=== PATIENT | female | born 1945 | race Caucasian/White ===

== ENCOUNTER → 2024-01-14 | Outpatient (CLI) | payer OTHER, MEDICAID, SELFPAY ==
[2024-01-14 11:19] LABS: Basophils % (Auto) 1 % (0-2.5); Eosinophils # (Auto) 0.1 Thou/mm3 (0.0-0.5); Eosinophils % (Auto) 2 % (0-10); Hemoglobin 13.4 g/dL (12.0-16.0); Immature Granulocytes % (Auto) 0 % (0-0); Immature Granulocytes Auto 0.03 Thou/mm3 (0.00-0.00); Lymphocytes # (Auto) 2.6 Thou/mm3 (1.0-4.8); Lymphocytes % (Auto) 33 % (10-50); Mean Corpuscular HGB Conc 33.5 g/dl (31.0-37.0); Mean Corpuscular Hemoglobin 27.8 pg (25.0-35.0); Mean Corpuscular Volume 83 fL (80-100); Monocytes # (Auto) 0.7 Thou/mm3 (0.0-0.8); Monocytes % (Auto) 9 % (0-12); Neutrophils # (Auto) 4.3 Thou/mm3 (1.8-7.7); Neutrophils % (Auto) 55 % (37-80); Nucleated Red Blood Cell % 0 /100 WBC (0); Platelet Count 368 Thou/mm3 (140-440); RDW Standard Deviation 41.5 fL (36.4-46.3); Red Blood Count 4.82 Miln/mm3 (4.00-5.20); White Blood Count 7.9 Thou/mm3 (3.6-11.0)
[2024-01-14 11:38] LABS: Alanine Aminotransferase 33 U/L (10-49); Albumin, Serum 4.5 gm/dL (3.4-4.8); Albumin/Globulin Ratio 1.9 (1.2-2.2); Alkaline Phosphatase 151 U/L (46-116); Anion Gap 7 (7-16); Aspartate Amino Transferase 23 U/L (0-34); BUN/Creatinine Ratio 21 Ratio (12-20); Bilirubin,Total 0.6 mg/dL (0.3-1.2); Blood Urea Nitrogen 17 mg/dL (9-23); Calcium 10.1 mg/dL (8.3-10.6); Calcium (Corrected) 10.1 mg/dL (8.5-10.1); Carbon Dioxide 24.9 mMol/L (20.0-31.0); Cardiac Risk Estimate 3.4 RATIO (3.7-5.6); Chloride 103 mMol/L (98-107); Cholesterol 247 mg/dL (132-200); Creatinine (Component) 0.8 mg/dL (0.6-1.3); Globulin 2.4 gm/dL (2.3-3.5); Glucose 98 mg/dL (74-106); HDL Cholesterol 73 mg/dL (40-60); LDL Cholesterol,Calculated 144 mg/dL (0-130); Osmolality,Calculated 271 (275-295); Potassium 4.8 mMol/L (3.4-5.1); Sodium 135 mMol/L (136-145); Thyroid Stimulating Hormone 2.51 uIU/mL (0.55-4.78); Total Protein 6.9 gm/dL (5.7-8.2); Triglycerides 152 mg/dL (30-150); eGFR > 60 See Note
[2024-01-14 11:46] LABS: Glucose Estimated Average 117 mg/dL (80-131); Hemoglobin A1C 5.7 % Hgb (4.8-6.0)
[2024-01-14 12:56] LABS: Collection Type, Urine Clean Catch
[2024-01-14 13:21] LABS: Bacteria,Urine Rare; Bilirubin,Urine Negative (Negative); Blood,Urine Negative (Negative); Clarity,Urine Clear (Clear/Hazy); Color,Urine Colorless (Lt Yel-Yel); Glucose, Urine Negative (Negative); Ketones,Urine Negative (Negative); Leukocyte Esterase,Urine Negative (Negative); Nitrite,Urine Negative (Negative); PH,Urine 6.5 (5.0-7.0); Protein,Urine Negative (Neg - Trace); RBC,Urine 1 /hpf (0-3); Specific Gravity,Urine 1.011 (1.001-1.035); Squamous Epithelial Cell,Urine < 1 /hpf (0-5); Urobilinogen,Urine Negative mg/dL (0.0-1.0); WBC,Urine 5 /hpf (0-5)
[2024-01-14 16:47] LABS: RA Screen Negative (Negative)
== END | disposition home or self-care (01) ==
PROVIDERS: PCP Family Medicine; Referring Provider Family Medicine; Visit Provider Family Medicine
DX: Z00.00 Encounter for general adult medical examination without abnormal findings (principal); M25.50 Pain in unspecified joint
CPT/HCPCS: 36415; 80053; 80061; 81001; 83036; 84443; 85025; 86430

== ENCOUNTER → 2024-01-24 | Outpatient (CLI) | payer OTHER, MEDICAID, SELFPAY ==
--- NOTE | 2024-01-24 09:44 | XR_ITS ---
Examination: Shoulder,right, 3 views Technique: Shoulder AP internal rotation, AP external rotation, Y view shoulder, 3 views Exam date and time :January 24, 2024 1020 hours INDICATIONS: Right shoulder pain beginning 3 months ago FINDINGS: Moderate osteopenia Moderate narrowing glenohumeral joint No fracture or shoulder dislocation IMPRESSION: Moderate narrowing glenohumeral joint
== END | disposition home or self-care (01) ==
PROVIDERS: PCP Family Medicine; Referring Provider Family Medicine; Visit Provider Family Medicine
DX: M25.811 Other specified joint disorders, right shoulder (principal)
CPT/HCPCS: 73030

== ENCOUNTER 2024-09-04 05:54 | Inpatient (IN) | payer MEDICARE, MEDICAID, SELFPAY ==
[2024-09-04] VITALS (26 sets, daily range): BP systolic 134–211; BP diastolic 64–99; PULSE 70–82; RESP 15–20; TEMP 36.2–36.8; O2SAT 88–99; BMI 29.6; BMI 34.0
--- NOTE | 2024-09-04 | XR_ITS ---
Examination: MRI thoracic spine, without intravenous contrast. MRI thoracic spine , with intravenous contrast. Exam date and time: September 04, 2024 1255 hours INDICATIONS: Back pain one month, today Technique: Multiple axial, sagittal and coronal images of the thoracic spine have been obtained with the Siemens high-resolution 1.5 Latoya MRI scanner. Images obtained included T2 weighted fat suppressed sagittal sections, TR 3500, TE 46, T2 weighted coronal fat suppressed images, TR 3050, TE 84, T2-weighted transverse fat suppressed images, TR 30-60, TE 63, proton density transverse images, TR 4720, TE 46, and T1 weighted coronal images, TR 560, TE 13. Axial, sagittal and coronal images are obtained post intravenous injection 14 cc gadolinium. Findings: Severe osteopenia Chronic osteoporotic compressions multiple mid to lower dorsal vertebral bodies Diffuse thoracic disc desiccation Mild diffuse thoracic disc narrowing Diffuse abnormal enhancement involving all thoracic vertebral bodies No enhancing epidural tumor impinging upon the thoracic cord No enhancement of the thoracic cord No focal thoracic disc protrusions IMPRESSION: Severe osteopenia Dual mild chronic osteoporotic compressions mid and lower dorsal vertebral bodies Diffuse abnormal enhancement involving all thoracic vertebral body suspicious for osseous metastatic disease Considerable body bone scan and plain film metastatic bone survey follow-up
--- NOTE | 2024-09-04 | XR_ITS ---
Examination: MRI lumbar spine, without intravenous contrast. MRI lumbar spine , with intravenous contrast. Exam date and time: September 04, 2024 12:55 PM INDICATIONS: Lower back pain one month worse today Technique: Multiple axial, sagittal and coronal images of the lumbar spine have been obtained with the Siemens high-resolution 1.5 Latoya MRI scanner. Images obtained included T2 weighted fat suppressed sagittal sections, TR 3500, TE 46, T2 weighted coronal fat suppressed images, TR 3050, TE 84, T2-weighted transverse fat suppressed images, TR 30-60, TE 63, proton density transverse images, TR 4720, TE 46, and T1 weighted coronal images, TR 560, TE 13. Axial, sagittal and coronal images are obtained post intravenous injection 14 cc gadolinium. Findings: Severe osteopenia No lumbar fracture Adequate alignment lumbar vertebral bodies Diffuse lumbar disc desiccation Multiple osteolytic lesions on the precontrast images Postcontrast images demonstrate diffuse abnormal enhancement involving all lumbar vertebral bodies sacral segments and visualized bones of the pelvis No enhancing epidural tumor impinging upon the cauda equina IMPRESSION: Findings most consistent with widespread osseous metastatic disease Considerable body bone scan, metastatic plain film bone survey follow-up
--- NOTE | 2024-09-04 06:22 | XR_ITS ---
Examination: CT abdomen and pelvis without contrast. Coronal 3-D reconstructions. Sagittal 2-D reconstructions. Date and time of exam:September 04, 2024 0710 hours INDICATIONS: Bilateral abdominal pain beginning 2 days ago CTDI: vol (mGy): 9.44 DLP: (mGycm): 554. Technique: Axial images of the abdomen have been obtained, 3 mm slice thickness Intravenous contrast material has not been administered. Low dose protocols were performed. One or more of the following dose reduction techniques were used; automated exposure control, adjustment of the mA and/or KV according to patient size, use of iterative reconstruction technique. Findings: Suspicious for septal edema at the lung bases Retrocardiac gastric hernia. Liver is mildly irregular in contour and enlarged, 18 cm Cholelithiasis, gallbladder wall appears mildly thickened Spleen is not enlarged No pancreatic or adrenal mass No renal or ureteral calculi Significant abdominal lymphadenopathy, periaortic lymph nodes measuring up to 20 mm Heavy calcification abdominal aorta No pericecal inflammatory change Absent uterus No pelvic mass No bladder mass or bladder calculi Prominent osteopenia Moderate to advanced narrowing hip joints IMPRESSION: Suspicious for pulmonary edema at the lung bases, consider follow-up PA chest Moderate hepatomegaly, primary hepatocellular disease Cholelithiasis, recommend hepatobiliary sonography to exclude cholecystitis Significant abdominal lymphadenopathy, differential would include metastatic lymphadenopathy, Hodgkin's disease, non-Hodgkin's lymphoma, consider PET CT scan follow-up No CT findings of appendicitis or bowel obstruction
--- NOTE | 2024-09-04 06:25 | PD.EDRME ---
Rapid Medical Screening Exam RME Arrival date/time: 09/04/24 05:54 79-year-old female presents to the emergency department with complaint of lower back and right flank pain worse with movement Chief Complaint: Back Pain/Injury Vital signs: Vital Signs Temperature 97.7 F 09/04/24 05:58 Pulse Rate 82 09/04/24 05:58 Respiratory Rate 18 09/04/24 05:58 Blood Pressure 171/79 H 09/04/24 05:58 Pulse Oximetry (%) 96 09/04/24 05:58 Oxygen Delivery Method Room Air 09/04/24 05:58
[2024-09-04] MEDS: KETOROLAC INJ 30 MG/ML VIAL IM (06:34)
[2024-09-04 06:54] LABS: Basophils # (Auto) 0.0 Thou/mm3 (0.0-0.2); Basophils % (Auto) 0 % (0-2.5); Eosinophils # (Auto) 0.1 Thou/mm3 (0.0-0.5); Eosinophils % (Auto) 1 % (0-10); Hematocrit 38.9 % (36.0-46.0); Hemoglobin 13.1 g/dL (12.0-16.0); Immature Granulocytes Auto 0.12 Thou/mm3 (0.00-0.00); Lymphocytes # (Auto) 1.6 Thou/mm3 (1.0-4.8); Lymphocytes % (Auto) 15 % (10-50); Mean Corpuscular HGB Conc 33.7 g/dl (31.0-37.0); Mean Corpuscular Hemoglobin 27.9 pg (25.0-35.0); Mean Corpuscular Volume 83 fL (80-100); Monocytes # (Auto) 0.9 Thou/mm3 (0.0-0.8); Monocytes % (Auto) 8 % (0-12); Neutrophils # (Auto) 7.6 Thou/mm3 (1.8-7.7); Neutrophils % (Auto) 74 % (37-80); Nucleated Red Blood Cell # 0.00 Thou/mm3 (0.00-0.00); Nucleated Red Blood Cell % 0 /100 WBC (0); Platelet Count 276 Thou/mm3 (140-440); RDW Standard Deviation 44.0 fL (36.4-46.3); Red Blood Count 4.70 Miln/mm3 (4.00-5.20); White Blood Count 10.2 Thou/mm3 (3.6-11.0)
[2024-09-04 07:09] LABS: Alanine Aminotransferase 21 U/L (10-49); Albumin, Serum 4.3 gm/dL (3.4-4.8); Albumin/Globulin Ratio 1.6 (1.2-2.2); Alkaline Phosphatase 199 U/L (46-116); Anion Gap 11 (7-16); Aspartate Amino Transferase 23 U/L (0-34); BUN/Creatinine Ratio 21 Ratio (12-20); Bilirubin,Total 0.7 mg/dL (0.3-1.2); Blood Urea Nitrogen 17 mg/dL (9-23); Calcium 9.6 mg/dL (8.3-10.6); Calcium (Corrected) 9.6 mg/dL (8.5-10.1); Carbon Dioxide 20.7 mMol/L (20.0-31.0); Chloride 107 mMol/L (98-107); Creatinine (Component) 0.8 mg/dL (0.6-1.3); Estimated Creatinine Clearance 55.3 mL/min (>60); Globulin 2.7 gm/dL (2.3-3.5); Glucose 118 mg/dL (74-106); Lipase 24 U/L (12-53); Osmolality,Calculated 280 (275-295); Potassium 4.3 mMol/L (3.4-5.1); Sodium 139 mMol/L (136-145); Total Protein 7.0 gm/dL (5.7-8.2); eGFR > 60 See Note
[2024-09-04 08:14] LABS: Collection Type, Urine Clean Catch
--- NOTE | 2024-09-04 08:22 | EDNOTE_ITS ---
ED General RME/HPI General Chief complaint: Back Pain/Injury Stated complaint: BILATERAL BACK PAIN Time Seen by Provider: 09/04/24 08:22 Arrival date/time: 09/04/24 05:54 RME / HPI RME / HPI narrative: 09/04/24 05:54 79-year-old female presents to the emergency department with complaint of lower back and right flank pain worse with movement Related Data Allergies Allergy/AdvReac Type Severity Reaction Status Date / Time codeine Allergy Verified 09/04/24 05:56 Review of Systems Review of Systems Systems Reviewed: All systems reviewed, normal except as documented ED Exam Narrative Physical exam: Physical Exam GENERAL: NAD, AAOx3 HEENT: Moist mucosa. Eyes open, symmetrical, & clear CARDIO: Heart RRR, no obvious murmurs PULM: No noted coughing/dyspnea CTA B/L, no R/W/R GI: Abdomen soft, nondistended, no pain on palpation. BSx4 SKIN/MSK/EXT: No wounds/rashes/edema/amputations, no pain on palpation. Pedal pulses present B/L NEURO: AAOx3, no focal neuro deficits, able to move all 4 extremities Course Course Course Narrative: See MDM Quality Measures none Orders Category Date Time Status MRI Screening NOW Care 09/04/24 11:20 Active Consult to Oncology Stat Cons 09/04/24 14:[address] abdomen pelvis wo con Stat Exams 09/04/24 06:22 Completed CXRP [XR chest 1V portable] Stat Exams 09/04/24 08:40 Completed MR lumbar spine wo/w con Stat Exams 09/04/24 Completed MR thoracic spine wo/w con Stat Exams 09/04/24 Completed US gall bladder Stat Exams 09/04/24 08:36 Completed CBC Stat Lab 09/04/24 06:32 Completed Comprehensive Metabolic Panel Stat Lab 09/04/24 06:32 Completed Lipase Stat Lab 09/04/24 06:32 Completed UA, C/S IF [Urinalysis, C/S if Indicated] Stat Lab 09/04/24 08:06 Completed CYCLObenzaPRINE [Flexeril] Med 09/04/24 06:22 Discontinued 10 mg PO X1 ONE Gabapentin [Neurontin] Med 09/04/24 10:55 Discontinued 600 mg PO X1 ONE Ketorolac Inj [Toradol Inj] Med 09/04/24 06:22 Discontinued 30 mg IM X1 ONE LORazepam [Ativan] Med 09/04/24 12:36 Discontinued 1 mg PO X1 ONE Morphine Inj Med 09/04/24 08:27 Discontinued 2 mg IVP X1 ONE Vital Signs Vital signs: Vital Signs Temperature 97.7 F 09/04/24 05:58 Pulse Rate 82 09/04/24 05:58 Respiratory Rate 18 09/04/24 05:58 Blood Pressure 171/79 H 09/04/24 05:58 Pulse Oximetry (%) 96 09/04/24 05:58 Oxygen Delivery Method Room Air 09/04/24 05:58 Discharge Plan Prescriptions/Referrals Referrals: Penelope Francisco MD [Primary Care Provider] - In 1 week Problem List Clinical Impression: Strain of lumbar region Patient/Caregiver Discharge Instructions Additional Instructions: Follow-up with primary care physician within 1 week of discharge. Ask for refe rral to an oncologist with regards to your abdominal CT scan findings of significant abdominal lymphadenopathy that are radiologist said was concerning. Continue your antibiotics for UTI that you are already taking at home Should any symptoms recur or worsen patient is instructed to return to the ER. Print Language: Romanian MDM Narrative MDM hospital course: 79-year-old female with past medical history of arthritis who presented to the ED due to back pain. Patient states that she suddenly woke up around 11:00 at night with sharp shooting back pain rated 10 out of 10. She endorses that last week she had a bladder infection and was taking antibiotics. She also endorses that her belly has been getting distended, she does endorse having regular bowel movements and take stool softeners. Currently no urinary complaints, denies fever, chills, shortness of breath, palpitations, chest pain, recent travel, sick contacts. 0829: CBC unremarkable, CMP unremarkable. CT abdomen pelvis shows Suspicious for pulmonary edema at the lung bases, consider follow-up PA chest, Moderate hepatomegaly, primary hepatocellular disease, Cholelithiasis, recommend hepatobiliary sonography to exclude cholecystitis, Significant abdominal lymphadenopathy, differential would include metastatic lymphadenopathy, Hodgkin's disease, non-Hodgkin's lymphoma, consider PET CT scan follow-up 0837: Gallbladder US ordered, morphine 2mg IVx1 ordered 1042: Gallbladder ultrasound shows cholelithiasis negative for acute cholecystitis, Patient states pain is better when she does not move. If she tries to sit or stand pain gets worse, gabapentin 600mg PO x1 given 1130: MRI thoracic and lumbar spine without contrast ordered, Ativan was given prior to MRI for claustrophobia 1436: Thoracic/lumbar spine MRI shows widespread osseous metastatic disease. Spoke to Dr. Torres radiation oncologist in regards to the patient's intractable pain and recommended admission to establish care. 1438: Spoke to IM team and will come admit the patient. Clinical Information Provided by patient Medical Records Reviewed [facility] Labs/Rad/Tests considered, not Ordered Describe details: Cervical MRI not ordered as pain and symptoms are in the lower regions of the spine Chronic Illness/Social Conditions which may negatively complicate care or outcome(s)-explain: None or not applicable Lab Interpretation Labs: interpreted by ar Lab(s) interpretation(s): UA negative, CMP negative, CBC unremarkable Imaging Radiology reports / interpretation(s): See radiologist report Medication Administration(s) Medication Administration History Discontinued Medications Cyclobenzaprine HCl (Cyclobenzaprine 5 Mg Tablet) 10 mg PO X1 ONE Stop: 09/04/24 06:23 Last Admin: 09/04/24 06:32 Dose: 10 mg Documented By: CVL Gabapentin (Gabapentin 300 Mg Capsule) 600 mg PO X1 ONE Stop: 09/04/24 10:56 Last Admin: 09/04/24 11:50 Dose: 600 mg Documented By: CG Ketorolac Tromethamine (Ketorolac Inj 30 Mg/Ml Vial) 30 mg IM X1 ONE Stop: 09/04/24 06:23 Last Admin: 09/04/24 06:34 Dose: 30 mg Documented By: CVL Lorazepam (Lorazepam 0.5 Mg Tablet) 1 mg PO X1 ONE Stop: 09/04/24 12:37 Last Admin: 09/04/24 12:40 Dose: 1 mg Documented By: CG Morphine Sulfate (Morphine Sulf Inj 10 Mg/Ml Vial) 2 mg IVP X1 ONE Stop: 09/04/24 08:28 Last Admin: 09/04/24 08:55 Dose: 2 mg Documented By: CG See above Diagnosis Differential diagnosis: Lumbar spinal stenosis, radiculopathy, arthritis, psoriatic arthritis
[2024-09-04 08:25] LABS: Bilirubin,Urine Negative (Negative); Blood,Urine Negative (Negative); Clarity,Urine Clear (Clear/Hazy); Color,Urine Yellow (Lt Yel-Yel); Culture Indicated,Urine Not Indicated; Glucose, Urine Negative (Negative); Ketones,Urine Negative (Negative); Leukocyte Esterase,Urine Positive (Negative); Nitrite,Urine Negative (Negative); PH,Urine 6.0 (5.0-7.0); Protein,Urine Trace (Neg - Trace); RBC,Urine 3 /hpf (0-3); Specific Gravity,Urine 1.029 (1.001-1.035); Squamous Epithelial Cell,Urine 1 /hpf (0-5); Urobilinogen,Urine Negative mg/dL (0.0-1.0); WBC,Urine 5 /hpf (0-5)
--- NOTE | 2024-09-04 08:36 | XR_ITS ---
Examination: Abdomen sonogram, Limited Date and time of exam: September 04, 2024 0903 hours INDICATIONS: Onset right upper abdominal pain beginning this morning Technique: Real-time hernandez scale transabdominal sonographic images of the upper abdomen obtained. Findings: 15 mm gallstone. Normal gallbladder wall. Common bile duct 0.6 cm no stones. Pancreatic head 1.9 cm Liver 16.5 cm fatty infiltration Normal hepatopedal portal venous flow Patent IVC IMPRESSION: Cholelithiasis, negative for cholecystitis
--- NOTE | 2024-09-04 08:40 | XR_ITS ---
Examination: AP chest single view Technique one AP portable semiupright chest single view Date and time: September 04, 2024 0844 hours Comparison February 02, 2020 INDICATIONS: Shortness of breath chest pain today. FINDINGS: No significant cardiac enlargement. No lobar pneumonia or pulmonary edema. Mild accentuation bronchovascular markings IMPRESSION: Bronchitis pattern
[2024-09-04] MEDS: MORPHINE SULF INJ 10 MG/ML VIAL 2 MG IVP ×2 (08:55→16:39)
[2024-09-04] MEDS: GABAPENTIN 300 MG CAPSULE 600 MG PO (11:50)
--- NOTE | 2024-09-04 12:36 | PC.NURSE ---
Per Kesha [employer] PROFESSOR order 1mg Ativan po for MRI exam, primary nurse Herrera Burch RN made aware.
--- NOTE | 2024-09-04 15:09 | ESHP_ITS ---
<Statement entered by Denisse Crawley MD - 09/05/24 08:42> Marisol Calvillo is a 79-year-old female with a history of generalized osteoarthritis who presented to the ED on September 04, 2024, with complaints of worsening lower back and bilateral flank pain over the past four months, significantly intensified in recent days. She reports constipation with infrequent bowel movements, difficulty urinating, abdominal distension, small dark stools, and recent episodes of nausea and dry heaving. She was previously seen by her PCP and prescribed nitrofurantoin for a suspected UTI, though she denied dysuria and was unable to tolerate the medication. She also received milk of magnesia, which provided some relief. She has a remote history of hemorrhoids and believes they may be contributing to her current bowel symptoms. She denies fever, chills, chest pain, or respiratory symptoms. Imaging revealed multiple enhancing osteolytic lesions throughout the thoracic and lumbar spine, sacrum, and pelvis, concerning for metastatic disease. Additional findings include significant abdominal lymphadenopathy, mild hepatomegaly with fatty infiltration, retrocardiac gastric hernia, and prominent osteopenia. Given the concern for malignancy, a GI consult was obtained and colonoscopy is pending, with possible GI origin suspected due to family history of colon cancer. She was admitted for further workup and pain management. Her current regimen includes acetaminophen, [place], and IV morphine as needed. She remains NPO in preparation for colonoscopy and is receiving DVT and GI prophylaxis. Her code status is routine. Case was discussed with attending physician. Denisse Crawley DO PGY II This document was transcribed using voice recognition technology. Minor inaccuracies may be present. Documentation for date of: 09/04/24 HPI History of Present Illness History of present illness: 79-year-old female with PMHx of generalized osteoarthritispresented to the ED on 09/04/2024 with complaint of lower back and b/l flank pain worse with movement. Cathi is right above her bottoms on both sides. The pain has been going on for 4mo and has been worsening especially during the past few days. Patient has been constipated with infrequent BM and experiencing difficulty urinating. PCP visit 1 week ago and patient was given nitrofurantoin for UTI, though she has not had dysuria. Patient states that the choice ABx doesnt sit on her and she throws it up. Pt was also given milk of magnesia which has helped her constipation. She also endorses that her belly has been getting distended, over the course of the past week. States that her stools are small and darkly colored. Admits to nausea and vomited before coming to ED (although dry heaves). Pt states that she has had hemorrhoids, which bled in the distant past. Patient suggests that engorged hemorrhoids are blocking the passage of stool. Currently no urinary complaints, denies fever, chills, shortness of breath, palpitations, chest pain, recent travel, sick contacts. Allergies: codeine -makes her vomit PMHx: osteoarthritis of hands, knees, and hips. PSHx: hysterectomy, femoral bone removed in remote past. FHx: grandmother had colon cancer SHx: denies smoking cigarettes, marijuana, or other drug use. Denies drinking alcohol. Reason for Admission: Imaging was remarkable for widespread enhancing lesions of multiple vertebrae. Pt was admitted for work up of possible metastaic disease and pain managment. Exam Vital Signs Temp Pulse Resp BP Pulse Ox O2 Del Method 97.1 F 79 15 185/75 H 98 Room Air 09/04/24 14:52 09/04/24 14:52 09/04/24 14:52 09/04/24 14:52 09/04/24 14:52 09/04/24 14:52 Narrative Exam GENERAL: NAD, AAOx3 HEENT: Moist mucosa. Eyes open, symmetrical, & clear CARDIO: Heart RRR, no obvious murmurs PULM: No noted coughing/dyspnea CTA B/L, no R/W/R GI: Abdomen soft, distended, tender to deep palpation RUQ. BSx4 diminished. Percussion dull throughout. SKIN/MSK/EXT: No wounds/rashes/edema/amputations, no pain on palpation. Pedal pulses present B/L NEURO: AAOx3, no focal neuro deficits, able to move all 4 extremities Results: Labs 09/05/24 04:58 09/05/24 04:58 Labs: Short CBC 09/04/24 Range/Units 06:32 WBC 10.2 (3.6-11.0) Thou/mm3 Hgb 13.1 (12.0-16.0) g/dL Hct 38.9 (36.0-46.0) % Plt Count 276 (140-440) Thou/mm3 BMP 09/04/24 06:32 Sodium 139 Potassium 4.3 Chloride 107 Carbon Dioxide 20.7 BUN 17 Creatinine 0.8 Glucose 118 H Calcium 9.6 Liver Function 09/04/24 Range/Units 06:32 Total Bilirubin 0.7 (0.3-1.2) mg/dL AST 23 (0-34) U/L ALT 21 (10-49) U/L Alkaline Phosphatase 199 H (46-116) U/L Albumin 4.3 (3.4-4.8) gm/dL Urine 09/04/24 Range/Units 08:06 Urine Color Yellow (Lt Yel-Yel) Urine Clarity Clear (Clear/Hazy) Urine pH 6.0 (5.0-7.0) Ur Specific [place] 1.029 (1.001-1.035) Urine Protein Trace (Neg - Trace) Urine Glucose (UA) Negative (Negative) Quality Measures Quality Measures none Advance care planning discussed with:: patient Medications Home Medications and Allergies Home Medications ?Medication ?Instructions ?Recorded ?Confirmed ?Type nitrofurantoin macrocrystal 100 mg 100 mg PO BID 09/0409/04/24 History capsule Allergies Allergy/AdvReac Type Severity Reaction Status Date / Time codeine Allergy Verified 09/04/24 05:56 Visit Medications Discontinued Medications Cyclobenzaprine HCl (Cyclobenzaprine 5 Mg Tablet) 10 mg PO X1 ONE Stop: 09/04/24 06:23 Last Admin: 09/04/24 06:32 Dose: 10 mg Gabapentin (Gabapentin 300 Mg Capsule) 600 mg PO X1 ONE Stop: 09/04/24 10:56 Last Admin: 09/04/24 11:50 Dose: 600 mg Ketorolac Tromethamine (Ketorolac Inj 30 Mg/Ml Vial) 30 mg IM X1 ONE Stop: 09/04/24 06:23 Last Admin: 09/04/24 06:34 Dose: 30 mg Labetalol HCl (Labetalol Inj 5 Mg/Ml Vial 20 Ml) 10 mg IVP X1 ONE Stop: 09/04/24 15:08 Lorazepam (Lorazepam 0.5 Mg Tablet) 1 mg PO X1 ONE Stop: 09/04/24 12:37 Last Admin: 09/04/24 12:40 Dose: 1 mg Morphine Sulfate (Morphine Sulf Inj 10 Mg/Ml Vial) 2 mg IVP X1 ONE Stop: 09/04/24 08:28 Last Admin: 09/04/24 08:55 Dose: 2 mg Assessment & Plan Plan 79-year-old female with PMHx of arthritis presented to the ED on 09/04/2024 with complaint of lower back and right flank pain worse with movement. Imaging was remarkable for widespread enhancing lesions of multiple vertebrae. Pt was admitted for work up of possible metastaic disease and pain managment. 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 No lumbar fracture. Multiple osteolytic lesions on the precontrast images. Postcontrast images demonstrate diffuse abnormal enhancement involving all lumbar vertebral bodies, sacral segments, and visualized bones of the pelvis. Lumbar spine MRI: Diffuse abnormal enhancement involving all thoracic vertebral bodies. CTAP: Retrocardiac gastric hernia. Liver is mildly irregular in contour and enlarged, 18 cm. No renal or ureteral calculi. Significant abdominal lymphadenopathy, periaortic lymph nodes measuring up to 20mm. Heavy calcification abdominal aorta. Absent uterus. Prominent osteopenia. US of gallbladder: 15 mm gallstone. Normal gallbladder wall. Common bile duct 0.6 cm no stones. Pancreatic head 1.9 cm. Liver 16.5 cm fatty infiltration. Normal hepatopedal portal venous flow. Patent IVC Plan: Likely primary source GI; pending colonoscopy. Rad-Onc consulted. Acetaminophen 325mg Q6h PRN for mild pain [place] 5/325 for moderate pain Morphine IV 2mg Q4h PRN for severe pain #Constipation #hemorrhoids Ddx: consider partial SBO PE findings of marked abdominal distension, dull percussion and diminished bowel sounds throughout. Patient states that she has been having small BM which are darkly colored. GI consulted. Plan: patient drinks GoLytely in preparation for colonscopy tonight. #Arthritis #hx of UTI Patient completed course of ABx for previous infection. Urine negative for bacteria, WBC, ketones, or nitrites. Health Maintenance: Disposition: Med Surg Diet: NPO PPx DVT: heparin 5000u bid PPx GI: Protonix 40mg bid Code status: Routine This case was discussed with my attending physician, Dr. Rodriguez, and senior resident Dr Crawley. Chayo Sibley, DO PGY I Attending Provider Attestation/Addendum Patient was seen in the ER bed #1. She was accompanied by her friend who is very concerned about her. Patient is very active she used to be playing with her dogs with her friend. The patient normally is not complaining of anything. She complained of abdominal pain. She has back pain. Patient was diagnosed with spinal osseous metastatic disease. Her friend also noted that her abdomen is very distended which is not normal for her. She has history of UTI, arthritis, hemorrhoids and constipation. Patient will be referred for oncology evaluation. Discussed with housestaff
[2024-09-04] MEDS: LABETALOL INJ 5 MG/ML VIAL 20 ML 10 MG IVP (16:36)
[2024-09-04] MEDS: NA SU/NAHCO3/KC/PEG (Golytely) 4,000 ML BTL 4000 ML PO (16:56)
--- NOTE | 2024-09-04 18:29 | ESCONSULT_ITS ---
HPI Data of Consult Consult date: 09/04/24 Requesting Physician: Jj Rodriguez MD Primary Care Provider: Penelope Francisco MD Consult Narrative Reason for consult: Suspected widespread malignancy History of present illness: 79-year-old lady with symptoms of back pain increasing in severity for the past few days, associate with increasing constipation and difficulty urinating. Patient may be passing blood tinged stools but does have hemorrhoids. Had TL MRI along with abdominal CT today at the ER. This revealed diffuse abnormal enhancement of all the thoracic lumbar vertebral body consistent with mets disease. Abdominal pelvic scan suspicious for pulmonary edema at lung bases moderate hepatomegaly primary hepatocellular disease cholelithiasis, and significant abdominal lymphadenopathy up to 20 mm para-aortic lymph node area. Labs reveals unremarkable CBC with 10.2 WBC hemoglobin 13.1 platelets 2 76,000. CMP reveals moderately elevated alk phos of 199. Patient now referred for oncological consultation. 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 Meds Home Medications and Allergies Allergies Allergy/AdvReac Type Severity Reaction Status Date / Time codeine Allergy Verified 09/04/24 05:56 Exam Vital Signs Temp Pulse Resp BP Pulse Ox O2 Del Method 97.3 F 81 16 154/83 H 97 Room Air 09/04/24 16:08 09/04/24 16:36 09/04/24 16:08 09/04/24 17:30 09/04/24 17:30 09/04/24 16:08 Narrative Exam Appears tired in no acute distress answering questions well Results Labs 09/04/24 06:32 09/04/24 06:32 Labs: Short CBC 09/04/24 Range/Units 06:32 WBC 10.2 (3.6-11.0) Thou/mm3 Hgb 13.1 (12.0-16.0) g/dL Hct 38.9 (36.0-46.0) % Plt Count 276 (140-440) Thou/mm3 BMP 09/04/24 06:32 Sodium 139 Potassium 4.3 Chloride 107 Carbon Dioxide 20.7 BUN 17 Creatinine 0.8 Glucose 118 H Calcium 9.6 Liver Function 09/04/24 Range/Units 06:32 Total Bilirubin 0.7 (0.3-1.2) mg/dL AST 23 (0-34) U/L ALT 21 (10-49) U/L Alkaline Phosphatase 199 H (46-116) U/L Albumin 4.3 (3.4-4.8) gm/dL Urine 09/04/24 Range/Units 08:06 Urine Color Yellow (Lt Yel-Yel) Urine Clarity Clear (Clear/Hazy) Urine pH 6.0 (5.0-7.0) Ur Specific [place] 1.029 (1.001-1.035) Urine Protein Trace (Neg - Trace) Urine Glucose (UA) Negative (Negative) Assessment and Plan Additional Assessment & Plan Additional Plan: 1. Widespread bony mets noted in TL spine, with significant abdominal lymphadenopathy, up to 20 mm in para-aortic area. 2. Dr. Mclean GI specialist scheduled to see patient, likely perform endoscopy procedures, with patient having GI symptoms. 3. Would consider CT-guided biopsy of the large periaortic node if no other biopsiable suspicious area noted during hospital stay. 4. Would get bone scan, tumor markers CEA CA125 CA 19?9 during hospital stay. 5. Will follow. Thank you for allowing me to evaluate this patient
--- NOTE | 2024-09-04 19:46 | PD.IMCONS ---
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 and said she needs to go to the emergency room because she has abdominal pain and discomfort and has not been feeling well according to the friends for the last 4 months but she ignored her symptoms Today the pain was much worse she came into the emergency room where CT scan of the abdomen pelvis showed hepatomegaly and cholelithiasis significant abdominal lymphadenopathy and pelvic lymphadenopathy And imaging studies of the MRI of the back thoracic and lumbar spines also also metastatic disease to the bone Gallbladder ultrasound shows cholelithiasis single 15 mm stone I have been consulted cc:: cc: Jj Rodriguez MD Review of Systems Review of Systems Systems Reviewed: All systems reviewed, normal except as documented Past Medical History Surgical History OTHER SURGICAL HX: Recent UTI taking nitrofurantoin Meds Home Medications and Allergies Home Medications ?Medication ?Instructions ?Recorded ?Confirmed ?Type nitrofurantoin macrocrystal 100 mg 100 mg PO BID 09/04/24 09/04/24 History capsule Allergies Allergy/AdvReac Type Severity Reaction Status Date / Time codeine Allergy Verified 09/04/24 05:56 Exam Vital Signs Temp Pulse Resp BP Pulse Ox O2 Del Method 98.3 F 70 18 142/69 H 98 Room Air 09/04/24 18:32 09/04/24 18:32 09/04/24 18:32 09/04/24 18:32 09/04/24 18:32 09/04/24 18:32 Constitutional Comments: Alert oriented Routine Respiratory Exam Comments: Normal to auscultation Routine Abdominal Exam Comments: Soft nontender Results Labs 09/04/24 06:32 09/04/24 06:32 Labs: Short CBC 09/04/24 Range/Units 06:32 WBC 10.2 (3.6-11.0) Thou/mm3 Hgb 13.1 (12.0-16.0) g/dL Hct 38.9 (36.0-46.0) % Plt Count 276 (140-440) Thou/mm3 BMP 09/04/24 06:32 Sodium 139 Potassium 4.3 Chloride 107 Carbon Dioxide 20.7 BUN 17 Creatinine 0.8 Glucose 118 H Calcium 9.6 Liver Function 09/04/24 Range/Units 06:32 Total Bilirubin 0.7 (0.3-1.2) mg/dL AST 23 (0-34) U/L ALT 21 (10-49) U/L Alkaline Phosphatase 199 H (46-116) U/L Albumin 4.3 (3.4-4.8) gm/dL Urine 09/04/24 Range/Units 08:06 Urine Color Yellow (Lt Yel-Yel) Urine Clarity Clear (Clear/Hazy) Urine pH 6.0 (5.0-7.0) Ur Specific [place] 1.029 (1.001-1.035) Urine Protein Trace (Neg - Trace) Urine Glucose (UA) Negative (Negative) Assessment and Plan Additional Assessment & Plan Additional Plan: 79 years of female with abnormal CTAP showing abdominal pelvic lymphadenopathy and metastatic disease to the bones Certainly primary of an unknown origin Suggestions Tumor markers CEA level AFP CA 19?9 level CA 15-3 CA 125 Consent obtained for fiberoptic esophagogastroduodenoscopy and fiberoptic colonoscopy with possible biopsy possible therapeutic intervention under intravenous moderate sedation after GoLytely prep Met with the friends who would like her children I and spoke with them honestly about patient's condition with patient's permission And her daughter is on her way from home I will speak to her tomorrow I will follow the patient with you GoLytely prep to continue Clear liquid diet Thank you very much for the opportunity to participate in care of this If the colonoscopy and upper endoscopy is clean recommend CT-guided biopsy of one of the lymph nodes or a bone marrow biopsy and aspirate
--- NOTE | 2024-09-04 19:50 | PC.NURSE ---
Dr. Mclean arrived on unit to see patient. Consent was obtained from both Dr. Mclean and patient for Patient's scheduled colonoscopy tomorrow. Educated both patient and the supervisor specialty plant at bedside about golytle and the reason for giving it to the patient. Patient and caregiver verbalized understanding.
--- NOTE | 2024-09-04 19:56 | PD.ADDCONS ---
Addendum Consultation Addendum Date of report being addended: 09/04/24 Narrative: I have also ordered prothrombin time INR and PTT for his CT-guided biopsy of one of the lymph nodes in the region of the abdominal pelvis which ever is more accessible by IR
[2024-09-04] MEDS: HEPARIN SOD INJ 5000 UNIT/ML VIAL SC (20:41)
[2024-09-04] MEDS: HYDROcodone/APAP 5/325 TABLET 1 TAB PO (20:41)
[2024-09-04 21:37] LABS: INR 1.1 (0.9-1.3); Partial Thromboplastin Time 32.1 Seconds (22.0-36.0); Prothrombin Time 11.8 Seconds (9.0-12.2)
[2024-09-04] MEDS: LIDOCAINE 5% 1 PATCH TOP (21:55)
[2024-09-04] MEDS: MG HYD/AL HYD/SIME (Maalox Reg) SUSP 30 ML UDC PO (21:55)
[2024-09-04] MEDS: MORPHINE SULF INJ 10 MG/ML VIAL IVP (21:55)
[2024-09-04 22:50] LABS: Hematocrit 36.9 % (36.0-46.0); Hemoglobin 12.9 g/dL (12.0-16.0)
[2024-09-04 23:44] LABS: AFP Non-Pregnant 3.30 ng/mL (<8.10); CA 125 8.0 U/mL (<30.2); CA 15-3 27.4 U/mL (<32.4); Carcinoembryonic Antigen 95.7 ng/mL (0.0-5.0)
[2024-09-05] VITALS: BP 150/87; PULSE 76; RESP 18; TEMP 36.3; O2SAT 96
[2024-09-05] MEDS: MORPHINE SULF INJ 10 MG/ML VIAL IVP ×3 (02:51→17:21)
--- NOTE | 2024-09-05 03:14 | XR_ITS ---
Examination: Abdomen AP single view Technique: AP portable supine abdomen, single view Exam date and time: September 05, 2024 0331 hours INDICATIONS: Abdominal distention today FINDINGS: Moderate stool throughout the colon There are air distended small bowel loops in the left abdomen No free air Severe osteopenia Moderate to advanced bilateral hip osteoarthritis IMPRESSION: Small bowel ileus
[2024-09-05 04:00] VITALS: BP 163/89; PULSE 79; RESP 19; TEMP 36.2; O2SAT 96
[2024-09-05] MEDS: ONDANSETRON INJ 2 MG/ML INJ 2 ML 4 MG IVP ×2 (04:27→13:09)
[2024-09-05] MEDS: HYDROcodone/APAP 5/325 TABLET 1 TAB PO ×3 (04:28→13:07)
[2024-09-05 06:25] LABS: Basophils # (Auto) 0.0 Thou/mm3 (0.0-0.2); Basophils % (Auto) 0 % (0-2.5); Eosinophils # (Auto) 0.0 Thou/mm3 (0.0-0.5); Eosinophils % (Auto) 0 % (0-10); Hematocrit 37.4 % (36.0-46.0); Hemoglobin 12.8 g/dL (12.0-16.0); Immature Granulocytes Auto 0.07 Thou/mm3 (0.00-0.00); Lymphocytes # (Auto) 1.6 Thou/mm3 (1.0-4.8); Lymphocytes % (Auto) 14 % (10-50); Mean Corpuscular HGB Conc 34.2 g/dl (31.0-37.0); Mean Corpuscular Hemoglobin 27.6 pg (25.0-35.0); Mean Corpuscular Volume 81 fL (80-100); Monocytes # (Auto) 1.3 Thou/mm3 (0.0-0.8); Monocytes % (Auto) 11 % (0-12); Neutrophils # (Auto) 8.5 Thou/mm3 (1.8-7.7); Neutrophils % (Auto) 74 % (37-80); Nucleated Red Blood Cell # 0.00 Thou/mm3 (0.00-0.00); Nucleated Red Blood Cell % 0 /100 WBC (0); Platelet Count 241 Thou/mm3 (140-440); RDW Standard Deviation 43.0 fL (36.4-46.3); Red Blood Count 4.64 Miln/mm3 (4.00-5.20); White Blood Count 11.5 Thou/mm3 (3.6-11.0)
[2024-09-05 06:49] LABS: Alanine Aminotransferase 18 U/L (10-49); Albumin, Serum 4.1 gm/dL (3.4-4.8); Albumin/Globulin Ratio 1.6 (1.2-2.2); Alkaline Phosphatase 198 U/L (46-116); Anion Gap 11 (7-16); Aspartate Amino Transferase 21 U/L (0-34); BUN/Creatinine Ratio 17 Ratio (12-20); Bilirubin,Total 1.0 mg/dL (0.3-1.2); Blood Urea Nitrogen 10 mg/dL (9-23); Calcium 9.5 mg/dL (8.3-10.6); Calcium (Corrected) 9.5 mg/dL (8.5-10.1); Carbon Dioxide 27.5 mMol/L (20.0-31.0); Chloride 100 mMol/L (98-107); Creatinine (Component) 0.6 mg/dL (0.6-1.3); Estimated Creatinine Clearance 79.0 mL/min (>60); Globulin 2.6 gm/dL (2.3-3.5); Glucose 117 mg/dL (74-106); Magnesium 2.0 mg/dL (1.6-2.6); Osmolality,Calculated 275 (275-295); Phosphorous 3.2 mg/dL (2.4-5.1); Potassium 3.9 mMol/L (3.4-5.1); Sodium 138 mMol/L (136-145); Total Protein 6.7 gm/dL (5.7-8.2); eGFR > 60 See Note
[2024-09-05 07:55] LABS: INR 1.1 (0.9-1.3); Prothrombin Time 11.5 Seconds (9.0-12.2)
[2024-09-05 08:00] VITALS: BP 137/86; PULSE 79; RESP 18; TEMP 36.3; O2SAT 97
--- NOTE | 2024-09-05 08:50 | PD.RESEVENT ---
Documentation for date of: 09/05/24 Event Note Event Note: The patient expressed a desire to change her code status to FULL CODE. After a detailed discussion regarding her current medical condition, prognosis, and the implications of resuscitative efforts, she affirmed her wish to pursue all life-sustaining measures, including CPR and intubation if necessary. Her code status has been updated accordingly in the medical record. Case was discussed with attending physician. Denisse Crawley, PGY II This document was transcribed using voice recognition technology. Minor inaccuracies may be present.
[2024-09-05] MEDS: HEPARIN SOD INJ 5000 UNIT/ML VIAL SC (08:56)
[2024-09-05 09:45] LABS: Free T4 (Free Thyroxine) 1.36 ng/dL (0.89-1.76); Thyroid Stimulating Hormone 3.20 uIU/mL (0.55-4.78)
[2024-09-05 09:58] LABS: CA 125 8.0 U/mL (<30.2); CA 15-3 27.7 U/mL (<32.4); Carcinoembryonic Antigen 145.0 ng/mL (0.0-5.0)
--- NOTE | 2024-09-05 11:49 | XR_ITS ---
Examination: Metastatic bone series 17 views TECHNIQUE: AP chest, AP pelvis, right and left femur, right and left tibia-fibula, Andrew skull, right and left humerus, right and left forearm, right and left humerus, lateral skull, lateral cervical, lateral thoracic, lateral lumbar spine 17 views Date and time: September 05, 2024 1214 hours INDICATIONS: Back pain one month, diffuse abnormal enhancement involving all thoracic vertebral bodies on MR thoracic spine September 04, 2024 FINDINGS: Normal heart size Minor atelectasis left base Advanced right hip osteoarthritis No visualized osteolytic lesions in bones of the extremities Atrophic left fibula Cranial vault intact No vertebral body compression fractures IMPRESSION: No findings diagnostic for osseous metastatic disease Recommend whole body bone scan follow-up
[2024-09-05 12:00] VITALS: BP 142/71; PULSE 84; RESP 18; TEMP 36.1; O2SAT 94
--- NOTE | 2024-09-05 13:56 | XR_ITS ---
Examination: Abdomen AP single view Technique: AP portable supine abdomen, single view Exam date and time: September 05, 2024 1400 hours INDICATIONS: Abdominal distention today. FINDINGS: Mild to moderate colonic ileus No obstruction No free air IMPRESSION: Mild to moderate colonic ileus
--- NOTE | 2024-09-05 15:10 | PC.NURSE ---
Report given to Endo nurse Emi.
--- NOTE | 2024-09-05 15:30 | PC.NURSE ---
Called Dr. Mclean and left message regarding order for CT guided biopsy abd/pelvis, spoke with Shaka in [place] and stated order was input incorrectly.
[2024-09-05 16:00] VITALS: BP 147/64; PULSE 84; RESP 18; TEMP 36.2; O2SAT 94
--- NOTE | 2024-09-05 18:49 | PD.RESPRO ---
Documentation for date of: 09/05/24 Subjective Subjective Interval history: Patient was seen and examined at bedside. No acute events took place overnight. Patient had been drinking GoLytely in preparation for colonsocopy later; however, patient has not had a bowel movement yet. States that last BM was more than 5 days ago. Admits to urinating and passing gas. Abdominal distension is worse. Pain is controlled with Dilaudid and [place] PRN. Fleet enema did not help with relieving the impaction. Pt on NG tube decompression and awaiting flexible sigmoidoscopy by GI Dr Mclean later in the day. Exam Vital Signs Temp Pulse Resp BP Pulse Ox O2 Del Method O2 Flow Rate 97.1 F 84 18 147/64 H 94 L Nasal Cannula 3 09/05/24 16:00 09/05/24 16:00 09/05/24 16:00 09/05/24 16:00 09/05/24 16:00 09/05/24 16:00 09/05/24 16:00 Narrative Exam GENERAL: NAD, A&Ox3 HEENT: Moist mucosa. Eyes open, symmetrical, & clear CARDIO: Heart RRR, no obvious murmurs PULM: No noted coughing/dyspnea CTA B/L, no R/W/R GI: Abdomen soft, greatly distended, tender to deep palpation RUQ. BSx4 diminished. Percussion dull throughout. SKIN/MSK/EXT: No wounds/rashes/edema/amputations, no pain on palpation. Pedal pulses present B/L NEURO: AAOx3, no focal neuro deficits, able to move all 4 extremities Objective Labs 09/06/24 05:05 09/06/24 05:05 Labs: Laboratory Results - last 24 hr 09/04/24 09/04/24 09/05/24 20:43 22:34 04:58 WBC 11.5 H RBC 4.64 Hgb 12.9 12.8 Hct 36.9 37.4 MCV 81 MCH 27.6 MCHC 34.2 RDW Std Deviation 43.0 Plt Count 241 D Neut % (Auto) 74 Lymph % (Auto) 14 [place] % (Auto) 11 Eos % (Auto) 0 Baso % (Auto) 0 Neut # (Auto) 8.5 H Lymph # (Auto) 1.6 [place] # (Auto) 1.3 H Eos # (Auto) 0.0 Baso # (Auto) 0.0 Immature Gran # (Auto) 0.07 H Absolute Nucleated RBC 0.00 Immature Gran % 1 H Nucleated RBC % 0 PT 11.8 11.5 INR 1.1 1.1 APTT 32.1 Sodium 138 Potassium 3.9 Chloride 100 Carbon Dioxide 27.5 Anion Gap 11 BUN 10 Creatinine 0.6 Estim Creat Clear Calc 79.0 eGFR > 60 BUN/Creatinine Ratio 17 Glucose 117 H Calculated Osmolality 275 Calcium 9.5 Corrected Calcium 9.5 Phosphorus 3.2 Magnesium 2.0 Total Bilirubin 1.0 AST 21 ALT 18 Alkaline Phosphatase 198 H Total Protein 6.7 Albumin 4.1 Globulin 2.6 Albumin/Globulin Ratio 1.6 Tumor Marker AFP 3.30 Carcinoembryonic Ag 95.7 H 145.0 H CA 15-3 Antigen 27.4 27.7 CA 125 Antigen 8.0 8.0 TSH 3.20 Free T4 09/05/24 09/05/24 04:58 04:58 WBC RBC Hgb Hct MCV MCH MCHC RDW Std Deviation Plt Count Neut % (Auto) Lymph % (Auto) [place] % (Auto) Eos % (Auto) Baso % (Auto) Neut # (Auto) Lymph # (Auto) [place] # (Auto) Eos # (Auto) Baso # (Auto) Immature Gran # (Auto) Absolute Nucleated RBC Immature Gran % Nucleated RBC % PT INR APTT Sodium Potassium Chloride Carbon Dioxide Anion Gap BUN Creatinine Estim Creat Clear Calc eGFR BUN/Creatinine Ratio Glucose Calculated Osmolality Calcium Corrected Calcium Phosphorus Magnesium Total Bilirubin AST ALT Alkaline Phosphatase Total Protein Albumin Globulin Albumin/Globulin Ratio Tumor Marker AFP Carcinoembryonic Ag CA 15-3 Antigen CA 125 Antigen TSH Cancelled Free T4 1.36 Cancelled Quality Measures Quality Measures none Advance care planning discussed with:: patient Assessment & Plan Assessment Current Active Medications: Generic Name Dose Route Start Last Admin Trade Name Freq PRN Reason Stop Dose Admin Acetaminophen 650 mg 09/04/24 15:50 Acetaminophen 325 Mg Tablet PO 10/04/24 15:49 Q6H PRN PAIN SCALE 1-3 (mild Hydrocodone Bitart/Acetaminophen 1 tab 09/04/24 16:51 09/05/24 13:07 Hydrocodone/Apap 5/325 Tablet PO 09/09/24 16:50 1 tab Q4H PRN Administration PAIN SCALE 4-6 (Moderate Heparin Sodium (Porcine) 5,000 unit 09/04/24 21:00 09/05/24 08:56 Heparin Sod Inj 5000 Unit/Ml Vial SC 09/18/24 20:59 5,000 unit BID CLAUDE Administration Morphine Sulfate 1 mg 09/04/24 21:43 09/05/24 17:21 Morphine Sulf Inj 10 Mg/Ml Vial IVP 09/09/24 21:42 1 mg Q4HR PRN Administration Pain 7-10 Ondansetron HCl 4 mg 09/05/24 04:14 09/05/24 13:09 Ondansetron Inj 2 Mg/Ml Inj 2 Ml IVP 10/05/24 04:13 4 mg Q6HR PRN Administration NAUSEA OR VOMITING Protocol Plan 79-year-old female with PMHx of arthritis presented to the ED on 09/04/2024 with complaint of lower back and right flank pain worse with movement. Imaging was remarkable for widespread enhancing lesions of multiple vertebrae. Pt was admitted for work up of possible metastaic disease and pain managment. 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 No lumbar fracture. Multiple osteolytic lesions on the precontrast images. Postcontrast images demonstrate diffuse abnormal enhancement involving all lumbar vertebral bodies, sacral segments, and visualized bones of the pelvis. Lumbar spine MRI: Diffuse abnormal enhancement involving all thoracic vertebral bodies. CTAP: Retrocardiac gastric hernia. Liver is mildly irregular in contour and enlarged, 18 cm. No renal or ureteral calculi. Significant abdominal lymphadenopathy, periaortic lymph nodes measuring up to 20mm. Heavy calcification abdominal aorta. Absent uterus. Prominent osteopenia. US of gallbladder: 15 mm gallstone. Normal gallbladder wall. Common bile duct 0.6 cm no stones. Pancreatic head 1.9 cm. Liver 16.5 cm fatty infiltration. Normal hepatopedal portal venous flow. Patent IVC GI Dr Mclean did TOSHA in the face of non-improving impaction and unproductive fleet enema. He suspects large obstructive mass in sari-anal area. Pending flexible sigmoidoscopy as advised by GI. Plan: Likely primary source GI; pending EGD and colonoscopy. Rad-Onc consulted. pending CT-guided biopsy of the large periaortic node ordered bone scan, tumor markers CEA, CA-125, CA 19-9 Acetaminophen 325mg Q6h PRN for mild pain [place] 5/325 for moderate pain Morphine IV 2mg Q4h PRN for severe pain #Constipation #hemorrhoids Ddx: ileus vs partial SBO PE findings of marked abdominal distension, dull percussion and diminished bowel sounds throughout. Patient states that she has been having small BM which are darkly colored. GI consulted. Patient took in GoLytely for bowel prep, but was unable to stimulate a BM. Abdomen is distended with excessive stool burden. X-ray of abdomen: small bowel and colon ileus with moderate stool throughout the colon. No obstruction. GI Dr Mclean did TOSHA in the face of non-improving impaction and unproductive fleet enema. He suspects large obstructive mass in sari-anal area; will proceed with sigmoidoscopy. Surgery on board: If endoscopy confirms presence of an obstructive tumor, patient will likely require exploratory laparotomy with a diverting colostomy. She will then require chemo and radiation after which she will be reevaluated for possible definitive resection if the tumor is resectable. Plan: Pending flexible sigmoidoscopy as advised by GI. pending colonoscopy, #Arthritis #hx of UTI Patient completed course of ABx for previous infection. Urine negative for bacteria, WBC, ketones, or nitrites. Health Maintenance: Disposition: Med Surg Diet: NPO PPx DVT: heparin 5000u bid PPx GI: Protonix 40mg bid Code status: Routine This case was discussed with my attending physician, Dr. Rodriguez, and senior resident Dr Crawley. Chayo Sibley, DO PGY I Attending Provider Attestation/Addendum I attest that I was physically present for the evaluation, physical examination, lab and imaging review of the patient with the residents. I discussed the case with the residents and agree with the findings and plans of care as documented above. At bedside today, patient appears in mild distress from back pain and abdominal discomfort. Patient was started on GoLytely preparation for colonoscopy, but patient was not able to have a bowel movement, and stated she started having abdominal distention and worsening pain. Patient also received an enema, still did not have bowel movement. With worsening discomfort, NG tube was placed for decompression. We will await further recommendation from GI. Continues to be on analgesics regimen. Patient is also planned for CT-guided biopsy of periaortic node with radiology we will also obtain bone scan as recommended by oncology.. Francine Anderson MD
[2024-09-05 20:00] VITALS: BP 169/79; PULSE 102; RESP 20; TEMP 36.6; O2SAT 99
--- NOTE | 2024-09-05 20:08 | PD.IMPROG ---
Documentation for date of: 09/05/24 Subjective Subjective Interval history: Patient did not tolerate the GoLytely very well abdominal distention Did have small bowel movements Fleet enema did not work very well either Plan is to hold off GoLytely later some bowel movements Then at some point restart the GoLytely so we can do the upper endoscopy and colonoscopy Exam Vital Signs Temp Pulse Resp BP Pulse Ox O2 Del Method O2 Flow Rate 97.1 F 84 18 147/64 H 94 L Nasal Cannula 3 09/05/24 16:00 09/05/24 16:00 09/05/24 16:00 09/05/24 16:00 09/05/24 16:00 09/05/24 16:00 09/05/24 16:00 Objective Labs 09/05/24 04:58 09/05/24 04:58 Labs: Laboratory Results - last 24 hr 09/04/24 09/04/24 09/05/24 20:43 22:34 04:58 WBC 11.5 H RBC 4.64 Hgb 12.9 12.8 Hct 36.9 37.4 MCV 81 MCH 27.6 MCHC 34.2 RDW Std Deviation 43.0 Plt Count 241 D Neut % (Auto) 74 Lymph % (Auto) 14 [place] % (Auto) 11 Eos % (Auto) 0 Baso % (Auto) 0 Neut # (Auto) 8.5 H Lymph # (Auto) 1.6 [place] # (Auto) 1.3 H Eos # (Auto) 0.0 Baso # (Auto) 0.0 Immature Gran # (Auto) 0.07 H Absolute Nucleated RBC 0.00 Immature Gran % 1 H Nucleated RBC % 0 PT 11.8 11.5 INR 1.1 1.1 APTT 32.1 Sodium 138 Potassium 3.9 Chloride 100 Carbon Dioxide 27.5 Anion Gap 11 BUN 10 Creatinine 0.6 Estim Creat Clear Calc 79.0 eGFR > 60 BUN/Creatinine Ratio 17 Glucose 117 H Calculated Osmolality 275 Calcium 9.5 Corrected Calcium 9.5 Phosphorus 3.2 Magnesium 2.0 Total Bilirubin 1.0 AST 21 ALT 18 Alkaline Phosphatase 198 H Total Protein 6.7 Albumin 4.1 Globulin 2.6 Albumin/Globulin Ratio 1.6 Tumor Marker AFP 3.30 Carcinoembryonic Ag 95.7 H 145.0 H CA 15-3 Antigen 27.4 27.7 CA 125 Antigen 8.0 8.0 TSH 3.20 Free T4 09/05/24 09/05/24 04:58 04:58 WBC RBC Hgb Hct MCV MCH MCHC RDW Std Deviation Plt Count Neut % (Auto) Lymph % (Auto) [place] % (Auto) Eos % (Auto) Baso % (Auto) Neut # (Auto) Lymph # (Auto) [place] # (Auto) Eos # (Auto) Baso # (Auto) Immature Gran # (Auto) Absolute Nucleated RBC Immature Gran % Nucleated RBC % PT INR APTT Sodium Potassium Chloride Carbon Dioxide Anion Gap BUN Creatinine Estim Creat Clear Calc eGFR BUN/Creatinine Ratio Glucose Calculated Osmolality Calcium Corrected Calcium Phosphorus Magnesium Total Bilirubin AST ALT Alkaline Phosphatase Total Protein Albumin Globulin Albumin/Globulin Ratio Tumor Marker AFP Carcinoembryonic Ag CA 15-3 Antigen CA 125 Antigen TSH Cancelled Free T4 1.36 Cancelled Impressions Impression: Pain abdomen abnormal CT scan of the abdomen pelvis Hold of GoLytely at the moment We will follow the patient Since patient is not having any nausea vomiting no NGT yet Assessment & Plan A&P Narrative 79 years of female with abnormal CTAP showing abdominal pelvic lymphadenopathy and metastatic disease to the bones Certainly primary of an unknown origin Suggestions Tumor markers CEA level AFP CA 19?9 level CA 15-3 CA 125 Consent obtained for fiberoptic esophagogastroduodenoscopy and fiberoptic colonoscopy with possible biopsy possible therapeutic intervention under intravenous moderate sedation after GoLytely prep Met with the friends who would like her children I and spoke with them honestly about patient's condition with patient's permission And her daughter is on her way from home I will speak to her tomorrow I will follow the patient with you Bretly prep to continue Clear liquid diet Thank you very much for the opportunity to participate in care of this If the colonoscopy and upper endoscopy is clean recommend CT-guided biopsy of one of the lymph nodes or a bone marrow biopsy and aspirate Time Spent With Patient Time: Total time spent is greater than 50% in coordination of care (as documented) at patient's floor/unit and/or counseling patient:
--- NOTE | 2024-09-05 21:20 | PC.NURSE ---
Dr Mclean at bedside, rectal exam done. Explained to patient and primary health care nurse plan for surgical referral and patient status.
--- NOTE | 2024-09-05 21:46 | EVENTNT_ITS ---
Documentation for date of: 09/05/24 Event Note Event Note: Patient evaluated at the bedside because of abdominal distention Rectal examination done to disimpact the stool actually has a big mass in the rectum with a lesion of the finger Plan is to get a flexible sigmoidoscopy tomorrow for placement of a decompression tube if that can be accomplished we can give the GoLytely to do a clearance and then do definitive surgery or patient may need diverting colostomy to relieve the distention because of the colonic obstruction I have spoken with Dr Beaver he will see the patient in the morning and I will give him a call after my procedure with the findings then diverticulosis me vers us no colostomy can be planned
[2024-09-05] MEDS: HYDROmorphone INJ 2 MG/ML VIAL 1 MG IVP (22:09)
[2024-09-06] VITALS (15 sets, daily range): BP systolic 109–183; BP diastolic 55–101; PULSE 77–99; RESP 12–20; TEMP 36.1–36.6; O2SAT 93–100
--- NOTE | 2024-09-06 00:48 | XR_ITS ---
Examination: AP chest single view TECHNIQUE: AP portable upright chest single view Date and time: September 06, 2024, 0058 hours. INDICATIONS: Post orogastric tube placement FINDINGS: Orogastric tube at the GE junction Mild prominence left ventricle Lungs are clear. IMPRESSION: Advance orogastric tube 7 cm
[2024-09-06] MEDS: HYDROcodone/APAP 5/325 TABLET 1 TAB PO ×4 (01:08→15:11)
[2024-09-06] MEDS: SODIUM CHLORIDE 0.9% 1000 ML 1,000 ML 80 ML IV (04:10)
[2024-09-06 05:54] LABS: Basophils # (Auto) 0.0 Thou/mm3 (0.0-0.2); Basophils % (Auto) 0 % (0-2.5); Eosinophils # (Auto) 0.0 Thou/mm3 (0.0-0.5); Eosinophils % (Auto) 0 % (0-10); Hematocrit 41.7 % (36.0-46.0); Hemoglobin 13.5 g/dL (12.0-16.0); Immature Granulocytes Auto 0.13 Thou/mm3 (0.00-0.00); Lymphocytes # (Auto) 1.5 Thou/mm3 (1.0-4.8); Lymphocytes % (Auto) 10 % (10-50); Mean Corpuscular HGB Conc 32.4 g/dl (31.0-37.0); Mean Corpuscular Hemoglobin 27.7 pg (25.0-35.0); Mean Corpuscular Volume 86 fL (80-100); Monocytes # (Auto) 1.7 Thou/mm3 (0.0-0.8); Monocytes % (Auto) 11 % (0-12); Neutrophils # (Auto) 12.2 Thou/mm3 (1.8-7.7); Neutrophils % (Auto) 78 % (37-80); Nucleated Red Blood Cell # 0.00 Thou/mm3 (0.00-0.00); Nucleated Red Blood Cell % 0 /100 WBC (0); Platelet Count 238 Thou/mm3 (140-440); RDW Standard Deviation 45.6 fL (36.4-46.3); Red Blood Count 4.88 Miln/mm3 (4.00-5.20); White Blood Count 15.6 Thou/mm3 (3.6-11.0)
[2024-09-06 06:39] LABS: Alanine Aminotransferase 18 U/L (10-49); Albumin, Serum 4.2 gm/dL (3.4-4.8); Albumin/Globulin Ratio 1.5 (1.2-2.2); Alkaline Phosphatase 202 U/L (46-116); Anion Gap 14 (7-16); Aspartate Amino Transferase 24 U/L (0-34); BUN/Creatinine Ratio 10 Ratio (12-20); Bilirubin,Total 1.0 mg/dL (0.3-1.2); Blood Urea Nitrogen 7 mg/dL (9-23); Calcium 9.6 mg/dL (8.3-10.6); Calcium (Corrected) 9.6 mg/dL (8.5-10.1); Carbon Dioxide 25.3 mMol/L (20.0-31.0); Chloride 98 mMol/L (98-107); Creatinine (Component) 0.7 mg/dL (0.6-1.3); Estimated Creatinine Clearance 67.7 mL/min (>60); Globulin 2.8 gm/dL (2.3-3.5); Glucose 117 mg/dL (74-106); Magnesium 1.8 mg/dL (1.6-2.6); Osmolality,Calculated 272 (275-295); Phosphorous 2.8 mg/dL (2.4-5.1); Potassium 4.3 mMol/L (3.4-5.1); Sodium 137 mMol/L (136-145); Total Protein 7.0 gm/dL (5.7-8.2); eGFR > 60 See Note
[2024-09-06] MEDS: HYDROmorphone INJ 2 MG/ML VIAL 1 MG IVP ×3 (09:07→20:32)
[2024-09-06] MEDS: HEPARIN SOD INJ 5000 UNIT/ML VIAL SC ×2 (10:21→20:33)
[2024-09-06] MEDS: KETOROLAC INJ 30 MG/ML VIAL 15 MG IVP (10:21)
[2024-09-06] MEDS: GABAPENTIN 300 MG CAPSULE PO (10:23)
[2024-09-06] MEDS: GABAPENTIN 100 MG CAPSULE 200 MG PO ×2 (13:30→21:00)
[2024-09-06] MEDS: LIDOCAINE 5% 1 PATCH TOP (13:31)
--- NOTE | 2024-09-06 13:36 | PD.SURCONS ---
HPI Consult details Consult date: 09/06/24 Reason for consultation narrative: Rectal tumor, significant abdominal lymphadenopathy History of present illness: 79-year-old female with history of osteoarthritis was admitted with worsening and severe lower back and hip pains. Patient has not had colonoscopy in the past. She has noted changes in bowel habits over the past few months with history of rectal bleeding. She is also had difficulty urinating over the past few weeks. CT scan of abdomen and pelvis upon admission revealed significant abdominal lymphadenopathy. Patient was evaluated by Dr. Mclean for possible colonoscopy with noted rectal mass upon digital rectal examination. Review of Systems Constitutional Constitutional: Denies chills and Denies fever(s) Cardiovascular Cardiovascular: Denies chest pain Respiratory Respiratory: Denies cough Gastrointestinal Gastrointestinal: Denies abdominal pain, Reports hematochezia, Reports melena, Denies nausea and Denies vomiting Genitourinary Genitourinary: Reports difficulty voiding Musculoskeletal Musculoskeletal: Reports back pain Hematologic/Lymphatic Hematologic/Lymphatic: Denies easy bleeding and Reports easy bruising Past Medical History Surgical History OTHER SURGICAL HX: Hysterectomy, partial removal of left fibula Social History SMOKING STATUS: Never smoker SUBSTANCE USE: does not use ALCOHOL: Never Meds Home Medications and Allergies Home Medications ?Medication ?Instructions ?Recorded ?Confirmed ?Type nitrofurantoin macrocrystal 100 mg 100 mg PO BID 09/04/24 09/04/24 History capsule Allergies Allergy/AdvReac Type Severity Reaction Status Date / Time codeine Allergy Verified 09/04/24 05:56 Exam Vital Signs Temp Pulse Resp BP Pulse Ox O2 Del Method O2 Flow Rate 97 F 91 17 161/87 H 99 Nasal Cannula 4 09/06/24 11:52 09/06/24 11:52 09/06/24 11:52 09/06/24 11:52 09/06/24 11:52 09/06/24 11:52 09/06/24 11:52 Constitutional Constitutional: no acute distress Routine Abdominal Exam Abdominal: Present soft and normoactive bowel sounds; Absent tenderness or distended Routine Rectal Exam Digital: Present mass (A large fixed mass palpated at the tip of the finger in very close proximity to the anal sphincter) Results Results: Laboratory Laboratory results: results reviewed Results: Imaging CT scan - abdomen: report reviewed and image reviewed CT scan - pelvis: report reviewed and image reviewed Assessment & Plan Additional Assessment Additional comments: Significant abdominal lymphadenopathy with a rectal tumor Plan Awaiting endoscopy by Dr. Mclean. Findings highly suspicious for distal rectal tumor involving the sphincter muscle. If the findings are confirmed with the endoscopy patient will likely require exploratory laparotomy with a diverting colostomy. She will then require chemo and radiation after which she will be reevaluated for possible definitive resection if the tumor is resectable. I wish to extend my most sincere thanks to Dr. Mclean for consulting me and allowing me to evaluate and participate in care of this patient.
--- NOTE | 2024-09-06 15:10 | PC.NURSE ---
Report given to Endo nurse Emi.
--- NOTE | 2024-09-06 16:37 | PD.RESPRO ---
Documentation for date of: 09/06/24 Subjective Subjective Interval history: Patient was seen and examined at bedside. No acute events took place overnight. Patient had been drinking GoLytely in preparation for colonsocopy later; however, patient has not had a bowel movement yet. States that last BM was more than 5 days ago. Admits to urinating and passing gas. Abdominal distension is worse. Pain is controlled with Dilaudid and Schneider PRN. Fleet enema did not help with relieving the impaction. Pt on NG tube decompression and awaiting flexible sigmoidoscopy by GI Dr Mclean later in the day. Exam Vital Signs Temp Pulse Resp BP Pulse Ox O2 Del Method O2 Flow Rate 97 F 91 17 161/87 H 99 Nasal Cannula 4 09/06/24 11:52 09/06/24 11:52 09/06/24 11:52 09/06/24 11:52 09/06/24 11:52 09/06/24 11:52 09/06/24 11:52 Narrative Exam GENERAL: NAD, A&Ox3 HEENT: Moist mucosa. Eyes open, symmetrical, & clear CARDIO: Heart RRR, no obvious murmurs PULM: No noted coughing/dyspnea CTA B/L, no R/W/R GI: Abdomen soft, greatly distended, tender to deep palpation RUQ. BSx4 diminished. Percussion dull throughout. SKIN/MSK/EXT: No wounds/rashes/edema/amputations, no pain on palpation. Pedal pulses present B/L NEURO: AAOx3, no focal neuro deficits, able to move all 4 extremities Objective Labs 09/07/24 04:06 09/07/24 04:06 Labs: Laboratory Results - last 24 hr 09/06/24 05:05 WBC 15.6 H RBC 4.88 Hgb 13.5 Hct 41.7 MCV 86 MCH 27.7 MCHC 32.4 RDW Std Deviation 45.6 Plt Count 238 Neut % (Auto) 78 Lymph % (Auto) 10 [place] % (Auto) 11 Eos % (Auto) 0 Baso % (Auto) 0 Neut # (Auto) 12.2 H Lymph # (Auto) 1.5 [place] # (Auto) 1.7 H Eos # (Auto) 0.0 Baso # (Auto) 0.0 Immature Gran # (Auto) 0.13 H Absolute Nucleated RBC 0.00 Immature Gran % 1 H Nucleated RBC % 0 Sodium 137 Potassium 4.3 Chloride 98 Carbon Dioxide 25.3 Anion Gap 14 BUN 7 L Creatinine 0.7 Estim Creat Clear Calc 67.7 eGFR > 60 BUN/Creatinine Ratio 10 L Glucose 117 H Calculated Osmolality 272 L Calcium 9.6 Corrected Calcium 9.6 Phosphorus 2.8 Magnesium 1.8 Total Bilirubin 1.0 AST 24 ALT 18 Alkaline Phosphatase 202 H Total Protein 7.0 Albumin 4.2 Globulin 2.8 Albumin/Globulin Ratio 1.5 Quality Measures Quality Measures none Advance care planning discussed with:: patient Assessment & Plan Assessment Current Active Medications: Generic Name Dose Route Start Last Admin Trade Name Freq PRN Reason Stop Dose Admin Acetaminophen 650 mg 09/04/24 15:50 Acetaminophen 325 Mg Tablet PO 10/04/24 15:49 Q6H PRN PAIN SCALE 1-3 (mild Hydrocodone Bitart/Acetaminophen 1 tab 09/04/24 16:51 09/06/24 15:11 Hydrocodone/Apap 5/325 Tablet PO 09/09/24 16:50 1 tab Q4H PRN Administration PAIN SCALE 4-6 (Moderate Gabapentin 200 mg 09/06/24 14:00 09/06/24 13:30 Gabapentin 100 Mg Capsule PO 10/06/24 13:59 200 mg TID CLAUDE Administration Heparin Sodium (Porcine) 5,000 unit 09/04/24 21:00 09/06/24 10:21 Heparin Sod Inj 5000 Unit/Ml Vial SC 09/18/24 20:59 5,000 unit BID CLAUDE Administration Hydromorphone HCl 1 mg 09/06/24 12:49 09/06/24 13:31 Hydromorphone Inj 2 Mg/Ml Vial IVP 09/10/24 21:38 1 mg Q3HR PRN Administration pain 7-10 or breakthrough pain Lidocaine 1 patch 09/07/24 12:48 Lidocaine 5% 1 Patch TOP 10/07/24 12:47 UD PRN PAIN Ondansetron HCl 4 mg 09/05/24 04:14 09/05/24 13:09 Ondansetron Inj 2 Mg/Ml Inj 2 Ml IVP 10/05/24 04:13 4 mg Q6HR PRN Administration NAUSEA OR VOMITING Protocol Plan 79-year-old female with PMHx of arthritis presented to the ED on 09/04/2024 with complaint of lower back and right flank pain worse with movement. Imaging was remarkable for widespread enhancing lesions of multiple vertebrae. Pt was admitted for work up of possible metastaic disease and pain managment. 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 Thoracic spine MRI: Severe osteopenia. No lumbar fracture. Multiple osteolytic lesions on the precontrast images. Postcontrast images demonstrate diffuse abnormal enhancement involving all lumbar vertebral bodies, sacral segments, and visualized bones of the pelvis. Lumbar spine MRI: Diffuse abnormal enhancement involving all thoracic vertebral bodies. CTAP: Retrocardiac gastric hernia. Liver is mildly irregular in contour and enlarged, 18 cm. No renal or ureteral calculi. Significant abdominal lymphadenopathy, periaortic lymph nodes measuring up to 20mm. Heavy calcification abdominal aorta. Absent uterus. Prominent osteopenia. US of gallbladder: 15 mm gallstone. Normal gallbladder wall. Common bile duct 0.6 cm no stones. Pancreatic head 1.9 cm. Liver 16.5 cm fatty infiltration. Normal hepatopedal portal venous flow. Patent IVC GI Dr Mclean did TOSHA in the face of non-improving impaction and unproductive fleet enema. He suspects large obstructive mass in sari-anal area. Pending flexible sigmoidoscopy as advised by GI. Labs for tumor markers was positive for greatly elevated CEA 145. Other markers measured AFP 3.30, CA 15-3 27.7. amd CA 125 8 were unremarkable. Plan: Likely primary source GI; pending EGD and colonoscopy. Rad-Onc consulted. pending CT-guided biopsy of the large periaortic node ordered bone scan Acetaminophen 325mg Q6h PRN for mild pain Schneider 5/325 for moderate pain Morphine IV 2mg Q4h PRN for severe pain #Constipation #hemorrhoids Ddx: ileus vs partial SBO PE findings of marked abdominal distension, dull percussion and diminished bowel sounds throughout. Patient states that she has been having small BM which are darkly colored. GI consulted. Patient took in GoLytely for bowel prep, but was unable to stimulate a BM. Abdomen is distended with excessive stool burden. X-ray of abdomen: small bowel and colon ileus with moderate stool throughout the colon. No obstruction. GI Dr Mclean did TOSHA in the face of non-improving impaction and unproductive fleet enema. He suspects large obstructive mass in sari-anal area; will proceed with sigmoidoscopy. Surgery on board: If endoscopy confirms presence of an obstructive tumor, patient will likely require exploratory laparotomy with a diverting colostomy. She will then require chemo and radiation after which she will be reevaluated for possible definitive resection if the tumor is resectable. Plan: Pending flexible sigmoidoscopy as advised by GI. pending colonoscopy, #Arthritis #hx of UTI Patient completed course of ABx for previous infection. Urine negative for bacteria, WBC, ketones, or nitrites. Health Maintenance: Disposition: Med Surg Diet: NPO PPx DVT: heparin 5000u bid PPx GI: Protonix 40mg bid Code status: Routine This case was discussed with my attending physician, Dr. Anderson. Chayo Sibley, PGY I Attending Provider Attestation/Addendum I attest that I was physically present for the evaluation, physical examination, lab and imaging review of the patient with the residents. I discussed the case with the residents and agree with the findings and plans of care as documented above. At bedside today, patient continues to complain of back pain, controlled with IV analgesics. Has been having GoLytely preparation for flexible sigmoidoscopy with GI. CEA level noted to be 145. WBC count stays high at 15.6. We will add lidocaine patch and gabapentin for pain. Patient underwent rectal examination yesterday with GI for disimpaction of the stool but there was concern for mass in the rectum for which she is going for flexible sigmoidoscopy. Depending on the results, patient may need diverting colostomy with general surgery. Patient and family at bedside explained extensively about findings and imaging, GI and oncology recommendations and further management plans. They verbalized understanding and agree with the plan. Francine Anderson MD
--- NOTE | 2024-09-06 18:03 | XR_ITS ---
Examination: Small bowel series AP supine abdomen 4 views Date and time: September 06, 2024 10:11 PM INDICATIONS: Abdominal pain and nausea today,. TECHNIQUE AND FINDINGS: Patient received 120 cc Gastrografin through the orogastric tube Immediate 30 minute 1 hour to our films obtained Contrast in small bowel loops however contrast is in the right colon on the 2 hour film IMPRESSION: Negative for small bowel obstruction No further films are needed
--- NOTE | 2024-09-06 19:00 | PC.NURSE ---
Patient back from endo recovery via [facility] in stable condition. Family at bedside.
--- NOTE | 2024-09-06 20:34 | PC.NURSE ---
Pt asked for pain medicine, per pt she's having burning leg pain which is chronic and lower back pain, IV dilaudid administered as MD ordered. Pt said she needs to void, she's sitting on the chair at the moment. Bedside commode placed next to the chair and helped her to transfer to the bedside commode and suddenly her legs give up on her. Daughter at bedside at that moment and helped me to sit her back up to the commode. Asked other staff to bring her back to the bed for safety. Pts and daughter was educated not to get up for safety and offered bedpan and purewick but pt still insisted to go the the commode. Pts states that she cant go without getting up.
[2024-09-07] VITALS: BP 142/85; PULSE 102; RESP 16; TEMP 36.3; O2SAT 98
--- NOTE | 2024-09-07 00:13 | PC.NURSE ---
MD Daly made aware that pt is done with the bowel gastrograffin and shows negative for bowel obstruction, pt had a BM also right now, per MD still to connect pt to the low intermittent suction.
[2024-09-07] MEDS: HYDROmorphone INJ 2 MG/ML VIAL 1 MG IVP ×3 (02:16→12:40)
[2024-09-07] MEDS: HYDROcodone/APAP 5/325 TABLET 1 TAB PO ×3 (03:54→17:25)
[2024-09-07 04:00] VITALS: BP 123/75; PULSE 95; RESP 16; TEMP 36.4; O2SAT 95
[2024-09-07] MEDS: GABAPENTIN 100 MG CAPSULE 200 MG PO ×3 (05:07→21:06)
[2024-09-07 05:19] LABS: Basophils # (Auto) 0.1 Thou/mm3 (0.0-0.2); Basophils % (Auto) 0 % (0-2.5); Eosinophils # (Auto) 0.0 Thou/mm3 (0.0-0.5); Eosinophils % (Auto) 0 % (0-10); Hematocrit 40.3 % (36.0-46.0); Hemoglobin 12.9 g/dL (12.0-16.0); Immature Granulocytes Auto 0.09 Thou/mm3 (0.00-0.00); Lymphocytes # (Auto) 1.4 Thou/mm3 (1.0-4.8); Lymphocytes % (Auto) 9 % (10-50); Mean Corpuscular HGB Conc 32.0 g/dl (31.0-37.0); Mean Corpuscular Hemoglobin 27.7 pg (25.0-35.0); Mean Corpuscular Volume 87 fL (80-100); Monocytes # (Auto) 1.7 Thou/mm3 (0.0-0.8); Monocytes % (Auto) 11 % (0-12); Neutrophils # (Auto) 11.8 Thou/mm3 (1.8-7.7); Neutrophils % (Auto) 78 % (37-80); Nucleated Red Blood Cell # 0.00 Thou/mm3 (0.00-0.00); Nucleated Red Blood Cell % 0 /100 WBC (0); Platelet Count 250 Thou/mm3 (140-440); RDW Standard Deviation 46.9 fL (36.4-46.3); Red Blood Count 4.65 Miln/mm3 (4.00-5.20); White Blood Count 15.1 Thou/mm3 (3.6-11.0)
[2024-09-07 05:57] LABS: Alanine Aminotransferase 18 U/L (10-49); Albumin, Serum 4.1 gm/dL (3.4-4.8); Albumin/Globulin Ratio 1.5 (1.2-2.2); Alkaline Phosphatase 194 U/L (46-116); Anion Gap 12 (7-16); Aspartate Amino Transferase 21 U/L (0-34); BUN/Creatinine Ratio 20 Ratio (12-20); Bilirubin,Total 1.1 mg/dL (0.3-1.2); Blood Urea Nitrogen 16 mg/dL (9-23); Calcium 9.7 mg/dL (8.3-10.6); Calcium (Corrected) 9.7 mg/dL (8.5-10.1); Carbon Dioxide 27.7 mMol/L (20.0-31.0); Chloride 100 mMol/L (98-107); Creatinine (Component) 0.8 mg/dL (0.6-1.3); Estimated Creatinine Clearance 59.3 mL/min (>60); Globulin 2.7 gm/dL (2.3-3.5); Glucose 101 mg/dL (74-106); Magnesium 1.9 mg/dL (1.6-2.6); Osmolality,Calculated 280 (275-295); Phosphorous 3.0 mg/dL (2.4-5.1); Potassium 3.7 mMol/L (3.4-5.1); Sodium 140 mMol/L (136-145); Total Protein 6.8 gm/dL (5.7-8.2); eGFR > 60 See Note
[2024-09-07 08:00] VITALS: BP 136/84; PULSE 105; RESP 17; TEMP 36.1; O2SAT 95
[2024-09-07] MEDS: HEPARIN SOD INJ 5000 UNIT/ML VIAL SC ×2 (08:04→21:06)
[2024-09-07] MEDS: DULoxetine HCL 30 MG CAPSULE PO (10:40)
[2024-09-07 12:00] VITALS: BP 109/47; PULSE 89; RESP 17; TEMP 36.2; O2SAT 95
[2024-09-07] MEDS: LIDOCAINE 5% 1 PATCH TOP (12:48)
--- NOTE | 2024-09-07 14:22 | ESPR_ITS ---
Documentation for date of: 09/07/24 Subjective Subjective Narrative: Patient is seen and examined. He is sitting up in a chair complaining of lower back pain radiating to her legs and knees. She denies abdominal pain nausea or vomiting Exam Vital Signs Temp Pulse Resp BP Pulse Ox O2 Del Method O2 Flow Rate 97.2 F 89 17 109/47 L 95 Nasal Cannula 1 09/07/24 12:00 09/07/24 12:00 09/07/24 12:00 09/07/24 12:00 09/07/24 12:00 09/07/24 12:00 09/07/24 12:00 Constitutional Constitutional: no acute distress Routine Abdominal Exam Abdominal: Present soft and normoactive bowel sounds; Absent tenderness or distended Assessment & Plan Assessment Additional comments: Partially obstructing rectal/anal tumor suspicious for squamous cell cancer acco rding to Dr. Mclean Plan If biopsy results are squamous cell cancer, patient will require chemoradiation without surgical intervention. If biopsies are consistent with adenocarcinoma she will still require neoadjuvant chemoradiation, then she will be reevaluated for surgery in the future. There are no indications for surgical intervention at this time. May start diet per Dr. Mclean's recommendations.
[2024-09-07 16:00] VITALS: BP 104/59; PULSE 81; RESP 18; TEMP 36.1; O2SAT 99
--- NOTE | 2024-09-07 17:04 | ESPR_ITS ---
<Statement entered by Denisse Crawley MD - 09/08/24 17:17> In summary: 79-year-old female PMHx of arthritis presented with low back pain and right flank pain, with radiographic finding of multiple osteolytic lesions and lymphadenopathy. Admitted for neoplasm workup partial SBO. Colonoscopy showed small ? medium ulcerated mass in the proximal anus resembling squamous cell carcinoma which was biopsied. Now, she is pending CT-guided biopsy of periaortic lymph node which was scheduled today however was delayed due to availability. Continued on pain control. Case was discussed with attending physician. Denisse Crawley DO PGY II This document was transcribed using voice recognition technology. Minor inaccuracies may be present. Documentation for date of: 09/07/24 Subjective Subjective Interval history: Patient was seen and examined at bedside. No acute events took place overnight. Patient states that following her consumption of gastrograffin, she had a voluminous BM, and later two of lesser sizes. The last episode was very dilute. Patient feels great relief from her stool burden. While abdominal pain and distension are improved, pt still experiences excruciating b/l flank pain which shoots down her legs to her knees. [place] as severe burning pain. Pain has been managed with dilaudid Q3h. Exam Vital Signs Temp Pulse Resp BP Pulse Ox O2 Del Method O2 Flow Rate 97 F 81 18 104/59 L 99 Nasal Cannula 1 09/07/24 16:00 09/07/24 16:00 09/07/24 16:00 09/07/24 16:00 09/07/24 16:00 09/07/24 16:00 09/07/24 16:00 Narrative Exam GENERAL: NAD, A&Ox3 HEENT: Moist mucosa. Eyes open, symmetrical, & clear CARDIO: Heart RRR, Grade iii/iv systolic murmur at RUSB PULM: No noted coughing/dyspnea CTA B/L, no R/W/R GI: Abdomen soft, distended, tender to deep palpation RUQ. BSx4 diminished. Percussion dull throughout. SKIN/MSK/EXT: No wounds/rashes/edema/amputations, no pain on palpation. Pedal pulses present B/L NEURO: AAOx3, no focal neuro deficits, able to move all 4 extremities Objective Labs 09/08/24 04:38 09/08/24 04:38 Labs: Laboratory Results - last 24 hr 09/07/24 04:06 WBC 15.1 H RBC 4.65 Hgb 12.9 Hct 40.3 MCV 87 MCH 27.7 MCHC 32.0 RDW Std Deviation 46.9 H Plt Count 250 Neut % (Auto) 78 Lymph % (Auto) 9 L [place] % (Auto) 11 Eos % (Auto) 0 Baso % (Auto) 0 Neut # (Auto) 11.8 H Lymph # (Auto) 1.4 [place] # (Auto) 1.7 H Eos # (Auto) 0.0 Baso # (Auto) 0.1 Immature Gran # (Auto) 0.09 H Absolute Nucleated RBC 0.00 Immature Gran % 1 H Nucleated RBC % 0 Sodium 140 Potassium 3.7 D Chloride 100 Carbon Dioxide 27.7 Anion Gap 12 BUN 16 Creatinine 0.8 Estim Creat Clear Calc 59.3 L eGFR > 60 BUN/Creatinine Ratio 20 Glucose 101 Calculated Osmolality 280 Calcium 9.7 Corrected Calcium 9.7 Phosphorus 3.0 Magnesium 1.9 Total Bilirubin 1.1 AST 21 ALT 18 Alkaline Phosphatase 194 H Total Protein 6.8 Albumin 4.1 Globulin 2.7 Albumin/Globulin Ratio 1.5 Quality Measures Quality Measures none Advance care planning discussed with:: patient Assessment & Plan Assessment Current Active Medications: Generic Name Dose Route Start Last Admin Trade Name Freq PRN Reason Stop Dose Admin Acetaminophen 650 mg 09/04/24 15:50 Acetaminophen 325 Mg Tablet PO 10/04/24 15:49 Q6H PRN PAIN SCALE 1-3 (mild Hydrocodone Bitart/Acetaminophen 1 tab 09/04/24 16:51 09/07/24 10:54 Hydrocodone/Apap 5/325 Tablet PO 09/09/24 16:50 1 tab Q4H PRN Administration PAIN SCALE 4-6 (Moderate Alprazolam 0.25 mg 09/06/24 18:44 09/06/24 22:46 Alprazolam 0.25 Mg Tablet PO 09/11/24 18:43 0.25 mg HS PRN Administration ANXIETY Duloxetine HCl 30 mg 09/07/24 10:15 09/07/24 10:40 Duloxetine Hcl 30 Mg Capsule PO 10/07/24 10:14 30 mg QDAY CLAUDE Administration Gabapentin 200 mg 09/06/24 14:00 09/07/24 14:07 Gabapentin 100 Mg Capsule PO 10/06/24 13:59 200 mg TID CLAUDE Administration Heparin Sodium (Porcine) 5,000 unit 09/04/24 21:00 09/07/24 08:04 Heparin Sod Inj 5000 Unit/Ml Vial SC 09/18/24 20:59 5,000 unit BID CLAUDE Administration Hydromorphone HCl 1 mg 09/06/24 12:49 09/07/24 12:40 Hydromorphone Inj 2 Mg/Ml Vial IVP 09/10/24 21:38 1 mg Q3HR PRN Administration pain 7-10 or breakthrough pain Lidocaine 1 patch 09/07/24 12:48 09/07/24 12:48 Lidocaine 5% 1 Patch TOP 10/07/24 12:47 1 patch UD PRN Administration PAIN Ondansetron HCl 4 mg 09/05/24 04:14 09/05/24 13:09 Ondansetron Inj 2 Mg/Ml Inj 2 Ml IVP 10/05/24 04:13 4 mg Q6HR PRN Administration NAUSEA OR VOMITING Protocol Plan 79-year-old female with PMHx of arthritis presented to the ED on 09/04/2024 with complaint of lower back and right flank pain worse with movement. Imaging was remarkable for widespread enhancing lesions of multiple vertebrae. Pt was admitted for work up of possible metastaic disease and pain managment. #Colorectal Cancer with metastasis to bone The diagnosis is supported by presence of large rectal mass, abdominal lymphadenopathy, osseous lesions throughout thoracic and lumbar vertebrae on imaging consistent with cancer, as well as elevation in tumor marker CEA. Thoracic spine MRI: Severe osteopenia. No lumbar fracture. Multiple osteolytic lesions on the precontrast images. Postcontrast images demonstrate diffuse abnormal enhancement involving all lumbar vertebral bodies, sacral segments, and visualized bones of the pelvis. Lumbar spine MRI: Diffuse abnormal enhancement involving all thoracic vertebral bodies. CTAP: Retrocardiac gastric hernia. Liver is mildly irregular in contour and enlarged, 18 cm. No renal or ureteral calculi. Significant abdominal lymphadenopathy, periaortic lymph nodes measuring up to 20mm. Heavy calcification abdominal aorta. Absent uterus. Prominent osteopenia. US of gallbladder: 15 mm gallstone. Normal gallbladder wall. Common bile duct 0.6 cm no stones. Pancreatic head 1.9 cm. Liver 16.5 cm fatty infiltration. Normal hepatopedal portal venous flow. Patent IVC GI Dr Mclean did TOSHA in the face of non-improving impaction and unproductive fleet enema. He suspects large obstructive mass in sari-anal area. Pending flexible sigmoidoscopy as advised by GI. Labs for tumor markers was positive for greatly elevated CEA 145. Other markers measured AFP 3.30, CA 15-3 27.7. amd CA 125 8 were unremarkable. 09/06: Sigmoidoscopy revealed an ulcerated, medium-size mass 1cm proximal to the anus with oozing. Most likely squamous cell carcinoma. Biopsied. Surgery consulted, If biopsy results are squamous cell cancer, patient will require chemoradiation without surgical intervention. If biopsies are consistent with adenocarcinoma she will still require neoadjuvant chemoradiation, then she will be reevaluated for surgery in the future. There are no indications for surgical intervention at this time. Plan: Likely primary source GI; pending pathology report of biopsied rectal mass Rad-Onc consulted. pending CT-guided biopsy of the large periaortic node ordered bone scan Acetaminophen 325mg Q6h PRN for mild pain [place] 5/325 for moderate pain Hydromorphone IV 1mg Q3h PRN for severe pain Hydromorphone PO 4mg Q4h PRN for severe pain #Partial SBO #hx of constipation #hemorrhoids Ddx: ileus PE findings of marked abdominal distension, dull percussion and diminished bowel sounds throughout. Patient states that she has been having small BM which are darkly colored. GI consulted. Patient took in GoLytely for bowel prep, but was unable to stimulate a BM. Abdomen is distended with excessive stool burden. X-ray of abdomen: small bowel and colon ileus with moderate stool throughout the colon. No obstruction. GI Dr Mclean did TOSHA in the face of non-improving impaction and unproductive fleet enema. F/U sigmoidoscopy revealed a non-obstructing, medium-sized mass involving 1/3 of the luminal circumference at 1cm proximity of the anus. Gastrograffin bowel series showed contrast in the Rt colon on the 2h film. SBO ruled out. Plan: Advanced diet to clear liquid d/c NGT decompression Miralax #Intractable Lower Back Pain with radiation down the legs to the knees #OsteoArthritis ordered Cymbalta 30mg Qday for chronic MSK pain, including lower back and osteoarthritic pain. ordered Gabapentin PO 200mg PRN for neuropathic pain. ordered lidocaine topical patch for lower back pain. #Heart Murmur Grade iii/iv systolic murmur RUSB with radiation to carotids on PE. ordered echocardiogram #hx of UTI Patient completed course of ABx for previous infection. Urine negative for bacteria, WBC, ketones, or nitrites. Health Maintenance: Disposition: Med Surg Diet: clear liquids PPx DVT: heparin 5000u bid PPx GI: Protonix 40mg bid Code status: Routine This case was discussed with my attending physician, Dr. Anderson. Chayo Sibley, PGY I Attending Provider Attestation/Addendum I attest that I was physically present for the evaluation, physical examination, lab and imaging review of the patient with the residents. I discussed the case with the residents and agree with the findings and plans of care as documented above. At bedside today, patient continues to complain of lower back pain.? We will adjust her analgesic regimen.? Updated patient about her current condition and further management plan, agrees with the plan.? Awaiting echocardiography results. Patient was planned for CT-guided biopsy today but unable to get the procedure done due to scheduling. Will plan the procedure for tomorrow. Francine Anderson MD
--- NOTE | 2024-09-07 18:23 | PD.IMPROG ---
Documentation for date of: 09/07/24 Subjective Subjective Interval history: Tumor markers are pending Colonoscopy shows anal verge mass may be a squamous cell carcinoma biopsy taken which is on a stat basis hopefully I will get the results by Sunday Discussed the case with internal medicine team I would still like to go ahead and have a CT-guided biopsy of one of the lymph nodes Patient having bowel movements NGT is out Exam Vital Signs Temp Pulse Resp BP Pulse Ox O2 Del Method O2 Flow Rate 97 F 81 18 104/59 L 99 Nasal Cannula 1 09/07/24 16:00 09/07/24 16:00 09/07/24 16:00 09/07/24 16:00 09/07/24 16:00 09/07/24 16:00 09/07/24 16:00 Objective Labs 09/07/24 04:06 09/07/24 04:06 Labs: Laboratory Results - last 24 hr 09/07/24 04:06 WBC 15.1 H RBC 4.65 Hgb 12.9 Hct 40.3 MCV 87 MCH 27.7 MCHC 32.0 RDW Std Deviation 46.9 H Plt Count 250 Neut % (Auto) 78 Lymph % (Auto) 9 L Mcmullen % (Auto) 11 Eos % (Auto) 0 Baso % (Auto) 0 Neut # (Auto) 11.8 H Lymph # (Auto) 1.4 Mcmullen # (Auto) 1.7 H Eos # (Auto) 0.0 Baso # (Auto) 0.1 Immature Gran # (Auto) 0.09 H Absolute Nucleated RBC 0.00 Immature Gran % 1 H Nucleated RBC % 0 Sodium 140 Potassium 3.7 D Chloride 100 Carbon Dioxide 27.7 Anion Gap 12 BUN 16 Creatinine 0.8 Estim Creat Clear Calc 59.3 L eGFR > 60 BUN/Creatinine Ratio 20 Glucose 101 Calculated Osmolality 280 Calcium 9.7 Corrected Calcium 9.7 Phosphorus 3.0 Magnesium 1.9 Total Bilirubin 1.1 AST 21 ALT 18 Alkaline Phosphatase 194 H Total Protein 6.8 Albumin 4.1 Globulin 2.7 Albumin/Globulin Ratio 1.5 Impressions Impression: Colonic/small bowel obstruction Anal mass on colonoscopy biopsies pending Multiple abdominal and pelvic lymphadenopathy CT-guided biopsy scheduled for tomorrow Assessment & Plan A&P Narrative 79 years of female with abnormal CTAP showing abdominal pelvic lymphadenopathy and metastatic disease to the bones Certainly primary of an unknown origin Suggestions Tumor markers CEA level AFP CA 19?9 level CA 15-3 CA 125 Consent obtained for fiberoptic esophagogastroduodenoscopy and fiberoptic colonoscopy with possible biopsy possible therapeutic intervention under intravenous moderate sedation after Sonytely prep Met with the friends who would like her children I and spoke with them honestly about patient's condition with patient's permission And her daughter is on her way from home I will speak to her tomorrow I will follow the patient with you Janett keene to continue Clear liquid diet Thank you very much for the opportunity to participate in care of this If the colonoscopy and upper endoscopy is clean recommend CT-guided biopsy of one of the lymph nodes or a bone marrow biopsy and aspirate Time Spent With Patient Time: Total time spent is greater than 50% in coordination of care (as documented) at patient's floor/unit and/or counseling patient:
--- NOTE | 2024-09-07 18:42 | ECHO_ITS ---
Transthoracic Echo Report Ht (in): 62 Wt (lb): 185 Exam Location: Echo Lab Status: Inpatient Dress Designer: Doreen Bravo Indications: Procedure Performed: BP: 141 / 65 HR: 89 Technical Quality: Technically difficult study MEASUREMENTS (Male / Female) Normal Values 2D ECHO LV Diastolic Diameter PLAX 3.7 cm 4.2 - 5.9 / 3.9 - 5.3 cm LV Systolic Diameter PLAX 2.6 cm IVS Diastolic Thickness 1.2 cm 0.6 - 1.0 / 0.6 - 0.9 cm LVPW Diastolic Thickness 1.2 cm 0.6 - 1.0 / 0.6 - 0.9 cm LV Relative Wall Thickness 0.6 LVOT Diameter 1.9 cm Aortic Root Diameter 2.8 cm LA Systolic Diameter LX 2.9 cm 3.0 - 4.0 / 2.7 - 3.8 cm LA Volume Index 14.2 cm?/m? 16 - 28 cm?/m? M-MODE Aortic Root Diameter MM 3.0 cm LA Systolic Diameter MM 3.3 cm LA Ao Ratio MM 1.1 AV Cusp Separation MM 1.7 cm DOPPLER AV Peak Velocity 154.0 cm/s AV Peak Gradient 9.5 mmHg AV Mean Gradient 4.0 mmHg AV Velocity Time Integral 29.0 cm LVOT Peak Velocity 105.0 cm/s LVOT Peak Gradient 4.4 mmHg LVOT Velocity Time Integral 24.6 cm LVOT Cardiac Index 3179.3 cm?/min?m? AV Area Cont Eq vti 2.4 cm? AV Area Cont Eq pk 1.9 cm? MV Area PHT 6.1 cm? Mitral E Point Velocity 85.9 cm/s Mitral A Point Velocity 91.7 cm/s Mitral E to A Ratio 0.9 LV E' Lateral Velocity 7.7 cm/s Mitral E to LV E' Lateral Ratio 11.1 LV E' Septal Velocity 7.7 cm/s Mitral E to LV E' Septal Ratio 11.1 TR Peak Velocity 214.0 cm/s TR Peak Gradient 18.3 mmHg PV Peak Velocity 111.0 cm/s PV Peak Gradient 4.9 mmHg FINDINGS Left Ventricle Normal left ventricular size and systolic function with no obvious regional wall motion abnormalities. Mild LVH. The ejection fraction is visually estimated at 55-60 %. There is grade I diastolic dysfunction of the left ventricle (impaired relaxation pattern). Right Ventricle The right ventricle is normal in size and systolic function. Left Atrium The left atrium is normal by two-dimensional, color flow and Doppler imaging with no structural abnormalities, no thrombus formation present. Right Atrium The right atrium is normal by two-dimensional imaging, color flow and Doppler imaging with no structural abnormalities, no thrombus formation present. Atrial Septum The interatrial septum appears normal with no evidence of a shunt. Aorta The aorta is normal by two-dimensional, color flow and Doppler interrogation. Mitral Valve The mitral valve is normal by two-dimensional, color flow and Doppler interrogation. There is no significant mitral valve regurgitation, stenosis or prolapse. Aortic Valve The aortic valve is trileaflet and normal by two-dimensional, color flow and Doppler interrogation. There is no significant aortic valve regurgitation. Tricuspid Valve The tricuspid valve is normal by two-dimensional, color flow and Doppler interrogation. There is trace tricuspid valve regurgitation. Pulmonic Valve The pulmonic valve is not well visualized. There is no significant pulmonic valve regurgitation. Vessels The pulmonary artery appears normal. The inferior vena cava pulmonary and hepatic veins appear normal. Pericardium The pericardium is normal by two-dimensional imaging. There is no significant pericardial effusion. CONCLUSIONS Indication: Heart murmur Normal LV size and function. Mild LVH. Estimated EF at 55-60 %. Grade I diastolic dysfunction. Normal Rv size and systolic function. Trace TR and MR. No pericardial effusion. Timo Lora (Electronically Signed) Final Date: 09 September 2024 21:47
[2024-09-07 20:00] VITALS: BP 99/53; PULSE 86; RESP 18; TEMP 36; O2SAT 97
[2024-09-07] MEDS: HYDROMORPHONE HCL 2 MG TABLET 4 MG PO (21:06)
--- NOTE | 2024-09-07 23:10 | PD.NEUROCONS ---
History of Present Illness Data of Consult Requesting Physician: Jj Rodriguez MD Primary Care Provider: Penelope Francisco MD Consult Narrative History of present illness: Ms. Calvillo is a 79-year-old female with generalized osteoarthritis who presented to the ER on September 04, 2024, with complaints of worsening lower back and bilateral flank pain over the past four months, significantly intensified in last 3 days. She reports constipation with infrequent bowel movements, difficulty urinating, abdominal distension, small dark stools, and recent episodes of nausea and dry heaving. She was previously seen by her PCP and prescribed nitrofurantoin for a suspected UTI, though she denied dysuria and was unable to tolerate the medication. She also received milk of magnesia, which provided some relief. She has a remote history of hemorrhoids and believes they may be contributing to her current bowel symptoms. She denies fever, chills, chest pain, or respiratory symptoms. Workup: Imaging revealed multiple enhancing osteolytic lesions throughout the thoracic and lumbar spine, sacrum, and pelvis, concerning for metastatic disease. Additional findings include significant abdominal lymphadenopathy, mild hepatomegaly with fatty infiltration, retrocardiac gastric hernia, and prominent osteopenia. Given the concern for malignancy, GI was consulted. Got admitted for further workup and pain management. Her current regimen includes acetaminophen, [place], and IV morphine as needed. cc:: cc: Jj Rodriguez MD Review of Systems Review of Systems Systems Reviewed: All systems reviewed, normal except as documented Past Medical History Surgical History OTHER SURGICAL HX: Hysterectomy, partial removal of left fibula Social History SMOKING STATUS: Never smoker SUBSTANCE USE: does not use ALCOHOL: Never Meds Home Medications and Allergies Home Medications ?Medication ?Instructions ?Recorded ?Confirmed ?Type nitrofurantoin macrocrystal 100 mg 100 mg PO BID 09/04/24 09/04/24 History capsule Allergies Allergy/AdvReac Type Severity Reaction Status Date / Time codeine Allergy Verified 09/04/24 05:56 Exam - Neurology Vital Signs Temp Pulse Resp BP Pulse Ox O2 Del Method O2 Flow Rate 96.8 F 86 18 99/53 L 97 Nasal Cannula 1 09/07/24 20:00 09/07/24 20:00 09/07/24 20:00 09/07/24 20:00 09/07/24 20:00 09/07/24 20:00 09/07/24 16:00 Narrative Exam GENERAL APPEARANCE: Well hydrated, well-nourished in no acute distress. HEENT: Normocephalic, atraumatic, extraocular movements intact. Pupils: Equal reacting to light and accommodation NECK: Supple, no JVD or bruits. CARDIOVASULAR: Heart: S1, S2 heard, regular without S3-S4 or murmur no rubs or gallops. LUNGS/CHEST: Clear to auscultation bilaterally. No rails, rhonchi, or wheezing. Normal inspection. ABDOMEN: Soft, nontender, with normal bowel sounds. No pulsatile masses. No rebound, rigidity, or guarding. Normal inspection and palpation. EXTREMITIES: Normal inspection and palpation. No edema, clubbing or cyanosis. SKIN: Warm and dry without rashes. Normal inspection. MUSCULOSKELETAL: No cervical, thoracic, lumbar or midline bony tenderness. Normal inspection. NEURO: Alert, awake and oriented x3. Cranial nerves: II through XII grossly intact. Speech and language: Normal with no dysarthria or dysphasia. Motor system: Tone and bulk: Normal: Strength: moves all 4 extremities; significant weakness in both LE noted. Deep tendon reflexes: 2+ bilaterally symmetrical. Plantar reflex: Downgoing bilaterally. Sensory system: Intact to all modalities of sensation bilaterally. Coordination: Intact to [id number] and gpts-spjt-[id number] test bilaterally. No ataxia, no dysmetria, or dysdiadochokinesia noted. No intention tremors noted. Gait: Not tested. no signs of meningeal irritation noted. PSYCHIATRIC: Normal mood and affect. Results Labs 09/07/24 04:06 09/07/24 04:06 Labs: Short CBC 09/07/24 Range/Units 04:06 WBC 15.1 H (3.6-11.0) Thou/mm3 Hgb 12.9 (12.0-16.0) g/dL Hct 40.3 (36.0-46.0) % Plt Count 250 (140-440) Thou/mm3 BMP 09/07/24 04:06 Sodium 140 Potassium 3.7 D Chloride 100 Carbon Dioxide 27.7 BUN 16 Creatinine 0.8 Glucose 101 Calcium 9.7 Liver Function 09/07/24 Range/Units 04:06 Total Bilirubin 1.1 (0.3-1.2) mg/dL AST 21 (0-34) U/L ALT 18 (10-49) U/L Alkaline Phosphatase 194 H (46-116) U/L Albumin 4.1 (3.4-4.8) gm/dL Assessment & Plan Assessment and plan (1) Metastatic cancer to bone: Status: Acute Assessment and plan: From likely rectum Biopsy report pending Patient is going for CT-guided biopsy of lymph node or bone marrow biopsy to confirm the diagnosis before starting radiation treatment which will help with pain in addition continue with the gabapentin and Cymbalta for now. Continue with the physical therapy Consider doing EMG nerve conduction today of both lower extremities to evaluate further in my office upon discharge
[2024-09-08] VITALS (8 sets, daily range): BP systolic 118–154; BP diastolic 61–78; PULSE 76–97; RESP 15–19; TEMP 36.1–36.4; O2SAT 92–98; BMI 34.2
[2024-09-08] MEDS: HYDROMORPHONE HCL 2 MG TABLET 4 MG PO ×6 (00:50→21:25)
[2024-09-08 05:16] LABS: Basophils # (Auto) 0.1 Thou/mm3 (0.0-0.2); Basophils % (Auto) 0 % (0-2.5); Eosinophils # (Auto) 0.1 Thou/mm3 (0.0-0.5); Eosinophils % (Auto) 1 % (0-10); Hematocrit 35.9 % (36.0-46.0); Hemoglobin 11.5 g/dL (12.0-16.0); Immature Granulocytes Auto 0.08 Thou/mm3 (0.00-0.00); Lymphocytes # (Auto) 1.7 Thou/mm3 (1.0-4.8); Lymphocytes % (Auto) 14 % (10-50); Mean Corpuscular HGB Conc 32.0 g/dl (31.0-37.0); Mean Corpuscular Hemoglobin 27.6 pg (25.0-35.0); Mean Corpuscular Volume 86 fL (80-100); Monocytes # (Auto) 1.5 Thou/mm3 (0.0-0.8); Monocytes % (Auto) 12 % (0-12); Neutrophils # (Auto) 8.9 Thou/mm3 (1.8-7.7); Neutrophils % (Auto) 72 % (37-80); Nucleated Red Blood Cell # 0.00 Thou/mm3 (0.00-0.00); Nucleated Red Blood Cell % 0 /100 WBC (0); Platelet Count 260 Thou/mm3 (140-440); RDW Standard Deviation 46.4 fL (36.4-46.3); Red Blood Count 4.16 Miln/mm3 (4.00-5.20); White Blood Count 12.3 Thou/mm3 (3.6-11.0)
[2024-09-08 05:27] LABS: INR 1.0 (0.9-1.3); Partial Thromboplastin Time 33.1 Seconds (22.0-36.0); Prothrombin Time 10.7 Seconds (9.0-12.2)
[2024-09-08 05:36] LABS: Alanine Aminotransferase 24 U/L (10-49); Albumin, Serum 3.9 gm/dL (3.4-4.8); Albumin/Globulin Ratio 1.7 (1.2-2.2); Alkaline Phosphatase 179 U/L (46-116); Anion Gap 12 (7-16); Aspartate Amino Transferase 25 U/L (0-34); BUN/Creatinine Ratio 33 Ratio (12-20); Bilirubin,Total 1.1 mg/dL (0.3-1.2); Blood Urea Nitrogen 26 mg/dL (9-23); Calcium 9.4 mg/dL (8.3-10.6); Calcium (Corrected) 9.5 mg/dL (8.5-10.1); Carbon Dioxide 27.8 mMol/L (20.0-31.0); Chloride 97 mMol/L (98-107); Creatinine (Component) 0.8 mg/dL (0.6-1.3); Estimated Creatinine Clearance 59.3 mL/min (>60); Globulin 2.3 gm/dL (2.3-3.5); Glucose 94 mg/dL (74-106); Magnesium 2.1 mg/dL (1.6-2.6); Osmolality,Calculated 278 (275-295); Phosphorous 3.0 mg/dL (2.4-5.1); Potassium 3.8 mMol/L (3.4-5.1); Sodium 137 mMol/L (136-145); Total Protein 6.2 gm/dL (5.7-8.2); eGFR > 60 See Note
--- NOTE | 2024-09-08 08:37 | PC.NURSE ---
SPOKE TO RESHMA AT [facility], DR. LEE WILL START AT NOON TODAY, PT HAS 3 CASES AT HEAD OF HER, IT WAS RECOMMEMDED FOR PT TO HAVE BREAKFAST AND NPO AFTER. MORNING MEDICATIONS OKAY TO GIVE HOLD ANY ANTICOAGULANTS. ORDER RECEIVED, READ BACK, AND CARRIED OUT.
[2024-09-08] MEDS: POLYETHYLENE GLYCOL 17 GM PACKET PO (08:47)
[2024-09-08] MEDS: DULoxetine HCL 30 MG CAPSULE PO (08:47)
[2024-09-08] MEDS: GABAPENTIN 100 MG CAPSULE 200 MG PO ×2 (10:59→22:27)
--- NOTE | 2024-09-08 11:06 | PC.NURSE ---
AT THIS TIME DR. POLANCO WAS MADE AWARE PT C/O FREQENT URINATION, DRIBBLING, SENSATION OF URINATION AND BLADDER PRESSURE. SHE IS STILL HAVING PAIN OF 8/10 C/O BACK. ORDER RECEIVED, READ BACK AND CARRIED OUT.
[2024-09-08] MEDS: LIDOCAINE 5% 1 PATCH TOP (11:34)
[2024-09-08] MEDS: HYDROcodone/APAP 5/325 TABLET 1 TAB PO (11:34)
--- NOTE | 2024-09-08 13:32 | PC.NURSE ---
DR. POLANCO MADE AWARE ESCOBAR CATHETER WAS INSERTED 900CC URINE OUT, PT FELT RELIEVE AND TOLERATED WELL. NO NEW ORDERS AT THE MOMENT WILL CONTINUE TO MONITOR PT.
--- NOTE | 2024-09-08 14:02 | ESPR_ITS ---
<Statement entered by Bharti Randle MD - 09/09/24 11:41> I have reviewed the note and agree with the resident's assessment & plan with exceptions as below. I have personally reviewed labs, imaging, home meds/prior records, examined the patient, formulated and discussed management plan with the IM team. Pt examined at bedside, she reports she is doing well after her sigmoidoscopy last night. Pt to get CT guided biopsy of lymph nodes as well per GI recommendations. Will remove NG tube at this time as pt has had bowel movement and small bowel series were negative. Pt continues to have additional pain in lower back, will add additional analgesia including gabapentin. Neurology and GI on consult, appreciate recs. Repeat hematology and chemistry in AM. Bharti Randle, PGY-2 Internal Medicine Documentation for date of: 09/08/24 Subjective Subjective Interval history: Patient seen and examined at bedside. She states that her back pain was controlled yesterday evening with hydromorphone and gabapentin, however she did not receive it this morning as she was npo and her back pain has returned. She states that she was able to have a bowel movement this morning, denies dysuria, chest pain, and sob. No acute overnight events Exam Vital Signs Temp Pulse Resp BP Pulse Ox O2 Del Method O2 Flow Rate 97.6 F 88 15 139/69 H 94 L Room Air 1 09/08/24 12:00 09/08/24 12:00 09/08/24 12:00 09/08/24 12:00 09/08/24 12:00 09/08/24 12:00 09/08/24 07:51 Narrative Exam GENERAL: NAD, A&Ox3 HEENT: Moist mucosa. Eyes open, symmetrical, & clear CARDIO: Heart RRR, Grade iii/iv systolic murmur at RUSB PULM: No noted coughing/dyspnea CTA B/L, no adventitious lung sounds GI: Abdomen soft, distended, nontender to palpation. BSx4. SKIN/MSK/EXT: No wounds/rashes/edema/amputations, no pain on palpation. Pedal pulses present B/L NEURO: AAOx3, no focal neuro deficits, able to move all 4 extremities Objective Labs 09/09/24 14:01 09/09/24 14:01 Labs: Laboratory Results - last 24 hr 09/08/24 04:38 WBC 12.3 H RBC 4.16 Hgb 11.5 L Hct 35.9 L MCV 86 MCH 27.6 MCHC 32.0 RDW Std Deviation 46.4 H Plt Count 260 Neut % (Auto) 72 Lymph % (Auto) 14 [place] % (Auto) 12 Eos % (Auto) 1 Baso % (Auto) 0 Neut # (Auto) 8.9 H Lymph # (Auto) 1.7 [place] # (Auto) 1.5 H Eos # (Auto) 0.1 Baso # (Auto) 0.1 Immature Gran # (Auto) 0.08 H Absolute Nucleated RBC 0.00 Immature Gran % 1 H Nucleated RBC % 0 PT 10.7 INR 1.0 APTT 33.1 Sodium 137 Potassium 3.8 Chloride 97 L Carbon Dioxide 27.8 Anion Gap 12 BUN 26 H Creatinine 0.8 Estim Creat Clear Calc 59.3 L eGFR > 60 BUN/Creatinine Ratio 33 H Glucose 94 Calculated Osmolality 278 Calcium 9.4 Corrected Calcium 9.5 Phosphorus 3.0 Magnesium 2.1 Total Bilirubin 1.1 AST 25 ALT 24 Alkaline Phosphatase 179 H Total Protein 6.2 Albumin 3.9 Globulin 2.3 Albumin/Globulin Ratio 1.7 Quality Measures Quality Measures VTE prophylaxis and none Advance care planning discussed with:: patient Assessment & Plan Assessment Current Active Medications: Generic Name Dose Route Start Last Admin Trade Name Freq PRN Reason Stop Dose Admin Acetaminophen 650 mg 09/04/24 15:50 Acetaminophen 325 Mg Tablet PO 10/04/24 15:49 Q6H PRN PAIN SCALE 1-3 (mild Hydrocodone Bitart/Acetaminophen 1 tab 09/04/24 16:51 09/08/24 11:34 Hydrocodone/Apap 5/325 Tablet PO 09/09/24 16:50 1 tab Q4H PRN Administration PAIN SCALE 4-6 (Moderate Alprazolam 0.25 mg 09/06/24 18:44 09/07/24 22:44 Alprazolam 0.25 Mg Tablet PO 09/11/24 18:43 0.25 mg HS PRN Administration ANXIETY Duloxetine HCl 30 mg 09/07/24 10:15 09/08/24 08:47 Duloxetine Hcl 30 Mg Capsule PO 10/07/24 10:14 30 mg QDAY CLAUDE Administration Gabapentin 200 mg 09/06/24 14:00 09/08/24 05:28 Gabapentin 100 Mg Capsule PO 10/06/24 13:59 Not Given TID CLAUDE Heparin Sodium (Porcine) 5,000 unit 09/04/24 21:00 09/08/24 08:47 Heparin Sod Inj 5000 Unit/Ml Vial SC 09/18/24 20:59 Not Given BID CLAUDE Hydromorphone HCl 4 mg 09/08/24 12:00 09/08/24 13:30 Hydromorphone Hcl 2 Mg Tablet PO 09/13/24 11:59 4 mg Q3HR CLAUDE Administration Lidocaine 1 patch 09/07/24 12:48 09/08/24 11:34 Lidocaine 5% 1 Patch TOP 10/07/24 12:47 1 patch UD PRN Administration PAIN Ondansetron HCl 4 mg 09/05/24 04:14 09/05/24 13:09 Ondansetron Inj 2 Mg/Ml Inj 2 Ml IVP 10/05/24 04:13 4 mg Q6HR PRN Administration NAUSEA OR VOMITING Protocol Polyethylene Glycol 17 gm 09/08/24 09:00 09/08/24 08:47 Polyethylene Glycol 17 Gm Packet PO 10/08/24 08:59 17 gm QDAY CLAUDE Administration Plan Assessment and Plan 79-year-old female with PMHx of arthritis presented to the ED on 09/04/2024 with complaint of lower back and right flank pain worse with movement. Imaging was remarkable for widespread enhancing lesions of multiple vertebrae. Pt was admitted for work up of possible metastaic disease and pain managment. #Colorectal Cancer with metastasis to bone The diagnosis is supported by presence of large rectal mass, abdominal lymphadenopathy, osseous lesions throughout thoracic and lumbar vertebrae on imaging consistent with cancer, as well as elevation in tumor marker CEA. Thoracic spine MRI: Severe osteopenia. No lumbar fracture. Multiple osteolytic lesions on the precontrast images. Postcontrast images demonstrate diffuse abnormal enhancement involving all lumbar vertebral bodies, sacral segments, and visualized bones of the pelvis. Lumbar spine MRI: Diffuse abnormal enhancement involving all thoracic vertebral bodies. CTAP: Retrocardiac gastric hernia. Liver is mildly irregular in contour and enlarged, 18 cm. No renal or ureteral calculi. Significant abdominal lymphadenopathy, periaortic lymph nodes measuring up to 20mm. Heavy calcification abdominal aorta. Absent uterus. Prominent osteopenia. US of gallbladder: 15 mm gallstone. Normal gallbladder wall. Common bile duct 0.6 cm no stones. Pancreatic head 1.9 cm. Liver 16.5 cm fatty infiltration. Normal hepatopedal portal venous flow. Patent IVC 09/05 Bone Survery: No findings diagnostic for osseous metastatic disease GI Dr Mclean did TOSHA in the face of non-improving impaction and unproductive fleet enema. He suspects large obstructive mass in sari-anal area. Labs for tumor markers was positive for greatly elevated CEA 145. Other markers measured AFP 3.30, CA 15-3 27.7. amd CA 125 8 were unremarkable. 09/06: Colonoscopy revealed an ulcerated, medium-size mass 1cm proximal to the anus with oozing. Most likely squamous cell carcinoma. Biopsied. Surgery consulted, If biopsy results are squamous cell cancer, patient will require chemoradiation without surgical intervention. If biopsies are consistent with adenocarcinoma she will still require neoadjuvant chemoradiation, then she will be reevaluated for surgery in the future. There are no indications for surgical intervention at this time. Plan: Likely primary source GI; pending pathology report of biopsied rectal mass General surgery consulted, management pending pathology report Rad-Onc consulted. pending CT-guided biopsy of the large periaortic node Acetaminophen 325mg Q6h PRN for mild pain Falcon 5/325 for moderate pain Hydromorphone PO 4mg Q4h PRN for severe pain #Small bowel/Colonic Ileus #hx of constipation #hemorrhoids PE findings of marked abdominal distension, dull percussion and diminished bowel sounds throughout. Patient states that she has been having small BM which are darkly colored. GI consulted. Patient took in GoLytely for bowel prep, but was unable to stimulate a BM. Abdomen was distended with excessive stool burden. X-ray of abdomen: small bowel and colon ileus with moderate stool throughout the colon. No obstruction. GI Dr Mclean did TOSHA in the face of non-improving impaction and unproductive fleet enema. F/U sigmoidoscopy revealed a non-obstructing, medium-sized mass involving 1/3 of the luminal circumference at 1cm proximity of the anus. Gastrograffin bowel series showed contrast in the Rt colon on the 2h film. SBO ruled out. Patient has been able to have multiple bowel movements since yesterday. Plan: Advanced diet to regular NPO after midnight in preparation for her CT guided biopsy d/c NGT decompression Miralax #Intractable Lower Back Pain with radiation down the legs to the knees #OsteoArthritis Neurology consulted, appreciate recs Continue with the physical therapy Cymbalta 30mg Qday for chronic MSK pain, including lower back and osteoarthritic pain. Gabapentin PO 200mg PRN for neuropathic pain. lidocaine topical patch for lower back pain. Falcon 5/325 for moderate pain Hydromorphone PO 4mg Q4h PRN for severe pain #Heart Murmur Grade iii/iv systolic murmur RUSB with radiation to carotids on PE. ordered echocardiogram #hx of UTI Patient completed course of ABx for previous infection. Urine negative for bacteria, WBC, ketones, or nitrites. Health Maintenance: Disposition: Med Surg Diet: Normal, NPO after midnight PPx DVT: heparin 5000u bid PPx GI: Protonix 40mg bid Code status: Routine Case and Plan discussed with my attending physician, Dr. Anderson, and my senior resident, Dr. Jer Campa, S-IV Attending Provider Attestation/Addendum I attest that I was physically present for the evaluation, physical examination, lab and imaging review of the patient with the residents. I discussed the case with the residents and agree with the findings and plans of care as documented above. At bedside today, patient continues to complain of lower back pain.? We will adjust her analgesic regimen.? Currently n.p.o. for CT-guided lymph node biopsy.? Updated patient about her current condition and further management plan, agrees with the plan.? Awaiting echocardiography results.? Possible discharge tomorrow if remains stable. Francine Anderson MD
--- NOTE | 2024-09-08 15:39 | PC.SS ---
SS attempted to see patient but nursing states she just fell asleep. SS will follow up with patient at a later time. Patient is from home and has a careprovider.
--- NOTE | 2024-09-08 15:45 | PC.SS ---
SS met with patient who is alert/oriented. Patient resides alone. Patient was sleeping at the time so history was obtained from careprovider who was listed as a contact acid plant operator. Careprovider states prior to hospitalization patient was independent with ADL's. No DME. Patient was driving herself and performing all tasks independently. Patient daughter, Bryanna, is the alt medical decision maker. Patient has friends that check in and out with her daily. PCP: Dr. Francisco. Last appt. was 1-2 weeks. [facility]acy: [facility] D/c plan is to return home. Patient is pending a PT eval. SS will follow up with PT to determine any d/c needs. transportation: friends/family. alt medical decision maker: DaughterBryanna,
--- NOTE | 2024-09-08 17:06 | PC.PT ---
PT eval was attempted at 15:30 but patient reported she was in too much pain at this time and would like to try tomorrow. Patient had a TLSO brace delivered today which was present at bedside. Will attempt PT eval at another time.
--- NOTE | 2024-09-08 20:02 | PD.IMPROG ---
Documentation for date of: 09/08/24 Subjective Subjective Interval history: Small bowel for the negative no signs of any obstruction Biopsies from the anal mass are pending hopefully get the report by tomorrow Still waiting for the CT-guided biopsy of one of the lymph nodes Exam Vital Signs Temp Pulse Resp BP Pulse Ox O2 Del Method O2 Flow Rate 97.0 F 76 15 118/75 93 L Room Air 1 09/08/24 15:36 09/08/24 15:36 09/08/24 15:36 09/08/24 15:36 09/08/24 15:36 09/08/24 15:36 09/08/24 07:51 Objective Labs 09/08/24 04:38 09/08/24 04:38 Labs: Laboratory Results - last 24 hr 09/08/24 04:38 WBC 12.3 H RBC 4.16 Hgb 11.5 L Hct 35.9 L MCV 86 MCH 27.6 MCHC 32.0 RDW Std Deviation 46.4 H Plt Count 260 Neut % (Auto) 72 Lymph % (Auto) 14 [place] % (Auto) 12 Eos % (Auto) 1 Baso % (Auto) 0 Neut # (Auto) 8.9 H Lymph # (Auto) 1.7 [place] # (Auto) 1.5 H Eos # (Auto) 0.1 Baso # (Auto) 0.1 Immature Gran # (Auto) 0.08 H Absolute Nucleated RBC 0.00 Immature Gran % 1 H Nucleated RBC % 0 PT 10.7 INR 1.0 APTT 33.1 Sodium 137 Potassium 3.8 Chloride 97 L Carbon Dioxide 27.8 Anion Gap 12 BUN 26 H Creatinine 0.8 Estim Creat Clear Calc 59.3 L eGFR > 60 BUN/Creatinine Ratio 33 H Glucose 94 Calculated Osmolality 278 Calcium 9.4 Corrected Calcium 9.5 Phosphorus 3.0 Magnesium 2.1 Total Bilirubin 1.1 AST 25 ALT 24 Alkaline Phosphatase 179 H Total Protein 6.2 Albumin 3.9 Globulin 2.3 Albumin/Globulin Ratio 1.7 Impressions Impression: # Metastatic malignancy waiting for the anal mass biopsy result report and waiting for CT-guided biopsy of one of the lymph nodes Advance diet as tolerated Assessment & Plan A&P Narrative 79 years of female with abnormal CTAP showing abdominal pelvic lymphadenopathy and metastatic disease to the bones Certainly primary of an unknown origin Suggestions Tumor markers CEA level AFP CA 19?9 level CA 15-3 CA 125 Consent obtained for fiberoptic esophagogastroduodenoscopy and fiberoptic colonoscopy with possible biopsy possible therapeutic intervention under intravenous moderate sedation after Sonytely yecenia Met with the friends who would like her children I and spoke with them honestly about patient's condition with patient's permission And her daughter is on her way from home I will speak to her tomorrow I will follow the patient with you Janett keene to continue Clear liquid diet Thank you very much for the opportunity to participate in care of this If the colonoscopy and upper endoscopy is clean recommend CT-guided biopsy of one of the lymph nodes or a bone marrow biopsy and aspirate Time Spent With Patient Time: Total time spent is greater than 50% in coordination of care (as documented) at patient's floor/unit and/or counseling patient:
--- NOTE | 2024-09-08 20:35 | PD.NEUROPROG ---
Documentation for date of: 09/08/24 Subjective Subjective Interval history: Ms. Calvillo was seen in [facility] today at the bedside. Continues to have low back pain and lower extremity pain, was able to sleep for 4 hours after the Dilaudid and Nodaway. Exam - Neurology Vital Signs Temp Pulse Resp BP Pulse Ox O2 Del Method O2 Flow Rate 97.0 F 76 15 118/75 93 L Room Air 1 09/08/24 15:36 09/08/24 15:36 09/08/24 15:36 09/08/24 15:36 09/08/24 15:36 09/08/24 15:36 09/08/24 07:51 Narrative Exam GENERAL APPEARANCE: Well hydrated, well-nourished in no acute distress. HEENT: Normocephalic, atraumatic, extraocular movements intact. Pupils: Equal reacting to light and accommodation NECK: Supple, no JVD or bruits. CARDIOVASULAR: Heart: S1, S2 heard, regular without S3-S4 or murmur no rubs or gallops. LUNGS/CHEST: Clear to auscultation bilaterally. No rails, rhonchi, or wheezing. Normal inspection. ABDOMEN: Soft, nontender, with normal bowel sounds. No pulsatile masses. No rebound, rigidity, or guarding. Normal inspection and palpation. EXTREMITIES: Normal inspection and palpation. No edema, clubbing or cyanosis. SKIN: Warm and dry without rashes. Normal inspection. MUSCULOSKELETAL: No cervical, thoracic, lumbar or midline bony tenderness. Normal inspection. NEURO: Alert, awake and oriented x3. Cranial nerves: II through XII grossly intact. Speech and language: Normal with no dysarthria or dysphasia. Motor system: Tone and bulk: Normal: Strength: moves all 4 extremities; significant weakness in both LE noted. Deep tendon reflexes: 2+ bilaterally symmetrical. Plantar reflex: Downgoing bilaterally. Sensory system: Intact to all modalities of sensation bilaterally. Coordination: Intact to [id number]-[id number] and rzqk-blsv-vtlh test bilaterally. No ataxia, no dysmetria, or dysdiadochokinesia noted. No intention tremors noted. Gait: Not tested. no signs of meningeal irritation noted. PSYCHIATRIC: Normal mood and affect. Objective Labs 09/08/24 04:38 09/08/24 04:38 Labs: Laboratory Results - last 24 hr 09/08/24 04:38 WBC 12.3 H RBC 4.16 Hgb 11.5 L Hct 35.9 L MCV 86 MCH 27.6 MCHC 32.0 RDW Std Deviation 46.4 H Plt Count 260 Neut % (Auto) 72 Lymph % (Auto) 14 [place] % (Auto) 12 Eos % (Auto) 1 Baso % (Auto) 0 Neut # (Auto) 8.9 H Lymph # (Auto) 1.7 [place] # (Auto) 1.5 H Eos # (Auto) 0.1 Baso # (Auto) 0.1 Immature Gran # (Auto) 0.08 H Absolute Nucleated RBC 0.00 Immature Gran % 1 H Nucleated RBC % 0 PT 10.7 INR 1.0 APTT 33.1 Sodium 137 Potassium 3.8 Chloride 97 L Carbon Dioxide 27.8 Anion Gap 12 BUN 26 H Creatinine 0.8 Estim Creat Clear Calc 59.3 L eGFR > 60 BUN/Creatinine Ratio 33 H Glucose 94 Calculated Osmolality 278 Calcium 9.4 Corrected Calcium 9.5 Phosphorus 3.0 Magnesium 2.1 Total Bilirubin 1.1 AST 25 ALT 24 Alkaline Phosphatase 179 H Total Protein 6.2 Albumin 3.9 Globulin 2.3 Albumin/Globulin Ratio 1.7 Assessment & Plan Assessment and plan (1) Metastatic cancer to bone: Status: Acute Assessment and plan: From likely rectum: Biopsy report pending Patient is going for CT-guided biopsy of lymph node or bone marrow biopsy to confirm the diagnosis before starting radiation treatment which will help with pain in addition continue with the gabapentin and Cymbalta for now. She is on Dilaudid, Nodaway as needed along with ice packs and lidocaine patches Consider doing EMG nerve conduction today of both lower extremities to evaluate further in my office upon discharge
[2024-09-09] VITALS (8 sets, daily range): BP systolic 119–160; BP diastolic 59–84; PULSE 77–82; RESP 15–18; TEMP 36.3–36.6; O2SAT 95–97; BMI 13.0
[2024-09-09] MEDS: HYDROMORPHONE HCL 2 MG TABLET 4 MG PO ×7 (02:10→23:36)
[2024-09-09 06:18] LABS: INR 1.0 (0.9-1.3); Partial Thromboplastin Time 30.9 Seconds (22.0-36.0); Prothrombin Time 10.9 Seconds (9.0-12.2)
[2024-09-09] MEDS: HYDROmorphone INJ 2 MG/ML VIAL 0.5 MG IVP (06:22)
[2024-09-09 06:48] LABS: CA 19-9 Antigen* 139 U/mL (<34)
[2024-09-09] MEDS: DULoxetine HCL 30 MG CAPSULE PO (08:52)
--- NOTE | 2024-09-09 10:16 | PC.NURSE ---
Patient taken to [facility] at this time for Biopsy. Report given to Samir.
[2024-09-09] MEDS: HYDROcodone/APAP 5/325 TABLET 1 TAB PO (10:58)
--- NOTE | 2024-09-09 11:12 | PC.PT ---
Patient is safe to use the bedside commode with the TLSO, FWW, and 1 staff assist. RN made aware.
--- NOTE | 2024-09-09 12:30 | PC.SS ---
Addendum entered by EMILY Kimble 09/09/24 14:32: Rounding note: patient is pending biopsy. The d/c plan is SNF. Addendum entered by EMILY Kimble 09/09/24 13:05: SNF referral sent via [employer]. Pending responses. Addendum entered by EMILY Kimble 09/09/24 12:57: SS update: PASRR was completed. No follow up required. Original Note: SS follow up: Physical therapy has recommended SNF for the patient. [facility] spoke with patient regarding PT's recommendations. Patient was agreeable to SNF if necessary. Patient indicates she lives alone. Patient was explained the process for SNF and that she will also require insurance authorization for SNF. Patient was provided with local SNF's listings on community resource handout.
--- NOTE | 2024-09-09 12:57 | PC.NURSE ---
Patient refused abdominal biopsy due to inability to lie flat. Patient expressed preference to undergo the procedure under general anesthesia. Physician notified.
[2024-09-09 14:10] LABS: Basophils # (Auto) 0.1 Thou/mm3 (0.0-0.2); Basophils % (Auto) 1 % (0-2.5); Eosinophils # (Auto) 0.1 Thou/mm3 (0.0-0.5); Eosinophils % (Auto) 1 % (0-10); Hematocrit 33.2 % (36.0-46.0); Hemoglobin 11.3 g/dL (12.0-16.0); Immature Granulocytes Auto 0.08 Thou/mm3 (0.00-0.00); Lymphocytes # (Auto) 1.6 Thou/mm3 (1.0-4.8); Lymphocytes % (Auto) 16 % (10-50); Mean Corpuscular HGB Conc 34.0 g/dl (31.0-37.0); Mean Corpuscular Hemoglobin 27.8 pg (25.0-35.0); Mean Corpuscular Volume 82 fL (80-100); Monocytes # (Auto) 1.2 Thou/mm3 (0.0-0.8); Monocytes % (Auto) 12 % (0-12); Neutrophils # (Auto) 6.9 Thou/mm3 (1.8-7.7); Neutrophils % (Auto) 70 % (37-80); Nucleated Red Blood Cell # 0.00 Thou/mm3 (0.00-0.00); Nucleated Red Blood Cell % 0 /100 WBC (0); Platelet Count 268 Thou/mm3 (140-440); RDW Standard Deviation 42.3 fL (36.4-46.3); Red Blood Count 4.07 Miln/mm3 (4.00-5.20); White Blood Count 9.9 Thou/mm3 (3.6-11.0)
[2024-09-09] MEDS: GABAPENTIN 100 MG CAPSULE 200 MG PO ×2 (14:24→21:11)
[2024-09-09 14:31] LABS: Alanine Aminotransferase 28 U/L (10-49); Albumin, Serum 3.6 gm/dL (3.4-4.8); Albumin/Globulin Ratio 1.5 (1.2-2.2); Alkaline Phosphatase 188 U/L (46-116); Anion Gap 10 (7-16); Aspartate Amino Transferase 27 U/L (0-34); BUN/Creatinine Ratio 23 Ratio (12-20); Bilirubin,Total 1.0 mg/dL (0.3-1.2); Blood Urea Nitrogen 14 mg/dL (9-23); Calcium 9.3 mg/dL (8.3-10.6); Calcium (Corrected) 9.6 mg/dL (8.5-10.1); Carbon Dioxide 28.4 mMol/L (20.0-31.0); Chloride 100 mMol/L (98-107); Creatinine (Component) 0.6 mg/dL (0.6-1.3); Estimated Creatinine Clearance 77.3 mL/min (>60); Globulin 2.4 gm/dL (2.3-3.5); Glucose 94 mg/dL (74-106); Osmolality,Calculated 276 (275-295); Potassium 4.0 mMol/L (3.4-5.1); Sodium 138 mMol/L (136-145); Total Protein 6.0 gm/dL (5.7-8.2); eGFR > 60 See Note
--- NOTE | 2024-09-09 18:33 | ESPR_ITS ---
<Statement entered by Denisse Crawley MD - 09/09/24 18:35> 79-year-old female with a history of arthritis was admitted on 09/04/24 for evaluation of severe lower back and right flank pain. Imaging revealed extensive osseous lesions and a large rectal mass, raising concern for metastatic colorectal cancer. Colonoscopy on 09/06 showed an ulcerated rectal mass, likely squamous cell carcinoma, and biopsy was obtained. Tumor marker CEA was markedly elevated. A CT-guided biopsy of a periaortic lymph node was planned to further evaluate metastatic disease. Today, the patient initially refused the CT-guided biopsy, but later consented after adequate pain control. However, due to limited scheduling availability, the procedure was postponed until tomorrow. She also had a colonic ileus with a history of constipation, managed with bowel regimen and decompression. After GI interventions, she is now having regular bowel movements and is tolerating an advanced diet. Pain has been a major issue, attributed to both osseous metastases and osteoarthritis. Pain management includes opioids, neuropathic agents, and topical therapies, with neurology and PT involved. I?ve reviewed the note and agree with the resident's assessment and plan, with the exceptions outlined above. I personally went over the labs, imaging, home medications, and prior records, and examined the patient. The case was also reviewed with the attending physician. Please note: this document was transcribed using voice recognition technology; minor inaccuracies may be present. Denisse Crawley DO PGY II Documentation for date of: 09/09/24 Subjective Subjective Interval history: Patient seen and examined at bedside. No acute overnight events. She states that her back pain is severe and morphine only provides short relief. Patient has found more satisfactory pain relief from dilaudid and Esbon. However, as she has been NPO in anticipation of CT-guided biopsy of her abdominal lymph node, she had receive dilaudid IV overnight. Patient initially in denial of her upcoming procedure due to pain when lying flat, but approves with provision of IV dialudid half an hour before her procedure. She states that abdominal pain and distension are improved and she is able to have BM. Denies dysuria, chest pain, and sob. Exam Vital Signs Temp Pulse Resp BP Pulse Ox O2 Del Method O2 Flow Rate 97.4 F 81 17 160/77 H 95 Nasal Cannula 2 09/09/24 16:00 09/09/24 16:00 09/09/24 16:00 09/09/24 16:00 09/09/24 16:00 09/09/24 16:00 09/09/24 16:00 Narrative Exam GENERAL: NAD, A&Ox3 HEENT: Moist mucosa. Eyes open, symmetrical, & clear CARDIO: Heart RRR, Grade iii/iv systolic murmur at RUSB PULM: No noted coughing/dyspnea CTA B/L, no adventitious lung sounds GI: Abdomen soft, distended, nontender to palpation. BSx4. SKIN/MSK/EXT: No wounds/rashes/edema/amputations, no pain on palpation. Pedal pulses present B/L NEURO: AAOx3, no focal neuro deficits, able to move all 4 extremities Objective Labs 09/09/24 14:01 09/09/24 14:01 Labs: Laboratory Results - last 24 hr 09/04/24 09/09/24 09/09/24 20:43 04:35 14:01 WBC 9.9 RBC 4.07 Hgb 11.3 L Hct 33.2 L MCV 82 MCH 27.8 MCHC 34.0 RDW Std Deviation 42.3 Plt Count 268 Neut % (Auto) 70 Lymph % (Auto) 16 [place] % (Auto) 12 Eos % (Auto) 1 Baso % (Auto) 1 Neut # (Auto) 6.9 Lymph # (Auto) 1.6 [place] # (Auto) 1.2 H Eos # (Auto) 0.1 Baso # (Auto) 0.1 Immature Gran # (Auto) 0.08 H Absolute Nucleated RBC 0.00 Immature Gran % 1 H Nucleated RBC % 0 PT 10.9 INR 1.0 APTT 30.9 Sodium 138 Potassium 4.0 Chloride 100 Carbon Dioxide 28.4 Anion Gap 10 BUN 14 Creatinine 0.6 Estim Creat Clear Calc 77.3 eGFR > 60 BUN/Creatinine Ratio 23 H Glucose 94 Calculated Osmolality 276 Calcium 9.3 Corrected Calcium 9.6 Total Bilirubin 1.0 AST 27 ALT 28 Alkaline Phosphatase 188 H Total Protein 6.0 Albumin 3.6 Globulin 2.4 Albumin/Globulin Ratio 1.5 CA 19-9 Antigen 139 H Quality Measures Quality Measures VTE prophylaxis and none Advance care planning discussed with:: patient Assessment & Plan Assessment Current Active Medications: Generic Name Dose Route Start Last Admin Trade Name Freq PRN Reason Stop Dose Admin Acetaminophen 650 mg 09/04/24 15:50 Acetaminophen 325 Mg Tablet PO 10/04/24 15:49 Q6H PRN PAIN SCALE 1-3 (mild Alprazolam 0.25 mg 09/06/24 18:44 09/07/24 22:44 Alprazolam 0.25 Mg Tablet PO 09/11/24 18:43 0.25 mg HS PRN Administration ANXIETY Duloxetine HCl 30 mg 09/07/24 10:15 09/09/24 08:52 Duloxetine Hcl 30 Mg Capsule PO 10/07/24 10:14 30 mg QDAY CLAUDE Administration Gabapentin 200 mg 09/06/24 14:00 09/09/24 14:24 Gabapentin 100 Mg Capsule PO 10/06/24 13:59 200 mg TID CLAUDE Administration Hydromorphone HCl 4 mg 09/08/24 12:00 09/09/24 18:02 Hydromorphone Hcl 2 Mg Tablet PO 09/13/24 11:59 4 mg Q3HR CLAUDE Administration Hydromorphone HCl 2 mg 09/10/24 08:00 Hydromorphone Inj 2 Mg/Ml Vial IVP 09/10/24 08:01 X1 ONE Lidocaine 1 patch 09/07/24 12:48 09/08/24 11:34 Lidocaine 5% 1 Patch TOP 10/07/24 12:47 1 patch UD PRN Administration PAIN Ondansetron HCl 4 mg 09/05/24 04:14 09/05/24 13:09 Ondansetron Inj 2 Mg/Ml Inj 2 Ml IVP 10/05/24 04:13 4 mg Q6HR PRN Administration NAUSEA OR VOMITING Protocol Polyethylene Glycol 17 gm 09/08/24 09:00 09/09/24 08:53 Polyethylene Glycol 17 Gm Packet PO 10/08/24 08:59 Not Given QDAY CLAUDE Plan Assessment and Plan 79-year-old female with PMHx of arthritis presented to the ED on 09/04/2024 with complaint of lower back and right flank pain worse with movement. Imaging was remarkable for widespread enhancing lesions of multiple vertebrae. Pt was admitted for work up of possible metastaic disease and pain managment. #Colorectal Cancer with metastasis to bone The diagnosis is supported by presence of large rectal mass, abdominal lymphadenopathy, osseous lesions throughout thoracic and lumbar vertebrae on imaging consistent with cancer, as well as elevation in tumor marker CEA. Thoracic spine MRI: Severe osteopenia. No lumbar fracture. Multiple osteolytic lesions on the precontrast images. Postcontrast images demonstrate diffuse abnormal enhancement involving all lumbar vertebral bodies, sacral segments, and visualized bones of the pelvis. Lumbar spine MRI: Diffuse abnormal enhancement involving all thoracic vertebral bodies. CTAP: Retrocardiac gastric hernia. Liver is mildly irregular in contour and enlarged, 18 cm. No renal or ureteral calculi. Significant abdominal lymphadenopathy, periaortic lymph nodes measuring up to 20mm. Heavy calcification abdominal aorta. Absent uterus. Prominent osteopenia. US of gallbladder: 15 mm gallstone. Normal gallbladder wall. Common bile duct 0.6 cm no stones. Pancreatic head 1.9 cm. Liver 16.5 cm fatty infiltration. Normal hepatopedal portal venous flow. Patent IVC 09/05 Bone Survery: No findings diagnostic for osseous metastatic disease GI Dr Mclean did TOSHA in the face of non-improving impaction and unproductive fleet enema. He suspects large obstructive mass in sari-anal area. Labs for tumor markers was positive for greatly elevated CEA 145. Other markers measured AFP 3.30, CA 15-3 27.7. amd CA 125 8 were unremarkable. 09/06: Colonoscopy revealed an ulcerated, medium-size mass 1cm proximal to the anus with oozing. Most likely squamous cell carcinoma. Biopsied. Surgery consulted, If biopsy results are squamous cell cancer, patient will require chemoradiation without surgical intervention. If biopsies are consistent with adenocarcinoma she will still require neoadjuvant chemoradiation, then she will be reevaluated for surgery in the future. There are no indications for surgical intervention at this time. Plan: Likely primary source GI; pending pathology report of biopsied rectal mass General surgery consulted, management pending pathology report Rad-Onc consulted. pending CT-guided biopsy of the large periaortic node Acetaminophen 325mg Q6h PRN for mild pain Esbon 5/325 for moderate pain Hydromorphone PO 4mg Q4h PRN for severe pain #Small bowel/Colonic Ileus #hx of constipation #hemorrhoids PE findings of marked abdominal distension, dull percussion and diminished bowel sounds throughout. Patient states that she has been having small BM which are darkly colored. GI consulted. Patient took in GoLytely for bowel prep, but was unable to stimulate a BM. Abdomen was distended with excessive stool burden. X-ray of abdomen: small bowel and colon ileus with moderate stool throughout the colon. No obstruction. GI Dr Mclean did TOSHA in the face of non-improving impaction and unproductive fleet enema. F/U sigmoidoscopy revealed a non-obstructing, medium-sized mass involving 1/3 of the luminal circumference at 1cm proximity of the anus. Gastrograffin bowel series showed contrast in the Rt colon on the 2h film. SBO ruled out. Patient has been able to have multiple bowel movements since yesterday. Plan: Advanced diet to regular NPO after midnight in preparation for her CT guided biopsy d/c NGT decompression Miralax #Intractable Lower Back Pain with radiation down the legs to the knees #OsteoArthritis Neurology consulted, appreciate recs Continue with the physical therapy Cymbalta 30mg Qday for chronic MSK pain, including lower back and osteoarthritic pain. Gabapentin PO 200mg PRN for neuropathic pain. lidocaine topical patch for lower back pain. Esbon 5/325 for moderate pain Hydromorphone PO 4mg Q4h PRN for severe pain +Recommend outpatient EMG for further assessment of back pain. #Heart Murmur Grade iii/iv systolic murmur RUSB with radiation to carotids on PE. ordered echocardiogram #hx of UTI Patient completed course of ABx for previous infection. Urine negative for bacteria, WBC, ketones, or nitrites. Health Maintenance: Disposition: Med Surg Diet: Normal, NPO after midnight PPx DVT: heparin 5000u bid PPx GI: Protonix 40mg bid Code status: Routine Case and Plan discussed with my attending physician, Dr. Anderson, and my senior resident, Dr. Jer Campa, [facility] Attending Provider Attestation/Addendum I have discussed and was present for the essential components of the history, physical examination, diagnosis, and treatment plan with the resident. I agree with the patient's care as documented by the resident and amended herein by me. Kaiser Benjamin DO. Although this document has been carefully reviewed, there may still be some phonetic and other typographical errors. These errors are purely grammatical due to imperfections in the software program and should not be construed in any way to compromise the substance of the patient's medical care during this visit.
--- NOTE | 2024-09-09 21:35 | PD.IMPROG ---
Documentation for date of: 09/09/24 Subjective Subjective Interval history: Anorectal mass is a adenocarcinoma and not a squamous cell carcinoma That is most likely the patient's primary lesion No need to do a liver biopsy of any lesions or lymph node biopsy Further plan as per oncology For the primary lesion to be removed patient will need an APR (clinical setting the lesion is not obstructing patient already has metastatic disease Surgery versus no surgery is debatable I will discuss with oncology Exam Vital Signs Temp Pulse Resp BP Pulse Ox O2 Del Method O2 Flow Rate 97.9 F 80 17 119/59 L 95 Nasal Cannula 2 09/09/24 20:00 09/09/24 21:16 09/09/24 21:16 09/09/24 20:00 09/09/24 21:16 09/09/24 20:00 09/09/24 21:16 Objective Labs 09/09/24 14:01 09/09/24 14:01 Labs: Laboratory Results - last 24 hr 09/04/24 09/09/24 09/09/24 20:43 04:35 14:01 WBC 9.9 RBC 4.07 Hgb 11.3 L Hct 33.2 L MCV 82 MCH 27.8 MCHC 34.0 RDW Std Deviation 42.3 Plt Count 268 Neut % (Auto) 70 Lymph % (Auto) 16 [place] % (Auto) 12 Eos % (Auto) 1 Baso % (Auto) 1 Neut # (Auto) 6.9 Lymph # (Auto) 1.6 [place] # (Auto) 1.2 H Eos # (Auto) 0.1 Baso # (Auto) 0.1 Immature Gran # (Auto) 0.08 H Absolute Nucleated RBC 0.00 Immature Gran % 1 H Nucleated RBC % 0 PT 10.9 INR 1.0 APTT 30.9 Sodium 138 Potassium 4.0 Chloride 100 Carbon Dioxide 28.4 Anion Gap 10 BUN 14 Creatinine 0.6 Estim Creat Clear Calc 77.3 eGFR > 60 BUN/Creatinine Ratio 23 H Glucose 94 Calculated Osmolality 276 Calcium 9.3 Corrected Calcium 9.6 Total Bilirubin 1.0 AST 27 ALT 28 Alkaline Phosphatase 188 H Total Protein 6.0 Albumin 3.6 Globulin 2.4 Albumin/Globulin Ratio 1.5 CA 19-9 Antigen 139 H Impressions 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 Sotomayor our pathologist Final report should be ready by tomorrow Plan As per oncology Assessment & Plan A&P Narrative 79 years of female with abnormal CTAP showing abdominal pelvic lymphadenopathy and metastatic disease to the bones Certainly primary of an unknown origin Suggestions Tumor markers CEA level AFP CA 19?9 level CA 15-3 CA 125 Consent obtained for fiberoptic esophagogastroduodenoscopy and fiberoptic colonoscopy with possible biopsy possible therapeutic intervention under intravenous moderate sedation after GoLytely prep Met with the friends who would like her children I and spoke with them honestly about patient's condition with patient's permission And her daughter is on her way from home I will speak to her tomorrow I will follow the patient with you Jaentt keene to continue Clear liquid diet Thank you very much for the opportunity to participate in care of this If the colonoscopy and upper endoscopy is clean recommend CT-guided biopsy of one of the lymph nodes or a bone marrow biopsy and aspirate Time Spent With Patient Time: Total time spent is greater than 50% in coordination of care (as documented) at patient's floor/unit and/or counseling patient:
--- NOTE | 2024-09-09 23:41 | PD.NEUROPROG ---
Documentation for date of: 09/09/24 Subjective Subjective Interval history: Ms. Calvillo was seen in [facility] today at the bedside. Continues to have low back pain and right more than left lower extremity pain, was able to sleep for 4 hours after the Dilaudid and [place]. She was sitting up in bed and eating dinner. Exam - Neurology Vital Signs Temp Pulse Resp BP Pulse Ox O2 Del Method O2 Flow Rate 97.9 F 80 17 119/59 L 95 Nasal Cannula 2 09/09/24 20:00 09/09/24 21:16 09/09/24 21:16 09/09/24 20:00 09/09/24 21:16 09/09/24 20:00 09/09/24 21:16 Narrative Exam GENERAL APPEARANCE: Well hydrated, well-nourished in no acute distress. HEENT: Normocephalic, atraumatic, extraocular movements intact. Pupils: Equal reacting to light and accommodation NECK: Supple, no JVD or bruits. CARDIOVASULAR: Heart: S1, S2 heard, regular without S3-S4 or murmur no rubs or gallops. LUNGS/CHEST: Clear to auscultation bilaterally. No rails, rhonchi, or wheezing. Normal inspection. ABDOMEN: Soft, nontender, with normal bowel sounds. No pulsatile masses. No rebound, rigidity, or guarding. Normal inspection and palpation. EXTREMITIES: Normal inspection and palpation. No edema, clubbing or cyanosis. SKIN: Warm and dry without rashes. Normal inspection. MUSCULOSKELETAL: No cervical, thoracic, lumbar or midline bony tenderness. Normal inspection. NEURO: Alert, awake and oriented x3. Cranial nerves: II through XII grossly intact. Speech and language: Normal with no dysarthria or dysphasia. Motor system: Tone and bulk: Normal: Strength: moves all 4 extremities; significant weakness in both LE noted. Deep tendon reflexes: 2+ bilaterally symmetrical. Plantar reflex: Downgoing bilaterally. Sensory system: Intact to all modalities of sensation bilaterally. Coordination: Intact to [id number] and fboq-[id number]-geda test bilaterally. No ataxia, no dysmetria, or dysdiadochokinesia noted. No intention tremors noted. Gait: Not tested. no signs of meningeal irritation noted. PSYCHIATRIC: Normal mood and affect. Objective Labs 09/09/24 14:01 09/09/24 14:01 Labs: Laboratory Results - last 24 hr 09/04/24 09/09/24 09/09/24 20:43 04:35 14:01 WBC 9.9 RBC 4.07 Hgb 11.3 L Hct 33.2 L MCV 82 MCH 27.8 MCHC 34.0 RDW Std Deviation 42.3 Plt Count 268 Neut % (Auto) 70 Lymph % (Auto) 16 [place] % (Auto) 12 Eos % (Auto) 1 Baso % (Auto) 1 Neut # (Auto) 6.9 Lymph # (Auto) 1.6 [place] # (Auto) 1.2 H Eos # (Auto) 0.1 Baso # (Auto) 0.1 Immature Gran # (Auto) 0.08 H Absolute Nucleated RBC 0.00 Immature Gran % 1 H Nucleated RBC % 0 PT 10.9 INR 1.0 APTT 30.9 Sodium 138 Potassium 4.0 Chloride 100 Carbon Dioxide 28.4 Anion Gap 10 BUN 14 Creatinine 0.6 Estim Creat Clear Calc 77.3 eGFR > 60 BUN/Creatinine Ratio 23 H Glucose 94 Calculated Osmolality 276 Calcium 9.3 Corrected Calcium 9.6 Total Bilirubin 1.0 AST 27 ALT 28 Alkaline Phosphatase 188 H Total Protein 6.0 Albumin 3.6 Globulin 2.4 Albumin/Globulin Ratio 1.5 CA 19-9 Antigen 139 H Assessment & Plan Assessment and plan (1) Metastatic cancer to bone: Status: Acute Assessment and plan: From likely rectum: Biopsy report pending Patient is going for CT-guided biopsy of lymph node or bone marrow biopsy to confirm the diagnosis before starting radiation treatment which will help with pain in addition continue with the gabapentin and Cymbalta for now. She is on Dilaudid, [place] as needed along with ice packs and lidocaine patches Consider doing EMG nerve conduction today of both lower extremities to evaluate further in my office upon discharge
[2024-09-10] VITALS (8 sets, daily range): BP systolic 110–149; BP diastolic 57–73; PULSE 70–83; RESP 16–18; TEMP 36.4–37.2; O2SAT 92–97
[2024-09-10] MEDS: HYDROMORPHONE HCL 2 MG TABLET 4 MG PO ×6 (03:08→19:49)
[2024-09-10] MEDS: GABAPENTIN 100 MG CAPSULE 200 MG PO ×3 (05:36→21:23)
[2024-09-10 06:18] LABS: Basophils # (Auto) 0.1 Thou/mm3 (0.0-0.2); Basophils % (Auto) 1 % (0-2.5); Eosinophils # (Auto) 0.2 Thou/mm3 (0.0-0.5); Eosinophils % (Auto) 2 % (0-10); Hematocrit 34.8 % (36.0-46.0); Hemoglobin 11.4 g/dL (12.0-16.0); Immature Granulocytes Auto 0.07 Thou/mm3 (0.00-0.00); Lymphocytes # (Auto) 1.7 Thou/mm3 (1.0-4.8); Lymphocytes % (Auto) 19 % (10-50); Mean Corpuscular HGB Conc 32.8 g/dl (31.0-37.0); Mean Corpuscular Hemoglobin 27.8 pg (25.0-35.0); Mean Corpuscular Volume 85 fL (80-100); Monocytes # (Auto) 1.2 Thou/mm3 (0.0-0.8); Monocytes % (Auto) 14 % (0-12); Neutrophils # (Auto) 5.8 Thou/mm3 (1.8-7.7); Neutrophils % (Auto) 65 % (37-80); Nucleated Red Blood Cell # 0.00 Thou/mm3 (0.00-0.00); Nucleated Red Blood Cell % 0 /100 WBC (0); Platelet Count 295 Thou/mm3 (140-440); RDW Standard Deviation 44.4 fL (36.4-46.3); Red Blood Count 4.10 Miln/mm3 (4.00-5.20); White Blood Count 8.9 Thou/mm3 (3.6-11.0)
[2024-09-10 06:30] LABS: INR 1.0 (0.9-1.3); Partial Thromboplastin Time 26.9 Seconds (22.0-36.0); Prothrombin Time 10.9 Seconds (9.0-12.2)
[2024-09-10 06:32] LABS: Alanine Aminotransferase 36 U/L (10-49); Albumin, Serum 3.7 gm/dL (3.4-4.8); Albumin/Globulin Ratio 1.5 (1.2-2.2); Alkaline Phosphatase 213 U/L (46-116); Anion Gap 12 (7-16); Aspartate Amino Transferase 31 U/L (0-34); BUN/Creatinine Ratio 26 Ratio (12-20); Bilirubin,Total 0.9 mg/dL (0.3-1.2); Blood Urea Nitrogen 18 mg/dL (9-23); Calcium 9.3 mg/dL (8.3-10.6); Calcium (Corrected) 9.5 mg/dL (8.5-10.1); Carbon Dioxide 29.5 mMol/L (20.0-31.0); Chloride 98 mMol/L (98-107); Creatinine (Component) 0.7 mg/dL (0.6-1.3); Estimated Creatinine Clearance 66.3 mL/min (>60); Globulin 2.5 gm/dL (2.3-3.5); Glucose 94 mg/dL (74-106); Magnesium 1.8 mg/dL (1.6-2.6); Osmolality,Calculated 279 (275-295); Phosphorous 3.5 mg/dL (2.4-5.1); Potassium 4.1 mMol/L (3.4-5.1); Sodium 139 mMol/L (136-145); Total Protein 6.2 gm/dL (5.7-8.2); eGFR > 60 See Note
--- NOTE | 2024-09-10 09:39 | PC.SS ---
Addendum entered by EMILY Kimble 09/10/24 16:58: Rounding note: patient is ready for d/c. Pending is insurance authorization to [facility]. Addendum entered by EMILY Kimble 09/10/24 09:44: SS update: updated notes and PASRR sent to [facility] via [employer]. Addendum entered by EMILY Kimble 09/10/24 09:40: SS update: contacted Una with admissions at [facility], she informs she can accept the patient and will begin insurance authorization today. Original Note: SS follow up: presented SNF choices to the patient. She selected [facility]. Patient is aware that insurance authorization would be needed.
--- NOTE | 2024-09-10 19:00 | PC.NURSE ---
Pt O2 sats on 85%, pt is asleep and has no oxygen, O2 placed at 2LPM, Oxygen went up to 92%, will continue to monitor.
--- NOTE | 2024-09-10 19:00 | PC.NURSE ---
Pt will be on bladder training, clamped wallace at this time and will be unclamped after 3-4 hrs.
--- NOTE | 2024-09-10 19:30 | ESPR_ITS ---
<Statement entered by Bharti Randle MD - 09/11/24 16:09> I have reviewed the note and agree with the resident's assessment & plan with exceptions as below. I have personally reviewed labs, imaging, home meds/prior records, examined the patient, formulated and discussed management plan with the IM team. Pt examined at bedside today. Pt continues to improve, will wean off scheduled Dilaudid PO, and will switch to PRN. Will continue with current management. 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 GI on consult, appreciate further recommendations. Will remove wallace and do bladder training. Repeat hematology and chemistry in AM. Anticipate d/c to SNF within next 24-48 hours. Bharti Randle, PGY-2 Internal Medicine Documentation for date of: 09/10/24 Subjective Subjective Interval history: Patient seen and examined at bedside. No acute overnight events. She states that her back pain is severe and morphine only provides short relief. Patient has found more satisfactory pain relief from dilaudid and [place]. She has been NPO in anticipation of CT-guided biopsy of her abdominal lymph node. Dr Mclean returned with biopsy findings yesterday night, stating that the tumor was adenocarcinoma. In the light of this finding, IR biopsy of am abdominal lymph node is optional and can be completed outpatient. She states that abdominal pain and distension are improved and she is able to have BM. Denies dysuria, chest pain, and sob. Exam Vital Signs Temp Pulse Resp BP Pulse Ox O2 Del Method O2 Flow Rate 97.9 F 71 16 110/64 96 Nasal Cannula 1 09/10/24 16:00 09/10/24 17:40 09/10/24 17:40 09/10/24 16:00 09/10/24 17:40 09/10/24 16:00 09/10/24 16:00 Narrative Exam GENERAL: NAD, A&Ox3 HEENT: Moist mucosa. Eyes open, symmetrical, & clear CARDIO: Heart RRR, Grade iii/iv systolic murmur at RUSB PULM: No noted coughing/dyspnea CTA B/L, no adventitious lung sounds GI: Abdomen soft, mildly distended, nontender to palpation. BSx4. SKIN/MSK/EXT: No wounds/rashes/edema/amputations, no pain on palpation. Pedal pulses present B/L NEURO: AAOx3, no focal neuro deficits, able to move all 4 extremities Objective Labs 09/11/24 05:00 09/11/24 05:00 Labs: Laboratory Results - last 24 hr 09/10/24 05:27 WBC 8.9 RBC 4.10 Hgb 11.4 L Hct 34.8 L MCV 85 MCH 27.8 MCHC 32.8 RDW Std Deviation 44.4 Plt Count 295 Neut % (Auto) 65 Lymph % (Auto) 19 [place] % (Auto) 14 H Eos % (Auto) 2 Baso % (Auto) 1 Neut # (Auto) 5.8 Lymph # (Auto) 1.7 [place] # (Auto) 1.2 H Eos # (Auto) 0.2 Baso # (Auto) 0.1 Immature Gran # (Auto) 0.07 H Absolute Nucleated RBC 0.00 Immature Gran % 1 H Nucleated RBC % 0 PT 10.9 INR 1.0 APTT 26.9 Sodium 139 Potassium 4.1 Chloride 98 Carbon Dioxide 29.5 Anion Gap 12 BUN 18 Creatinine 0.7 Estim Creat Clear Calc 66.3 eGFR > 60 BUN/Creatinine Ratio 26 H Glucose 94 Calculated Osmolality 279 Calcium 9.3 Corrected Calcium 9.5 Phosphorus 3.5 Magnesium 1.8 Total Bilirubin 0.9 AST 31 ALT 36 Alkaline Phosphatase 213 H D Total Protein 6.2 Albumin 3.7 Globulin 2.5 Albumin/Globulin Ratio 1.5 Quality Measures Quality Measures VTE prophylaxis and none Advance care planning discussed with:: patient Assessment & Plan Assessment Current Active Medications: Generic Name Dose Route Start Last Admin Trade Name Imtiaz PRN Reason Stop Dose Admin Acetaminophen 650 mg 09/04/24 15:50 Acetaminophen 325 Mg Tablet PO 10/04/24 15:49 Q6H PRN PAIN SCALE 1-3 (mild Alprazolam 0.25 mg 09/06/24 18:44 09/07/24 22:44 Alprazolam 0.25 Mg Tablet PO 09/11/24 18:43 0.25 mg HS PRN Administration ANXIETY Duloxetine HCl 30 mg 09/07/24 10:15 09/10/24 08:55 Duloxetine Hcl 30 Mg Capsule PO 10/07/24 10:14 Not Given QDAY CLAUDE Gabapentin 200 mg 09/06/24 14:00 09/10/24 14:22 Gabapentin 100 Mg Capsule PO 10/06/24 13:59 200 mg TID CLAUDE Administration Hydromorphone HCl 4 mg 09/10/24 17:52 Hydromorphone Hcl 2 Mg Tablet PO 09/13/24 11:59 Q3HR PRN severe pain (8-10) Lidocaine 1 patch 09/10/24 08:40 Lidocaine 5% 1 Patch TOP 10/07/24 12:47 UD PRN LOCALIZED PAIN Protocol Ondansetron HCl 4 mg 09/05/24 04:14 09/05/24 13:09 Ondansetron Inj 2 Mg/Ml Inj 2 Ml IVP 10/05/24 04:13 4 mg Q6HR PRN Administration NAUSEA OR VOMITING Protocol Polyethylene Glycol 17 gm 09/08/24 09:00 09/10/24 08:55 Polyethylene Glycol 17 Gm Packet PO 10/08/24 08:59 Not Given QDAY CLAUDE Plan Assessment and Plan 79-year-old female with PMHx of arthritis presented to the ED on 09/04/2024 with complaint of lower back and right flank pain worse with movement. Imaging was remarkable for widespread enhancing lesions of multiple vertebrae. Pt was admitted for work up of possible metastaic disease and pain managment. #Colorectal Cancer with metastasis to bone The diagnosis is supported by presence of large rectal mass, abdominal lymphadenopathy, osseous lesions throughout thoracic and lumbar vertebrae on imaging consistent with cancer, as well as elevation in tumor marker CEA. Thoracic and Lumbar spine MRI: Severe osteopenia. Multiple osteolytic lesions on the precontrast images. Postcontrast images demonstrate diffuse abnormal enhancement involving all lumbar and thoracic vertebral bodies, sacral segments, and visualized bones of the pelvis. CTAP: Retrocardiac gastric hernia. Liver is mildly irregular in contour and enlarged, 18 cm.Significant abdominal lymphadenopathy, periaortic lymph nodes measuring up to 20mm. Heavy calcification abdominal aorta. Absent uterus. Prominent osteopenia. US of gallbladder: 15 mm gallstone. Normal gallbladder wall. Common bile duct 0.6 cm no stones. Pancreatic head 1.9 cm. Liver 16.5 cm fatty infiltration. Normal hepatopedal portal venous flow. Patent IVC 09/05 Bone Survery: No findings diagnostic for osseous metastatic disease GI Dr Mclean did TOSHA in the face of non-improving impaction and unproductive fleet enema. He suspects large obstructive mass in sari-anal area. Labs for tumor markers was positive for greatly elevated CEA 145. Other markers measured AFP 3.30, CA 15-3 27.7. amd CA 125 8 were unremarkable. 09/06: Colonoscopy revealed an ulcerated, medium-size mass 1cm proximal to the anus with oozing. Most likely squamous cell carcinoma. Biopsied. Surgery consulted, If biopsy results are squamous cell cancer, patient will require chemoradiation without surgical intervention. If biopsies are consistent with adenocarcinoma she will still require neoadjuvant chemoradiation, then she will be reevaluated for surgery in the future. There are no indications for surgical intervention at this time. per Dr. Mclean, biospy of the perianal mass revealed adenocarcinoma. Plan: Likely primary source GI; pending pathology report of biopsied rectal mass General surgery consulted, management pending pathology report Rad-Onc consulted. Acetaminophen 325mg Q6h PRN for mild pain [place] 5/325 for moderate pain Hydromorphone PO 4mg Q4h PRN for severe pain #Small bowel/Colonic Ileus, resolved #hx of constipation #hemorrhoids On presentation, PE findings of marked abdominal distension, dull percussion and diminished bowel sounds throughout. Patient states that she has been having small BM which are darkly colored. X-ray of abdomen: small bowel and colon ileus with moderate stool throughout the colon. No obstruction. GI Dr Mclean did TOSHA in the face of non-improving impaction and unproductive fleet enema. F/U sigmoidoscopy revealed a non-obstructing, medium-sized mass involving 1/3 of the luminal circumference at 1cm proximity of the anus. Gastrograffin bowel series showed contrast in the Rt colon on the 2h film. SBO ruled out. Patient has been able to have multiple bowel movements since yesterday. Plan: Advanced diet to regular Miralax #Intractable Lower Back Pain with radiation down the legs to the knees #OsteoArthritis Neurology consulted, appreciate recs Continue with the physical therapy Cymbalta 30mg Qday for chronic MSK pain, including lower back and osteoarthritic pain. Gabapentin PO 200mg PRN for neuropathic pain. lidocaine topical patch for lower back pain. [place] 5/325 for moderate pain Hydromorphone PO 4mg Q4h PRN for severe pain +Recommend outpatient EMG for further assessment of back pain. #Heart Murmur Grade iii/iv systolic murmur RUSB with radiation to carotids on PE. ordered echocardiogram #hx of UTI Patient completed course of ABx for previous infection. Urine negative for bacteria, WBC, ketones, or nitrites. Health Maintenance: Disposition: Med Surg Diet: Normal, NPO after midnight PPx DVT: heparin 5000u bid PPx GI: Protonix 40mg bid Code status: Routine This case was discussed with my attending physician, Dr. Benjamin, and senior resident Dr. Randle. Chayo Sibley DO PGY I Attending Provider Attestation/Addendum I have discussed and was present for the essential components of the history, physical examination, diagnosis, and treatment plan with the resident. I agree with the patient's care as documented by the resident and amended herein by me. Kaiser Benjamin DO. Although this document has been carefully reviewed, there may still be some phonetic and other typographical errors. These errors are purely grammatical due to imperfections in the software program and should not be construed in any way to compromise the substance of the patient's medical care during this visit. Patient seen and evaluated this AM. No acute events overnight, vital signs stable, patient afebrile. Per gastroenterology, pathology results of the rectal mass demonstrating adenocarcinoma, no need for lymph node biopsy. Patient will be discharged to [facility] pending authorization, will need oncology follow-up upon discharge for neoadjuvant chemoradiation prior to mass resection. Patient is otherwise doing well, we will continue to monitor closely while she is here
--- NOTE | 2024-09-10 21:19 | ESPR_ITS ---
Documentation for date of: 09/10/24 Subjective Subjective Interval history: Case discussed with the internal medicine team Most of the problem is oncological The anal verge mass does not need surgical intervention as it is nonobstructing She will benefit from chemotherapy and radiation therapy that area The histopathology is adenocarcinoma most likely signet ring cell which is more aggressive Recommend oncology consultation and oncology follow-up GI workup is basically done Exam Vital Signs Temp Pulse Resp BP Pulse Ox O2 Del Method O2 Flow Rate 97.9 F 71 16 110/64 96 Nasal Cannula 1 09/10/24 16:00 09/10/24 17:40 09/10/24 17:40 09/10/24 16:00 09/10/24 17:40 09/10/24 16:00 09/10/24 16:00 Objective Labs 09/10/24 05:27 09/10/24 05:27 Labs: Laboratory Results - last 24 hr 09/10/24 05:27 WBC 8.9 RBC 4.10 Hgb 11.4 L Hct 34.8 L MCV 85 MCH 27.8 MCHC 32.8 RDW Std Deviation 44.4 Plt Count 295 Neut % (Auto) 65 Lymph % (Auto) 19 [place] % (Auto) 14 H Eos % (Auto) 2 Baso % (Auto) 1 Neut # (Auto) 5.8 Lymph # (Auto) 1.7 [place] # (Auto) 1.2 H Eos # (Auto) 0.2 Baso # (Auto) 0.1 Immature Gran # (Auto) 0.07 H Absolute Nucleated RBC 0.00 Immature Gran % 1 H Nucleated RBC % 0 PT 10.9 INR 1.0 APTT 26.9 Sodium 139 Potassium 4.1 Chloride 98 Carbon Dioxide 29.5 Anion Gap 12 BUN 18 Creatinine 0.7 Estim Creat Clear Calc 66.3 eGFR > 60 BUN/Creatinine Ratio 26 H Glucose 94 Calculated Osmolality 279 Calcium 9.3 Corrected Calcium 9.5 Phosphorus 3.5 Magnesium 1.8 Total Bilirubin 0.9 AST 31 ALT 36 Alkaline Phosphatase 213 H D Total Protein 6.2 Albumin 3.7 Globulin 2.5 Albumin/Globulin Ratio 1.5 Impressions 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 Oncology consultation and oncology follow-up Assessment & Plan A&P Narrative 79 years of female with abnormal CTAP showing abdominal pelvic lymphadenopathy and metastatic disease to the bones Certainly primary of an unknown origin Suggestions Tumor markers CEA level AFP CA 19?9 level CA 15-3 CA 125 Consent obtained for fiberoptic esophagogastroduodenoscopy and fiberoptic colonoscopy with possible biopsy possible therapeutic intervention under intravenous moderate sedation after Janett keene Met with the friends who would like her children I and spoke with them honestly about patient's condition with patient's permission And her daughter is on her way from home I will speak to her tomorrow I will follow the patient with you Janett keene to continue Clear liquid diet Thank you very much for the opportunity to participate in care of this If the colonoscopy and upper endoscopy is clean recommend CT-guided biopsy of one of the lymph nodes or a bone marrow biopsy and aspirate Time Spent With Patient Time: Total time spent is greater than 50% in coordination of care (as documented) at patient's floor/unit and/or counseling patient:
--- NOTE | 2024-09-10 21:41 | PD.NEUROPROG ---
Documentation for date of: 09/10/24 Subjective Subjective Interval history: Ms. Calvillo was seen in [facility] today at the bedside. Continues to have low back pain and right more than left lower extremity pain, was able to rest some after the Dilaudid and [place]. She was sitting up in bed and eating dinner. Exam - Neurology Vital Signs Temp Pulse Resp BP Pulse Ox O2 Del Method O2 Flow Rate 98.9 F 83 17 128/57 L 96 Nasal Cannula 1 09/10/24 20:00 09/10/24 20:00 09/10/24 20:00 09/10/24 20:00 09/10/24 20:00 09/10/24 20:00 09/10/24 20:00 Narrative Exam GENERAL APPEARANCE: Well hydrated, well-nourished in no acute distress. HEENT: Normocephalic, atraumatic, extraocular movements intact. Pupils: Equal reacting to light and accommodation NECK: Supple, no JVD or bruits. CARDIOVASULAR: Heart: S1, S2 heard, regular without S3-S4 or murmur no rubs or gallops. LUNGS/CHEST: Clear to auscultation bilaterally. No rails, rhonchi, or wheezing. Normal inspection. ABDOMEN: Soft, nontender, with normal bowel sounds. No pulsatile masses. No rebound, rigidity, or guarding. Normal inspection and palpation. EXTREMITIES: Normal inspection and palpation. No edema, clubbing or cyanosis. SKIN: Warm and dry without rashes. Normal inspection. MUSCULOSKELETAL: No cervical, thoracic, lumbar or midline bony tenderness. Normal inspection. NEURO: Alert, awake and oriented x3. Cranial nerves: II through XII grossly intact. Speech and language: Normal with no dysarthria or dysphasia. Motor system: Tone and bulk: Normal: Strength: moves all 4 extremities; significant weakness in both LE noted. Deep tendon reflexes: 2+ bilaterally symmetrical. Plantar reflex: Downgoing bilaterally. Sensory system: Intact to all modalities of sensation bilaterally. Coordination: Intact to [id number]-[id number] and vspq-vpzi-zwqn test bilaterally. No ataxia, no dysmetria, or dysdiadochokinesia noted. No intention tremors noted. Gait: Not tested. no signs of meningeal irritation noted. PSYCHIATRIC: Normal mood and affect. Objective Labs 09/10/24 05:27 09/10/24 05:27 Labs: Laboratory Results - last 24 hr 09/10/24 05:27 WBC 8.9 RBC 4.10 Hgb 11.4 L Hct 34.8 L MCV 85 MCH 27.8 MCHC 32.8 RDW Std Deviation 44.4 Plt Count 295 Neut % (Auto) 65 Lymph % (Auto) 19 [place] % (Auto) 14 H Eos % (Auto) 2 Baso % (Auto) 1 Neut # (Auto) 5.8 Lymph # (Auto) 1.7 [place] # (Auto) 1.2 H Eos # (Auto) 0.2 Baso # (Auto) 0.1 Immature Gran # (Auto) 0.07 H Absolute Nucleated RBC 0.00 Immature Gran % 1 H Nucleated RBC % 0 PT 10.9 INR 1.0 APTT 26.9 Sodium 139 Potassium 4.1 Chloride 98 Carbon Dioxide 29.5 Anion Gap 12 BUN 18 Creatinine 0.7 Estim Creat Clear Calc 66.3 eGFR > 60 BUN/Creatinine Ratio 26 H Glucose 94 Calculated Osmolality 279 Calcium 9.3 Corrected Calcium 9.5 Phosphorus 3.5 Magnesium 1.8 Total Bilirubin 0.9 AST 31 ALT 36 Alkaline Phosphatase 213 H D Total Protein 6.2 Albumin 3.7 Globulin 2.5 Albumin/Globulin Ratio 1.5 Assessment & Plan Assessment and plan (1) Metastatic cancer to bone: Status: Acute Assessment and plan: From likely rectum: Biopsy reported adenoca No need for CT guided biopsy at this time. continue with the gabapentin and Cymbalta for now. Radiation oncologist rec. radiation and chemotherapy. She is on Dilaudid, [place] as needed along with ice packs and lidocaine patches Consider doing EMG nerve conduction today of both lower extremities to evaluate further in my office upon discharge
[2024-09-11] VITALS (7 sets, daily range): BP systolic 129–163; BP diastolic 63–80; PULSE 67–80; RESP 16–18; TEMP 36.1–36.8; O2SAT 93–98
[2024-09-11] MEDS: HYDROMORPHONE HCL 2 MG TABLET 4 MG PO ×3 (02:29→13:40)
--- NOTE | 2024-09-11 04:02 | PC.NURSE ---
Bladder training done, bladder scan prior to remove wallace and shows 0cc, wallace removed at this time, pt was educated to call if she needed to void, verbalizes understanding.
[2024-09-11] MEDS: GABAPENTIN 100 MG CAPSULE 200 MG PO ×2 (05:12→13:41)
[2024-09-11 05:35] LABS: Basophils # (Auto) 0.0 Thou/mm3 (0.0-0.2); Basophils % (Auto) 0 % (0-2.5); Eosinophils # (Auto) 0.2 Thou/mm3 (0.0-0.5); Eosinophils % (Auto) 2 % (0-10); Hematocrit 35.4 % (36.0-46.0); Hemoglobin 11.7 g/dL (12.0-16.0); Immature Granulocytes Auto 0.11 Thou/mm3 (0.00-0.00); Lymphocytes # (Auto) 1.9 Thou/mm3 (1.0-4.8); Lymphocytes % (Auto) 20 % (10-50); Mean Corpuscular HGB Conc 33.1 g/dl (31.0-37.0); Mean Corpuscular Hemoglobin 27.9 pg (25.0-35.0); Mean Corpuscular Volume 85 fL (80-100); Monocytes # (Auto) 1.2 Thou/mm3 (0.0-0.8); Monocytes % (Auto) 13 % (0-12); Neutrophils # (Auto) 5.7 Thou/mm3 (1.8-7.7); Neutrophils % (Auto) 63 % (37-80); Nucleated Red Blood Cell # 0.00 Thou/mm3 (0.00-0.00); Nucleated Red Blood Cell % 0 /100 WBC (0); Platelet Count 302 Thou/mm3 (140-440); RDW Standard Deviation 44.0 fL (36.4-46.3); Red Blood Count 4.19 Miln/mm3 (4.00-5.20); White Blood Count 9.1 Thou/mm3 (3.6-11.0)
[2024-09-11 05:59] LABS: Alanine Aminotransferase 40 U/L (10-49); Albumin, Serum 3.6 gm/dL (3.4-4.8); Albumin/Globulin Ratio 1.6 (1.2-2.2); Alkaline Phosphatase 222 U/L (46-116); Anion Gap 7 (7-16); Aspartate Amino Transferase 35 U/L (0-34); BUN/Creatinine Ratio 24 Ratio (12-20); Bilirubin,Total 0.7 mg/dL (0.3-1.2); Blood Urea Nitrogen 17 mg/dL (9-23); Calcium 9.1 mg/dL (8.3-10.6); Calcium (Corrected) 9.4 mg/dL (8.5-10.1); Carbon Dioxide 29.6 mMol/L (20.0-31.0); Chloride 100 mMol/L (98-107); Creatinine (Component) 0.7 mg/dL (0.6-1.3); Estimated Creatinine Clearance 66.3 mL/min (>60); Globulin 2.3 gm/dL (2.3-3.5); Glucose 99 mg/dL (74-106); Magnesium 1.7 mg/dL (1.6-2.6); Osmolality,Calculated 275 (275-295); Phosphorous 3.4 mg/dL (2.4-5.1); Potassium 4.4 mMol/L (3.4-5.1); Sodium 137 mMol/L (136-145); Total Protein 5.9 gm/dL (5.7-8.2); eGFR > 60 See Note
[2024-09-11] MEDS: DULoxetine HCL 30 MG CAPSULE PO (08:03)
[2024-09-11] MEDS: POLYETHYLENE GLYCOL 17 GM PACKET PO (08:03)
--- NOTE | 2024-09-11 08:38 | PC.SS ---
Addendum entered by EMILY Kimble 09/11/24 16:37: [facility] ETA 1930. ENEDINA Chao aware. Una at [facility] updated. Patient's daughter Bryanna updated. Addendum entered by EMILY Kimble 09/11/24 16:21: Per ENEDINA Chao the patient has wallace catheter. Addendum entered by EMILY Kimble 09/11/24 15:28: SS update: patient is pending to void before d/c to SNF. Addendum entered by EMILY Kimble 09/11/24 13:53: SS update: per Una at [facility] insurance authorization was obtained for patient to d/c to their facility today. Original Note: SS follow up: Contacted Una at [facility], she informs insurance authorization remains pending, she will follow up with the insurance this morning. Una is aware patient is ready for d/c.
--- NOTE | 2024-09-11 12:10 | PD.ONCPROG ---
Documentation for date of: 09/11/24 Subjective Subjective Interval history: Rectal mass biopsy positive for adenocarcinoma poorly differentiated. Patient still unable to walk will be transferred to SNF for physical therapy. Exam Vital Signs Temp Pulse Resp BP Pulse Ox O2 Del Method O2 Flow Rate 97.3 F 77 16 163/75 H 93 L Nasal Cannula 1 09/11/24 08:00 09/11/24 08:00 09/11/24 08:00 09/11/24 08:00 09/11/24 08:00 09/11/24 08:00 09/11/24 08:00 Objective Labs 09/11/24 05:00 09/11/24 05:00 Labs: Laboratory Results - last 24 hr 09/11/24 05:00 WBC 9.1 RBC 4.19 Hgb 11.7 L Hct 35.4 L MCV 85 MCH 27.9 MCHC 33.1 RDW Std Deviation 44.0 Plt Count 302 Neut % (Auto) 63 Lymph % (Auto) 20 [place] % (Auto) 13 H Eos % (Auto) 2 Baso % (Auto) 0 Neut # (Auto) 5.7 Lymph # (Auto) 1.9 [place] # (Auto) 1.2 H Eos # (Auto) 0.2 Baso # (Auto) 0.0 Immature Gran # (Auto) 0.11 H Absolute Nucleated RBC 0.00 Immature Gran % 1 H Nucleated RBC % 0 Sodium 137 Potassium 4.4 Chloride 100 Carbon Dioxide 29.6 Anion Gap 7 BUN 17 Creatinine 0.7 Estim Creat Clear Calc 66.3 eGFR > 60 BUN/Creatinine Ratio 24 H Glucose 99 Calculated Osmolality 275 Calcium 9.1 Corrected Calcium 9.4 Phosphorus 3.4 Magnesium 1.7 Total Bilirubin 0.7 AST 35 H ALT 40 Alkaline Phosphatase 222 H Total Protein 5.9 Albumin 3.6 Globulin 2.3 Albumin/Globulin Ratio 1.6 Assessment & Plan A&P Narrative 1. [place] CA poorly differentiated located in anal verge, but nonobstructing which could benefit from chemoradiation. 2. Likely has distant mets involving abdomen and pelvis and bone noted radiographically.. 3. Scheduled for SNF placement for physical therapy as patient still unable to walk. Will follow.
[2024-09-11] MEDS: TAMSULOSIN HCL 0.4 MG CAPSULE PO (13:41)
--- NOTE | 2024-09-11 14:04 | ESDS_ITS ---
Planned Discharge Date 09/11/24 DS: Providers Provider Date of admission: 09/05/24 08:45 Primary care physician: Penelope Francisco MD Admitting Provider: Jj Rodriguez MD Attending Provider on Admission: Francine Anderson MD Consults: 09/04/24 14:36 Consult to Oncology Stat Comment: Consulting Provider: Max Torres 09/04/24 16:12 Consult to Gastroenterology Stat Comment: Consulting Provider: Mercy Mclean 09/07/24 09:35 Referral Physical Therapy Routine Comment: Physician Instructions: 09/07/24 10:15 Consult to Neurology / Tele-Neurology Routine Comment: Consulting Provider: Sameer Samaniego Attending Provider on DC: Jese Benjamin DO Discharging Provider: Jese Benjamin DO DS: Diagnosis Problem List Completed Was Problem List Reviewed/Reconciled?: Yes Hospital Course Hospital Course Hospital course: 79-year-old female with PMHx of arthritis presented to the ED on 09/04/2024 with complaint of lower back and right flank pain worse with movement going on for four months. Additionally, patient reported constipation with infrequent, small, and darkly-colored BM and experiencing difficulty with urination. On PE at presentation, patient had marked abdominal distension, dull percussion and diminished bowel sounds. X-ray of the abdomen revealed small bowel and colon ileus with moderate stool throughout the colon. No obstruction. CT of the abdomen was remarkable for widespread enhancing lesions of multiple vertebrae as well as significant abdominal lymphadenopathy. Thoracic and lumbar spine MRI showed multiple osteolytic lesions throughout the vertebrae concerning for osseous metastases. Labs for tumor markers was positive for greatly elevated CEA 145. Other markers measured AFP 3.30, CA 15-3. Bone Survery showed No findings diagnostic for osseous metastatic disease. GI Dr Mclean did TOSHA in the face of non-improving impaction and unproductive fleet enema. F/U sigmoidoscopy revealed a non-obstructing, ulcerated, medium-sized mass involving 1/3 of the luminal circumference at 1cm proximity of the anus. On hospital day 3, patient drank Gastrografin contrast and started to have bowel movements daily. Biopsies of the anorectal mass revealed adenocarcinoma. Pain has been controlled with oral and IV Dilaudid 4 mg every 4 hour as needed as well as [place] 5/325 for additional pain relief. Oncology has been following the patient who recommends chemoradiation for the treatment of poorly differentiated adenocarcinoma with likely mets involving abdomen pelvis and bone to be completed outpatient. Patient has difficulty with ambulation and is going to be placed at SNF for physical therapy. Patient is medically stable and safe to return to his/her previous state of living. Additional imaging: Thoracic and Lumbar spine MRI: Severe osteopenia. Multiple osteolytic lesions on the precontrast images. Postcontrast images demonstrate diffuse abnormal enhancement involving all lumbar and thoracic vertebral bodies, sacral segments, and visualized bones of the pelvis. CTAP: Retrocardiac gastric hernia. Liver is mildly irregular in contour and enlarged, 18 cm.Significant abdominal lymphadenopathy, periaortic lymph nodes measuring up to 20mm. Heavy calcification abdominal aorta. Absent uterus. Prominent osteopenia. US of gallbladder: 15 mm gallstone. Normal gallbladder wall. Common bile duct 0.6 cm no stones. Pancreatic head 1.9 cm. Liver 16.5 cm fatty infiltration. Normal hepatopedal portal venous flow. 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 Eyes open, symmetrical, & clear CARDIO: Heart RRR, Grade iii/iv systolic murmur at RUSB PULM: No noted coughing/dyspnea CTA B/L, no adventitious lung sounds GI: Abdomen soft, mildly distended, nontender to palpation. BSx4. SKIN/MSK/EXT: No wounds/rashes/edema/amputations, no pain on palpation. Pedal pulses present B/L NEURO: AAOx3, no focal neuro deficits, able to move all 4 extremities Discharge Plan Plan Patient Disposition: Xfer Skilled Nsg Fac (SNF) Disposition Comment: [facility] Patient condition on transfer: Stable Care Plan Goals: Discharge Instructions: * Follow-up with your PCP within 1 week of discharge. * Follow-up with Dr. Torres, radiation oncology, for further management of your cancer. Call to make an appointment. * See your therapy aide, Dr. Mclean, to follow up from the hospital within 1-2 weeks. Address: [address] [place] [address]. Phone: . Call to make an appointment. * Follow up with General Surgery, Dr. Beaver within one week of discharge. Call to make an appointment. * Follow-up with oncology, Dr. Torres, within 1-2 weeks of discharge. Address: [address] [place] [address]. Call to make an appointment. * Continue taking DULOXETINE 30 mg daily (NEW). * Continue taking GABAPENTIN 100 mg three time daily (NEW). * Continue taking DILAUDID 4 mg every 6 hours as needed for severe pain (NEW). * Apply lidoaine patches as needed for pain. * Continue take medicines as prescribed. * Continue with wallace catheter until you're able to see urology. Recommended replacing wallace catheter every 3 weeks. * I am prescribing you a medicine to help with your neuropathic pain called gabapentin. Take as prescribed. * I am also prescribing an additional medicine for neuropathic pain called Cymbalta, take as prescribed. Prescriptions/Referrals Prescriptions/Med Rec: New duloxetine 30 mg capsule,delayed release(DR/EC) 30 mg PO QDAY 30 Days Qty: 30 0RF Rx Instructions: Take one tablet by mouth every day gabapentin 100 mg capsule 200 mg PO TID 30 Days Qty: 180 0RF Rx Instructions: Take two capsules by mouth three times a day hydromorphone [Dilaudid] 4 mg tablet 4 mg PO Q6H MDD 4 tabs in one day PRN (Reason: pain 7-10 or breakthrough) 5 Days Qty: 20 0RF Rx Instructions: Take one tablet by mouth up to four times a day as needed for severe pain lidocaine 5 % adhesive patch,medicated 1 patch topical QDAY 30 Days Qty: 15 0RF Rx Instructions: leave on most painful area for up to 12 hrs Discontinued nitrofurantoin macrocrystal 100 mg capsule 100 mg PO BID Patient Comments: TAKE 1 CAPSULE BY MOUTH TWICE DAILY FOR 5 DAYS Referrals: Penelope Francisco MD [Primary Care Provider] - Patient/Caregiver Discharge Instructions Discharge Activity: walk with walker only and activity as tolerated Education Materials: Lower GI Endoscopy, Cancer: Preventing Infections, Cancer Overview Print Language: Frisian Stand Alone Forms: Leonor Award Info., Patient Portal Info Letter Discharge Order Discharge Orders: Discharge (Routine); Ordered 09/11/24 Ordered By: Denisse Crawley Quality Discharge Quality Measures VTE prophylaxis MD Attestestation MD Attestation I have discussed and was present for the essential components of the discharge history, physical examination, diagnosis, and discharge treatment plan with the resident. I agree with the patient's discharge care as documented by the resident and amended herein by me. Kaiser Benjamin, DO. In addition to resident note above, patient will need close follow-up with oncology and radiation oncology for adjunct chemoradiation on discharge. Resection of rectal adenocarcinoma to follow. Patient was discharged with a Wallace catheter today, she was experiencing urinary retention a voiding trial, likely can try again with her PCP however has had urinary issues in the past. May need urology follow-up The patient understood all discharge instructions, all questions were answered satisfactorily. The patient was instructed to return to the Emergency Department is symptoms worsened or persisted. Although this document has been carefully reviewed, there may still be some phonetic and other typographical errors. These errors are purely grammatical due to imperfections in the software program and should not be construed in any way to compromise the substance of the patient's medical care during this visit.
--- NOTE | 2024-09-11 18:40 | PC.NURSE ---
Report given to Cira at [facility]. Patient will be discharged at 1930.
--- NOTE | 2024-09-11 19:40 | PC.NURSE ---
Pt discharge to [facility] accompanied by ambulance personnel per willem,pt is alert and oriented at this time. Caregiver Cony at bedside took all her belongings home. Pt has no pain at the time of discharge.
--- NOTE | 2024-09-11 23:17 | PD.IMPROG ---
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 Recommended the patient be seen by oncology before she leaves so she can get hooked up into the system as a GI workup is complete Exam Vital Signs Temp Pulse Resp BP Pulse Ox O2 Del Method O2 Flow Rate 97.6 F 76 18 129/63 96 Nasal Cannula 1 09/11/24 19:30 09/11/24 19:30 09/11/24 19:30 09/11/24 19:30 09/11/24 19:30 09/11/24 19:30 09/11/24 19:30 Objective Labs 09/11/24 05:00 09/11/24 05:00 Labs: Laboratory Results - last 24 hr 09/11/24 05:00 WBC 9.1 RBC 4.19 Hgb 11.7 L Hct 35.4 L MCV 85 MCH 27.9 MCHC 33.1 RDW Std Deviation 44.0 Plt Count 302 Neut % (Auto) 63 Lymph % (Auto) 20 Kingfisher % (Auto) 13 H Eos % (Auto) 2 Baso % (Auto) 0 Neut # (Auto) 5.7 Lymph # (Auto) 1.9 Kingfisher # (Auto) 1.2 H Eos # (Auto) 0.2 Baso # (Auto) 0.0 Immature Gran # (Auto) 0.11 H Absolute Nucleated RBC 0.00 Immature Gran % 1 H Nucleated RBC % 0 Sodium 137 Potassium 4.4 Chloride 100 Carbon Dioxide 29.6 Anion Gap 7 BUN 17 Creatinine 0.7 Estim Creat Clear Calc 66.3 eGFR > 60 BUN/Creatinine Ratio 24 H Glucose 99 Calculated Osmolality 275 Calcium 9.1 Corrected Calcium 9.4 Phosphorus 3.4 Magnesium 1.7 Total Bilirubin 0.7 AST 35 H ALT 40 Alkaline Phosphatase 222 H Total Protein 5.9 Albumin 3.6 Globulin 2.3 Albumin/Globulin Ratio 1.6 Impressions Impression: Rectal adenocarcinoma Followed by oncology upon discharge Assessment & Plan A&P Narrative 1. [place] CA poorly differentiated located in anal verge, but nonobstructing which could benefit from chemoradiation. 2. Likely has distant mets involving abdomen and pelvis and bone noted radiographically.. 3. Scheduled for SNF placement for physical therapy as patient still unable to walk. Will follow. Time Spent With Patient Time: Total time spent is greater than 50% in coordination of care (as documented) at patient's floor/unit and/or counseling patient:
== END 2024-09-11 19:40 | disposition skilled nursing facility (03) | DRG 375 ==
LOC: SERX 08:22 → SERHOLD 16:46 → S3SX 22:22 → SERHOLD 09-05 06:40
PROVIDERS: Nurse Practitioner Primary Care; Specialist; Admitting Provider Internal Medicine; Emergency Provider Student in an Organized Health Care Education/Training Program; PCP Family Medicine; Visit Provider Student in an Organized Health Care Education/Training Program
PROC: 0DJD8ZZ Inspection of Lower Intestinal Tract, Via Natural or Artificial Opening Endoscopic (ICD-10-PCS; CPT 45330; principal; 2024-09-06 16:45)
DX: C19 Malignant neoplasm of rectosigmoid junction (principal); C21.8 Malignant neoplasm of overlapping sites of rectum, anus and anal canal; C79.51 Secondary malignant neoplasm of bone; N39.0 Urinary tract infection, site not specified; C79.89 Secondary malignant neoplasm of other specified sites; K56.7 Ileus, unspecified; K56.600 Partial intestinal obstruction, unspecified as to cause; K59.00 Constipation, unspecified; M85.88 Other specified disorders of bone density and structure, other site; K45.8 Other specified abdominal hernia without obstruction or gangrene; R59.0 Localized enlarged lymph nodes; K64.9 Unspecified hemorrhoids; M17.0 Bilateral primary osteoarthritis of knee; K80.20 Calculus of gallbladder without cholecystitis without obstruction; F40.240 Claustrophobia; M19.041 Primary osteoarthritis, right hand; M19.042 Primary osteoarthritis, left hand; M85.80 Other specified disorders of bone density and structure, unspecified site; Z87.440 Personal history of urinary (tract) infections; Z90.710 Acquired absence of both cervix and uterus; K76.0 Fatty (change of) liver, not elsewhere classified; Z88.5 Allergy status to narcotic agent
CPT/HCPCS: 36415; 71045; 72157; 72158; 74018; 74176; 74250; 76705; 77074; 80053; 81001; 82105; 82378; 83690; 83735; 84100; 84439; 84443; 85014; 85018; 85025; 85610; 85730; 86300; 86301; 86304; 93306; 96372; 96374; 96375; 96376; 97162; A9577; G0378; J1171; J1200; J1644; J1885; J2250; J2270; J2405; J3010; J3490; J7030; Q9963; A9270; J1920

== ENCOUNTER 2024-10-10 12:13 | Emergency (ER) | payer OTHER, MEDICAID, SELFPAY ==
[2024-10-10] VITALS (7 sets, daily range): BP systolic 103–147; BP diastolic 51–66; PULSE 80–89; RESP 15–20; TEMP 36.2–36.6; O2SAT 95–97; BMI 28.3
--- NOTE | 2024-10-10 12:21 | XR_ITS ---
Examination: CT abdomen with intravenous contrast CT pelvis with intravenous contrast 2-D coronal reconstructions 2-D sagittal reconstructions Date and time of exam:October 10, 2024 1437 hours COMPARISON: September 04, 2024 INDICATIONS: Generalized abdominal pain and constipation today is CTDI: vol (mGy) 9.31 DLP: (mGycm) 507 Technique: Multiple axial sections of the abdomen and pelvis have been obtained. 64 slice high-resolution scanner used. 3 mm axial sections have been obtained, post intravenous injection 60 cc [id number] 2-D sagittal, coronal reconstructions obtained. Low dose protocols were performed. One or more of the following dose reduction techniques were used; automated exposure control, adjustment of the mA and/or KV according to patient size, use of iterative reconstruction technique. Findings: Miliary nodular pattern in the lower lung zones No visualized liver or splenic lesion Gallbladder wall appears mildly thickened, cholelithiasis No pancreatic or adrenal mass No hydronephrosis Again noted numerous periaortic pericaval lymph nodes Normal appendix No bowel obstruction No diverticulitis Urinary bladder contracted around a De Oliveira catheter Absent uterus Severe osteopenia with chronic osteoporotic compression L4 Advanced narrowing right hip joint IMPRESSION: Miliary nodular pattern in both lower lung zones, differential would include pulmonary nodular metastatic disease, infectious processes including active tuberculosis Recommend, bladder sonography follow-up to confirm cholelithiasis and exclude cholecystitis Again noted extensive mediastinal lymphadenopathy, noted on the September 04, 2024 exam No bowel obstruction Normal appendix
--- NOTE | 2024-10-10 13:15 | PD.EDABDPN ---
ED Abdominal Pain RME/HPI General Chief Complaint: Abdominal Pain Stated complaint: ABD PAIN/CONSTIPATION Time seen by provider: 10/10/24 12:21 Arrival date/time: 10/10/24 12:13 Limitations: no limitations RME / HPI RME / HPI narrative: Patient is a 79-year-old female who was sent here for concerns for possible bowel obstruction. She has had decreased bowel movements for for last 5 days. She has abdominal distention and pain. She has no nausea or vomiting. No urinary complaints. No fevers or chills. She has no other acute complaints. Related Data Previous Rx's ?Medication ?Instructions ?Recorded lidocaine 5 % topical patch 1 patch topical QDAY 1 month #15 ea 09/11/24 cephalexin 500 mg capsule 500 mg PO BID 14 days #28 caps 10/10/24 Allergies Allergy/AdvReac Type Severity Reaction Status Date / Time codeine Allergy Verified 10/10/24 12:36 Review of Systems Review of Systems Systems Reviewed: All systems reviewed, normal except as documented ED Exam General Limitations: Present no limitations General appearance: Present alert and in no apparent distress Head Head exam: Present atraumatic Eye Eye exam: Present normal appearance, PERRL and EOMI ENT ENT exam: Present normal exam, normal oropharynx and mucous membranes moist Neck Neck exam: Present normal inspection, full ROM and trachea midline Chest Chest inspection: Present normal inspection and symmetric chest wall rise Respiratory Respiratory exam: Present normal lung sounds bilaterally Cardiovascular Cardiovascular exam: Present regular rate, normal rhythm and normal heart sounds Abdominal Exam Abdominal exam: Present soft and normal bowel sounds Extremities Exam Extremities exam: Present normal inspection and full ROM Back Exam Back exam: Present normal inspection and full ROM Neurological Exam Neurological exam: Present alert and oriented X3 Psychiatric Psychiatric exam: Present normal affect and normal mood Skin Skin exam: Present warm, dry, intact and normal color Course Quality Measures none Orders Category Date Time Status CT Screening NOW Care 10/10/24 12:[address] abdomen pelvis w con Stat Exams 10/10/24 12:21 Completed US gall bladder Stat Exams 10/10/24 16:44 Completed XR chest 1V portable Stat Exams 10/10/24 22:28 Completed CBC Stat Lab 10/10/24 13:18 Completed CMP [Comprehensive Metabolic Panel] Stat Lab 10/10/24 13:18 Completed Lactic Acid [Lactate (Lactic Acid)] Stat Lab 10/10/24 13:18 Completed Lipase Stat Lab 10/10/24 13:18 Completed UA, C/S IF [Urinalysis, C/S if Indicated] Stat Lab 10/10/24 15:54 Completed Urine Culture Stat Lab 10/10/24 15:54 Received Morphine Inj Med 10/10/24 16:46 Discontinued 2 mg IVP X1 ONE cefTRIAXone [Rocephin] Med 10/10/24 22:14 Discontinued 500 mg IM X1 ONE cefTRIAXone [Rocephin] 500 mg Med 10/10/24 22:26 Discontinued Lidocaine 1% 20 ml [Xylocaine 1% 20 ML] 1 ml IM X1 Vital Signs Vital signs: Vital Signs Temperature 97.8 F 10/10/24 12:24 Pulse Rate 87 10/10/24 12:24 Respiratory Rate 18 10/10/24 12:24 Blood Pressure 103/64 10/10/24 12:24 Pulse Oximetry (%) 95 10/10/24 12:24 Oxygen Delivery Method Room Air 10/10/24 12:24 Abdominal Pain MDM MDM Narrative MDM Narrative:: Patient is a 79-year-old female who was sent here for concerns for possible bowel obstruction. She has had decreased bowel movements for for last 5 days. She has abdominal distention and pain. She has no nausea or vomiting. No urinary complaints. No fevers or chills. She has no other acute complaints. On exam, patient is nontoxic-appearing and in no visible signs distress. She is afebrile. She has no tachycardia. Vital signs are stable. Abdomen is soft and supple with no guarding. Workup reveals unremarkable CBC, metabolic panel reveals elevated alk phos at 361, otherwise unremarkable. Urinalysis shows 46 erythrocytes and [address] of the abdomen pelvis was unremarkable for any small bowel obstruction. There is question of possible gallbladder disease, TB versus, metastatic disease of the lungs. This was explained in great detail over a lengthy conversation with the patient and her caregiver. We are unable to obtain any further screening test for TB such as QuantiFERON gold here in the emergency room. A chest x-ray is ordered. The patient's caregiver also had numerous questions regarding the chronic care of the patient. Patient has a De Oliveira catheter that she has had for several weeks. She has a follow-up appointment with her urologist next week to discuss this. Patient and her caregiver were advised to follow-up with urology as planned regarding management of her De Oliveira catheter. Patient's care were also discussed frustrations with obtaining oncology appointments. They do have pending referrals to oncology for workup for possible cancer. They are advised to continue following with her primary care team regarding the referrals to oncology and appointments. Patient will be covered with initially ceftriaxone and we will switch her to cephalexin for her UTI. Patient is asked to follow-up closely with her primary doctor regarding her other abnormal findings. Patient should wear an appropriate mask until cleared of TB. Discussed with attending ER physician Dr. Duran. Return to the ER anytime for any worsening emergent changes. Patient data External records reviewed:: [facility] previous records and None Clinical information provided by:: patient and EMS Social determinants that could affect healthcare access:: none Patient has the following chronic illnesses:: n/a How is presenting disease/condition affected by chronic disease/condition?: uneffected by Evaluation data The following diagnostics were reviewed and interpreted by me:: lab results and radiology exam(s) Lab and/or radiology exams considered but not ordered:: n/a Interpretation Summary: No bowel obstruction, no cholecystitis, undiagnosed lung disease Medications / Prescriptions Medications or Prescriptions considered but not ordered:: n/a Medication administrations:: Medication Administration History Discontinued Medications Ceftriaxone Sodium (Ceftriaxone Sodium 500 Mg Vial) 500 mg IM X1 ONE Stop: 10/10/24 22:15 Last Admin: 10/10/24 22:28 Dose: Not Given Documented By: HERMINIO Non-Admin Reason: Cancelled by Provider Ceftriaxone Sodium 500 mg/ (Lidocaine HCl 1 ml) 0 mg IM X1 ONE Stop: 10/10/24 22:27 Morphine Sulfate (Morphine Sulf Inj 10 Mg/Ml Vial) 2 mg IVP X1 ONE Stop: 10/10/24 16:47 Last Admin: 10/10/24 17:24 Dose: 2 mg Documented By: JESSEE see above Consultations Consultation(s) initiated? (list below): No Diagnosis Differential diagnosis abdominal pain: abdominal pain, gastroenteritis, pancreatitis and small bowel obstruction Most likely diagnosis given after review of the tests above:: UTI Admission Indicated Admission indicated?: not indicated Admission Request Was there a request for admission?: No Disposition Plan Disposition Plan: Discharge Discharge Attestation Discharge Attestation: The patient and all family members were given an opportunity to ask questions and understood the discharge instructions. Discharge instructions specifically effects, indications for sooner follow up or return to the emergency department, and the expected course of current diagnosis. Patient condition: Stable Discharge Plan Plan Patient Disposition: HOME (Self Care) Patient condition on transfer: Stable Prescriptions/Referrals Prescriptions/Med Rec: New cephalexin 500 mg capsule 500 mg PO BID 14 Days Qty: 28 0RF No Action lidocaine 5 % adhesive patch,medicated 1 patch topical QDAY 30 Days Qty: 15 0RF Rx Instructions: leave on most painful area for up to 12 hrs Referrals: No Primary/Family,Physician [Primary Care Provider] - In 1 week Problem List Clinical Impression: Acute UTI, Abdominal pain Patient/Caregiver Discharge Instructions Education Materials: Abdominal Pain, ED CYSTITIS Female Adult Additional Instructions: - You were sent here today for assessment for possible small bowel obstruction. Your workup today indicates you do not have a small bowel obstruction. - There were incidental findings that included possible urinary tract infection. - There was also abnormalities noted in your lower lung simon that could be metastatic disease versus tuberculosis. We do not have access to screenings test such as QuantiFERON gold which is also used to assess for tuberculosis. - It is recommended that you use an appropriate mask until cleared of TB by your primary doctor. - We will prescribe cephalexin for urinary tract infection. Use this every 12 hours for a week. -Follow-up with your primary doctor closely to discuss the above test. -Follow-up with urology next week as planned to discuss management of your De Oliveira catheter. - Please return to the emergency room at anytime for any worsening or emergent changes. Print Language: Greenlandic Stand Alone Forms: Leonor Award Info., Patient Portal Info Letter
[2024-10-10 13:45] LABS: Lactate (Lactic Acid) 1.4 mMol/L (0.4-2.0)
[2024-10-10 13:46] LABS: Basophils # (Auto) 0.1 Thou/mm3 (0.0-0.2); Basophils % (Auto) 1 % (0-2.5); Eosinophils # (Auto) 0.2 Thou/mm3 (0.0-0.5); Eosinophils % (Auto) 2 % (0-10); Hematocrit 39.9 % (36.0-46.0); Hemoglobin 12.9 g/dL (12.0-16.0); Immature Granulocytes Auto 0.23 Thou/mm3 (0.00-0.00); Lymphocytes # (Auto) 2.9 Thou/mm3 (1.0-4.8); Lymphocytes % (Auto) 25 % (10-50); Mean Corpuscular HGB Conc 32.3 g/dl (31.0-37.0); Mean Corpuscular Hemoglobin 27.0 pg (25.0-35.0); Mean Corpuscular Volume 84 fL (80-100); Monocytes # (Auto) 1.3 Thou/mm3 (0.0-0.8); Monocytes % (Auto) 11 % (0-12); Neutrophils # (Auto) 7.0 Thou/mm3 (1.8-7.7); Neutrophils % (Auto) 59 % (37-80); Nucleated Red Blood Cell # 0.00 Thou/mm3 (0.00-0.00); Nucleated Red Blood Cell % 0 /100 WBC (0); Platelet Count 288 Thou/mm3 (140-440); RDW Standard Deviation 45.5 fL (36.4-46.3); Red Blood Count 4.77 Miln/mm3 (4.00-5.20); White Blood Count 11.8 Thou/mm3 (3.6-11.0)
[2024-10-10 14:18] LABS: Alanine Aminotransferase 14 U/L (10-49); Albumin, Serum 4.1 gm/dL (3.4-4.8); Albumin/Globulin Ratio 1.4 (1.2-2.2); Alkaline Phosphatase 361 U/L (46-116); Anion Gap 12 (7-16); Aspartate Amino Transferase 26 U/L (0-34); BUN/Creatinine Ratio 7 Ratio (12-20); Bilirubin,Total 0.8 mg/dL (0.3-1.2); Blood Urea Nitrogen 7 mg/dL (9-23); Calcium 11.0 mg/dL (8.3-10.6); Calcium (Corrected) 11.0 mg/dL (8.5-10.1); Carbon Dioxide 26.0 mMol/L (20.0-31.0); Chloride 96 mMol/L (98-107); Creatinine (Component) 1.0 mg/dL (0.6-1.3); Estimated Creatinine Clearance 43.3 mL/min (>60); Globulin 2.9 gm/dL (2.3-3.5); Glucose 86 mg/dL (74-106); Lipase 21 U/L (12-53); Osmolality,Calculated 265 (275-295); Potassium 4.5 mMol/L (3.4-5.1); Sodium 134 mMol/L (136-145); Total Protein 7.0 gm/dL (5.7-8.2); eGFR 58 See Note
[2024-10-10 16:18] LABS: Collection Type, Urine Voided
[2024-10-10 16:27] LABS: Bacteria,Urine Rare; Bilirubin,Urine Negative (Negative); Blood,Urine 2+ (Negative); Color,Urine Yellow (Lt Yel-Yel); Glucose, Urine Negative (Negative); Ketones,Urine Trace (Negative); Leukocyte Esterase,Urine Positive (Negative); Nitrite,Urine Positive (Negative); PH,Urine 6.0 (5.0-7.0); Protein,Urine 1+ (Neg - Trace); RBC,Urine 46 /hpf (0-3); Specific Gravity,Urine 1.048 (1.001-1.035); Squamous Epithelial Cell,Urine 2 /hpf (0-5); Urobilinogen,Urine Negative mg/dL (0.0-1.0); WBC,Urine 123 /hpf (0-5)
[2024-10-10 16:40] LABS: Culture Indicated,Urine Yes
[2024-10-10 16:41] LABS: Clarity,Urine Hazy (Clear/Hazy)
--- NOTE | 2024-10-10 16:44 | XR_ITS ---
Examination: Abdomen sonogram, Limited Date and time of exam: October 10, 2024, 2016 hours INDICATIONS: Abdominal pain nausea vomiting beginning 2 months ago. Technique: Real-time hernandez scale transabdominal sonographic images of the upper abdomen obtained. Findings: Gallbladder sludge, 12 mm gallstone Normal gallbladder wall. Normal common bile ducts 0.3 cm. Pancreatic head 2.4 cm Liver 14.5 cm mildly irregular contour Normal hepatopedal portal venous flow Patent IVC. IMPRESSION: Cholelithiasis, negative for cholecystitis.
[2024-10-10] MEDS: MORPHINE SULF INJ 10 MG/ML VIAL 2 MG IVP ×2 (17:24→23:29)
--- NOTE | 2024-10-10 22:28 | XR_ITS ---
Examination: AP chest single view Technique one AP portable semiupright chest single view Date and time: October 10, 2024, 10:33 PM. COMPARISON: September 06, 2024 INDICATIONS: Chest pain traversing breath today. FINDINGS: Diffuse extensive miliary nodular pattern throughout the lungs Mild prominence left ventricle. Prominent osteopenia IMPRESSION: Diffuse miliary nodular pattern throughout the lungs, infectious processes including active tuberculosis would be high on the differential list, early metastatic pulmonary nodular disease not excluded, clinical correlation advised.
[2024-10-10] MEDS: cefTRIAXone 500 MG, LIDOCAINE 1% 20 ML 1 ML IM (23:32)
== END 2024-10-11 00:45 | disposition home or self-care (01) ==
PROVIDERS: Physician Assistant Medical; Emergency Provider Emergency Medicine
DX: N39.0 Urinary tract infection, site not specified (principal); R10.84 Generalized abdominal pain; R07.1 Chest pain on breathing
CPT/HCPCS: 36415; 71045; 74177; 76705; 80053; 81001; 83605; 83690; 85025; 87077; 87086; 87186; 96372; 96374; 96376; 99283; A4649; J0696; J2270; J3490; Q9967

== ENCOUNTER 2024-10-14 09:05 | Outpatient (RCR) | payer MEDICARE, MEDICAID, SELFPAY ==
--- NOTE | 2024-10-14 12:08 | CTCSNOTE_ITS ---
[facility] [address] [place], [place] [address] CT Simulation Note Date: 10/14/2024 MR# [id number] Name: EVA DAVIES : 1945 (A) DIAGNOSIS: C20 Malignant neoplasm of rectum (B) Patient was placed in supine position and used Vac-Rafaela for immobilization purposes. (C) CT slices included pelvis (D) 3D Will be needed for maximum sparing of adjacent normal critical structures. (E) Patient tolerated the simulation well and left the room in good condition. Electronically signed by: Max Torres MD, IVAR 10/14/2024 12:06 PM
== END 2024-10-19 23:59 | disposition home or self-care (01) ==
LOC: SCTC 09:05
PROVIDERS: PCP Hospitalist; Referring Provider Hospitalist; Visit Provider Radiology Therapeutic Radiology
DX: C20 Malignant neoplasm of rectum (principal)
CPT/HCPCS: 77014; 77290; 77295; 77300; 77334

== ENCOUNTER 2024-10-15 10:27 | Inpatient (IN) | payer MEDICARE, MEDICAID, SELFPAY ==
[2024-10-15] VITALS (7 sets, daily range): BP systolic 111–160; BP diastolic 59–70; PULSE 72–128; RESP 15–22; TEMP 36.3–36.8; O2SAT 90–98; BMI 25.9; BMI 29.6
--- NOTE | 2024-10-15 10:57 | XR_ITS ---
Exam: Chest 1 view, AP Date and time of exam: 10/15/2024, 12:43 PM Comparison: 10/10/2024 INDICATION: Mass versus infiltrate Findings: Comparison with prior exam shows no evidence of interval change. Diffuse nodular pattern throughout all lung simon. No pneumothorax. No acute bony abnormality. Heart size and pulmonary vascular structures within normal limits. Impression: Diffuse miliary nodular pattern throughout all lung simon unchanged. Differential diagnosis includes infectious process versus metastatic neoplasm.
--- NOTE | 2024-10-15 10:59 | EDNOTE_ITS ---
ED General RME/HPI General Chief complaint: General Adult/Misc Complain Stated complaint: RULE OUT TB Time Seen by Provider: 10/15/24 10:56 Arrival date/time: 10/15/24 10:27 CC: Concern for TB HPI patient presents to the ER via EMS with stable vital signs and borderline oxygen saturations after patient had a complete workup regarding her rectal cancer and abdominal pain yesterday it was determined on chest x-ray that there is a possible rule out for TB. And patient was returned via the assisted care facility as they cannot have anybody there with active TB. Patient is awake alert oriented nontoxic-appearing not in any acute distress. Patient denies hemoptysis night sweats weight loss fever chills Related Data Previous Rx's ?Medication ?Instructions ?Recorded cephalexin 500 mg capsule 500 mg PO BID 14 days #28 ca ps 10/10/24 Allergies Allergy/AdvReac Type Severity Reaction Status Date / Time codeine Allergy Verified 10/15/24 12:17 Review of Systems Review of Systems Narrative Review of Systems: GEN: No fever, no chills, no weight loss EYES: No discharge, no visual changes, no pain HEENT: No ear pain, no congestion, no sore throat PULM: No shortness of breath, no cough, no congestion CV: No chest pain, no dyspnea on exertion, no palpitations GI: No nausea, no vomiting, no diarrhea, no pain, no constipation : No frequency, no urgency, no dysuria MUSC/SKEL: No joint pain, no back pain SKIN: No rash PSYCH: No hallucinations, no depression HEME/LYMPH: No easy bleeding or bruising tendencies NEURO: No weakness, no headache Past Medical History Past Medical History NEUROLOGIC: Negative Seizures CARDIAC: Negative Cardiac Disorders or Congestive Heart Failure RESPIRATORY: Negative Chronic Obstructive Pulmonary Disease (COPD) or Asthma GENITOURINARY: Negative Renal Disease MUSCULOSKELETAL: Positive Arthritis ENDOCRINE: Negative Diabetes Mellitus Type 1 or Diabetes Mellitus Type 2 HEMATOLOGIC: Negative Sickle Cell Disease OTHER HISTORY: Positive Cancer; Negative Blood Transfusions, Blood Transfusion Reaction or Anesthesia Reactions Social History SMOKING STATUS: Never smoker SUBSTANCE USE: does not use ED Exam Narrative Physical exam: [General: not in cot no acute distress Head normocephalic HEENT: Within acceptable limits Neck is supple nontender Chest equal chest rise nontender to palpation Respiratory: Clear to auscultation no wheezes crackles or rubs CV: Rate rhythm is regular no murmurs rubs or clicks Abdomen is distended secondary to body habitus soft nontender no masses positive bowel sounds all 4 quadrants Back: No CVA tenderness no spinous process tenderness from cervical spine thoracic and lumbar spine Skin: Intact no petechiae rash induration ulceration or crepitus Extremities: Moving all extremity against resistance cap refill less than 2 seconds neurosensory intact Neuro: Awake alert oriented x3 Glascow coma 15 no focal deficits] Course Course Course Narrative: Patient's case discussed with Dr. Del Rosario, resident for Dr. Anderson who agrees patient needs to be admitted as she cannot be returned to the case at a care facility until there is definitive proof that she does not have TB. We will wait for the quant to [facility] to return as well as the AFB Quality Measures none Orders Category Date Time Status XR chest 1V Stat Exams 10/15/24 10:57 Completed CBC Stat Lab 10/15/24 11:40 Completed CMP [Comprehensive Metabolic Panel] Stat Lab 10/15/24 11:40 Completed Quantiferon-TB* Stat Lab 10/15/24 11:40 Received Vital Signs Vital signs: Vital Signs Temperature 98.2 F 10/15/24 10:44 Pulse Rate 83 10/15/24 10:44 Respiratory Rate 16 10/15/24 10:44 Blood Pressure 111/67 10/15/24 10:44 Pulse Oximetry (%) 90 L 10/15/24 10:44 Oxygen Delivery Method Room Air 10/15/24 10:44 Discharge Plan Plan Patient Disposition: Other Care w/in Hosp ([facility]) Prescriptions/Referrals Prescriptions/Med Rec: No Action cephalexin 500 mg capsule 500 mg PO BID 14 Days Qty: 28 0RF Problem List Clinical Impression: Hypoxia Patient/Caregiver Discharge Instructions Print Language: Italian Stand Alone Forms: Leonor Award Info., Patient Portal Info Letter PA/MASH PREPARATORY OPERATOR Supervising Physician PA/MASH PREPARATORY OPERATOR Supervising Physician: Michael Gaxiola ENP [facility] Clinical Information Provided by patient and EMS Medical Records Reviewed [facility] and EMS Meds/Rx Considered, not Ordered None Labs/Rad/Tests considered, not Ordered None Chronic Illness/Social Conditions Add or document further as needed: Rectal cancer with mets Lab Interpretation Lab(s) interpretation(s): CBC shows no significant leukocytosis anemia thrombocytopenia CMP shows no significant electrolyte imbalances calcium of 11.1 alk phos of 3 oh no no other transaminitis or T. bili elevation. QuantiFERON TB test is pending at this time. Imaging Provider imaging interpretation(s): Chest x-ray showed masses versus infiltrate.
[2024-10-15 11:45] LABS: Quantiferon-TB* See Sep Rpt
[2024-10-15 11:52] LABS: Basophils # (Auto) 0.1 Thou/mm3 (0.0-0.2); Basophils % (Auto) 1 % (0-2.5); Eosinophils # (Auto) 0.2 Thou/mm3 (0.0-0.5); Eosinophils % (Auto) 2 % (0-10); Hematocrit 38.3 % (36.0-46.0); Hemoglobin 12.4 g/dL (12.0-16.0); Immature Granulocytes Auto 0.21 Thou/mm3 (0.00-0.00); Lymphocytes # (Auto) 3.7 Thou/mm3 (1.0-4.8); Lymphocytes % (Auto) 34 % (10-50); Mean Corpuscular HGB Conc 32.4 g/dl (31.0-37.0); Mean Corpuscular Hemoglobin 27.0 pg (25.0-35.0); Mean Corpuscular Volume 83 fL (80-100); Monocytes # (Auto) 1.0 Thou/mm3 (0.0-0.8); Monocytes % (Auto) 9 % (0-12); Neutrophils # (Auto) 5.7 Thou/mm3 (1.8-7.7); Neutrophils % (Auto) 52 % (37-80); Nucleated Red Blood Cell # 0.02 Thou/mm3 (0.00-0.00); Nucleated Red Blood Cell % 0 /100 WBC (0); Platelet Count 299 Thou/mm3 (140-440); RDW Standard Deviation 45.2 fL (36.4-46.3); Red Blood Count 4.60 Miln/mm3 (4.00-5.20); White Blood Count 10.9 Thou/mm3 (3.6-11.0)
[2024-10-15 12:03] LABS: Alanine Aminotransferase 11 U/L (10-49); Albumin, Serum 3.7 gm/dL (3.4-4.8); Albumin/Globulin Ratio 1.6 (1.2-2.2); Alkaline Phosphatase 309 U/L (46-116); Anion Gap 8 (7-16); Aspartate Amino Transferase 19 U/L (0-34); BUN/Creatinine Ratio 16 Ratio (12-20); Bilirubin,Total 0.7 mg/dL (0.3-1.2); Blood Urea Nitrogen 13 mg/dL (9-23); Calcium 11.1 mg/dL (8.3-10.6); Calcium (Corrected) 11.3 mg/dL (8.5-10.1); Carbon Dioxide 29.8 mMol/L (20.0-31.0); Chloride 99 mMol/L (98-107); Creatinine (Component) 0.8 mg/dL (0.6-1.3); Estimated Creatinine Clearance 51.9 mL/min (>60); Globulin 2.3 gm/dL (2.3-3.5); Glucose 92 mg/dL (74-106); Osmolality,Calculated 273 (275-295); Potassium 4.4 mMol/L (3.4-5.1); Sodium 137 mMol/L (136-145); Total Protein 6.0 gm/dL (5.7-8.2); eGFR > 60 See Note
--- NOTE | 2024-10-15 14:22 | EKG_ITS ---
[facility] Test Date: 2024-10-15 Pat Name: EVA DAVIES Department: Room: - Gender: Female Nuclear Medicine Technologist: : 1945 Requested By: Rambo Bennett Order Number: [id number] Reading MD: Rambo Bennett Measurements Intervals Lynd Rate: 78 P: 51 NJ: 170 QRS: -18 QRSD: 90 T: 26 QT: 337 QTc: 386 Interpretive Statements SINUS RHYTHM No previous ECG available for comparison /store/S0/[id number].pdf
--- NOTE | 2024-10-15 14:28 | ESHP_ITS ---
<Statement entered by Al Del Rosario MD - 10/16/24 13:14> Patient was seen and examined at bedside. I agree on the assessment and plan on this note as documented by resident Rambo Bennett DO PGY1. 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 from [facility] for tuberculosis rule out. Patient had a chest x-ray performed for colon cancer workup which was read as suspicion of tuberculosis. QuantiFERON and further TB testing unavailable at facility hence patient admitted, is immunocompromised in setting of active treatment for cancer however denies any recent travel, travel to TB endemic area, attributes weight loss to recent cancer however has good appetite, denies any fevers chills night sweats. Patient will be admitted for further workup, QuantiFERON gold TB ordered, CT chest with contrast ordered, patient did have PPD done 10/15, AFBs sputum sample ordered. Will consider pulmonology consult, resumed home meds. Disposition MedSurg. Case discussed with attending Dr. Francine Del Rosario MD PGY-2 <Statement entered by Francine Anderson MD - 10/16/24 08:46> I attest that I was physically present for the evaluation, physical examination, lab and imaging review of the patient with the residents. I discussed the case with the residents and agree with the findings and plans of care as documented below. After examination of the patient and review of the clinical data I feel that this patient needs admission to the hospital for further treatment/evaluation Francine Anderson MD Documentation for date of: 10/15/24 HPI History of Present Illness Chief complaint: Tuberclosis rule out History of present illness: Mrs. Calvillo is a 79 year old female who has a past history of colon cancer, neuropathy, and osteoarthritis who presented to [facility] ED from [facility] on 10/15 for tuberculosis rule out. Patient was admitted for tuberculosis rule out. The patient is not the best historian, but believes that she is here because she had a chest X-ray about 2 days ago which was suspicious for tuberculosis. The patient states that she had that chest X-ray performed due to workup for her recently diagnosed colon cancer. The patient denies any recent shortness of breath, fever, and night sweats. The patient states that she regularly has low oxygen, desatting to as low as 88% at her nursing facility, but is never short of breath with these episodes. The patient has not traveled anywhere recently either. The patient does endorse some weight loss over the past 6 weeks due to an upset stomach. She sees [facility] for management of her colon cancer, which was diagnosed about 8 weeks ago per the patient. Per the discharge summary from 09/11/2024, the patient was seen at [facility] ED on 09/04/2024 with complaints of lower back pain and right flank pain, but was admitted for workup of malignancy given widespread enhancing lesions on multiple vertebrae. The patient was found to have an anorectal mass, which showed poorly differentiated adenocarcinoma. The patient was directed to follow up with oncology outpatient, and the patient had a radiation treatment by Dr. Torres on 10/14. The patient sought care at the ED on 10/10 for abdominal distention, abdominal pain, and decreased bowel movements for 5 days. In the ED, they did a CT abdomen/pelvis, which was suspicious for TB vs metastatic disease to the lungs. At the time, the patient was instructed to follow up with PCP for additional TB workup as there was no QuantiFERON gold test in the ED. On 10/15, the patient was brought to [facility] ED from her assisted care facility for further TB workup as they were unsure about the possible TB, and have a rule against any resident having active TB in the facility. Patient denies cough, chest pain, palpitations, abdominal pain, and dysuria. Patient does endorse constipation. ED Course: Initial vitals in ED were significant for O2 sat of 90%. Initial labs were significant for corrected calcium of 11.3 and ALP 309. Chest x-ray showed diffuse miliary nodular pattern throughout all lung simon unchanged, infectious process versus metastatic neoplasm. Past Surgical History: Hysterectomy Current Medication(s): - Artificial tears - Cranberry capsule 425 mg daily - Acidophilus capsule 1 capsule daily - Cephalexin 500 mg every 12 hours - Duloxetine 30 mg daily - Lidocaine patch 4% - Polyethylene glycol 17 gm once per day as needed - Senna-docusate 8.6-50 mg twice daily - Gabapentin 100 mg every 8 hours - Hydromorphone 4 mg every 6 hours as needed - Lactulose 30 gm every 6 hours as needed - Milk of magnesia 30 cc every 72 hours as needed - Dulcolax suppository 10 mg every 72 hours as needed - Tubersol - Fleet enema - Odansetron 8 mg every 6 hours as needed Allergies (w/ Reactions): Codeine ( sick to stomach ) Family History: - Mother:? 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 Other Drug Use:?Patient denies Recent Travel History:?Patient denies Review of Systems Review of Systems Systems Reviewed: All systems reviewed, normal except as documented Exam Vital Signs Temp Pulse Resp BP Pulse Ox O2 Del Method 98.2 F 83 16 111/67 90 L Room Air 10/15/24 10:44 10/15/24 10:44 10/15/24 10:44 10/15/24 10:44 10/15/24 10:44 10/15/24 10:44 Narrative Exam Physical Exam: General: Alert, no acute distress. Skin: Warm, dry, intact. Head: Normocephalic, atraumatic. Eye: Normal conjunctiva, PERRL. Cardiovascular: Regular rate and rhythm, no murmur, +S1/S2. Respiratory: Lungs are clear to auscultation, respirations unlabored, no crackles, no wheezing. Gastrointestinal: Soft, nontender, non-distended. No guarding or rebound tenderness. Extremities: No edema, no cyanosis, no clubbing. Neuro: No focal deficits observed. Conversant, moving all extremities. No overt cerebellar signs/incoordination. Psychiatric: Cooperative, appropriate affect. Results: Labs 10/15/24 11:40 10/15/24 11:40 Labs: Short CBC 10/15/24 Range/Units 11:40 WBC 10.9 (3.6-11.0) Thou/mm3 Hgb 12.4 (12.0-16.0) g/dL Hct 38.3 (36.0-46.0) % Plt Count 299 (140-440) Thou/mm3 BMP 10/15/24 11:40 Sodium 137 Potassium 4.4 Chloride 99 Carbon Dioxide 29.8 BUN 13 Creatinine 0.8 Glucose 92 Calcium 11.1 H Liver Function 10/15/24 Range/Units 11:40 Total Bilirubin 0.7 (0.3-1.2) mg/dL AST 19 (0-34) U/L ALT 11 (10-49) U/L Alkaline Phosphatase 309 H (46-116) U/L Albumin 3.7 (3.4-4.8) gm/dL Quality Measures Quality Measures VTE prophylaxis Advance care planning discussed with:: patient Medications Home Medications and Allergies Allergies Allergy/AdvReac Type Severity Reaction Status Date / Time codeine Allergy Verified 10/15/24 12:17 Visit Medications Acetaminophen (Acetaminophen 325 Mg Tablet) 650 mg PO Q6H PRN PRN Reason: Fever >101.5 or pain 1-3 Stop: 11/14/24 14:16 Heparin Sodium (Porcine) (Heparin Sod Inj 5000 Unit/Ml Vial) 5,000 unit SC Q12HR CLAUDE Stop: 10/29/24 14:29 Assessment & Plan Plan Mrs. Calvillo is a 79 year old female who has a past history of colon cancer, neuropathy, and osteoarthritis who presented to [facility] ED from [facility] on 10/15 for tuberculosis rule out. Patient was admitted for tuberculosis rule out. #Tuberculosis workup #Miliary nodular pattern 2/2 #Possible tuberculosis vs #Metastatic malignancy to lungs Patient brought to [facility] ED by assisted care facility as they were concerned for possible tuberculosis given the miliary nodular pattern found on CT and chest x- rays. This pattern was not found on chest imaging by radiology on 09/06. Given that the patient has almost no symptoms except for some weight loss, which is explained due to decreased oral intake, and the patient endorsing a consistently O2 saturation around 90% at the care facility, suspicion for tuberculosis is low at this time, however cannot be ruled out without further investigation. Given the patient's colon cancer that was noted to already have spread to multiple vertebra, it is very possible that this patient's Willams nodular pattern is secondary to metastasis of her colon cancer. Until TB can be definitively ruled out, it is unlikely for her assisted care facility except for back. Ddx: Tuberculosis, metastasis to lungs, primary lung cancer, histoplasmosis, blastomycosis, silicosis, sarcoidosis - Administered tuberculin PPD test 08/27, pending results after 48 to 72 hours - QuantiFERON gold TB test ordered, pending - Isolation precaution - CT chest ordered, pending #Adenocarcinoma of the rectum, poorly differentiated, with signet rings, with mets to spine #Chronic back pain Patient noted to have a history of colon cancer. The patient had a colonoscopy on 09/06/2024, which showed a mass in the rectum. When this mass was biopsied, the report showed adenocarcinoma of the rectum that is poorly differentiated with signet rings. MRI of the thoracic and lumbar spine on 09/04/2024 show metastases to the spine. This is likely the result of the patient's chronic back pain, to which she takes pain medication at home for. The patient follows Dr. Torres at [facility] for management of her malignancy. - Resumed patient's home pain medication regimen of hydromorphone 4 mg every 6 hours as needed and lidocaine patch - Patient to follow up with outpatient oncology for further management #Urinary tract infection, E. coli, uncomplicated Patient was seen at [facility] ED on 10/10 for abdominal pain. At the time, urinalysis was performed, which was positive for UTI. The patient was sent home on Keflex as his UTI was uncomplicated. Urine culture resulted as E. coli that is sensitive to Keflex. - Resumed patient's home Keflex 500 mg twice daily (10/11-10/25) #Constipation #Hemorrhoids Patient has been noted to have a history of constipation and hemorrhoids. The patient is on an extensive list of medications and supplements for management of the patients constipation as listed in the admitting HPI. - Started patient on bowel regimen of Senokot 2 tablets daily and Miralax 17 gm daily #Neuropathy Patient has a reported history of neuropathy. Patient takes gabapentin and duloxetine for neuropathy at home. - Resumed patients home gabapentin 100 mg every 8 hours and duloxetine 30 mg daily DVT Prophylaxis: Heparin GI Prophylaxis: N/A Bowel: Senokot, Miralax Diet: Regular De Oliveira: N/A Lines: Peripheral IV Antibiotics: Keflex (10/11-10/25) Code Status: FULL Reason for Hospitalization: TB workup Other Barriers to Discharge: N/A Patient plan of care was discussed with the senior resident Dr. Del Rosario (PGY-2) and attending physician Dr. Justin Bennett, PGY1
--- NOTE | 2024-10-15 15:36 | XR_ITS ---
Examination: Venous duplex lower extremity sonogram, bilateral. Date and time of exam: October 15, 2024, 1604 hrs. Indications: Leg pressure and swelling 1 month. Technique: Multiple sonographic images of the deep venous system have been obtained. B-mode/2-D grayscale imaging of vascular structures and Doppler spectral analysis (waveforms) and color performed Both legs are examined. Findings: Deep venous systems do not demonstrate abnormal echogenicity. All visualized deep veins exhibit compressibility. All visualized deep veins exhibit augmentation. Impression: Negative for deep vein thrombosis
--- NOTE | 2024-10-15 15:36 | XR_ITS ---
Examination: CT chest with intravenous contrast 2-D sagittal and coronal reconstructions Exam date and time: October 15, 2024, 2037 hours INDICATIONS: Difficulty breathing this week, chest x-ray October 15 2024 mm nodular pattern throughout the lungs CTDI:vol (mGy) 9.64. DLP: (mGycm) 346. Technique: Multiple axial sections of the thorax have been obtained. Sections have been obtained, 3 mm slice thickness. Mediastinal and lung density settings have been obtained. Intravenous contrast administered, 60 cc Isovue-370. 2-D sagittal, coronal images obtained. Low dose protocols were performed. One or more of the following dose reduction techniques were used; automated exposure control, adjustment of the mA and/or KV according to patient size, use of iterative reconstruction technique. Findings: No thoracic aortic aneurysm dilatation Pulmonary artery opacification is poor Mild bilateral hilar subcarinal lymphadenopathy Mild enlargement cardiac contour Prominent vascular congestion Miliary nodular pattern throughout the lungs with septal edema Liver irregular in contour Gallbladder sludge and stones Spleen not enlarged No pancreatic mass Severe osteopenia with chronic wedging mid dorsal vertebral bodies IMPRESSION: Mild mediastinal lymphadenopathy Miliary nodular pattern throughout the lungs, differential would include infectious processes, active tuberculosis high on the differential list Mild heart failure Primary hepatocellular disease Cholelithiasis
[2024-10-15] MEDS: POLYETHYLENE GLYCOL 17 GM PACKET PO (16:29)
[2024-10-15] MEDS: HYDROMORPHONE HCL 2 MG TABLET 4 MG PO (16:29)
[2024-10-15] MEDS: SENNA/DOCUSATE SOD 1 TAB TABLET 2 TAB PO (16:31)
[2024-10-15] MEDS: GABAPENTIN 100 MG CAPSULE PO ×2 (16:32→21:00)
[2024-10-15] MEDS: HEPARIN SOD INJ 5000 UNIT/ML VIAL SC ×2 (16:32→20:20)
[2024-10-15] MEDS: SODIUM CHLORIDE RT 10% 15 ML NEBU 5 ML INH (16:50)
--- NOTE | 2024-10-15 16:55 | PC.RT ---
sputum sample collected and sent to lab.
[2024-10-15 17:22] LABS: Cult AFB Sendout- Sputum* See Sep Rpt
[2024-10-15] MEDS: TUBERCULIN PPD INJ 5 UNIT/0.1 ML DOSE ID (19:42)
--- NOTE | 2024-10-15 19:42 | PC.NURSE ---
PATIENTS PPD INJECTION ADMINISTER TO LFA, PT REPORTS SNF ADMINISTER ONE THIS MORNING TO HER RFA BEFORE BRINGING HER TO ED.
--- NOTE | 2024-10-15 20:27 | PC.NURSE ---
PATIENT ALERT AND ORIENTED X4, TRANSFER TO CT SCAN VIA WHEELCHAIR ACCOMPANIED BY DIANNE REDDING.
[2024-10-16] VITALS (9 sets, daily range): BP systolic 102–141; BP diastolic 60–64; PULSE 73–91; RESP 16–20; TEMP 36.1–36.3; O2SAT 93–99
--- NOTE | 2024-10-16 00:44 | PC.NURSE ---
SPOKE TO JOEL MCCONNELL AT [facility], SHE REPORTS UNSURE WHEN ESCOBAR CATHETER WAS CHANGED, BUT THEY HAVE AN ORDER TO HAVE UROLOGIST CHANGE CATHETER.
[2024-10-16] MEDS: HYDROMORPHONE HCL 2 MG TABLET 4 MG PO ×2 (01:32→09:28)
[2024-10-16] MEDS: GABAPENTIN 100 MG CAPSULE PO ×3 (06:16→21:54)
[2024-10-16 06:19] LABS: Basophils # (Auto) 0.1 Thou/mm3 (0.0-0.2); Basophils % (Auto) 1 % (0-2.5); Eosinophils # (Auto) 0.2 Thou/mm3 (0.0-0.5); Eosinophils % (Auto) 2 % (0-10); Hematocrit 37.4 % (36.0-46.0); Hemoglobin 12.1 g/dL (12.0-16.0); Immature Granulocytes Auto 0.24 Thou/mm3 (0.00-0.00); Lymphocytes # (Auto) 3.2 Thou/mm3 (1.0-4.8); Lymphocytes % (Auto) 33 % (10-50); Mean Corpuscular HGB Conc 32.4 g/dl (31.0-37.0); Mean Corpuscular Hemoglobin 27.6 pg (25.0-35.0); Mean Corpuscular Volume 85 fL (80-100); Monocytes # (Auto) 0.9 Thou/mm3 (0.0-0.8); Monocytes % (Auto) 9 % (0-12); Neutrophils # (Auto) 5.3 Thou/mm3 (1.8-7.7); Neutrophils % (Auto) 53 % (37-80); Nucleated Red Blood Cell # 0.02 Thou/mm3 (0.00-0.00); Nucleated Red Blood Cell % 0 /100 WBC (0); Platelet Count 298 Thou/mm3 (140-440); RDW Standard Deviation 45.8 fL (36.4-46.3); Red Blood Count 4.39 Miln/mm3 (4.00-5.20); White Blood Count 9.9 Thou/mm3 (3.6-11.0)
[2024-10-16 06:22] LABS: Glucose Estimated Average 111 mg/dL (80-131); Hemoglobin A1C 5.5 % Hgb (4.8-6.0)
[2024-10-16 06:23] LABS: INR 1.1 (0.9-1.3); Partial Thromboplastin Time 30.7 Seconds (22.0-36.0); Prothrombin Time 11.5 Seconds (9.0-12.2)
[2024-10-16 06:45] LABS: Alanine Aminotransferase 10 U/L (10-49); Albumin, Serum 3.6 gm/dL (3.4-4.8); Albumin/Globulin Ratio 1.6 (1.2-2.2); Alkaline Phosphatase 294 U/L (46-116); Anion Gap 11 (7-16); Aspartate Amino Transferase 18 U/L (0-34); BUN/Creatinine Ratio 15 Ratio (12-20); Bilirubin,Total 0.7 mg/dL (0.3-1.2); Blood Urea Nitrogen 12 mg/dL (9-23); Calcium 11.0 mg/dL (8.3-10.6); Calcium (Corrected) 11.3 mg/dL (8.5-10.1); Carbon Dioxide 28.4 mMol/L (20.0-31.0); Cardiac Risk Estimate 5.9 RATIO (3.7-5.6); Chloride 98 mMol/L (98-107); Cholesterol 301 mg/dL (132-200); Creatinine (Component) 0.8 mg/dL (0.6-1.3); Estimated Creatinine Clearance 55.3 mL/min (>60); Globulin 2.3 gm/dL (2.3-3.5); Glucose 90 mg/dL (74-106); HDL Cholesterol 51 mg/dL (40-60); LDL Cholesterol,Calculated 198 mg/dL (0-130); Magnesium 2.0 mg/dL (1.6-2.6); Osmolality,Calculated 273 (275-295); Potassium 4.3 mMol/L (3.4-5.1); Sodium 137 mMol/L (136-145); Thyroid Stimulating Hormone 4.12 uIU/mL (0.55-4.78); Total Protein 5.9 gm/dL (5.7-8.2); Triglycerides 261 mg/dL (30-150); eGFR > 60 See Note
[2024-10-16] MEDS: HEPARIN SOD INJ 5000 UNIT/ML VIAL SC ×2 (09:28→21:54)
[2024-10-16] MEDS: DULoxetine HCL 30 MG CAPSULE PO (09:28)
[2024-10-16] MEDS: SENNA/DOCUSATE SOD 1 TAB TABLET 2 TAB PO (09:28)
[2024-10-16] MEDS: POLYETHYLENE GLYCOL 17 GM PACKET PO (09:28)
[2024-10-16 11:46] LABS: Cocci Serology, IgM Negative (Negative)
--- NOTE | 2024-10-16 13:48 | ESPR_ITS ---
<Statement entered by Francine Anderson MD - 10/18/24 07:18> I attest that I was physically present for the evaluation, physical examination, lab and imaging review of the patient with the residents. I discussed the case with the residents and agree with the findings and plans of care as documented below. At bedside today, patient states she is feeling well and denies any new complaints. Denies SOB, Chest pain or cougn. Continues to be on isolation for suspected TB. CT chest continues to show miliary pattern. Awaiting PPD, Quantiferon and sputum AFB. We will also obtain pulmonology conuslt. Francine Anderson MD <Statement entered by Al Del Rosario MD - 10/16/24 16:04> Patient was seen and examined at bedside. I agree on the assessment and plan on this note as documented by resident Rambo Bennett DO PGY1. 79-year-old female with past medical history as below admitted for TB rule out, CT chest with IV contrast shows significant miliary pattern consistent with tuberculosis, pending TB QuantiFERON test, AFB sputum culture. Consulted pulmonology today for further recommendations. Otherwise patient stable on room air, all home medications were resumed. Case discussed with attending Dr. Francine Del Rosario MD PGY-2 Documentation for date of: 10/16/24 Subjective Subjective Interval history: Overnight events: No acute events overnight. Patient was seen and examined at bedside. AM vitals and labs reviewed. No complaints at this time. Breathing comfortably on room air. O2 sat 90%. SNF gave PPD before she was sent to [facility] ED. Chronic De Oliveira in place, patient stated that she had to follow up with Dr. Inman, urology, for removal. CT chest shows miliary nodular pattern highly suspicious for TB. Cocci serology ordered, IgM negative, pending IgG. Consulted pulmonology, appreciate recommendations. Pending PPD read tomorrow and QuantiFERON gold results. AFB sputum samples every 8 hours ordered yesterday, pending collection. Review of systems otherwise negative except for what is mentioned above. Exam Vital Signs Temp Pulse Resp BP Pulse Ox O2 Del Method O2 Flow Rate 97.1 F 85 16 141/61 H 95 Nasal Cannula 3 10/16/24 12:00 10/16/24 12:00 10/16/24 12:00 10/16/24 12:00 10/16/24 12:00 10/16/24 12:00 10/16/24 12:00 Narrative Exam Physical Exam: General: Alert, no acute distress. Skin: Warm, dry, intact. Head: Normocephalic, atraumatic. Eye: Normal conjunctiva, PERRL. Cardiovascular: Regular rate and rhythm, no murmur, +S1/S2. Respiratory: Lungs are clear to auscultation, respirations unlabored, no crackles, no wheezing. Gastrointestinal: Soft, nontender, non-distended. No guarding or rebound tenderness. Extremities: No edema, no cyanosis, no clubbing. Neuro: No focal deficits observed. Conversant, moving all extremities. No overt cerebellar signs/incoordination. Psychiatric: Cooperative, appropriate affect. Objective Labs 10/16/24 05:00 10/16/24 05:00 Labs: Laboratory Results - last 24 hr 10/16/24 10/16/24 05:00 09:50 WBC 9.9 RBC 4.39 Hgb 12.1 Hct 37.4 MCV 85 MCH 27.6 MCHC 32.4 RDW Std Deviation 45.8 Plt Count 298 Neut % (Auto) 53 Lymph % (Auto) 33 [place] % (Auto) 9 Eos % (Auto) 2 Baso % (Auto) 1 Neut # (Auto) 5.3 Lymph # (Auto) 3.2 [place] # (Auto) 0.9 H Eos # (Auto) 0.2 Baso # (Auto) 0.1 Immature Gran # (Auto) 0.24 H Absolute Nucleated RBC 0.02 H Immature Gran % 2 H Nucleated RBC % 0 PT 11.5 INR 1.1 APTT 30.7 Sodium 137 Potassium 4.3 Chloride 98 Carbon Dioxide 28.4 Anion Gap 11 BUN 12 Creatinine 0.8 Estim Creat Clear Calc 55.3 L eGFR > 60 BUN/Creatinine Ratio [address] Glu mg/dL 111 Hemoglobin A1c 5.5 Calculated Osmolality 273 L Calcium 11.0 H Corrected Calcium 11.3 H Magnesium 2.0 Total Bilirubin 0.7 AST 18 ALT 10 Alkaline Phosphatase 294 H Total Protein 5.9 Albumin 3.6 Globulin 2.3 Albumin/Globulin Ratio 1.6 Triglycerides 261 H Cholesterol 301 H LDL Cholesterol, Calc 198 H HDL Cholesterol 51 Cholesterol/HDL Ratio 5.9 H TSH 4.12 Coccidioides IgM Ab Negative Quality Measures Quality Measures VTE prophylaxis Advance care planning discussed with:: patient Assessment & Plan Assessment Current Active Medications: Generic Name Dose Route Start Last Admin Trade Name Freq PRN Reason Stop Dose Admin Acetaminophen 650 mg 10/15/24 14:17 Acetaminophen 325 Mg Tablet PO 11/14/24 14:16 Q6H PRN Fever >101.5 or pain 1-3 Cephalexin HCl 500 mg 10/15/24 21:00 10/16/24 09:28 Cephalexin 250 Mg Capsule PO 10/22/24 20:59 500 mg BID CLAUDE Administration Duloxetine HCl 30 mg 10/16/24 09:00 10/16/24 09:28 Duloxetine Hcl 30 Mg Capsule PO 11/15/24 08:59 30 mg QDAY CLAUDE Administration Gabapentin 100 mg 10/15/24 14:45 10/16/24 06:16 Gabapentin 100 Mg Capsule PO 11/14/24 14:44 100 mg Q8HR CLAUDE Administration Heparin Sodium (Porcine) 5,000 unit 10/15/24 14:30 10/16/24 09:28 Heparin Sod Inj 5000 Unit/Ml Vial SC 10/29/24 14:29 5,000 unit Q12HR CLAUDE Administration Hydromorphone HCl 4 mg 10/15/24 15:33 10/16/24 09:28 Hydromorphone Hcl 2 Mg Tablet PO 10/20/24 15:32 4 mg Q6HR PRN Administration PAIN SCALE 7-10 (Severe Lidocaine 1 patch 10/15/24 15:32 Lidocaine 5% 1 Patch TOP 11/14/24 15:31 UD PRN Topical Pain Ondansetron HCl 4 mg 10/15/24 15:33 Ondansetron Inj 2 Mg/Ml Inj 2 Ml IVP 11/14/24 15:32 Q8HR PRN NAUSEA OR VOMITING Protocol Polyethylene Glycol 17 gm 10/15/24 15:45 10/16/24 09:28 Polyethylene Glycol 17 Gm Packet PO 11/14/24 15:44 17 gm QDAY CLAUDE Administration Sennosides 2 tab 10/15/24 15:45 10/16/24 09:28 Senna/Docusate Sod 1 Tab Tablet PO 11/14/24 15:44 2 tab QDAY CLAUDE Administration Protocol Sodium Chloride 10 ml 10/16/24 01:33 Sodium Chloride Rt 10% 15 Ml Nebu INH 11/15/24 01:32 PRN PRN SOLN Plan Mrs. Calvillo is a 79 year old female who has a past history of colon cancer, neuropathy, and osteoarthritis who presented to [facility] ED from [facility] on 10/15 for tuberculosis rule out. Patient was admitted for tuberculosis rule out. #Tuberculosis workup #Miliary nodular pattern 2/2 #Possible tuberculosis vs #Metastatic malignancy to lungs Patient brought to [facility] ED by assisted care facility as they were concerned for possible tuberculosis given the miliary nodular pattern found on CT and chest x- rays. This pattern was not found on chest imaging by radiology on 09/06. Given that the patient has almost no symptoms except for some weight loss, which is explained due to decreased oral intake, and the patient endorsing a consistently O2 saturation around 90% at the care facility, suspicion for tuberculosis is low at this time, however cannot be ruled out without further investigation. Given the patient's colon cancer that was noted to already have spread to multiple vertebra, it is very possible that this patient's Willams nodular pattern is secondary to metastasis of her colon cancer. Until TB can be definitively ruled out, it is unlikely for her assisted care facility except for back. Ddx: Tuberculosis, metastasis to lungs, primary lung cancer, histoplasmosis, blastomycosis, silicosis, sarcoidosis - Administered tuberculin PPD test 10/15, pending results after 48 to 72 hours - QuantiFERON gold TB test ordered, pending - Isolation precaution - CT chest ordered, pending - Acid fast bacilli sputum samples ordered every 8 hours, pending collection - Pulmonology consulted, appreciate recommendations #Adenocarcinoma of the rectum, poorly differentiated, with signet rings, with mets to spine #Chronic back pain Patient noted to have a history of colon cancer. The patient had a colonoscopy on 09/06/2024, which showed a mass in the rectum. When this mass was biopsied, the report showed adenocarcinoma of the rectum that is poorly differentiated with signet rings. MRI of the thoracic and lumbar spine on 09/04/2024 show metastases to the spine. This is likely the result of the patient's chronic back pain, to which she takes pain medication at home for. The patient follows Dr. Torres at [facility] for management of her malignancy. - Resumed patient's home pain medication regimen of hydromorphone 4 mg every 6 hours as needed and lidocaine patch - Patient to follow up with outpatient oncology for further management #Urinary tract infection, E. coli, uncomplicated Patient was seen at [facility] ED on 10/10 for abdominal pain. At the time, urinalysis was performed, which was positive for UTI. The patient was sent home on Keflex as his UTI was uncomplicated. Urine culture resulted as E. coli that is sensitive to Keflex. - Resumed patient's home Keflex 500 mg twice daily (10/11-10/25) #Constipation #Hemorrhoids Patient has been noted to have a history of constipation and hemorrhoids. The patient is on an extensive list of medications and supplements for management of the patients constipation as listed in the admitting HPI. - Started patient on bowel regimen of Senokot 2 tablets daily and Miralax 17 gm daily #Neuropathy Patient has a reported history of neuropathy. Patient takes gabapentin and duloxetine for neuropathy at home. - Resumed patients home gabapentin 100 mg every 8 hours and duloxetine 30 mg daily DVT Prophylaxis: Heparin GI Prophylaxis: N/A Bowel: Senokot, Miralax Diet: Regular De Oliveira: Yes Lines: Peripheral IV Antibiotics: Keflex (10/11-10/25) Code Status: FULL Reason for Hospitalization: TB workup Other Barriers to Discharge: N/A Patient plan of care was discussed with the senior resident Dr. Del Rosario (PGY-2) and attending physician Dr. Justin Bennett, PGY1
--- NOTE | 2024-10-16 14:40 | PC.SS ---
Marisol Calvillo is a 79-year-old female admitted to [facility] for TB R/O. SS contacted [facility] and spoke to Una to confirm pt demographics. Una reports pt is a short-term pt of theirs. At baseline pt requires max assist and is working with PT daily. Pts her own RP but in the case of an emergency pts friend is her alternate Cony Justice [phone]. Pt has a daughter who is out of the area [facility] [phone]. Per Una pt can only return if TB is ruled out. If positive for TB per Una legally no SNF will be able to take. SS will revisit DC plan once TB has been confirmed or ruled out. Pt will also require a new auth and will require PT. SS will remain available for any additional needs or concerns. DC plan: Pending DM: Arlyn Donnelly or dtr Bryanna PCP: Dr. Rakesh Francisco
--- NOTE | 2024-10-16 14:42 | PC.SS ---
Rounding: Pending TB R/O, Dr. Neri (BISQUE KILN DRAWER) following
--- NOTE | 2024-10-16 23:01 | PC.RT ---
AFB #2 collected and taken to lab. ENEDINA aware.
[2024-10-16 23:55] LABS: Cult AFB Sendout- Sputum* See Sep Rpt
[2024-10-17] VITALS (8 sets, daily range): BP systolic 105–150; BP diastolic 59–79; PULSE 79–94; RESP 16–21; TEMP 36.1–36.4; O2SAT 96–100
[2024-10-17] MEDS: HYDROMORPHONE HCL 2 MG TABLET 4 MG PO ×2 (03:32→15:19)
[2024-10-17] MEDS: GABAPENTIN 100 MG CAPSULE PO ×3 (05:32→21:38)
[2024-10-17 06:24] LABS: Basophils # (Auto) 0.1 Thou/mm3 (0.0-0.2); Basophils % (Auto) 1 % (0-2.5); Eosinophils # (Auto) 0.2 Thou/mm3 (0.0-0.5); Eosinophils % (Auto) 2 % (0-10); Hematocrit 37.7 % (36.0-46.0); Hemoglobin 12.2 g/dL (12.0-16.0); Immature Granulocytes Auto 0.21 Thou/mm3 (0.00-0.00); Lymphocytes # (Auto) 2.7 Thou/mm3 (1.0-4.8); Lymphocytes % (Auto) 28 % (10-50); Mean Corpuscular HGB Conc 32.4 g/dl (31.0-37.0); Mean Corpuscular Hemoglobin 27.4 pg (25.0-35.0); Mean Corpuscular Volume 85 fL (80-100); Monocytes # (Auto) 0.9 Thou/mm3 (0.0-0.8); Monocytes % (Auto) 9 % (0-12); Neutrophils # (Auto) 5.5 Thou/mm3 (1.8-7.7); Neutrophils % (Auto) 58 % (37-80); Nucleated Red Blood Cell # 0.00 Thou/mm3 (0.00-0.00); Nucleated Red Blood Cell % 0 /100 WBC (0); Platelet Count 297 Thou/mm3 (140-440); RDW Standard Deviation 45.5 fL (36.4-46.3); Red Blood Count 4.45 Miln/mm3 (4.00-5.20); White Blood Count 9.6 Thou/mm3 (3.6-11.0)
[2024-10-17 06:52] LABS: Alanine Aminotransferase 11 U/L (10-49); Albumin, Serum 3.5 gm/dL (3.4-4.8); Albumin/Globulin Ratio 1.5 (1.2-2.2); Alkaline Phosphatase 289 U/L (46-116); Anion Gap 10 (7-16); Aspartate Amino Transferase 19 U/L (0-34); BUN/Creatinine Ratio 13 Ratio (12-20); Bilirubin,Total 0.7 mg/dL (0.3-1.2); Blood Urea Nitrogen 9 mg/dL (9-23); Calcium 11.2 mg/dL (8.3-10.6); Calcium (Corrected) 11.6 mg/dL (8.5-10.1); Carbon Dioxide 29.2 mMol/L (20.0-31.0); Chloride 99 mMol/L (98-107); Creatinine (Component) 0.7 mg/dL (0.6-1.3); Estimated Creatinine Clearance 62.6 mL/min (>60); Globulin 2.4 gm/dL (2.3-3.5); Glucose 83 mg/dL (74-106); Magnesium 2.1 mg/dL (1.6-2.6); Osmolality,Calculated 273 (275-295); Potassium 5.0 mMol/L (3.4-5.1); Sodium 138 mMol/L (136-145); Total Protein 5.9 gm/dL (5.7-8.2); eGFR > 60 See Note
[2024-10-17] MEDS: SODIUM CHLORIDE RT 10% 15 ML NEBU 10 ML INH (07:38)
[2024-10-17] MEDS: DULoxetine HCL 30 MG CAPSULE PO (08:21)
[2024-10-17] MEDS: HEPARIN SOD INJ 5000 UNIT/ML VIAL SC ×2 (08:21→20:38)
[2024-10-17] MEDS: POLYETHYLENE GLYCOL 17 GM PACKET PO (08:21)
[2024-10-17] MEDS: SENNA/DOCUSATE SOD 1 TAB TABLET 2 TAB PO (08:21)
[2024-10-17] MEDS: SODIUM CHLORIDE 0.9% 1000 ML 1,000 ML 125 ML IV (08:34)
[2024-10-17 09:35] LABS: Cult AFB Sendout- Sputum* See Sep Rpt
--- NOTE | 2024-10-17 09:36 | PC.SS ---
Follow up note: Pt is from [facility]. TB rule out. High calcium and on IV fluids. Possibly will require insurance authorization to return to [facility].
--- NOTE | 2024-10-17 10:19 | PC.IP ---
Upon request from Lorri ISIDRO,from [facility], copies of the physicians's notes and imaging reports were securely emailed to her. Patient is currently being ruled out for active TB.
[2024-10-17 11:05] LABS: Cocci Serology, IgG Negative (Negative)
--- NOTE | 2024-10-17 13:32 | ESPR_ITS ---
<Statement entered by Al Del Rosario MD - 10/17/24 17:06> Patient was seen and examined at bedside. I agree on the assessment and plan on this note as documented by resident Rambo Bennett DO PGY1. 79-year-old female with past medical history as below, admitted for tuberculosis workup did have miliary pattern on CTA. Patient does have adenocarcinoma of the rectum poorly differentiated with signet cell type with metastasis to the bone and abdominal lymphadenopathy. There is some suspicion of spread of cancer to bladder as patient does have chronic Wallace, discussed with urology over the phone. Urology will evaluate patient and will likely schedule for procedure on Sunday. Wallace was clamped earlier today will send urine cytology after unclamping. Case was discussed with event security officer, high suspicion of metastasis to the lungs, pending TB QuantiFERON test. Case discussed with attending Dr. Anna Marie Watt MD PGY-2 Documentation for date of: 10/17/24 Subjective Subjective Interval history: Overnight events: No acute events overnight. Patient was seen and examined at bedside. AM vitals and labs reviewed. Patient is not in any distress. No acute complaints at this time. Discussed case with pulmonology, who is concerned for metastatic spread. Will need QuantiFERON to rule out TB. Pending AFBs, 2/3 collected. Pending PPD read 15:30 Started atorvastatin 40 mg nightly given lipid levels. Ordered 1L NS at 125 cc/h for hypercalcemia. Urine cytology ordered to see if patient has metastatic spread to bladder. Discussed case with the patient's urologist, Dr. Inman, who plans to see the patient on Sunday (10/21) for a cystoscopy and will replace the Wallace catheter on Sunday (10/22). Review of systems otherwise negative except for what is mentioned above. Exam Vital Signs Temp Pulse Resp BP Pulse Ox O2 Del Method O2 Flow Rate 97.2 F 79 21 H 131/79 H 96 Nasal Cannula 3 10/17/24 12:10/17/24 12:10/17/24 12:10/17/24 12:10/17/24 12:10/17/24 12:10/17/24 12:00 Narrative Exam Physical Exam: General: Alert, no acute distress. Skin: Warm, dry, intact. Head: Normocephalic, atraumatic. Eye: Normal conjunctiva, PERRL. Cardiovascular: Regular rate and rhythm, no murmur, +S1/S2. Respiratory: Lungs are clear to auscultation, respirations unlabored, no crackles, no wheezing. Gastrointestinal: Soft, nontender, non-distended. No guarding or rebound tenderness. Extremities: No edema, no cyanosis, no clubbing. Neuro: No focal deficits observed. Conversant, moving all extremities. No overt cerebellar signs/incoordination. Psychiatric: Cooperative, appropriate affect. Objective Labs 10/17/24 04:50 10/17/24 04:50 Labs: Laboratory Results - last 24 hr 10/16/24 10/17/24 09:50 04:50 WBC 9.6 RBC 4.45 Hgb 12.2 Hct 37.7 MCV 85 MCH 27.4 MCHC 32.4 RDW Std Deviation 45.5 Plt Count 297 Neut % (Auto) 58 Lymph % (Auto) 28 [place] % (Auto) 9 Eos % (Auto) 2 Baso % (Auto) 1 Neut # (Auto) 5.5 Lymph # (Auto) 2.7 [place] # (Auto) 0.9 H Eos # (Auto) 0.2 Baso # (Auto) 0.1 Immature Gran # (Auto) 0.21 H Absolute Nucleated RBC 0.00 Immature Gran % 2 H Nucleated RBC % 0 Sodium 138 Potassium 5.0 D Chloride 99 Carbon Dioxide 29.2 Anion Gap 10 BUN 9 Creatinine 0.7 Estim Creat Clear Calc 62.6 eGFR > 60 BUN/Creatinine Ratio 13 Glucose 83 Calculated Osmolality 273 L Calcium 11.2 H Corrected Calcium 11.6 H Magnesium 2.1 Total Bilirubin 0.7 AST 19 ALT 11 Alkaline Phosphatase 289 H Total Protein 5.9 Albumin 3.5 Globulin 2.4 Albumin/Globulin Ratio 1.5 Coccidioides IgG Ab Negative Quality Measures Quality Measures VTE prophylaxis Advance care planning discussed with:: patient Assessment & Plan Assessment Current Active Medications: Generic Name Dose Route Start Last Admin Trade Name Freq PRN Reason Stop Dose Admin Acetaminophen 650 mg 10/15/24 14:17 Acetaminophen 325 Mg Tablet PO 11/14/24 14:16 Q6H PRN Fever >101.5 or pain 1-3 Atorvastatin Calcium 40 mg 10/17/24 21:00 Atorvastatin Calcium 20 Mg Tablet PO 11/16/24 20:59 HS CLAUDE Cephalexin HCl 500 mg 10/15/24 21:00 10/17/24 08:21 Cephalexin 250 Mg Capsule PO 10/22/24 20:59 500 mg BID CLAUDE Administration Duloxetine HCl 30 mg 10/16/24 09:00 10/17/24 08:21 Duloxetine Hcl 30 Mg Capsule PO 11/15/24 08:59 30 mg QDAY CLAUDE Administration Gabapentin 100 mg 10/15/24 14:45 10/17/24 05:32 Gabapentin 100 Mg Capsule PO 11/14/24 14:44 100 mg Q8HR CLAUDE Administration Heparin Sodium (Porcine) 5,000 unit 10/15/24 14:30 10/17/24 08:21 Heparin Sod Inj 5000 Unit/Ml Vial SC 10/29/24 14:29 5,000 unit Q12HR CLAUDE Administration Hydromorphone HCl 4 mg 10/15/24 15:33 10/17/24 03:32 Hydromorphone Hcl 2 Mg Tablet PO 10/20/24 15:32 4 mg Q6HR PRN Administration PAIN SCALE 7-10 (Severe Sodium Chloride 1,000 mls @ 125 mls/hr 10/17/24 08:27 10/17/24 08:34 Ns IV 10/17/24 16:26 125 mls/hr .Q8H ONE Administration Lidocaine 1 patch 10/15/24 15:32 Lidocaine 5% 1 Patch TOP 11/14/24 15:31 UD PRN Topical Pain Protocol Ondansetron HCl 4 mg 10/15/24 15:33 Ondansetron Inj 2 Mg/Ml Inj 2 Ml IVP 11/14/24 15:32 Q8HR PRN NAUSEA OR VOMITING Protocol Polyethylene Glycol 17 gm 10/15/24 15:45 10/17/24 08:21 Polyethylene Glycol 17 Gm Packet PO 11/14/24 15:44 17 gm QDAY CLAUDE Administration Sennosides 2 tab 10/15/24 15:45 10/17/24 08:21 Senna/Docusate Sod 1 Tab Tablet PO 11/14/24 15:44 2 tab QDAY CLAUDE Administration Protocol Sodium Chloride 10 ml 10/16/24 01:33 10/17/24 07:38 Sodium Chloride Rt 10% 15 Ml Nebu INH 11/15/24 01:32 10 ml PRN PRN Administration SOLN Plan Mrs. Calvillo is a 79 year old female who has a past history of adenocarcinoma, malignant neoplasm of rectum with metastasis to bone with osseous lesions throughout thoracic lumbar vertebrae, abdominal lymphadenopathy, arthritis, chronic neuropathic pain who presented to [facility] ED from [facility] on 10/15 for tuberculosis rule out. Patient was admitted for tuberculosis rule out. #Tuberculosis workup #Miliary nodular pattern 2/2 #Possible tuberculosis vs #Metastatic malignancy to lungs Patient brought to [facility] ED by assisted care facility as they were concerned for possible tuberculosis given the miliary nodular pattern found on CT and chest x- rays. This pattern was not found on chest imaging by radiology on 09/06. Given that the patient has almost no symptoms except for some weight loss, which is explained due to decreased oral intake, and the patient endorsing a consistently O2 saturation around 90% at the care facility, suspicion for tuberculosis is low at this time, however cannot be ruled out without further investigation. Given the patient's colon cancer that was noted to already have spread to multiple vertebra, it is very possible that this patient's Willams nodular pattern is secondary to metastasis of her colon cancer. Until TB can be definitively ruled out, it is unlikely for her assisted care facility accept return. Ddx: Tuberculosis, metastasis to lungs, primary lung cancer, histoplasmosis, blastomycosis, silicosis, sarcoidosis - Administered tuberculin PPD test 10/15, pending results after 48 to 72 hours - QuantiFERON gold TB test ordered, pending - Isolation precaution - CT chest ordered, pending - Acid fast bacilli sputum samples ordered every 8 hours, pending collection - Pulmonology consulted, appreciate recommendations #Adenocarcinoma of the rectum, poorly differentiated, with mucinous/signet rings, with #Metastasis to bone with osseus lesions, thoracic lumbar vertebrae, abdominal lymphadenopathy #Chronic back pain Patient noted to have a history of colon cancer. The patient had a colonoscopy on 09/06/2024, which showed a mass in the rectum. When this mass was biopsied, the report showed adenocarcinoma of the rectum that is poorly differentiated with signet rings. MRI of the thoracic and lumbar spine on 09/04/2024 show metastases to the spine. This is likely the result of the patient's chronic back pain, to which she takes pain medication at home for. The patient follows Dr. Torres at [facility] for management of her malignancy. - Resumed patient's home pain medication regimen of hydromorphone 4 mg every 6 hours as needed and lidocaine patch - Patient to follow up with outpatient oncology for further management #Chronic Wallace catheter #Possible mets to bladder Patient has a history of urinary retention that requires a chronic Wallace catheter. The patient sees Dr. Inman for urology. - Discussed case with the patient's urologist, Dr. Inman, who plans to see the patient on Sunday (10/21) for a cystoscopy and will replace the Wallace catheter on Sunday (10/22). - Urine cytology ordered, pending #Urinary tract infection, E. coli, uncomplicated Patient was seen at [facility] ED on 10/10 for abdominal pain. At the time, urinalysis was performed, which was positive for UTI. The patient was sent home on Keflex as his UTI was uncomplicated. Urine culture resulted as E. coli that is sensitive to Keflex. - Resumed patient's home Keflex 500 mg twice daily (10/11-10/25) #Constipation #Hemorrhoids Patient has been noted to have a history of constipation and hemorrhoids. The patient is on an extensive list of medications and supplements for management of the patients constipation as listed in the admitting HPI. - Started patient on bowel regimen of Senokot 2 tablets daily and Miralax 17 gm daily #Neuropathy Patient has a reported history of neuropathy. Patient takes gabapentin and duloxetine for neuropathy at home. - Resumed patients home gabapentin 100 mg every 8 hours and duloxetine 30 mg daily #Hyperlipidemia Patient had lipid panel collected 10/16. Triglyceride 261, cholesterol 301, LDL 198, and HDL 51. - Atorvastatin 40 mg nightly DVT Prophylaxis: Heparin GI Prophylaxis: N/A Bowel: Senokot, Miralax Diet: Regular Wallace: Yes Lines: Peripheral IV Antibiotics: Keflex (10/11-10/25) Code Status: FULL Reason for Hospitalization: TB workup Other Barriers to Discharge: N/A Patient plan of care was discussed with the senior resident Dr. Del Rosario (PGY-2) and attending physician Dr. Jo. Rambo Bennett, PGY1 Attending Provider Attestation/Addendum Alba, Anna Marie Jo, , attest that I was physically present for the charles portions of the service and evaluated the patient with the resident and I reviewed and discussed the case with the resident and agree with the resident's findings and plans of care as documented above Patient seen and evaluated this AM. She is currently on 3L/NC and is comfortable, not in acute distress. She denies any shortness of breath or chest pain. She reports pain in her lower back and pain due to wallace catheter. Patient states that the wallace was placed about 6 weeks ago during her initial admission during which she was diagnosed with poorly differentiated rectal adenocarcinoma with mucinous/ signet ring. MRI of spine shows findings concerning for widespread osseous metastatic disease, which explains her hypercalcemia and elevated ALP. Patient denies history of any TB. Pending AFBs at this time. Cocci negative. Explained to patient that the miliary pattern noted on CT is also concerning for metastatic disease. She will need outpatient bronchoscopy and biopsy as the larger nodules appear more central/perihilar. She is more concerned for the wallace that has not be exchanged as it was a very difficult wallace placement and is scheduled to see urology in 2 weeks. However, she reports burning due to catheter. Due to rectal adenocarcinoma, there is concern that the mass could be invading bladder/ urethera. Spoke with urology over the phone who will be available to evaluate patient on Sunday and may potentially be able to take pt to OR for cysto and exchange of wallace catheter. She is otherwise pending TB rule out and remains on isolation at this time.
[2024-10-17] MEDS: LIDOCAINE 5% 1 PATCH TOP (15:19)
--- NOTE | 2024-10-17 16:18 | XR_ITS ---
Examination: Ultrasound urinary bladder Technique: Grayscale sonographic images urinary bladder Date and time: The 2024 1643 hrs. Indications: Urinary retention this month Findings: Urinary bladder is contracted around a De Oliveira catheter, Y and 54 cc Hyperechoic mass posterior margin of the bladder, 12 x 9 x 11 mm suspicious for early bladder cancer Impression: Recommend CT urogram follow-up with delayed bladder images to confirm bladder mass posterior margin bladder, 12 x 9 x 11 mm
--- NOTE | 2024-10-17 16:42 | PC.NURSE ---
This nurse clamped patient's indwelling catheter at [address] orders and unclamped the indwelling catheter at 1640 per doctor order.
--- NOTE | 2024-10-17 16:46 | PC.NURSE ---
Ultrasound of bladder preformed by MD at bedside.
[2024-10-17] MEDS: ATORVASTATIN CALCIUM 20 MG TABLET 40 MG PO (20:38)
[2024-10-18] VITALS (7 sets, daily range): BP systolic 114–158; BP diastolic 58–88; PULSE 75–104; RESP 16–24; TEMP 36.1–36.9; O2SAT 94–97; BMI 29.2
[2024-10-18] MEDS: HYDROMORPHONE HCL 2 MG TABLET 4 MG PO ×3 (00:08→23:53)
[2024-10-18] MEDS: GABAPENTIN 100 MG CAPSULE PO ×3 (05:17→21:45)
[2024-10-18 06:07] LABS: Basophils # (Auto) 0.1 Thou/mm3 (0.0-0.2); Basophils % (Auto) 1 % (0-2.5); Eosinophils # (Auto) 0.2 Thou/mm3 (0.0-0.5); Eosinophils % (Auto) 2 % (0-10); Hematocrit 36.1 % (36.0-46.0); Hemoglobin 11.6 g/dL (12.0-16.0); Immature Granulocytes Auto 0.21 Thou/mm3 (0.00-0.00); Lymphocytes # (Auto) 3.1 Thou/mm3 (1.0-4.8); Lymphocytes % (Auto) 33 % (10-50); Mean Corpuscular HGB Conc 32.1 g/dl (31.0-37.0); Mean Corpuscular Hemoglobin 27.2 pg (25.0-35.0); Mean Corpuscular Volume 85 fL (80-100); Monocytes # (Auto) 0.9 Thou/mm3 (0.0-0.8); Monocytes % (Auto) 10 % (0-12); Neutrophils # (Auto) 4.9 Thou/mm3 (1.8-7.7); Neutrophils % (Auto) 53 % (37-80); Nucleated Red Blood Cell # 0.00 Thou/mm3 (0.00-0.00); Nucleated Red Blood Cell % 0 /100 WBC (0); Platelet Count 272 Thou/mm3 (140-440); RDW Standard Deviation 45.8 fL (36.4-46.3); Red Blood Count 4.26 Miln/mm3 (4.00-5.20); White Blood Count 9.4 Thou/mm3 (3.6-11.0)
[2024-10-18 06:43] LABS: Albumin, Serum 3.3 gm/dL (3.4-4.8); Albumin/Globulin Ratio 1.5 (1.2-2.2); Alkaline Phosphatase 267 U/L (46-116); Anion Gap 10 (7-16); Aspartate Amino Transferase 18 U/L (0-34); BUN/Creatinine Ratio 15 Ratio (12-20); Bilirubin,Total 0.7 mg/dL (0.3-1.2); Blood Urea Nitrogen 9 mg/dL (9-23); Calcium 11.0 mg/dL (8.3-10.6); Calcium (Corrected) 11.6 mg/dL (8.5-10.1); Carbon Dioxide 27.4 mMol/L (20.0-31.0); Chloride 101 mMol/L (98-107); Creatinine (Component) 0.6 mg/dL (0.6-1.3); Estimated Creatinine Clearance 73.1 mL/min (>60); Globulin 2.2 gm/dL (2.3-3.5); Glucose 87 mg/dL (74-106); Magnesium 1.8 mg/dL (1.6-2.6); Osmolality,Calculated 273 (275-295); Potassium 4.4 mMol/L (3.4-5.1); Sodium 138 mMol/L (136-145); Total Protein 5.5 gm/dL (5.7-8.2); eGFR > 60 See Note
[2024-10-18 06:53] LABS: Alanine Aminotransferase 9 U/L (10-49)
[2024-10-18] MEDS: POLYETHYLENE GLYCOL 17 GM PACKET PO (08:49)
[2024-10-18] MEDS: HEPARIN SOD INJ 5000 UNIT/ML VIAL SC ×2 (08:49→21:45)
[2024-10-18] MEDS: DULoxetine HCL 30 MG CAPSULE PO (08:51)
[2024-10-18] MEDS: SENNA/DOCUSATE SOD 1 TAB TABLET 2 TAB PO (08:51)
--- NOTE | 2024-10-18 10:16 | PC.SS ---
Addendum entered by EMILY Vasquez 10/18/24 14:30: Rounding note: pending results, possible d/c Sunday. Addendum entered by EMILY Vasquez 10/18/24 13:40: CLOCKMAKER spoke to Una at [facility] and she stated for patient to return all test must be cleared including TB test and new PT note, patient will need authorization. Original Note: EMILY spoke to staff at [facility] to confirm if patients will need authorization, staff stated that Una from [facility] usually handles admission but she is out of office and they do not have anyone that covers on weekends. Staff will confrim with Una and return phone call.
[2024-10-18] MEDS: SODIUM CHLORIDE 0.9% 1000 ML 1,000 ML 75 ML IV (11:51)
--- NOTE | 2024-10-18 12:24 | ESPR_ITS ---
<Statement entered by Al Del Rosario MD - 10/18/24 12:47> Patient was seen and examined at bedside. I agree on the assessment and plan on this note as documented by resident Nani Gan DO PGY1. 79-year-old female with past medical history as below admitted for TB rule out, seen at bedside today has no active complaints, bladder ultrasound yesterday consistent with bladder mass posterior margin [id number] mm. Patient informed about ultrasound findings, urology is scheduled to assess the patient on Sunday, will likely need cystoscopy and further workup pending urology evaluation. Continue pain management with Dilaudid pain well-controlled on current regimen. Case discussed with attending Dr. Anna Marie Watt MD PGY-2 Documentation for date of: 10/18/24 Subjective Subjective Interval history: No acute overnight events. Patient seen and examined at bedside. Patient reports feeling well today, denies shortness of breath, cough, abdominal pain, fever or urinary symptoms. Patient reports frequent small-volume, watery to loose brown stools. Prefers to have daily scheduled bowel regimen. Patient told about possible metastasis to bladder with bladder mass. Urology will come assess on Sunday with possible intervention on Sunday if needed. PPD skin test negative at 0 mm. Pending TB QuantiFERON and mycobacterial sputum cultures. Calcium still elevated 11.6 despite 1 L NS yesterday, start NS at 75 cc an hour for maintenance. Patient saturating well on room air. Exam Vital Signs Temp Pulse Resp BP Pulse Ox O2 Del Method O2 Flow Rate 97.5 F 89 24 H 114/58 L 95 Nasal Cannula 3 10/18/24 08:00 10/18/24 09:26 10/18/24 09:26 10/18/24 08:00 10/18/24 09:26 10/18/24 08:00 10/18/24 09:26 Narrative Exam GENERAL: AOx3, no acute distress, elderly woman HEENT: NC/AT, mucous membranes moist, bilateral sclera anicteric CARDIOVASCULAR: regular rate and rhythm, S1/S2 present, no murmurs appreciated PULMONARY: clear to auscultation bilaterally, no rales/rhonchi/wheezes ABDOMINAL: soft, non-distended, no rebound/guarding, bowel sounds present, t daisy to deep palpation L>R of abdomen EXTREMITIES: no peripheral edema SKIN: warm and dry, intact, no rashes NEURO: CN II-XII grossly intact, no focal deficits, alert, following commands Objective Labs 10/18/24 05:55 10/18/24 05:55 Labs: Laboratory Results - last 24 hr 10/18/24 05:55 WBC 9.4 RBC 4.26 Hgb 11.6 L Hct 36.1 MCV 85 MCH 27.2 MCHC 32.1 RDW Std Deviation 45.8 Plt Count 272 Neut % (Auto) 53 Lymph % (Auto) 33 Howell % (Auto) 10 Eos % (Auto) 2 Baso % (Auto) 1 Neut # (Auto) 4.9 Lymph # (Auto) 3.1 Howell # (Auto) 0.9 H Eos # (Auto) 0.2 Baso # (Auto) 0.1 Immature Gran # (Auto) 0.21 H Absolute Nucleated RBC 0.00 Immature Gran % 2 H Nucleated RBC % 0 Sodium 138 Potassium 4.4 D Chloride 101 Carbon Dioxide 27.4 Anion Gap 10 BUN 9 Creatinine 0.6 Estim Creat Clear Calc 73.1 eGFR > 60 BUN/Creatinine Ratio 15 Glucose 87 Calculated Osmolality 273 L Calcium 11.0 H Corrected Calcium 11.6 H Magnesium 1.8 Total Bilirubin 0.7 AST 18 ALT 9 L Alkaline Phosphatase 267 H D Total Protein 5.5 L Albumin 3.3 L Globulin 2.2 L Albumin/Globulin Ratio 1.5 Quality Measures Quality Measures VTE prophylaxis Advance care planning discussed with:: patient Assessment & Plan Assessment Current Active Medications: Generic Name Dose Route Start Last Admin Trade Name Freq PRN Reason Stop Dose Admin Acetaminophen 650 mg 10/15/24 14:17 Acetaminophen 325 Mg Tablet PO 11/14/24 14:16 Q6H PRN Fever >101.5 or pain 1-3 Atorvastatin Calcium 40 mg 10/17/24 21:00 10/17/24 20:38 Atorvastatin Calcium 20 Mg Tablet PO 11/16/24 20:59 40 mg HS CLAUDE Administration Cephalexin HCl 500 mg 10/15/24 21:00 10/18/24 08:50 Cephalexin 250 Mg Capsule PO 10/22/24 20:59 500 mg BID CLAUDE Administration Duloxetine HCl 30 mg 10/16/24 09:00 10/18/24 08:51 Duloxetine Hcl 30 Mg Capsule PO 11/15/24 08:59 30 mg QDAY CLAUDE Administration Gabapentin 100 mg 10/15/24 14:45 10/18/24 05:17 Gabapentin 100 Mg Capsule PO 11/14/24 14:44 100 mg Q8HR CLAUDE Administration Heparin Sodium (Porcine) 5,000 unit 10/15/24 14:30 10/18/24 08:49 Heparin Sod Inj 5000 Unit/Ml Vial SC 10/29/24 14:29 5,000 unit Q12HR CLAUDE Administration Hydromorphone HCl 4 mg 10/15/24 15:33 10/18/24 11:51 Hydromorphone Hcl 2 Mg Tablet PO 10/20/24 15:32 4 mg Q6HR PRN Administration PAIN SCALE 7-10 (Severe Sodium Chloride 1,000 mls @ 75 mls/hr 10/18/24 10:58 10/18/24 11:51 Ns IV 11/17/24 10:57 75 mls/hr .[id number] CLAUDE Administration Lidocaine 1 patch 10/15/24 15:32 10/17/24 15:19 Lidocaine 5% 1 Patch TOP 11/14/24 15:31 1 patch UD PRN Administration Topical Pain Protocol Ondansetron HCl 4 mg 10/15/24 15:33 Ondansetron Inj 2 Mg/Ml Inj 2 Ml IVP 11/14/24 15:32 Q8HR PRN NAUSEA OR VOMITING Protocol Polyethylene Glycol 17 gm 10/15/24 15:45 10/18/24 08:49 Polyethylene Glycol 17 Gm Packet PO 11/14/24 15:44 17 gm QDAY CLAUDE Administration Sennosides 2 tab 10/15/24 15:45 10/18/24 08:51 Senna/Docusate Sod 1 Tab Tablet PO 11/14/24 15:44 2 tab QDAY CLAUDE Administration Protocol Sodium Chloride 10 ml 10/16/24 01:33 10/17/24 07:38 Sodium Chloride Rt 10% 15 Ml Nebu INH 11/15/24 01:32 10 ml PRN PRN Administration SOLN Plan Mrs. 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 Patient was admitted for tuberculosis rule out. #Miliary nodular pattern likely 2/2 #Metastatic malignancy to lungs #Tuberculosis workup #Possible tuberculosis Patient brought to [facility] ED by assisted care facility as they were concerned for possible tuberculosis given the miliary nodular pattern found on CT and chest x- rays. This pattern was not found on chest imaging by radiology on 09/06. Given that the patient has almost no symptoms except for some weight loss, which is explained due to decreased oral intake, and the patient endorsing a consistently O2 saturation around 90% at the care facility, suspicion for tuberculosis is low at this time, however cannot be ruled out without further investigation. Given the patient's colon cancer that was noted to already have spread to multiple vertebra, it is very possible that this patient's Willams nodular pattern is secondary to metastasis of her colon cancer. Until TB can be definitively ruled out, it is unlikely for her assisted care facility accept return. 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 The patient sees Dr. Inman for urology. - Bladder ultrasound showed hyperechoic mass to posterior margin of the bladder, 12X 9X11mm suspicious for early bladder cancer - Discussed case with the patient's urologist, Dr. Inman, who plans to see the patient on Sunday (10/21) for a cystoscopy and will replace the De Oliveira catheter on Sunday (10/22). - Urine cytology ordered, pending #Adenocarcinoma of the rectum, poorly differentiated, with mucinous/signet rings, with #Metastasis to bone with osseus lesions, thoracic lumbar vertebrae, abdominal lymphadenopathy #Chronic back pain Patient noted to have a history of colon cancer. The patient had a colonoscopy on 09/06/2024, which showed a mass in the rectum. When this mass was biopsied, the report showed adenocarcinoma of the rectum that is poorly differentiated with signet rings. MRI of the thoracic and lumbar spine on 09/04/2024 show metastases to the spine. This is likely the result of the patient's chronic back pain, to which she takes pain medication at home for. The patient follows Dr. Torres at [facility] for management of her malignancy. - Resumed patient's home pain medication regimen of hydromorphone 4 mg every 6 hours as needed and lidocaine patch - Patient to follow up with outpatient oncology for further management #Urinary tract infection, E. coli, uncomplicated Patient was seen at [facility] ED on 10/10 for abdominal pain. At the time, urinalysis was performed, which was positive for UTI. The patient was sent home on Keflex as his UTI was uncomplicated. Urine culture resulted as E. coli that is sensitive to Keflex. - Resumed patient's home Keflex 500 mg twice daily (10/11-10/25) #Hypercalcemia Admission Ca 11 with Ca ~9 in 08/2024. Continues to be elevated at 11.6 - s/p 1L NS 10/17 - Start maintenance NS 75cc/hr #Constipation #Hemorrhoids Patient has been noted to have a history of constipation and hemorrhoids. The patient is on an extensive list of medications and supplements for management of the patients constipation as listed in the admitting HPI. - Started patient on bowel regimen of Senokot 2 tablets daily and Miralax 17 gm daily #Neuropathy Patient has a reported history of neuropathy. Patient takes gabapentin and duloxetine for neuropathy at home. - Resumed patients home gabapentin 100 mg every 8 hours and duloxetine 30 mg daily #Hyperlipidemia Patient had lipid panel collected 10/16. Triglyceride 261, cholesterol 301, LDL 198, and HDL 51. - Atorvastatin 40 mg nightly DVT Prophylaxis: Heparin GI Prophylaxis: N/A Bowel: Senokot, Miralax Diet: Regular De Oliveira: Yes Lines: Peripheral IV Antibiotics: Keflex (10/11-10/25) Code Status: FULL Patient plan of care was discussed with the senior resident Dr. Del Rosario (PGY-2) and attending physician Dr. Jo. Nani Gan DO Internal Medicine PGY-1 Attending Provider Attestation/Addendum Anna Marie Willis DO, attest that I was physically present for the charles portions of the service and evaluated the patient with the resident and I reviewed and discussed the case with the resident and agree with the resident's findings and plans of care as documented above Patient seen and evaluated this AM. She states that she has pain in her lower back, but dilaudid controls the pain well when she gets it. Discussed findings of bladder mass on US and pending urology evaluation on Sunday. She remains on isolation due TB rule out. AFB remains pending. Will order PT to work with pt as well
--- NOTE | 2024-10-18 14:20 | PD.PUCONS ---
[facility] Pulmonology Consult Data of Consult Requesting Physician: Anna Marie Jo DO Primary Care Provider: Rakesh Francisco MD Consult Narrative History of present illness: Patient is a 79-year-old female with past medical history of recently diagnosed with colorectal cancer. Patient was ultimately discharged to long-term facility. She returns now after imaging suggested presence of miliary nodularity. At the moment, patient has had significant weight loss likely secondary to malignancy. She denies any night sweats, fever, chills. She has no significant cough, phlegm production or previous history of hemoptysis. Patient with known history of metastasis static malignancy. Pathology on prior sampling showed mucinous, signet adenocarcinoma. Patient without any significant shortness of breath but she is on low-flow oxygen. She does not have any risk factors for known TB and this is her first time at long-term facility. Denied any history of substance abuse, homelessness, incarceration, or significant travel overseas. 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 She has never had any significant lung disease and was a remote smoker in her youth. Quit more than 50 years ago. Patient without any significant occupational exposure. Patient also reports that she is having right hip and leg pain and feels that she has inability to void her bladder. She has poor control of her stooling. cc:: cc: Anna Marie Jo DO Review of Systems Review of Systems Narrative Review of Systems: Pertinent review of system was completed with significant findings included above. Past Medical History Past Medical History Comments PMH COMMENT: Past medical history/past surgical history reviewed with pertinent findings above. No significant family history pertinent to presentation. Patient with no social risk factors for tuberculosis. Meds Home Medications and Allergies Home Medications ?Medication ?Instructions ?Recorded ?Confirmed ?Type Zofran 8 mg PO .Q6 PRN nausea and vomiting 10/16/24 10/16/24 History duloxetine 30 mg capsule,delayed 30 mg PO QDAY 10/16/24 10/16/24 History release sprinkle gabapentin 100 mg capsule 100 mg PO Q8H 10/16/24 10/16/24 History hydromorphone 4 mg tablet 4 mg PO Q6H PRN pain 10/16/24 10/16/24 History (Dilaudid) lidocaine 4 % topical patch 1 patch topical QDAY PRN pain 10/16/24 10/16/24 History (Aspercreme (lidocaine)) polyethylene glycol 3350 17 17 g PO DAILY 10/16/24 10/16/24 History gram/dose oral powder senna-docusate sodium capsule 8.6 - 50 cap PO BID 10/16/24 10/16/24 History Allergies Allergy/AdvReac Type Severity Reaction Status Date / Time codeine Allergy Verified 10/15/24 12:17 Exam Vital Signs Temp Pulse Resp BP Pulse Ox O2 Del Method O2 Flow Rate 97.4 F 74 18 148/56 H 94 L Nasal Cannula 3 10/21/24 04:15 10/21/24 04:15 10/21/24 04:15 10/21/24 04:15 10/21/24 04:15 10/21/24 04:15 10/21/24 04:15 Narrative Exam GEN: NAD, AAOX3 HEENT: No JVD CVS: S1/S2+ RRR PULM: No crackles, wheezing. rhonchi ABD: soft, ND, NT, no flank pain :wallace in place, drain clear yellow urine EXT: No atrophy, weakness of right lower extremity at hip, no clubbing/ cyanosis NEURO: Focal weakness in right leg/ pain PSYCH: Appropriate mood/ affect Physical Exam Completion Physical Exam Complete?: Yes Results - Ophthalmologist Retina Specialist Labs 10/24/24 04:30 10/24/24 12:31 Labs: Short CBC 10/20/24 Range/Units 04:40 WBC 8.7 (3.6-11.0) Thou/mm3 Hgb 10.9 L (12.0-16.0) g/dL Hct 33.8 L (36.0-46.0) % Plt Count 245 D (140-440) Thou/mm3 BMP 10/20/24 04:40 Sodium 141 Potassium 3.8 Chloride 104 Carbon Dioxide 28.3 BUN 7 L Creatinine 0.5 L Glucose 83 Calcium 10.3 Liver Function 10/20/24 Range/Units 04:40 Total Bilirubin 0.7 (0.3-1.2) mg/dL AST 23 (0-34) U/L ALT 13 (10-49) U/L Alkaline Phosphatase 250 H (46-116) U/L Albumin 3.1 L (3.4-4.8) gm/dL Assessment & Plan Additional Assessment Additional Assessment: Metastatic adenocarcinoma of the colon to lung Miliary nodularity consistent with hematogenous spread Additional Plan Additional Plan: Patient can have complete workup for exclusion of active TB, multiple PPD test have been done She has no significant risk factors for tuberculosis and her imaging is most consistent with her underlying malignancy having spread hematogenously to the lung This can be further investigated by PET scan or biopsy no given the underlying aggressive form of cancer that she has this with makes the most sense she does not have any risk of spreading TB at this point and is unlikely to be positive and nonetheless, miliary pattern of TB suggests interstitial involvement which is not consistent with AFB present in the alveoli, which TB is typically spread Notice possible bony lesions may be related to this biopsy-proven malignancy makes this extremely unlikely No role for bronchoscopy at this point and we will avoid biopsy Will defer to [facility] department about clearance though at this point I do not have any concerns about tuberculosis or ability to spread I will remain peripherally involved, feel free to ask any further questions should arise but no immediate role for pulmonology at this point Provider Notation Provider Notation: Although this document has been carefully reviewed, there may still be some phonetic and other typographical errors. These errors are purely grammatical due to imperfections in the software program and should not be construed in any way to compromise the substance of the patient's medical care during this visit. Thank you for the opportunity and privilege in assisting you with this patient's care and management.
[2024-10-18] MEDS: ATORVASTATIN CALCIUM 20 MG TABLET 40 MG PO (21:44)
[2024-10-19] VITALS (8 sets, daily range): BP systolic 136–185; BP diastolic 55–86; PULSE 77–91; RESP 14–17; TEMP 36.1–36.6; O2SAT 95–98
[2024-10-19] MEDS: ONDANSETRON INJ 2 MG/ML INJ 2 ML 4 MG IVP (01:58)
[2024-10-19] MEDS: SODIUM CHLORIDE 0.9% 1000 ML 1,000 ML 75 ML IV ×2 (02:01→14:38)
[2024-10-19 05:30] LABS: Basophils # (Auto) 0.1 Thou/mm3 (0.0-0.2); Basophils % (Auto) 1 % (0-2.5); Eosinophils # (Auto) 0.2 Thou/mm3 (0.0-0.5); Eosinophils % (Auto) 1 % (0-10); Hematocrit 35.2 % (36.0-46.0); Hemoglobin 11.6 g/dL (12.0-16.0); Immature Granulocytes Auto 0.43 Thou/mm3 (0.00-0.00); Lymphocytes # (Auto) 2.5 Thou/mm3 (1.0-4.8); Lymphocytes % (Auto) 24 % (10-50); Mean Corpuscular HGB Conc 33.0 g/dl (31.0-37.0); Mean Corpuscular Hemoglobin 27.6 pg (25.0-35.0); Mean Corpuscular Volume 84 fL (80-100); Monocytes # (Auto) 1.0 Thou/mm3 (0.0-0.8); Monocytes % (Auto) 10 % (0-12); Neutrophils # (Auto) 6.3 Thou/mm3 (1.8-7.7); Neutrophils % (Auto) 60 % (37-80); Nucleated Red Blood Cell # 0.00 Thou/mm3 (0.00-0.00); Nucleated Red Blood Cell % 0 /100 WBC (0); Platelet Count 280 Thou/mm3 (140-440); RDW Standard Deviation 45.0 fL (36.4-46.3); Red Blood Count 4.20 Miln/mm3 (4.00-5.20); White Blood Count 10.5 Thou/mm3 (3.6-11.0)
[2024-10-19] MEDS: GABAPENTIN 100 MG CAPSULE PO ×3 (05:47→21:21)
[2024-10-19 05:59] LABS: Alanine Aminotransferase 12 U/L (10-49); Albumin, Serum 3.3 gm/dL (3.4-4.8); Albumin/Globulin Ratio 1.6 (1.2-2.2); Alkaline Phosphatase 267 U/L (46-116); Anion Gap 12 (7-16); Aspartate Amino Transferase 25 U/L (0-34); BUN/Creatinine Ratio 16 Ratio (12-20); Bilirubin,Total 1.0 mg/dL (0.3-1.2); Blood Urea Nitrogen 8 mg/dL (9-23); Calcium 10.6 mg/dL (8.3-10.6); Calcium (Corrected) 11.2 mg/dL (8.5-10.1); Carbon Dioxide 25.6 mMol/L (20.0-31.0); Chloride 102 mMol/L (98-107); Creatinine (Component) 0.5 mg/dL (0.6-1.3); Estimated Creatinine Clearance 85.6 mL/min (>60); Globulin 2.1 gm/dL (2.3-3.5); Glucose 85 mg/dL (74-106); Magnesium 1.7 mg/dL (1.6-2.6); Osmolality,Calculated 276 (275-295); Potassium 4.1 mMol/L (3.4-5.1); Sodium 140 mMol/L (136-145); Total Protein 5.4 gm/dL (5.7-8.2); eGFR > 60 See Note
--- NOTE | 2024-10-19 08:11 | PC.NURSE ---
Made Md carlisle aware of pts current bp of 184/69-90 HR and 10/10 pain. Per Md will order iv pain meds to help with pain and bp control at this time.
[2024-10-19] MEDS: HYDROmorphone INJ 2 MG/ML VIAL 0.5 MG IVP (08:33)
[2024-10-19] MEDS: HEPARIN SOD INJ 5000 UNIT/ML VIAL SC ×2 (08:34→20:29)
[2024-10-19] MEDS: DULoxetine HCL 30 MG CAPSULE PO (08:34)
--- NOTE | 2024-10-19 09:29 | ESPR_ITS ---
<Statement entered by Al Del Rosario MD - 10/19/24 14:19> Patient was seen and examined at bedside. I agree on the assessment and plan on this note as documented by resident Rambo Bennett DO PGY1. 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 Patient noted to have miliary pattern on CT chest with contrast, patient diagnosed with rectal CA 08/2024 likely has extensive metastasis of the disease to lungs and now urinary bladder as evidenced on bladder ultrasound 09/2024. Patient is pending TB quant, AFBs for tuberculosis workup, pulmonology was consulted per pulmonology patient's CT/imaging findings likely secondary to metastatic disease. Patient has chronic De Oliveira catheter which was placed 6 weeks ago, will be assessed by urology on Saturday 10/21 and will be scheduled for intervention per urology exam. Case discussed with attending Dr. Anna Marie Watt MD PGY-2 Documentation for date of: 10/19/24 Subjective Subjective Interval history: Overnight events: No acute events overnight. Patient was seen and examined at bedside. AM vitals and labs reviewed. Patient had 6 bowel movements in 24 hours. Received call from nursing staff about patient blood pressure in 184/69 for pain. Gave patient Dilaudid 0.5 mg IVP one time dose for pain. Changed Senna and Miralax to as needed instead of scheduled. Started patient on morphine 15 mg twice daily for pain and changed Dilaudid 4 mg PO every 6 hours to PRN. Pending QuantiFERON results. PPD tests negative. Pending urology for cystoscopy on Saturday 10/21 and De Oliveira catheter replacement on Sunday 10/22. Review of systems otherwise negative except for what is mentioned above. Exam Vital Signs Temp Pulse Resp BP Pulse Ox O2 Del Method O2 Flow Rate 97.8 F 90 16 185/69 H 95 Nasal Cannula 3 10/19/24 08:00 10/19/24 08:00 10/19/24 08:00 10/19/24 08:00 10/19/24 08:00 10/19/24 08:00 10/19/24 08:00 Narrative Exam Physical Exam: General: Alert, no acute distress. Skin: Warm, dry, intact. Head: Normocephalic, atraumatic. Eye: Normal conjunctiva, PERRL. Throat: Oral mucosa moist. No obvious lesions in oropharynx. Cardiovascular: Regular rate and rhythm, no murmur, +S1/S2. Respiratory: Lungs are clear to auscultation, respirations unlabored, no crackles, no wheezing. Gastrointestinal: Soft, nontender, non-distended. No guarding or rebound tenderness. Extremities: No edema, no cyanosis, no clubbing. 2+ radial pulse bilaterally, 2+ pedal pulse bilaterally. Neuro: No focal deficits observed. Conversant, moving all extremities. No overt cerebellar signs/incoordination. Psychiatric: Cooperative, appropriate affect. Objective Labs 10/20/24 04:40 10/20/24 04:40 Labs: Laboratory Results - last 24 hr 10/19/24 04:23 WBC 10.5 RBC 4.20 Hgb 11.6 L Hct 35.2 L MCV 84 MCH 27.6 MCHC 33.0 RDW Std Deviation 45.0 Plt Count 280 Neut % (Auto) 60 Lymph % (Auto) 24 [place] % (Auto) 10 Eos % (Auto) 1 Baso % (Auto) 1 Neut # (Auto) 6.3 Lymph # (Auto) 2.5 [place] # (Auto) 1.0 H Eos # (Auto) 0.2 Baso # (Auto) 0.1 Immature Gran # (Auto) 0.43 H Absolute Nucleated RBC 0.00 Immature Gran % 4 H Nucleated RBC % 0 Sodium 140 Potassium 4.1 Chloride 102 Carbon Dioxide 25.6 Anion Gap 12 BUN 8 L Creatinine 0.5 L Estim Creat Clear Calc 85.6 eGFR > 60 BUN/Creatinine Ratio 16 Glucose 85 Calculated Osmolality 276 Calcium 10.6 Corrected Calcium 11.2 H Magnesium 1.7 Total Bilirubin 1.0 AST 25 ALT 12 Alkaline Phosphatase 267 H Total Protein 5.4 L Albumin 3.3 L Globulin 2.1 L Albumin/Globulin Ratio 1.6 Quality Measures Quality Measures VTE prophylaxis Advance care planning discussed with:: patient Assessment & Plan Assessment Current Active Medications: Generic Name Dose Route Start Last Admin Trade Name Freq PRN Reason Stop Dose Admin Acetaminophen 650 mg 10/15/24 14:17 Acetaminophen 325 Mg Tablet PO 11/14/24 14:16 Q6H PRN Fever >101.5 or pain 1-3 Atorvastatin Calcium 40 mg 10/17/24 21:00 10/18/24 21:44 Atorvastatin Calcium 20 Mg Tablet PO 11/16/24 20:59 40 mg HS CLAUDE Administration Cephalexin HCl 500 mg 10/15/24 21:00 10/19/24 08:34 Cephalexin 250 Mg Capsule PO 10/22/24 20:59 500 mg BID CLAUDE Administration Duloxetine HCl 30 mg 10/16/24 09:00 10/19/24 08:34 Duloxetine Hcl 30 Mg Capsule PO 11/15/24 08:59 30 mg QDAY CLAUDE Administration Gabapentin 100 mg 10/15/24 14:45 10/19/24 05:47 Gabapentin 100 Mg Capsule PO 11/14/24 14:44 100 mg Q8HR CLAUDE Administration Heparin Sodium (Porcine) 5,000 unit 10/15/24 14:30 10/19/24 08:34 Heparin Sod Inj 5000 Unit/Ml Vial SC 10/29/24 14:29 5,000 unit Q12HR CLAUDE Administration Hydromorphone HCl 4 mg 10/15/24 15:33 10/18/24 23:53 Hydromorphone Hcl 2 Mg Tablet PO 10/31/24 15:32 4 mg Q6HR PRN Administration PAIN SCALE 7-10 (Severe Sodium Chloride 1,000 mls @ 75 mls/hr 10/18/24 10:58 10/19/24 02:01 Ns IV 11/17/24 10:57 75 mls/hr .[id number] CLAUDE Administration Lidocaine 1 patch 10/15/24 15:32 10/17/24 15:19 Lidocaine 5% 1 Patch TOP 11/14/24 15:31 1 patch UD PRN Administration Topical Pain Protocol Ondansetron HCl 4 mg 10/15/24 15:33 10/19/24 01:58 Ondansetron Inj 2 Mg/Ml Inj 2 Ml IVP 11/14/24 15:32 4 mg Q8HR PRN Administration NAUSEA OR VOMITING Protocol Polyethylene Glycol 17 gm 10/15/24 15:45 10/19/24 08:34 Polyethylene Glycol 17 Gm Packet PO 11/14/24 15:44 Not Given QDAY CLAUDE Sennosides 2 tab 10/15/24 15:45 10/19/24 08:34 Senna/Docusate Sod 1 Tab Tablet PO 11/14/24 15:44 Not Given QDAY CLAUDE Protocol Sodium Chloride 10 ml 10/16/24 01:33 10/17/24 07:38 Sodium Chloride Rt 10% 15 Ml Nebu INH 11/15/24 01:32 10 ml PRN PRN Administration SOLN Plan Mrs. 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 Patient was admitted for tuberculosis rule out. 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 This pattern was not found on chest imaging by radiology on 09/06. Given that the patient has almost no symptoms except for some weight loss, which is explained due to decreased oral intake, and the patient endorsing a consistently O2 saturation around 90% at the care facility, suspicion for tuberculosis is low at this time, however cannot be ruled out without further investigation. Given the patient's colon cancer that was noted to already have spread to multiple vertebra, it is very possible that this patient's Willams nodular pattern is secondary to metastasis of her colon cancer. Until TB can be definitively ruled out, it is unlikely for her assisted care facility accept return. 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 The patient sees Dr. Inman for urology. - Bladder ultrasound showed hyperechoic mass to posterior margin of the bladder, [id number] suspicious for early bladder cancer - Discussed case with the patient's urologist, Dr. Inman, who plans to see the patient on Sunday (10/21) for a cystoscopy and will replace the De Oliveira catheter on Sunday (10/22). - Urine cytology ordered, pending #Adenocarcinoma of the rectum, poorly differentiated, with mucinous/signet rings, with #Metastasis to bone with osseus lesions, thoracic lumbar vertebrae, abdominal lymphadenopathy #Chronic back pain Patient noted to have a history of colon cancer. The patient had a colonoscopy on 09/06/2024, which showed a mass in the rectum. When this mass was biopsied, the report showed adenocarcinoma of the rectum that is poorly differentiated with signet rings. MRI of the thoracic and lumbar spine on 09/04/2024 show metastases to the spine. This is likely the result of the patient's chronic back pain, to which she takes pain medication at home for. The patient follows Dr. Torres at [facility] for management of her malignancy. - Resumed patient's home pain medication regimen of hydromorphone 4 mg every 6 hours as needed and lidocaine patch - Morphine 15 mg syrup twice daily - Patient to follow up with outpatient oncology for further management #Urinary tract infection, E. coli, uncomplicated Patient was seen at [facility] on 10/10 for abdominal pain. At the time, urinalysis was performed, which was positive for UTI. The patient was sent home on Keflex as his UTI was uncomplicated. Urine culture resulted as E. coli that is sensitive to Keflex. - Resumed patient's home Keflex 500 mg twice daily (10/11-10/25) #Hypercalcemia Admission Ca 11 with Ca ~9 in 08/2024. Continues to be elevated at 11.6 - s/p 1L NS 10/17 - Maintenance NS 75cc/hr #Constipation #Hemorrhoids Patient has been noted to have a history of constipation and hemorrhoids. The patient is on an extensive list of medications and supplements for management of the patients constipation as listed in the admitting HPI. Given recent diarrhea on 10/18 in the evening, bowel regimen was changed to as needed instead of scheduled. - Started patient on bowel regimen of Senokot 2 tablets daily as needed and Miralax 17 gm daily as needed #Neuropathy Patient has a reported history of neuropathy. Patient takes gabapentin and duloxetine for neuropathy at home. - Resumed patients home gabapentin 100 mg every 8 hours and duloxetine 30 mg daily #Hyperlipidemia Patient had lipid panel collected 10/16. Triglyceride 261, cholesterol 301, LDL 198, and HDL 51. - Atorvastatin 40 mg nightly DVT Prophylaxis: Heparin GI Prophylaxis: N/A Bowel: Senokot, Miralax Diet: Regular De Oliveira: Yes Lines: Peripheral IV Antibiotics: Keflex (10/11-10/25) Code Status: FULL Patient plan of care was discussed with the senior resident Dr. Del Rosario (PGY-2) and attending physician Dr. Jo. Rambo Bennett DO Internal Medicine PGY-1 Attending Provider Attestation/Addendum I, Anna Marie Jo DO, attest that I was physically present for the charles portions of the service and evaluated the patient with the resident and I reviewed and discussed the case with the resident and agree with the resident's findings and plans of care as documented above Patient seen and evaluated this AM. She states that she has been having several bowel movements overnight and continues to have occasional pain requiring dilaudid. Will start patient on morphine ER 15mg PO BID for more detention relief and will keep PO dilaudid for breakthrough pain. Will DC bowel regimen has patient has had several BMs already. Pending AFBS. SHe remains comfortable on Room air otherwise.
[2024-10-19] MEDS: Morphine Sulf 15 MG TABCR PO ×2 (11:52→20:30)
--- NOTE | 2024-10-19 14:22 | PC.SS ---
Rounding note: pending TB results on Sunday, possible procedure.
[2024-10-19] MEDS: ATORVASTATIN CALCIUM 20 MG TABLET 40 MG PO (20:30)
[2024-10-20] VITALS (8 sets, daily range): BP systolic 122–146; BP diastolic 54–67; PULSE 80–88; RESP 16–20; TEMP 36.2–36.6; O2SAT 92–98
[2024-10-20] MEDS: GABAPENTIN 100 MG CAPSULE PO ×3 (05:13→22:03)
[2024-10-20] MEDS: SODIUM CHLORIDE 0.9% 1000 ML 1,000 ML 75 ML IV ×2 (05:13→22:03)
[2024-10-20 05:38] LABS: Basophils # (Auto) 0.1 Thou/mm3 (0.0-0.2); Basophils % (Auto) 1 % (0-2.5); Eosinophils # (Auto) 0.2 Thou/mm3 (0.0-0.5); Eosinophils % (Auto) 2 % (0-10); Hematocrit 33.8 % (36.0-46.0); Hemoglobin 10.9 g/dL (12.0-16.0); Immature Granulocytes Auto 0.24 Thou/mm3 (0.00-0.00); Lymphocytes # (Auto) 2.6 Thou/mm3 (1.0-4.8); Lymphocytes % (Auto) 29 % (10-50); Mean Corpuscular HGB Conc 32.2 g/dl (31.0-37.0); Mean Corpuscular Hemoglobin 27.5 pg (25.0-35.0); Mean Corpuscular Volume 85 fL (80-100); Monocytes # (Auto) 1.0 Thou/mm3 (0.0-0.8); Monocytes % (Auto) 11 % (0-12); Neutrophils # (Auto) 4.7 Thou/mm3 (1.8-7.7); Neutrophils % (Auto) 54 % (37-80); Nucleated Red Blood Cell # 0.00 Thou/mm3 (0.00-0.00); Nucleated Red Blood Cell % 0 /100 WBC (0); Platelet Count 245 Thou/mm3 (140-440); RDW Standard Deviation 46.8 fL (36.4-46.3); Red Blood Count 3.96 Miln/mm3 (4.00-5.20); White Blood Count 8.7 Thou/mm3 (3.6-11.0)
[2024-10-20 05:57] LABS: Alanine Aminotransferase 13 U/L (10-49); Albumin, Serum 3.1 gm/dL (3.4-4.8); Albumin/Globulin Ratio 1.6 (1.2-2.2); Alkaline Phosphatase 250 U/L (46-116); Anion Gap 9 (7-16); Aspartate Amino Transferase 23 U/L (0-34); BUN/Creatinine Ratio 14 Ratio (12-20); Bilirubin,Total 0.7 mg/dL (0.3-1.2); Blood Urea Nitrogen 7 mg/dL (9-23); Calcium 10.3 mg/dL (8.3-10.6); Calcium (Corrected) 11.0 mg/dL (8.5-10.1); Carbon Dioxide 28.3 mMol/L (20.0-31.0); Chloride 104 mMol/L (98-107); Creatinine (Component) 0.5 mg/dL (0.6-1.3); Estimated Creatinine Clearance 86.9 mL/min (>60); Globulin 1.9 gm/dL (2.3-3.5); Glucose 83 mg/dL (74-106); Magnesium 1.8 mg/dL (1.6-2.6); Osmolality,Calculated 278 (275-295); Potassium 3.8 mMol/L (3.4-5.1); Sodium 141 mMol/L (136-145); Total Protein 5.0 gm/dL (5.7-8.2); eGFR > 60 See Note
[2024-10-20] MEDS: Morphine Sulf 15 MG TABCR PO ×2 (08:07→20:29)
[2024-10-20] MEDS: HEPARIN SOD INJ 5000 UNIT/ML VIAL SC ×2 (08:07→20:27)
[2024-10-20] MEDS: DULoxetine HCL 30 MG CAPSULE PO (08:07)
[2024-10-20] MEDS: Magnesium Sulfate 4 GM Ivpb 4 GM/50 ML BAG IV (08:21)
--- NOTE | 2024-10-20 10:08 | PC.SS ---
Addendum entered by EMILY Vasquez 10/20/24 15:07: Rounding note: Sputum AFBs are still pending. Original Note: SS update: [employer] placed phone call to Una at [facility] to inquire about which results they need for patient, Una stated that they need sputum and quantiferon results, results are still pending. SS will send out results to [facility] once available, patient is unable to d/c without those results.
--- NOTE | 2024-10-20 11:05 | ESPR_ITS ---
<Statement entered by Steven Gupta MD - 10/20/24 14:45> Patient seen and assessed in hospital bed is awake and answering questions appropriately. Will continue IV fluids for hypercalcemia as her levels are downtrending secondary to fluid resuscitation and the patient does not have any documented history of congestive heart failure with recent echo on chart. Sputum AFBs are still pending and we will follow-up with results. Patient will have De Oliveira changed with Dr. 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 Dr. Torres (radiology oncology) has been consulted, appreciate recommendations. I have personally seen and examined the patient. I agree with the resident's assessment and plan as documented below. Steven Gupta, DO PGY-2 Internal Medicine - [facility] Documentation for date of: 10/20/24 Subjective Subjective Interval history: Overnight events: No acute events overnight. Patient was seen and examined at bedside. AM vitals and labs reviewed. Patient found to be sleeping today. Talked to the patient, but patient was tired, so we allowed her to rest. Pending QuantiFERON test results. Pending urology to see the patient tomorrow. Consulted Dr. Torres, oncology, to see the patient as she follows him outpatient for management of adenocarcinoma of the rectum. Review of systems otherwise negative except for what is mentioned above. Exam Vital Signs Temp Pulse Resp BP Pulse Ox O2 Del Method O2 Flow Rate 97.9 F 88 16 146/66 H 97 Nasal Cannula 3 10/20/24 08:00 10/20/24 09:50 10/20/24 09:50 10/20/24 08:00 10/20/24 09:50 10/20/24 08:00 10/20/24 09:50 Narrative Exam Physical Exam: General: Sleepy, no acute distress. Skin: Warm, dry, intact. Head: Normocephalic, atraumatic. Eye: Normal conjunctiva, PERRL. Extremities: No edema, no cyanosis, no clubbing. Neuro: No focal deficits observed. Conversant, moving all extremities. No overt cerebellar signs/incoordination. Psychiatric: Cooperative, appropriate affect. Objective Labs 10/21/24 05:36 10/21/24 05:36 Labs: Laboratory Results - last 24 hr 10/20/24 04:40 WBC 8.7 RBC 3.96 L Hgb 10.9 L Hct 33.8 L MCV 85 MCH 27.5 MCHC 32.2 RDW Std Deviation 46.8 H Plt Count 245 D Neut % (Auto) 54 Lymph % (Auto) 29 [place] % (Auto) 11 Eos % (Auto) 2 Baso % (Auto) 1 Neut # (Auto) 4.7 Lymph # (Auto) 2.6 [place] # (Auto) 1.0 H Eos # (Auto) 0.2 Baso # (Auto) 0.1 Immature Gran # (Auto) 0.24 H Absolute Nucleated RBC 0.00 Immature Gran % 3 H Nucleated RBC % 0 Sodium 141 Potassium 3.8 Chloride 104 Carbon Dioxide 28.3 Anion Gap 9 BUN 7 L Creatinine 0.5 L Estim Creat Clear Calc 86.9 eGFR > 60 BUN/Creatinine Ratio 14 Glucose 83 Calculated Osmolality 278 Calcium 10.3 Corrected Calcium 11.0 H Magnesium 1.8 Total Bilirubin 0.7 AST 23 ALT 13 Alkaline Phosphatase 250 H Total Protein 5.0 L Albumin 3.1 L Globulin 1.9 L Albumin/Globulin Ratio 1.6 Quality Measures Quality Measures VTE prophylaxis Advance care planning discussed with:: patient Assessment & Plan Assessment Current Active Medications: Generic Name Dose Route Start Last Admin Trade Name Freq PRN Reason Stop Dose Admin Acetaminophen 650 mg 10/15/24 14:17 Acetaminophen 325 Mg Tablet PO 11/14/24 14:16 Q6H PRN Fever >101.5 or pain 1-3 Atorvastatin Calcium 40 mg 10/17/24 21:00 10/19/24 20:30 Atorvastatin Calcium 20 Mg Tablet PO 11/16/24 20:59 40 mg HS CLAUDE Administration Cephalexin HCl 500 mg 10/15/24 21:00 10/20/24 08:07 Cephalexin 250 Mg Capsule PO 10/22/24 20:59 500 mg BID CLAUDE Administration Duloxetine HCl 30 mg 10/16/24 09:00 10/20/24 08:07 Duloxetine Hcl 30 Mg Capsule PO 11/15/24 08:59 30 mg QDAY CLAUDE Administration Gabapentin 100 mg 10/15/24 14:45 10/20/24 05:13 Gabapentin 100 Mg Capsule PO 11/14/24 14:44 100 mg Q8HR CLAUDE Administration Heparin Sodium (Porcine) 5,000 unit 10/15/24 14:30 10/20/24 08:07 Heparin Sod Inj 5000 Unit/Ml Vial SC 10/29/24 14:29 5,000 unit Q12HR CLAUDE Administration Hydromorphone HCl 4 mg 10/19/24 11:32 Hydromorphone Hcl 2 Mg Tablet PO 10/31/24 15:32 Q6HR PRN BREAKTHROUGH PAIN (SEVERE) Sodium Chloride 1,000 mls @ 75 mls/hr 10/18/24 10:58 10/20/24 05:13 Ns IV 11/17/24 10:57 75 mls/hr .[id number] CLADUE Administration Magnesium Sulfate 4 gm in 50 mls @ 12.5 mls/hr 10/20/24 08:06 10/20/24 08:21 Magnesium Sulfate Ivpb IV 10/20/24 12:05 12.5 mls/hr X1 ONE Administration Lidocaine 1 patch 10/15/24 15:32 10/17/24 15:19 Lidocaine 5% 1 Patch TOP 11/14/24 15:31 1 patch UD PRN Administration Topical Pain Protocol Morphine Sulfate 15 mg 10/19/24 11:35 10/20/24 08:07 Morphine Sulf 15 Mg Tabcr PO 10/24/24 11:34 15 mg Q12HR CLAUDE Administration Protocol Ondansetron HCl 4 mg 10/15/24 15:33 10/19/24 01:58 Ondansetron Inj 2 Mg/Ml Inj 2 Ml IVP 11/14/24 15:32 4 mg Q8HR PRN Administration NAUSEA OR VOMITING Protocol Polyethylene Glycol 17 gm 10/19/24 10:46 Polyethylene Glycol 17 Gm Packet PO 11/14/24 15:44 QDAY PRN Constipation Sennosides 2 tab 10/19/24 10:46 Senna/Docusate Sod 1 Tab Tablet PO 11/14/24 15:44 QDAY PRN Constipation Protocol Sodium Chloride 10 ml 10/16/24 01:33 10/17/24 07:38 Sodium Chloride Rt 10% 15 Ml Nebu INH 11/15/24 01:32 10 ml PRN PRN Administration SOLN Plan Mrs. 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 Patient was admitted for tuberculosis rule out. 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 This pattern was not found on chest imaging by radiology on 09/06. Given that the patient has almost no symptoms except for some weight loss, which is explained due to decreased oral intake, and the patient endorsing a consistently O2 saturation around 90% at the care facility, suspicion for tuberculosis is low at this time, however cannot be ruled out without further investigation. Given the patient's colon cancer that was noted to already have spread to multiple vertebra, it is very possible that this patient's Willams nodular pattern is secondary to metastasis of her colon cancer. Until TB can be definitively ruled out, it is unlikely for her assisted care facility accept return. Ddx: Tuberculosis, metastasis to lungs, primary lung cancer, histoplasmosis, blastomycosis, silicosis, sarcoidosis - Administered tuberculin PPD test 10/15, negative at 00 mm - QuantiFERON gold TB test ordered, pending - Sputum myobacterial cultures x3, pending - Isolation precaution - CT chest ordered, shows mild mediastinal lymphadenopathy, miliary nodular pattern throughout the lungs, mild heart failure, primary hepatocellular disease, cholelithiasis - Pulmonology consulted, appreciate recommendations - Oncology consulted, appreciate recommendations #Bladder mass, posterior margin [id number] mm #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 The patient sees Dr. Inman for urology. - Bladder ultrasound showed hyperechoic mass to posterior margin of the bladder, [id number] suspicious for early bladder cancer - Discussed case with the patient's urologist, Dr. Inman, who plans to see the patient on Sunday (10/21) for a cystoscopy and will replace the De Oliveira catheter on Sunday (10/22). - Urine cytology ordered, pending #Adenocarcinoma of the rectum, poorly differentiated, with mucinous/signet rings, with #Metastasis to bone with osseus lesions, thoracic lumbar vertebrae, abdominal lymphadenopathy #Chronic back pain Patient noted to have a history of colon cancer. The patient had a colonoscopy on 09/06/2024, which showed a mass in the rectum. When this mass was biopsied, the report showed adenocarcinoma of the rectum that is poorly differentiated with signet rings. MRI of the thoracic and lumbar spine on 09/04/2024 show metastases to the spine. This is likely the result of the patient's chronic back pain, to which she takes pain medication at home for. The patient follows Dr. Torres at [facility] for management of her malignancy. - Resumed patient's home pain medication regimen of hydromorphone 4 mg every 6 hours as needed and lidocaine patch - Morphine 15 mg syrup twice daily - Patient to follow up with outpatient oncology for further management #Urinary tract infection, E. coli, uncomplicated Patient was seen at [facility] ED on 10/10 for abdominal pain. At the time, urinalysis was performed, which was positive for UTI. The patient was sent home on Keflex as his UTI was uncomplicated. Urine culture resulted as E. coli that is sensitive to Keflex. - Resumed patient's home Keflex 500 mg twice daily (10/11-10/25) #Hypercalcemia Admission Ca 11 with Ca ~9 in 08/2024. Continues to be elevated at 11.6 - s/p 1L NS 10/17 - Maintenance NS 75cc/hr #Constipation #Hemorrhoids Patient has been noted to have a history of constipation and hemorrhoids. The patient is on an extensive list of medications and supplements for management of the patients constipation as listed in the admitting HPI. Given recent diarrhea on 10/18 in the evening, bowel regimen was changed to as needed instead of scheduled. - Started patient on bowel regimen of Senokot 2 tablets daily as needed and Miralax 17 gm daily as needed #Neuropathy Patient has a reported history of neuropathy. Patient takes gabapentin and duloxetine for neuropathy at home. - Resumed patients home gabapentin 100 mg every 8 hours and duloxetine 30 mg daily #Hyperlipidemia Patient had lipid panel collected 10/16. Triglyceride 261, cholesterol 301, LDL 198, and HDL 51. - Atorvastatin 40 mg nightly DVT Prophylaxis: Heparin GI Prophylaxis: N/A Bowel: Senokot, Miralax Diet: Regular De Oliveira: Yes Lines: Peripheral IV Antibiotics: Keflex (10/11-10/25) Code Status: FULL Patient plan of care was discussed with the senior resident Dr. Gupta (PGY- 2) and attending physician Dr. Jo. Rambo Bennett, DO Internal Medicine PGY-1 Attending Provider Attestation/Addendum Alba, Anna Marie Jo DO, attest that I was physically present for the charles portions of the service and evaluated the patient with the resident and I reviewed and discussed the case with the resident and agree with the resident's findings and plans of care as documented above Patient seen and evaluated this AM. Patient states the morphine is working well, but still has occasional pain in her back. She is currently on 3L/NC but able speak without breaks in sentences. She is eager to see the urologist. Will consult radiation oncology as well who has been following pt outpatient. No acute events overnight. Pending AFBs, urology and oncology recommendations. Continue with IV fluid hydration given hypercalcemia. Patient remains afebrile.
[2024-10-20] MEDS: ATORVASTATIN CALCIUM 20 MG TABLET 40 MG PO (20:29)
[2024-10-21] VITALS (8 sets, daily range): BP systolic 130–160; BP diastolic 56–68; PULSE 74–89; RESP 16–19; TEMP 36.3–36.8; O2SAT 93–98
[2024-10-21] MEDS: GABAPENTIN 100 MG CAPSULE PO ×3 (05:41→22:20)
[2024-10-21] MEDS: POLYETHYLENE GLYCOL 17 GM PACKET PO ×2 (05:41→13:27)
[2024-10-21 05:49] LABS: Basophils # (Auto) 0.1 Thou/mm3 (0.0-0.2); Basophils % (Auto) 1 % (0-2.5); Eosinophils # (Auto) 0.2 Thou/mm3 (0.0-0.5); Eosinophils % (Auto) 2 % (0-10); Hematocrit 32.6 % (36.0-46.0); Hemoglobin 10.6 g/dL (12.0-16.0); Immature Granulocytes Auto 0.26 Thou/mm3 (0.00-0.00); Lymphocytes # (Auto) 2.9 Thou/mm3 (1.0-4.8); Lymphocytes % (Auto) 32 % (10-50); Mean Corpuscular HGB Conc 32.5 g/dl (31.0-37.0); Mean Corpuscular Hemoglobin 27.4 pg (25.0-35.0); Mean Corpuscular Volume 84 fL (80-100); Monocytes # (Auto) 1.0 Thou/mm3 (0.0-0.8); Monocytes % (Auto) 12 % (0-12); Neutrophils # (Auto) 4.5 Thou/mm3 (1.8-7.7); Neutrophils % (Auto) 51 % (37-80); Nucleated Red Blood Cell # 0.00 Thou/mm3 (0.00-0.00); Nucleated Red Blood Cell % 0 /100 WBC (0); Platelet Count 249 Thou/mm3 (140-440); RDW Standard Deviation 46.3 fL (36.4-46.3); Red Blood Count 3.87 Miln/mm3 (4.00-5.20); White Blood Count 8.9 Thou/mm3 (3.6-11.0)
[2024-10-21 06:30] LABS: Alanine Aminotransferase 13 U/L (10-49); Albumin, Serum 3.0 gm/dL (3.4-4.8); Albumin/Globulin Ratio 1.5 (1.2-2.2); Alkaline Phosphatase 252 U/L (46-116); Anion Gap 10 (7-16); Aspartate Amino Transferase 23 U/L (0-34); BUN/Creatinine Ratio 10 Ratio (12-20); Bilirubin,Total 0.7 mg/dL (0.3-1.2); Blood Urea Nitrogen 6 mg/dL (9-23); Calcium 10.3 mg/dL (8.3-10.6); Calcium (Corrected) 11.1 mg/dL (8.5-10.1); Carbon Dioxide 26.5 mMol/L (20.0-31.0); Chloride 104 mMol/L (98-107); Creatinine (Component) 0.6 mg/dL (0.6-1.3); Estimated Creatinine Clearance 72.5 mL/min (>60); Globulin 2.0 gm/dL (2.3-3.5); Glucose 85 mg/dL (74-106); Magnesium 1.7 mg/dL (1.6-2.6); Osmolality,Calculated 276 (275-295); Potassium 4.0 mMol/L (3.4-5.1); Sodium 140 mMol/L (136-145); Total Protein 5.0 gm/dL (5.7-8.2); eGFR > 60 See Note
--- NOTE | 2024-10-21 07:04 | XR_ITS ---
Examination: Bone scan whole body, radioisotope Date and time of exam: October 27, 2024 0938 hours INDICATIONS: Rectal carcinoma diagnosis September 06, 2024 Technique: Study has been performed with intravenous administration of 24.6 mci 99M technetium MDP. Anterior, posterior whole body images are obtained. Images have been obtained including the lower extremities. Findings: Widespread osseous metastatic disease, involving the axial skeleton, pelvis, bilateral ribs, right and left lower extremities, cranial vault IMPRESSION: Widespread osseous metastatic disease
--- NOTE | 2024-10-21 08:29 | PD.ONCCONS ---
HPI Data of Consult Requesting Physician: Anna Marie Jo DO Primary Care Provider: Rakesh Francisco MD Consult Narrative Reason for consult: Rectal CA with obstructive symptoms. 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 Mclean 09/06/2024. This was poorly differentiated with mucinous signet ring features. Amount of tumor was insufficient for reliable MMR testing. Patient complained about back pain had T and L-spine MRI ordered 09/04/2024 that suggested bone mets. Bone osseous survey 09/05/2024 however did not suggest bone mets. 10/15/2024 CT chest abdomen pelvis suggested possible pulmonary nodules or mets disease or infectious process such as active TB. Bladder ultrasound due to urinary retention suggested mass posterior margin bladder 12 x 9 x 11 mm. Patient who is a resident of [facility] has had significant pain difficulty voiding pelvic contents both bowel and bladder. Since patient had adeno CA of the rectum diagnosed it was suggested that patient receive cancer therapy to at a minimum alleviate this problem. Unfortunately [facility] this became problematic with numerous obstacles causing delays and still unclear whether any treatments can be given, particularly chemotherapy. Decision was made to schedule outpatient radiation regardless of payment when she was admitted to the hospital on 10/15/2024. QuantiFERON TB test has been ordered along with TB skin test and sputum microbial cultures pending. 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 [place] denies smoking drinking Past Medical History Comments PMH COMMENT: Prior hysterectomy osteoarthritis Meds Home Medications and Allergies Home Medications ?Medication ?Instructions ?Recorded ?Confirmed ?Type Zofran 8 mg PO .Q6 PRN nausea and vomiting 10/16/24 10/16/24 History duloxetine 30 mg capsule,delayed 30 mg PO QDAY 10/16/24 10/16/24 History release sprinkle gabapentin 100 mg capsule 100 mg PO Q8H 10/16/24 10/16/24 History hydromorphone 4 mg tablet 4 mg PO Q6H PRN pain 10/16/24 10/16/24 History (Dilaudid) lidocaine 4 % topical patch 1 patch topical QDAY PRN pain 10/16/24 10/16/24 History (Aspercreme (lidocaine)) polyethylene glycol 3350 17 17 g PO DAILY 10/16/24 10/16/24 History gram/dose oral powder senna-docusate sodium capsule 8.6 - 50 cap PO BID 10/16/24 10/16/24 History Allergies Allergy/AdvReac Type Severity Reaction Status Date / Time codeine Allergy Verified 10/15/24 12:17 Exam Vital Signs Temp Pulse Resp BP Pulse Ox O2 Del Method O2 Flow Rate 98.2 F 82 16 160/68 H 97 Nasal Cannula 3 10/21/24 08:00 10/21/24 08:00 10/21/24 08:00 10/21/24 08:00 10/21/24 08:00 10/21/24 08:00 10/21/24 08:00 Narrative Exam Well-appearing lady no acute distress Results Labs 10/21/24 05:36 10/21/24 05:36 Labs: Short CBC 10/21/24 Range/Units 05:36 WBC 8.9 (3.6-11.0) Thou/mm3 Hgb 10.6 L (12.0-16.0) g/dL Hct 32.6 L (36.0-46.0) % Plt Count 249 (140-440) Thou/mm3 BMP 10/21/24 05:36 Sodium 140 Potassium 4.0 Chloride 104 Carbon Dioxide 26.5 BUN 6 L Creatinine 0.6 Glucose 85 Calcium 10.3 Liver Function 10/21/24 Range/Units 05:36 Total Bilirubin 0.7 (0.3-1.2) mg/dL AST 23 (0-34) U/L ALT 13 (10-49) U/L Alkaline Phosphatase 252 H (46-116) U/L Albumin 3.0 L (3.4-4.8) gm/dL Assessment and Plan Additional Assessment & Plan Additional Plan: 1. Diagnosis of adeno CA of the anorectal region, with pain and obstructive symptoms. 2. Being a SNF patient, numerous regulations including uncertainty whether any cancer treatment could be given during her stay there with conflicting statements from various sources. 3. Radiation therapy had been scheduled but now that she is admitted I believe surgery would be helpful to give quick alleviation at least of the obstructive problem. 4. Being worked up for possible TB, and bone scan scheduled. Prior imaging studies gave conflicting results regarding bone involvement. 5. Will follow. Thank you for allowing me to evaluate this patient again.
[2024-10-21] MEDS: SENNA/DOCUSATE SOD 1 TAB TABLET 2 TAB PO (09:33)
[2024-10-21] MEDS: Morphine Sulf 15 MG TABCR PO ×2 (09:33→22:21)
[2024-10-21] MEDS: HEPARIN SOD INJ 5000 UNIT/ML VIAL SC ×2 (09:33→22:27)
[2024-10-21] MEDS: DULoxetine HCL 30 MG CAPSULE PO (09:33)
--- NOTE | 2024-10-21 10:10 | ESPR_ITS ---
<Statement entered by Leonel Teran MD - 10/21/24 16:35> No acute overnight events. Denies any new complaints. Vitals are stable. Labs are significant for elevated calcium, 11.1, hemoglobin 10.6. Urologist, Dr. Morales is consulted and he recommended cystoscopy and removal of De Oliveira catheter tomorrow. General surgeon, Dr. Beaver is consulted and he advised diverting colostomy on 10/23/2024. Will continue current management. I have personally seen and examined the patient. I agree with the resident's assessment and plan as documented below. Patient plan of care was discussed with the attending physician, Dr. Deysi Teran, PGY2 Documentation for date of: 10/21/24 Subjective Subjective Interval history: Overnight events: No acute events overnight. Patient was seen and examined at bedside. AM vitals and labs reviewed. Patient breathing fine on room air. No acute distress today. Discussed plans with daughter over the phone. Hemoglobin 10.6, calcium 11.1, ALP 252. AFB culture 1 out of 3 resulted, no acid-fast bacilli, pending mycobacterial culture. Discussed case with oncology, Dr. Torres, who recommended NM bone scan and consult to surgery. Consulted surgery, Dr Beaver, who recommends starting patient on liquid diet and nutritional supplements with bowel prep for laparoscopic assisted diverting colostomy on 10/23. Urology to perform cystoscopy and urine catheter replacement tomorrow 10/22. Pending QuantiFERON results. Review of systems otherwise negative except for what is mentioned above. Exam Vital Signs Temp Pulse Resp BP Pulse Ox O2 Del Method O2 Flow Rate 98.2 F 82 16 160/68 H 97 Nasal Cannula 3 10/21/24 08:00 10/21/24 08:00 10/21/24 08:00 10/21/24 08:00 10/21/24 08:00 10/21/24 08:00 10/21/24 08:00 Narrative Exam Physical Exam: General: Alert, no acute distress. Skin: Warm, dry, intact. Head: Normocephalic, atraumatic. Eye: Normal conjunctiva, PERRL. Cardiovascular: Regular rate and rhythm, no murmur, +S1/S2. Respiratory: Lungs are clear to auscultation, respirations unlabored, no crackles, no wheezing. Gastrointestinal: Soft, nontender, non-distended. No guarding or rebound tenderness. Extremities: No edema, no cyanosis, no clubbing. Neuro: No focal deficits observed. Conversant, moving all extremities. No overt cerebellar signs/incoordination. Psychiatric: Cooperative, appropriate affect. Objective Labs 10/22/24 05:23 10/22/24 05:23 Labs: Laboratory Results - last 24 hr 10/16/24 10/21/24 22:50 05:36 WBC 8.9 RBC 3.87 L Hgb 10.6 L Hct 32.6 L MCV 84 MCH 27.4 MCHC 32.5 RDW Std Deviation 46.3 Plt Count 249 Neut % (Auto) 51 Lymph % (Auto) 32 [place] % (Auto) 12 Eos % (Auto) 2 Baso % (Auto) 1 Neut # (Auto) 4.5 Lymph # (Auto) 2.9 [place] # (Auto) 1.0 H Eos # (Auto) 0.2 Baso # (Auto) 0.1 Immature Gran # (Auto) 0.26 H Absolute Nucleated RBC 0.00 Immature Gran % 3 H Nucleated RBC % 0 Sodium 140 Potassium 4.0 Chloride 104 Carbon Dioxide 26.5 Anion Gap 10 BUN 6 L Creatinine 0.6 Estim Creat Clear Calc 72.5 eGFR > 60 BUN/Creatinine Ratio 10 L Glucose 85 Calculated Osmolality 276 Calcium 10.3 Corrected Calcium 11.1 H Magnesium 1.7 Total Bilirubin 0.7 AST 23 ALT 13 Alkaline Phosphatase 252 H Total Protein 5.0 L Albumin 3.0 L Globulin 2.0 L Albumin/Globulin Ratio 1.5 Mycobacterial Culture See Sep Rpt Quality Measures Quality Measures VTE prophylaxis Advance care planning discussed with:: patient, spouse and child Assessment & Plan Assessment Current Active Medications: Generic Name Dose Route Start Last Admin Trade Name Freq PRN Reason Stop Dose Admin Acetaminophen 650 mg 10/15/24 14:17 Acetaminophen 325 Mg Tablet PO 11/14/24 14:16 Q6H PRN Fever >101.5 or pain 1-3 Atorvastatin Calcium 40 mg 10/17/24 21:00 10/20/24 20:29 Atorvastatin Calcium 20 Mg Tablet PO 11/16/24 20:59 40 mg HS CLAUDE Administration Cephalexin HCl 500 mg 10/15/24 21:00 10/21/24 09:33 Cephalexin 250 Mg Capsule PO 10/22/24 20:59 500 mg BID CLAUDE Administration Duloxetine HCl 30 mg 10/16/24 09:00 10/21/24 09:33 Duloxetine Hcl 30 Mg Capsule PO 11/15/24 08:59 30 mg QDAY CLAUDE Administration Gabapentin 100 mg 10/15/24 14:45 10/21/24 05:41 Gabapentin 100 Mg Capsule PO 11/14/24 14:44 100 mg Q8HR CLAUDE Administration Heparin Sodium (Porcine) 5,000 unit 10/15/24 14:30 10/21/24 09:33 Heparin Sod Inj 5000 Unit/Ml Vial SC 10/29/24 14:29 5,000 unit Q12HR CLAUDE Administration Hydromorphone HCl 4 mg 10/19/24 11:32 Hydromorphone Hcl 2 Mg Tablet PO 10/31/24 15:32 Q6HR PRN BREAKTHROUGH PAIN (SEVERE) Sodium Chloride 1,000 mls @ 50 mls/hr 10/21/24 06:31 Ns IV 11/20/24 06:30 .Q20H CLAUDE Lidocaine 1 patch 10/15/24 15:32 10/17/24 15:19 Lidocaine 5% 1 Patch TOP 11/14/24 15:31 1 patch UD PRN Administration Topical Pain Protocol Morphine Sulfate 15 mg 10/19/24 11:35 10/21/24 09:33 Morphine Sulf 15 Mg Tabcr PO 10/24/24 11:34 15 mg Q12HR CLAUDE Administration Protocol Ondansetron HCl 4 mg 10/15/24 15:33 10/19/24 01:58 Ondansetron Inj 2 Mg/Ml Inj 2 Ml IVP 11/14/24 15:32 4 mg Q8HR PRN Administration NAUSEA OR VOMITING Protocol Polyethylene Glycol 17 gm 10/19/24 10:46 10/21/24 05:41 Polyethylene Glycol 17 Gm Packet PO 11/14/24 15:44 17 gm QDAY PRN Administration Constipation Sennosides 2 tab 10/19/24 10:46 10/21/24 09:33 Senna/Docusate Sod 1 Tab Tablet PO 11/14/24 15:44 2 tab QDAY PRN Administration Constipation Protocol Sodium Chloride 10 ml 10/16/24 01:33 10/17/24 07:38 Sodium Chloride Rt 10% 15 Ml Nebu INH 11/15/24 01:32 10 ml PRN PRN Administration SOLN Plan Mrs. Calvillo is a 79 year old female who has a past history of adenocarcinoma, malignant neoplasm of rectum with metastasis to bone with osseous lesions throughout thoracic lumbar vertebrae, abdominal lymphadenopathy, arthritis, chronic neuropathic pain who presented to [facility] from [facility] on 10/15 for tuberculosis rule out. Patient was admitted for tuberculosis rule out. #Miliary nodular pattern likely 2/2 #Metastatic malignancy to lungs #Tuberculosis workup #Possible tuberculosis Patient brought to [facility] by assisted care facility as they were concerned for possible tuberculosis given the miliary nodular pattern found on CT and chest x- rays. This pattern was not found on chest imaging by radiology on 09/06. Given that the patient has almost no symptoms except for some weight loss, which is explained due to decreased oral intake, and the patient endorsing a consistently O2 saturation around 90% at the care facility, suspicion for tuberculosis is low at this time, however cannot be ruled out without further investigation. Given the patient's colon cancer that was noted to already have spread to multiple vertebra, it is very possible that this patient's Willams nodular pattern is secondary to metastasis of her colon cancer. Until TB can be definitively ruled out, it is unlikely for her assisted care facility accept return. Ddx: Tuberculosis, metastasis to lungs, primary lung cancer, histoplasmosis, blastomycosis, silicosis, sarcoidosis - Administered tuberculin PPD test 10/15, negative at 00 mm - QuantiFERON gold TB test ordered, pending - Sputum myobacterial cultures x3, pending,1st AFB negative for AFB - Isolation precaution - CT chest ordered, shows mild mediastinal lymphadenopathy, miliary nodular pattern throughout the lungs, mild heart failure, primary hepatocellular disease, cholelithiasis - Pulmonology consulted, appreciate recommendations - Oncology consulted, appreciate recommendations #Bladder mass, posterior margin [id number] mm #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 The patient sees Dr. Inman for urology. - Bladder ultrasound showed hyperechoic mass to posterior margin of the bladder, [id number] suspicious for early bladder cancer - Discussed case with the patient's urologist, Dr. Inman, who plans for a cystoscopy and will replace the De Oliveira catheter on Sunday (10/22) - Urine cytology ordered, pending #Adenocarcinoma of the rectum, poorly differentiated, with mucinous/signet rings, with #Metastasis to bone with osseus lesions, thoracic lumbar vertebrae, abdominal lymphadenopathy #Chronic back pain Patient noted to have a history of colon cancer. The patient had a colonoscopy on 09/06/2024, which showed a mass in the rectum. When this mass was biopsied, the report showed adenocarcinoma of the rectum that is poorly differentiated with signet rings. MRI of the thoracic and lumbar spine on 09/04/2024 show metastases to the spine. This is likely the result of the patient's chronic back pain, to which she takes pain medication at home for. The patient follows Dr. Torres at [facility] for management of her malignancy. - Resumed patient's home pain medication regimen of hydromorphone 4 mg every 6 hours as needed and lidocaine patch - Morphine 15 mg syrup twice daily - Patient to follow up with outpatient oncology for further management - Oncology consulted, appreciate recommendations - NM bone scan ordered 10/21, pending - General surgery consulted, appreciate recommendations - General surgery plans fo laparoscopic assisted diverting colostomy on 10/23 - Clear liquid diet #Urinary tract infection, E. coli, uncomplicated Patient was seen at [facility] on 10/10 for abdominal pain. At the time, urinalysis was performed, which was positive for UTI. The patient was sent home on Keflex as his UTI was uncomplicated. Urine culture resulted as E. coli that is sensitive to Keflex. - Resumed patient's home Keflex 500 mg twice daily (10/11-10/25) #Hypercalcemia Admission Ca 11 with Ca ~9 in 08/2024. Continues to be elevated at 11.6 - s/p 1L NS 10/17 - Maintenance NS 50cc/hr #Constipation #Hemorrhoids Patient has been noted to have a history of constipation and hemorrhoids. The patient is on an extensive list of medications and supplements for management of the patients constipation as listed in the admitting HPI. Given recent diarrhea on 10/18 in the evening, bowel regimen was changed to as needed instead of scheduled. - Started patient on bowel regimen of Senokot 2 tablets daily as needed and Miralax 17 gm daily #Neuropathy Patient has a reported history of neuropathy. Patient takes gabapentin and duloxetine for neuropathy at home. - Resumed patients home gabapentin 100 mg every 8 hours and duloxetine 30 mg daily #Hyperlipidemia Patient had lipid panel collected 10/16. Triglyceride 261, cholesterol 301, LDL 198, and HDL 51. - Atorvastatin 40 mg nightly DVT Prophylaxis: Heparin GI Prophylaxis: N/A Bowel: Senokot, Miralax Diet: Clear liquid De Oliveira: Yes Lines: Peripheral IV Antibiotics: Keflex (10/11-10/25) Code Status: FULL Patient plan of care was discussed with the senior resident Dr. Teran (PGY-2) and attending physician Dr. Jo. Rambo Bennett DO Internal Medicine PGY-1 Attending Provider Attestation/Addendum Alba, Anna Marie Jo DO, attest that I was physically present for the charles portions of the service and evaluated the patient with the resident and I reviewed and discussed the case with the resident and agree with the resident's findings and plans of care as documented above Patient seen and eval this a.m. She states that she is doing well, but continues to have some pain despite morphine. Patient is eager to see specialists today and had a discussion with Dr. Torres, radiation oncology. She is also states she is eager to see her oncologist outpatient so that chemotherapy can be started. General surgery consult was requested by oncology, and plans for diverting colostomy on . Case was discussed with urology as well and plans to take patient to the OR for cystoscopy and De Oliveira exchange. Initial AFB is negative. Pending rest of labs as patient remains on isolation. Patient has been started on clear liquid diet and GoLytely. However, will be n.p.o. after midnight due to cystoscopy tomorrow.
--- NOTE | 2024-10-21 12:43 | PC.NURSE ---
Dr. Beaver will operate on and place colostomy.
--- NOTE | 2024-10-21 12:54 | PD.SURCONS ---
HPI Consult details Consult date: 10/21/24 Reason for consultation narrative: Metastatic rectal cancer History of present illness: 79-year-old female was admitted about 6 weeks ago with lower back pain. She was noted to have adenocarcinoma of the rectum. Thoracic and lumbar MRIs revealed bony metastasis and she was noted to have multiple pulmonary nodules suspicious for metastatic disease. She has difficulty defecating despite being on stool softeners and laxatives. Review of Systems Constitutional Constitutional: Denies chills and Denies fever(s) Cardiovascular Cardiovascular: Denies chest pain Respiratory Respiratory: Denies cough Gastrointestinal Gastrointestinal: Denies abdominal pain, Denies nausea and Denies vomiting Genitourinary Genitourinary: Reports difficulty voiding Hematologic/Lymphatic Hematologic/Lymphatic: Denies easy bleeding and Denies easy bruising Past Medical History Surgical History OTHER SURGICAL HX: Hysterectomy, partial removal of left fibula Social History SMOKING STATUS: Former smoker SUBSTANCE USE: does not use ALCOHOL: Never Meds Home Medications and Allergies Home Medications ?Medication ?Instructions ?Recorded ?Confirmed ?Type Zofran 8 mg PO .Q6 PRN nausea and vomiting 10/16/24 10/16/24 History duloxetine 30 mg capsule,delayed 30 mg PO QDAY 10/16/24 10/16/24 History release sprinkle gabapentin 100 mg capsule 100 mg PO Q8H 10/16/24 10/16/24 History hydromorphone 4 mg tablet 4 mg PO Q6H PRN pain 10/16/24 10/16/24 History (Dilaudid) lidocaine 4 % topical patch 1 patch topical QDAY PRN pain 10/16/24 10/16/24 History (Aspercreme (lidocaine)) polyethylene glycol 3350 17 17 g PO DAILY 10/16/24 10/16/24 History gram/dose oral powder senna-docusate sodium capsule 8.6 - 50 cap PO BID 10/16/24 10/16/24 History Allergies Allergy/AdvReac Type Severity Reaction Status Date / Time codeine Allergy Verified 10/15/24 12:17 Exam Vital Signs Temp Pulse Resp BP Pulse Ox O2 Del Method O2 Flow Rate 97.9 F 89 17 156/68 H 94 L Nasal Cannula 3 10/21/24 12:00 10/21/24 12:00 10/21/24 12:10/21/24 12:10/21/24 12:10/21/24 12:00 10/21/24 12:00 Constitutional Constitutional: no acute distress Routine Abdominal Exam Comments: Abdomen is soft, nontender and mildly distended. Assessment & Plan Additional Assessment Additional comments: Metastatic rectal cancer with impending bowel obstruction. Plan Start patient on liquid diet and nutritional supplements. Start bowel prep for laparoscopic assisted diverting colostomy on . Risks of the procedure include but not limited to infection, bleeding, injury to bowel, ureter, surround neurovascular structures, possible colostomy malfunction and or necrosis, need for further procedure and or operation, pneumonia, blood clot, heart attack, stroke and discussed with the patient. All her questions answered. She voiced understanding and agreed to proceed with the operation.
[2024-10-21] MEDS: NA SU/NAHCO3/KC/PEG (Golytely) 4,000 ML BTL 4000 ML PO (13:26)
--- NOTE | 2024-10-21 14:18 | PC.SS ---
Follow up note: SS spoke to Una from [facility] who is requesting quantiferon gold test report and sputum sample and updated PT notes. Una at [facility] is working on insurance authorization.
[2024-10-21] MEDS: SODIUM CHLORIDE 0.9% 1000 ML 1,000 ML 50 ML IV (16:34)
[2024-10-21] MEDS: HYDROMORPHONE HCL 2 MG TABLET 4 MG PO (19:30)
[2024-10-21] MEDS: ATORVASTATIN CALCIUM 20 MG TABLET 40 MG PO (22:20)
[2024-10-22] VITALS (14 sets, daily range): BP systolic 141–189; BP diastolic 66–99; PULSE 80–91; RESP 12–87; TEMP 36.3–37.6; O2SAT 90–99
[2024-10-22 06:03] LABS: Basophils # (Auto) 0.1 Thou/mm3 (0.0-0.2); Basophils % (Auto) 1 % (0-2.5); Eosinophils # (Auto) 0.2 Thou/mm3 (0.0-0.5); Eosinophils % (Auto) 2 % (0-10); Hematocrit 34.9 % (36.0-46.0); Hemoglobin 11.3 g/dL (12.0-16.0); Immature Granulocytes Auto 0.40 Thou/mm3 (0.00-0.00); Lymphocytes # (Auto) 3.2 Thou/mm3 (1.0-4.8); Lymphocytes % (Auto) 30 % (10-50); Mean Corpuscular HGB Conc 32.4 g/dl (31.0-37.0); Mean Corpuscular Hemoglobin 27.4 pg (25.0-35.0); Mean Corpuscular Volume 85 fL (80-100); Monocytes # (Auto) 1.1 Thou/mm3 (0.0-0.8); Monocytes % (Auto) 11 % (0-12); Neutrophils # (Auto) 5.6 Thou/mm3 (1.8-7.7); Neutrophils % (Auto) 53 % (37-80); Nucleated Red Blood Cell # 0.02 Thou/mm3 (0.00-0.00); Nucleated Red Blood Cell % 0 /100 WBC (0); Platelet Count 260 Thou/mm3 (140-440); RDW Standard Deviation 46.9 fL (36.4-46.3); Red Blood Count 4.13 Miln/mm3 (4.00-5.20); White Blood Count 10.6 Thou/mm3 (3.6-11.0)
[2024-10-22 06:38] LABS: Alanine Aminotransferase 14 U/L (10-49); Albumin, Serum 3.3 gm/dL (3.4-4.8); Albumin/Globulin Ratio 1.4 (1.2-2.2); Alkaline Phosphatase 276 U/L (46-116); Anion Gap 10 (7-16); Aspartate Amino Transferase 27 U/L (0-34); BUN/Creatinine Ratio 14 Ratio (12-20); Bilirubin,Total 1.0 mg/dL (0.3-1.2); Blood Urea Nitrogen 7 mg/dL (9-23); Calcium 10.3 mg/dL (8.3-10.6); Calcium (Corrected) 10.9 mg/dL (8.5-10.1); Carbon Dioxide 28.6 mMol/L (20.0-31.0); Chloride 103 mMol/L (98-107); Creatinine (Component) 0.5 mg/dL (0.6-1.3); Estimated Creatinine Clearance 87.0 mL/min (>60); Globulin 2.3 gm/dL (2.3-3.5); Glucose 84 mg/dL (74-106); Magnesium 1.7 mg/dL (1.6-2.6); Osmolality,Calculated 280 (275-295); Potassium 4.1 mMol/L (3.4-5.1); Sodium 142 mMol/L (136-145); Total Protein 5.6 gm/dL (5.7-8.2); eGFR > 60 See Note
--- NOTE | 2024-10-22 07:52 | PC.NURSE ---
Notified md santana in regards to pts current bp of 189/70-88 HR. Per Md continue with pain meds, morphine ok to give now & recheck and notify of next bp. per pt no complains of cp only pain. No distress noted.
[2024-10-22] MEDS: DULoxetine HCL 30 MG CAPSULE PO (08:06)
[2024-10-22] MEDS: HYDROMORPHONE HCL 2 MG TABLET 4 MG PO ×2 (08:06→19:29)
[2024-10-22] MEDS: LIDOCAINE 5% 1 PATCH TOP (08:07)
[2024-10-22] MEDS: SODIUM CHLORIDE 0.9% 1000 ML 1,000 ML 50 ML IV (08:19)
--- NOTE | 2024-10-22 10:10 | PC.SS ---
Follow up note: OR with Dr. Carty and make sure their is no bladder mass. Pt will return to [facility] upon dc.
--- NOTE | 2024-10-22 15:42 | SUR.PHASEI ---
1542 Recovery in OR 5, due to patient rule out for TB, patient resting comfortably in [facility], on oxygen 4L via oxy mask, sleeping and able to arouse with verbal prompting then drifts back to sleep, denies pain, urinary catheter 16F in place with leg secure; draining to gravity, report received from Dr. Osborn and Bryan MCCONNELL
--- NOTE | 2024-10-22 15:52 | PD.SUROPNT ---
Date of Procedure 10/22/24 Pre Op Diagnosis Metastatic cancer of the cecum, urinary retention, difficult catheterization Post Op Diagnosis Same plus multiple small bladder stones Procedure Cystoscopic examination and removal of tiny bladder stone with the Ellik evacuator insertion of De Oliveira catheter and pelvic examination Findings Tiny stones in the bladder catheter reaction all over the bladder Procedure Description Indication for procedure this is a 79-year-old female she is admitted in the hospital she had urinary retention difficult catheterization. Patient has history of indwelling De Oliveira catheter. She has metastatic cancer of the cecum patient was recommended above procedure procedure and complications were discussed with the patient in great detail informed consent is obtained permission for pelvic examination was obtained from the patient rule out invasion of urethra or bladder by the tumor Patient was brought to the operating room in a satisfactory condition after appropriate premedication was brought on the operating table in a spine position she was appropriately identified by surgeon and operating room staff site scope and indication of the procedure were reconfirmed with the patient general anesthesia was given uneventfully patient was placed in a dorsolithotomy position parts were prepped and draped in usual sterile fashion De Oliveira catheter was removed. 21 cystoscope was introduced into the bladder per urethra. Examination of bladder in all department was carried out both ureteral orifices were effluxing clear urine there was catheter reaction all over the bladder. There were tiny stones in the bladder with the Ellik evacuator stones were removed. At the end of the procedure pelvic examination was performed there was no metastatic invasion of the urethra or bladder identified. #16 De Oliveira catheter was inserted patient after having tolerated the procedure well was sent to recovery room in a satisfactory condition thank you Anesthesia GETA Pathology / specimen None Estimated Blood Loss 0.2 Condition Stable Disposition PACU Surgeon Mervin Inman MD Surgical Staff Operation Date: 10/23/24 09:10 <No data on this case meets the specified criteria>
--- NOTE | 2024-10-22 16:15 | SUR.PHASEI ---
1611 Report given to Kenia RN, patient meets discharge criteria from recovery, awake and talking with this consumer loan underwriter, on oxygen 2L via oxy mask, breathing unlabored, vital signs table, denies pain, urinary catheter in place with leg secure, draining to gravity, denies nausea. 1615 Patient transported via gurney to room 360 without incident, PRESS SERVICE READER promptly in patient room and assisted with transferring patient from gurney to bed, patient resting comfortably with call light in reach when this consumer loan underwriter left patient room.
--- NOTE | 2024-10-22 18:10 | ESPR_ITS ---
Documentation for date of: 10/22/24 Subjective Subjective Interval history: No acute overnight events. Noted to have SBP around 180 mmHg this morning and patient is complaining of pain in the lower abdomen for which patient was given a dose of Dilaudid and 5 mg of amlodipine following which the vitals are stable. Patient is scheduled for cystoscopy by Dr. Inman which she underwent this evening and noted to have tiny stones in the bladder which were evacuated and noted no metastatic invasion of the urethra or bladder. 16 Yi De Oliveira catheter was inserted and patient tolerated the procedure well. Patient was scheduled for diverting colostomy tomorrow by general surgeon, Dr. Beaver. Will continue pain medications. Exam Vital Signs Temp Pulse Resp BP Pulse Ox O2 Del Method O2 Flow Rate 98.5 F 91 14 162/89 H 96 Nasal Cannula 2 10/22/24 16:12 10/22/24 16:12 10/22/24 16:12 10/22/24 16:12 10/22/24 16:12 10/22/24 16:00 10/22/24 16:12 Narrative Exam General: Awake. HEENT: Normocephalic, atraumatic, mucous membranes moist. Heart: Regular rate and rhythm, no murmurs. Lungs: Clear to auscultation with no wheezing or crackles. Abdomen: Soft, nondistended, nontender, positive bowel sounds. ?No guarding or rebound tenderness. Neurologic: Alert and oriented x3, no gross neurological deficit, and patient able to move all 4 extremities. Extremities: No edema. Skin: No rash or ecchymoses. Objective Labs 10/23/24 04:20 10/23/24 06:16 Labs: Laboratory Results - last 24 hr 10/22/24 05:23 WBC 10.6 RBC 4.13 Hgb 11.3 L Hct 34.9 L MCV 85 MCH 27.4 MCHC 32.4 RDW Std Deviation 46.9 H Plt Count 260 Neut % (Auto) 53 Lymph % (Auto) 30 [place] % (Auto) 11 Eos % (Auto) 2 Baso % (Auto) 1 Neut # (Auto) 5.6 Lymph # (Auto) 3.2 [place] # (Auto) 1.1 H Eos # (Auto) 0.2 Baso # (Auto) 0.1 Immature Gran # (Auto) 0.40 H Absolute Nucleated RBC 0.02 H Immature Gran % 4 H Nucleated RBC % 0 Sodium 142 Potassium 4.1 Chloride 103 Carbon Dioxide 28.6 Anion Gap 10 BUN 7 L Creatinine 0.5 L Estim Creat Clear Calc 87.0 eGFR > 60 BUN/Creatinine Ratio 14 Glucose 84 Calculated Osmolality 280 Calcium 10.3 Corrected Calcium 10.9 H Magnesium 1.7 Total Bilirubin 1.0 AST 27 ALT 14 Alkaline Phosphatase 276 H D Total Protein 5.6 L Albumin 3.3 L Globulin 2.3 Albumin/Globulin Ratio 1.4 Quality Measures Quality Measures VTE prophylaxis Advance care planning discussed with:: patient Assessment & Plan Assessment Current Active Medications: Generic Name Dose Route Start Last Admin Trade Name Freq PRN Reason Stop Dose Admin Acetaminophen 650 mg 10/15/24 14:17 Acetaminophen 325 Mg Tablet PO 11/14/24 14:16 Q6H PRN Fever >101.5 or pain 1-3 Atorvastatin Calcium 40 mg 10/17/24 21:00 10/21/24 22:20 Atorvastatin Calcium 20 Mg Tablet PO 11/16/24 20:59 40 mg HS CLAUDE Administration Cephalexin HCl 500 mg 10/15/24 21:00 10/22/24 08:06 Cephalexin 250 Mg Capsule PO 10/22/24 20:59 500 mg BID CLAUDE Administration Duloxetine HCl 30 mg 10/16/24 09:00 10/22/24 08:06 Duloxetine Hcl 30 Mg Capsule PO 11/15/24 08:59 30 mg QDAY CLAUDE Administration Gabapentin 100 mg 10/15/24 14:45 10/22/24 16:11 Gabapentin 100 Mg Capsule PO 11/14/24 14:44 Not Given Q8HR CLAUDE Heparin Sodium (Porcine) 5,000 unit 10/15/24 14:30 10/22/24 07:54 Heparin Sod Inj 5000 Unit/Ml Vial SC 10/29/24 14:29 Not Given Q12HR CLAUDE Hydromorphone HCl 4 mg 10/19/24 11:32 10/22/24 08:06 Hydromorphone Hcl 2 Mg Tablet PO 10/31/24 15:32 4 mg Q6HR PRN Administration BREAKTHROUGH PAIN (SEVERE) Sodium Chloride 1,000 mls @ 50 mls/hr 10/21/24 06:31 10/22/24 08:19 Ns IV 11/20/24 06:30 50 mls/hr .Q20H CLAUDE Administration Lidocaine 1 patch 10/15/24 15:32 10/22/24 08:07 Lidocaine 5% 1 Patch TOP 11/14/24 15:31 1 patch UD PRN Administration Topical Pain Protocol Morphine Sulfate 15 mg 10/19/24 11:35 10/21/24 22:21 Morphine Sulf 15 Mg Tabcr PO 10/24/24 11:34 15 mg Q12HR CLAUDE Administration Protocol Ondansetron HCl 8 mg 10/22/24 16:38 Ondansetron Odt 4 Mg Tabrap PO 11/21/24 16:37 Q6HR PRN NAUSEA OR VOMITING Polyethylene Glycol 17 gm 10/21/24 10:45 10/22/24 11:52 Polyethylene Glycol 17 Gm Packet PO 11/20/24 10:44 Not Given QDAY CLAUDE Sennosides 2 tab 10/19/24 10:46 10/21/24 09:33 Senna/Docusate Sod 1 Tab Tablet PO 11/14/24 15:44 2 tab QDAY PRN Administration Constipation Protocol Sodium Chloride 10 ml 10/16/24 01:33 10/17/24 07:38 Sodium Chloride Rt 10% 15 Ml Nebu INH 11/15/24 01:32 10 ml PRN PRN Administration SOLN Plan Mrs. 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 Patient was admitted for tuberculosis rule out. 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 This pattern was not found on chest imaging by radiology on 09/06. Given that the patient has almost no symptoms except for some weight loss, which is explained due to decreased oral intake, and the patient endorsing a consistently O2 saturation around 90% at the care facility, suspicion for tuberculosis is low at this time, however cannot be ruled out without further investigation. Given the patient's colon cancer that was noted to already have spread to multiple vertebra, it is very possible that this patient's Willams nodular pattern is secondary to metastasis of her colon cancer. Until TB can be definitively ruled out, it is unlikely for her assisted care facility accept return. Ddx: Tuberculosis, metastasis to lungs, primary lung cancer, histoplasmosis, blastomycosis, silicosis, sarcoidosis - Administered tuberculin PPD test 10/15, negative at 00 mm - QuantiFERON gold TB test ordered, pending - Sputum myobacterial cultures x3, pending,1st AFB negative for AFB - Isolation precaution - CT chest ordered, shows mild mediastinal lymphadenopathy, miliary nodular pattern throughout the lungs, mild heart failure, primary hepatocellular disease, cholelithiasis - Pulmonology consulted, appreciate recommendations - Oncology consulted, appreciate recommendations #Bladder mass, posterior margin [id number] mm #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 The patient sees Dr. Inman for urology. - Bladder ultrasound showed hyperechoic mass to posterior margin of the bladder, [id number] suspicious for early bladder cancer - Discussed case with the patient's urologist, Dr. Inman, who did cystoscopy and replaced the De Oliveira catheter on Sunday (10/22), no mass identified on cystoscopy - Urine cytology ordered, pending #Adenocarcinoma of the rectum, poorly differentiated, with mucinous/signet rings, with #Metastasis to bone with osseus lesions, thoracic lumbar vertebrae, abdominal lymphadenopathy #Chronic back pain Patient noted to have a history of colon cancer. The patient had a colonoscopy on 09/06/2024, which showed a mass in the rectum. When this mass was biopsied, the report showed adenocarcinoma of the rectum that is poorly differentiated with signet rings. MRI of the thoracic and lumbar spine on 09/04/2024 show metastases to the spine. This is likely the result of the patient's chronic back pain, to which she takes pain medication at home for. The patient follows Dr. Torres at [facility] for management of her malignancy. - Resumed patient's home pain medication regimen of hydromorphone 4 mg every 6 hours as needed and lidocaine patch - Morphine 15 mg syrup twice daily - Patient to follow up with outpatient oncology for further management - Oncology consulted, appreciate recommendations - NM bone scan ordered 10/21, pending - General surgery consulted, appreciate recommendations - General surgery plans fo laparoscopic assisted diverting colostomy on 10/23 - Clear liquid diet #Urinary tract infection, E. coli, uncomplicated Patient was seen at [facility] ED on 10/10 for abdominal pain. At the time, urinalysis was performed, which was positive for UTI. The patient was sent home on Keflex as his UTI was uncomplicated. Urine culture resulted as E. coli that is sensitive to Keflex. - Resumed patient's home Keflex 500 mg twice daily (10/11-10/25) #Hypercalcemia Admission Ca 11 with Ca ~9 in 08/2024. Continues to be elevated at 11.6 - s/p 1L NS 10/17 - Maintenance NS 50cc/hr - will monitor calcium levels. #Constipation #Hemorrhoids Patient has been noted to have a history of constipation and hemorrhoids. The patient is on an extensive list of medications and supplements for management of the patients constipation as listed in the admitting HPI. Given recent diarrhea on 10/18 in the evening, bowel regimen was changed to as needed instead of scheduled. - Started patient on bowel regimen of Senokot 2 tablets daily as needed and Miralax 17 gm daily #Neuropathy Patient has a reported history of neuropathy. Patient takes gabapentin and duloxetine for neuropathy at home. - Resumed patients home gabapentin 100 mg every 8 hours and duloxetine 30 mg daily #Hyperlipidemia Patient had lipid panel collected 10/16. Triglyceride 261, cholesterol 301, LDL 198, and HDL 51. - Atorvastatin 40 mg nightly DVT Prophylaxis: Heparin GI Prophylaxis: N/A Bowel: Senokot, Miralax Diet: Clear liquid De Oliveira: Yes Lines: Peripheral IV Antibiotics: Keflex (10/11-10/25) Code Status: FULL Patient plan of care was discussed with the attending physician Dr. Jo. Leonel Teran, PGY2 Attending Provider Attestation/Addendum Anna Marie Willis, , attest that I was physically present for the charles portions of the service and evaluated the patient with the resident and I reviewed and discussed the case with the resident and agree with the resident's findings and plans of care as documented above Patient seen and evaluated this afternoon following cystoscopy during which she was found to have multiple bladder stones, no masses noted. De Oliveira catheter was also exchanged. Findings discussed with patient. Plan for diverting colostomy in AM. Continue with Golytely. Morphine re-ordered for pain control.
[2024-10-22] MEDS: Morphine Sulf 15 MG TABCR PO (21:32)
[2024-10-22] MEDS: ATORVASTATIN CALCIUM 20 MG TABLET 40 MG PO (21:32)
[2024-10-22] MEDS: GABAPENTIN 100 MG CAPSULE PO (21:32)
[2024-10-22] MEDS: HEPARIN SOD INJ 5000 UNIT/ML VIAL SC (21:33)
[2024-10-23] VITALS (13 sets, daily range): BP systolic 105–176; BP diastolic 62–102; PULSE 75–96; RESP 14–20; TEMP 36.1–37.1; O2SAT 91–97
--- NOTE | 2024-10-23 04:48 | PC.NURSE ---
[facility] downtime [phone].
[2024-10-23 05:55] LABS: Basophils # (Auto) 0.1 Thou/mm3 (0.0-0.2); Basophils % (Auto) 1 % (0-2.5); Eosinophils # (Auto) 0.2 Thou/mm3 (0.0-0.5); Eosinophils % (Auto) 2 % (0-10); Hematocrit 35.4 % (36.0-46.0); Hemoglobin 11.4 g/dL (12.0-16.0); Immature Granulocytes Auto 0.37 Thou/mm3 (0.00-0.00); Lymphocytes # (Auto) 2.8 Thou/mm3 (1.0-4.8); Lymphocytes % (Auto) 29 % (10-50); Mean Corpuscular HGB Conc 32.2 g/dl (31.0-37.0); Mean Corpuscular Hemoglobin 27.5 pg (25.0-35.0); Mean Corpuscular Volume 86 fL (80-100); Monocytes # (Auto) 1.0 Thou/mm3 (0.0-0.8); Monocytes % (Auto) 10 % (0-12); Neutrophils # (Auto) 5.4 Thou/mm3 (1.8-7.7); Neutrophils % (Auto) 55 % (37-80); Nucleated Red Blood Cell # 0.02 Thou/mm3 (0.00-0.00); Nucleated Red Blood Cell % 0 /100 WBC (0); Platelet Count 263 Thou/mm3 (140-440); RDW Standard Deviation 47.4 fL (36.4-46.3); Red Blood Count 4.14 Miln/mm3 (4.00-5.20); White Blood Count 9.8 Thou/mm3 (3.6-11.0)
[2024-10-23] MEDS: GABAPENTIN 100 MG CAPSULE PO ×3 (06:00→21:18)
[2024-10-23 06:40] LABS: Alanine Aminotransferase 12 U/L (10-49); Albumin, Serum 3.1 gm/dL (3.4-4.8); Albumin/Globulin Ratio 1.6 (1.2-2.2); Alkaline Phosphatase 278 U/L (46-116); Anion Gap 11 (7-16); Aspartate Amino Transferase 21 U/L (0-34); BUN/Creatinine Ratio 10 Ratio (12-20); Bilirubin,Total 1.0 mg/dL (0.3-1.2); Blood Urea Nitrogen < 5 mg/dL (9-23); Calcium 10.6 mg/dL (8.3-10.6); Calcium (Corrected) 11.3 mg/dL (8.5-10.1); Carbon Dioxide 28.1 mMol/L (20.0-31.0); Chloride 102 mMol/L (98-107); Creatinine (Component) 0.5 mg/dL (0.6-1.3); Estimated Creatinine Clearance 87.0 mL/min (>60); Globulin 2.0 gm/dL (2.3-3.5); Glucose 78 mg/dL (74-106); Magnesium 1.5 mg/dL (1.6-2.6); Osmolality,Calculated 277 (275-295); Phosphorous 3.5 mg/dL (2.4-5.1); Potassium 3.9 mMol/L (3.4-5.1); Sodium 141 mMol/L (136-145); Total Protein 5.1 gm/dL (5.7-8.2); eGFR > 60 See Note
--- NOTE | 2024-10-23 10:15 | PD.SUROPNT ---
Date of Procedure 11/26/24 Pre Op Diagnosis Metastatic rectal cancer Post Op Diagnosis Metastatic rectal cancer Procedure Laparoscopic diverting end sigmoid colostomy Findings There were no evidence of carcinomatosis, pelvic or peritoneal nodules. The anterior surface of the liver appeared smooth without nodules or any lesions Procedure Description Patient brought into the operating room in supine position. After administration of general tracheal anesthesia, patient was placed in low lithotomy position. Abdomen was prepped and draped in standard surgical manner. The Veress needle was inserted through the umbilicus and pneumoperitoneum was obtained up to 15 mmHg. The Veress needle was removed. A 5 mm midepigastric incision was made and 5 mm trocar was inserted. Laparoscopic camera was placed. Under direct visualization laparoscopic camera a 5 mm trocar was placed in right midabdomen and an additional 10 mm trocar was placed in the right lower quadrant. Patient was noted to have some redundant sigmoid colon. There was no evidence of pelvic or peritoneal nodules. The anterior surface of the liver was smooth without nodules or any lesions. Sigmoid colon and distal descending colon were mobilized by dividing the white line of Toldt. The mid aspect of sigmoid colon was divided with HUSAM stapling device and mesocolon was divided with harmonic scalpel. The end of mid sigmoid colon was reaching the anterior abdominal wall without tension. An approximately 3 cm circular incision was made on the left mid abdomen and dissection was deepened soft tissue. Anterior abdominal fascia was opened in vertical fashion. Rectus muscle was split, posterior abdominal fascia and peritoneum were opened. The end of sigmoid colon was brought out of the opening to be matured at the end colostomy. Care was taken to make sure orientation was appropriate without kinking or any tension. Laparoscopic camera was inserted to make sure the orientation was appropriate without kinking or any tension. At this point the pneumoperitoneum was evacuated. The colostomy was matured in usual [place] fashion with 3-0 Vicryl suture. Appropriate colostomy appliance is applied. The right lower quadrant 10 mm trocar site fascial defect was closed with 2-0 Vicryl. Incisions closed with 4-0 Monocryl in subcuticular fashion. Patient tolerated procedure well. She was placed in supine position and extubated. She was breathing spontaneously and without difficulty and was transferred to postanesthesia care in stable condition. Instruments, needles and sponge counts were reported to be correct x 2. Anesthesia GETA and local Pathology / specimen None Estimated Blood Loss 10 Condition Stable Disposition PACU Surgeon Daron Beaver MD Surgical Staff Operation Date: 10/23/24 09:10 Case Staff Anesthesiologist: Nikos Osborn RN First Assistant: Malaika Zheng
--- NOTE | 2024-10-23 10:25 | SUR.PHASEI ---
1025 Recovery in OR 5 due to patient being rule out TB, patient resting comfortably in bed, on oxygen 6L via oxy mask with an oral airway in place, breathing unlabored, vital signs stable, dressing intact to abdomen; dermabond x3, bowel diversion in place, ostomy to left lower quadrant with Kisha 2 3/4 collection pouch intact; stoma appear beefy red and moist, yellow appearing feces present in pouch, urianry catheter 16F in place with leg secure; draining to gravity, report received from Dr. Osborn and Aisha MCCONNELL
--- NOTE | 2024-10-23 11:05 | SUR.PHASEI ---
1100 Report given to Kenia RN, patient meets discharge criteria from recovery, awake and talking with staff, on oxygen 3L via nasal cannula, breathing unlabored, vital signs stable, denies pain, dressing intact; no bleeding noted, denies nausea. 1105 Patient transported to room 360 via bed, friend awaiting for her, patient resting comfortably with call light in reach when this short story writer left patients room
--- NOTE | 2024-10-23 11:27 | ESPR_ITS ---
<Statement entered by Leonel Teran MD - 10/23/24 16:21> No acute overnight events. Patient denies any complaints. Vitals are stable. Labs did not show any significant abnormality except for hypercalcemia. Underwent laparoscopic diverting colostomy Dr. Beaver and procedure underwent uneventful. 3 sputum AFBs came back negative but county rejected other 2 samples so repeat AFB samples were sent today. Will follow-up with the results. Will follow-up with the urologist, Dr. Morales about De Oliveira catheter removal. I have personally seen and examined the patient, agree with the residents assessment and plan Patient plan of care was discussed with the attending physician, Dr. Deysi Teran, PGY2 Documentation for date of: 10/23/24 Subjective Subjective Interval history: Overnight events: No acute events overnight. Patient was seen and examined at bedside. AM vitals and labs reviewed. Patient seen and examined after her surgery today. Patient resting without any discomfort. Discussed case with infection control. Notified medicine team that the 2 pending AFBs have been canceled due to inadequate sputum. Infection control team will discuss with [facility] infection control about case as suspicion for tuberculosis is low, but [facility] requires 2 out of 3 AFB's to be negative. QuantiFERON negative. Cystoscopy performed yesterday showed multiple bladder stones, negative for bladder mass. Diverting colostomy performed today. Reordered AFBs and NAATs in case [facility] and/or patient's assisted living facility requires 2 out of 3 negatives. Will discuss with Dr. Inman, urology, about potentially removing De Oliveira before discharge as patient is at risk for recurrent UTIs. Review of systems otherwise negative except for what is mentioned above. Exam Vital Signs Temp Pulse Resp BP Pulse Ox O2 Del Method O2 Flow Rate 97.7 F 95 17 166/86 H 96 Nasal Cannula 3 10/23/24 12:10/23/24 12:10/23/24 12:10/23/24 12:10/23/24 12:10/23/24 12:10/23/24 12:00 Narrative Exam Physical Exam: General: Asleep, no acute distress. Head: Normocephalic, atraumatic. Respiratory: Respirations unlabored on room air. Extremities: No edema, no cyanosis, no clubbing. Objective Labs 10/24/24 04:30 10/24/24 12:31 Labs: Laboratory Results - last 24 hr 10/15/24 10/18/24 10/23/24 11:40 14:05 04:20 WBC 9.8 RBC 4.14 Hgb 11.4 L Hct 35.4 L MCV 86 MCH 27.5 MCHC 32.2 RDW Std Deviation 47.4 H Plt Count 263 Neut % (Auto) 55 Lymph % (Auto) 29 [place] % (Auto) 10 Eos % (Auto) 2 Baso % (Auto) 1 Neut # (Auto) 5.4 Lymph # (Auto) 2.8 [place] # (Auto) 1.0 H Eos # (Auto) 0.2 Baso # (Auto) 0.1 Immature Gran # (Auto) 0.37 H Absolute Nucleated RBC 0.02 H Immature Gran % 4 H Nucleated RBC % 0 Sodium Potassium Chloride Carbon Dioxide Anion Gap BUN Creatinine Estim Creat Clear Calc eGFR BUN/Creatinine Ratio Glucose Calculated Osmolality Calcium Corrected Calcium Phosphorus Magnesium Total Bilirubin AST ALT Alkaline Phosphatase Total Protein Albumin Globulin Albumin/Globulin Ratio TB Test (QFT) See Sep Rpt Misc Test Result Cancelled 10/23/24 06:16 WBC RBC Hgb Hct MCV MCH MCHC RDW Std Deviation Plt Count Neut % (Auto) Lymph % (Auto) [place] % (Auto) Eos % (Auto) Baso % (Auto) Neut # (Auto) Lymph # (Auto) [place] # (Auto) Eos # (Auto) Baso # (Auto) Immature Gran # (Auto) Absolute Nucleated RBC Immature Gran % Nucleated RBC % Sodium 141 Potassium 3.9 Chloride 102 Carbon Dioxide 28.1 Anion Gap 11 BUN < 5 L Creatinine 0.5 L Estim Creat Clear Calc 87.0 eGFR > 60 BUN/Creatinine Ratio 10 L Glucose 78 Calculated Osmolality 277 Calcium 10.6 Corrected Calcium 11.3 H Phosphorus 3.5 Magnesium 1.5 L Total Bilirubin 1.0 AST 21 ALT 12 Alkaline Phosphatase 278 H Total Protein 5.1 L Albumin 3.1 L Globulin 2.0 L Albumin/Globulin Ratio 1.6 TB Test (QFT) Misc Test Result Quality Measures Quality Measures VTE prophylaxis Advance care planning discussed with:: patient Assessment & Plan Assessment Current Active Medications: Generic Name Dose Route Start Last Admin Trade Name Freq PRN Reason Stop Dose Admin Acetaminophen 650 mg 10/15/24 14:17 Acetaminophen 325 Mg Tablet PO 11/14/24 14:16 Q6H PRN Fever >101.5 or pain 1-3 Atorvastatin Calcium 40 mg 10/17/24 21:00 10/22/24 21:32 Atorvastatin Calcium 20 Mg Tablet PO 11/16/24 20:59 40 mg HS CLAUDE Administration Docusate Sodium 250 mg 10/23/24 21:00 Docusate Sod 250 Mg Capsule PO 11/22/24 20:59 BID CLAUDE Protocol Duloxetine HCl 30 mg 10/16/24 09:00 10/23/24 08:01 Duloxetine Hcl 30 Mg Capsule PO 11/15/24 08:59 Not Given QDAY CLAUDE Gabapentin 100 mg 10/15/24 14:45 10/23/24 06:00 Gabapentin 100 Mg Capsule PO 11/14/24 14:44 100 mg Q8HR CLAUDE Administration Heparin Sodium (Porcine) 5,000 unit 10/15/24 14:30 10/23/24 08:01 Heparin Sod Inj 5000 Unit/Ml Vial SC 10/29/24 14:29 Not Given Q12HR CLAUDE Hydromorphone HCl 4 mg 10/19/24 11:32 10/22/24 19:29 Hydromorphone Hcl 2 Mg Tablet PO 10/31/24 15:32 4 mg Q6HR PRN Administration BREAKTHROUGH PAIN (SEVERE) Sodium Chloride 1,000 mls @ 50 mls/hr 10/21/24 06:31 10/22/24 08:19 Ns IV 11/20/24 06:30 50 mls/hr .Q20H CLAUDE Administration Lidocaine 1 patch 10/15/24 15:32 10/22/24 08:07 Lidocaine 5% 1 Patch TOP 11/14/24 15:31 1 patch UD PRN Administration Topical Pain Protocol Morphine Sulfate 15 mg 10/19/24 11:35 10/23/24 12:21 Morphine Sulf 15 Mg Tabcr PO 10/24/24 11:34 15 mg Q12HR CLAUDE Administration Protocol Ondansetron HCl 8 mg 10/22/24 16:38 Ondansetron Odt 4 Mg Tabrap PO 11/21/24 16:37 Q6HR PRN NAUSEA OR VOMITING Polyethylene Glycol 17 gm 10/21/24 10:45 10/23/24 08:01 Polyethylene Glycol 17 Gm Packet PO 11/20/24 10:44 Not Given QDAY CLAUDE Sodium Chloride 10 ml 10/16/24 01:33 10/17/24 07:38 Sodium Chloride Rt 10% 15 Ml Nebu INH 11/15/24 01:32 10 ml PRN PRN Administration SOLN Sodium Chloride 5 ml 10/23/24 13:26 Sodium Chloride Rt 10% 15 Ml Nebu INH X1 PRN Sputum induction Plan Mrs. 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 Patient was admitted for tuberculosis rule out. #Miliary nodular pattern likely 2/ #Metastatic malignancy to lungs #Tuberculosis workup Patient brought to [facility] ED by assisted care facility as they were concerned for possible tuberculosis given the miliary nodular pattern found on CT and chest x- rays. This pattern was not found on chest imaging by radiology on 09/06. Given that the patient has almost no symptoms except for some weight loss, which is explained due to decreased oral intake, and the patient endorsing a consistently O2 saturation around 90% at the care facility, suspicion for tuberculosis is low at this time, however cannot be ruled out without further investigation. Given the patient's colon cancer that was noted to already have spread to multiple vertebra, it is very possible that this patient's Willams nodular pattern is secondary to metastasis of her colon cancer. Until TB can be definitively ruled out, it is unlikely for her assisted care facility accept return. Ddx: Tuberculosis, metastasis to lungs, primary lung cancer, histoplasmosis, blastomycosis, silicosis, sarcoidosis - Administered tuberculin PPD test 10/15, negative at 00 mm - QuantiFERON gold TB test ordered, resulted as negative - Sputum myobacterial cultures x3, pending, 1st AFB negative for AFB but rest of AFBs rejected, so re-ordered AFBs x3 and NAAT - Isolation precaution - CT chest ordered, shows mild mediastinal lymphadenopathy, miliary nodular pattern throughout the lungs, mild heart failure, primary hepatocellular disease, cholelithiasis - Pulmonology consulted, appreciate recommendations - Oncology consulted, appreciate recommendations #Stones in bladder #Chronic De Oliveira catheter Patient has a history of urinary retention that requires a chronic De Oliveira catheter. The patient sees Dr. Inman for urology. - Bladder ultrasound showed hyperechoic mass to posterior margin of the bladder, [id number] - Discussed case with the patient's urologist, Dr. Inman, who did cystoscopy and replaced the De Oliveira catheter on Sunday (10/22), no mass identified on cystoscopy, did find multiple stones in bladder - Urine cytology ordered, pending #Adenocarcinoma of the rectum, poorly differentiated, with mucinous/signet rings, with #Metastasis to bone with osseus lesions, thoracic lumbar vertebrae, abdominal lymphadenopathy #Chronic back pain Patient noted to have a history of colon cancer. The patient had a colonoscopy on 09/06/2024, which showed a mass in the rectum. When this mass was biopsied, the report showed adenocarcinoma of the rectum that is poorly differentiated with signet rings. MRI of the thoracic and lumbar spine on 09/04/2024 show metastases to the spine. This is likely the result of the patient's chronic back pain, to which she takes pain medication at home for. The patient follows Dr. Torres at [facility] for management of her malignancy. - Resumed patient's home pain medication regimen of hydromorphone 4 mg every 6 hours as needed and lidocaine patch - Morphine 15 mg syrup twice daily - Patient to follow up with outpatient oncology for further management - Oncology consulted, appreciate recommendations - NM bone scan ordered 10/21, pending - General surgery consulted, appreciate recommendations - Laparoscopic assisted diverting colostomy performed on 10/23 - Clear liquid diet #Urinary tract infection, E. coli, uncomplicated Patient was seen at [facility] ED on 10/10 for abdominal pain. At the time, urinalysis was performed, which was positive for UTI. The patient was sent home on Keflex as his UTI was uncomplicated. Urine culture resulted as E. coli that is sensitive to Keflex. - Resumed patient's home Keflex 500 mg twice daily (10/11-10/25) - Will discuss #Hypercalcemia Admission Ca 11 with Ca ~9 in 08/2024. Continues to be elevated at 11.6 - s/p 1L NS 10/17 - Maintenance NS 50cc/hr - will monitor calcium levels. #Constipation #Hemorrhoids Patient has been noted to have a history of constipation and hemorrhoids. The patient is on an extensive list of medications and supplements for management of the patients constipation as listed in the admitting HPI. Given recent diarrhea on 10/18 in the evening, bowel regimen was changed to as needed instead of scheduled. - Started patient on bowel regimen of Senokot 2 tablets daily as needed and Miralax 17 gm daily #Neuropathy Patient has a reported history of neuropathy. Patient takes gabapentin and duloxetine for neuropathy at home. - Resumed patients home gabapentin 100 mg every 8 hours and duloxetine 30 mg daily #Hyperlipidemia Patient had lipid panel collected 10/16. Triglyceride 261, cholesterol 301, LDL 198, and HDL 51. - Atorvastatin 40 mg nightly DVT Prophylaxis: Heparin GI Prophylaxis: N/A Bowel: Senokot, Miralax Diet: Clear liquid De Oliveira: Yes Lines: Peripheral IV Antibiotics: Keflex (10/11-10/25) Code Status: FULL Patient plan of care was discussed with the attending physician Dr. Jo and senior resident Dr. Teran (PGY-2) Rambo Bennett, PGY1 Attending Provider Attestation/Addendum I, Anna Marie Jo, , attest that I was physically present for the charles portions of the service and evaluated the patient with the resident and I reviewed and discussed the case with the resident and agree with the resident's findings and plans of care as documented above Patient seen and evaluated this AM following diverting colostomy done this morning. 2 of 3 AFB samples have been rejected by the [facility]. Will re-order new sputum samples, but hold off on sputum induction given recent abdominal surgery. Suspicion for TB is low as patient likely has metastatic lung CA. QUantiferon is negative. Pending [facility] response. Pulm agrees that there is low suspicion for TB. Colostomy already functioning with stool noted in bag. CLD started by surgery. Patient remains very somnolent due to sedation. She has no active complaints otherwise.
[2024-10-23] MEDS: Morphine Sulf 15 MG TABCR PO (12:21)
[2024-10-23] MEDS: Magnesium Sulfate 4 GM Ivpb 4 GM/50 ML BAG IV (12:22)
--- NOTE | 2024-10-23 15:16 | PC.RT ---
afb ordered for pt. pt just returned from abdominal surgery and is very lethargic. Dr Jo in room and said to wait for pt to wake more before attempting induction. Will continue to monitor pt
[2024-10-23] MEDS: SODIUM CHLORIDE 0.9% 1000 ML 1,000 ML 50 ML IV (18:47)
[2024-10-23] MEDS: HEPARIN SOD INJ 5000 UNIT/ML VIAL SC (21:03)
[2024-10-23] MEDS: ATORVASTATIN CALCIUM 20 MG TABLET 40 MG PO (21:03)
[2024-10-23] MEDS: DOCUSATE SOD 250 MG CAPSULE PO (21:03)
[2024-10-24] VITALS (8 sets, daily range): BP systolic 110–145; BP diastolic 58–77; PULSE 70–102; RESP 16–20; TEMP 36.1–36.6; O2SAT 92–97; BMI 11.0
[2024-10-24] MEDS: SODIUM CHLORIDE RT 10% 15 ML NEBU 5 ML INH (04:24)
--- NOTE | 2024-10-24 04:25 | PC.PT ---
@0420 attempted to induce pt to obtain sputum sample, unable to obtain sample.
--- NOTE | 2024-10-24 05:20 | PC.RT ---
@0430 attempted to induce pt for sputum induction, unable to obtain sample
[2024-10-24] MEDS: GABAPENTIN 100 MG CAPSULE PO ×3 (06:07→21:23)
[2024-10-24 06:20] LABS: Basophils # (Auto) 0.1 Thou/mm3 (0.0-0.2); Basophils % (Auto) 0 % (0-2.5); Eosinophils # (Auto) 0.0 Thou/mm3 (0.0-0.5); Eosinophils % (Auto) 0 % (0-10); Hematocrit 35.5 % (36.0-46.0); Hemoglobin 11.4 g/dL (12.0-16.0); Immature Granulocytes Auto 0.48 Thou/mm3 (0.00-0.00); Lymphocytes # (Auto) 3.0 Thou/mm3 (1.0-4.8); Lymphocytes % (Auto) 24 % (10-50); Mean Corpuscular HGB Conc 32.1 g/dl (31.0-37.0); Mean Corpuscular Hemoglobin 27.5 pg (25.0-35.0); Mean Corpuscular Volume 86 fL (80-100); Monocytes # (Auto) 1.1 Thou/mm3 (0.0-0.8); Monocytes % (Auto) 9 % (0-12); Neutrophils # (Auto) 7.7 Thou/mm3 (1.8-7.7); Neutrophils % (Auto) 63 % (37-80); Nucleated Red Blood Cell # 0.02 Thou/mm3 (0.00-0.00); Nucleated Red Blood Cell % 0 /100 WBC (0); Platelet Count 256 Thou/mm3 (140-440); RDW Standard Deviation 48.0 fL (36.4-46.3); Red Blood Count 4.14 Miln/mm3 (4.00-5.20); White Blood Count 12.2 Thou/mm3 (3.6-11.0)
[2024-10-24 06:58] LABS: Alanine Aminotransferase 13 U/L (10-49); Albumin, Serum 3.2 gm/dL (3.4-4.8); Albumin/Globulin Ratio 1.6 (1.2-2.2); Alkaline Phosphatase 293 U/L (46-116); Anion Gap 15 (7-16); Aspartate Amino Transferase 29 U/L (0-34); BUN/Creatinine Ratio 22 Ratio (12-20); Bilirubin,Total 0.8 mg/dL (0.3-1.2); Blood Urea Nitrogen 13 mg/dL (9-23); Calcium 10.6 mg/dL (8.3-10.6); Calcium (Corrected) 11.2 mg/dL (8.5-10.1); Carbon Dioxide 25.0 mMol/L (20.0-31.0); Chloride 102 mMol/L (98-107); Creatinine (Component) 0.6 mg/dL (0.6-1.3); Estimated Creatinine Clearance 72.5 mL/min (>60); Globulin 2.0 gm/dL (2.3-3.5); Glucose 83 mg/dL (74-106); Magnesium 2.2 mg/dL (1.6-2.6); Osmolality,Calculated 282 (275-295); Phosphorous 4.0 mg/dL (2.4-5.1); Potassium 5.8 mMol/L (3.4-5.1); Sodium 142 mMol/L (136-145); Total Protein 5.2 gm/dL (5.7-8.2); eGFR > 60 See Note
[2024-10-24] MEDS: DOCUSATE SOD 250 MG CAPSULE PO ×2 (09:01→21:23)
[2024-10-24] MEDS: POLYETHYLENE GLYCOL 17 GM PACKET PO (09:01)
[2024-10-24] MEDS: DULoxetine HCL 30 MG CAPSULE PO (09:01)
[2024-10-24] MEDS: HEPARIN SOD INJ 5000 UNIT/ML VIAL SC ×2 (09:01→21:23)
[2024-10-24] MEDS: Morphine Sulf 15 MG TABCR PO (09:02)
--- NOTE | 2024-10-24 09:21 | PD.ONCPROG ---
Documentation for date of: 10/24/24 Subjective Subjective Interval history: Underwent colostomy diverting yesterday for obstruction tolerated well. Exam Vital Signs Temp Pulse Resp BP Pulse Ox O2 Del Method O2 Flow Rate 97.9 F 74 17 145/58 H 92 L Nasal Cannula 1 10/24/24 08:00 10/24/24 08:00 10/24/24 08:00 10/24/24 08:00 10/24/24 08:00 10/24/24 08:00 10/24/24 08:00 Narrative Exam Appearing comfortable this a.m. answering questions appropriately. Objective Labs 10/24/24 04:30 10/24/24 04:30 Labs: Laboratory Results - last 24 hr 10/18/24 10/24/24 14:05 04:30 WBC 12.2 H RBC 4.14 Hgb 11.4 L Hct 35.5 L MCV 86 MCH 27.5 MCHC 32.1 RDW Std Deviation 48.0 H Plt Count 256 Neut % (Auto) 63 Lymph % (Auto) 24 [place] % (Auto) 9 Eos % (Auto) 0 Baso % (Auto) 0 Neut # (Auto) 7.7 Lymph # (Auto) 3.0 [place] # (Auto) 1.1 H Eos # (Auto) 0.0 Baso # (Auto) 0.1 Immature Gran # (Auto) 0.48 H Absolute Nucleated RBC 0.02 H Immature Gran % 4 H Nucleated RBC % 0 Sodium 142 Potassium 5.8 H D Chloride 102 Carbon Dioxide 25.0 Anion Gap 15 BUN 13 Creatinine 0.6 Estim Creat Clear Calc 72.5 eGFR > 60 BUN/Creatinine Ratio 22 H Glucose 83 Calculated Osmolality 282 Calcium 10.6 Corrected Calcium 11.2 H Phosphorus 4.0 Magnesium 2.2 Total Bilirubin 0.8 AST 29 ALT 13 Alkaline Phosphatase 293 H Total Protein 5.2 L Albumin 3.2 L Globulin 2.0 L Albumin/Globulin Ratio 1.6 Misc Test Result Cancelled Assessment & Plan A&P Narrative 1. Diagnosis of adeno CA of the anorectal region, with pain and obstructive symptoms. 2. Underwent diverting sigmoid colostomy yesterday successfully. 3. Thus far workup for TB negative but ongoing. Stones in bladder noted by urologist still has De Oliveira catheter. 4. Patient though elderly is in good clinically shape despite apparent stage IV colon cancer, wishing to receive cancer treatments. prison facility, [facility] current residence, has told me we could not. 5. I will do my best to move forward with her wishes, or if her clinical condition improves she may be discharged after which time we can have her receive conventional cancer treatment. Time Spent With Patient Time: Total time spent is greater than 50% in coordination of care (as documented) at patient's floor/unit and/or counseling patient:
--- NOTE | 2024-10-24 09:37 | ESPR_ITS ---
<Statement entered by Steven Gupta MD - 10/24/24 14:18> Patient seen and assessed in hospital bed status post diverting end sigmoid colostomy for metastatic rectal adenocarcinoma. Patient tolerated procedure well and is progressing as expected. [facility] has granted release of the patient's isolation status as one of the AFB samples is negative, QuantiFERON is negative and most importantly the fact that there is a clear diagnosis for the patient's lung imaging findings. As noted in employment instructional associate note, patient has metastatic lung cancer secondary from the rectal adenocarcinoma which is causing the miliary pattern noted on chest x-ray. Will discontinue patient's De Oliveira catheter and attempt voiding trial upon approval from urology and expect discharge within the next 24 to 48 hours to fdc facility. I have personally seen and examined the patient. I agree with the resident's assessment and plan as documented below. Steven Gupta, PGY-2 Internal Medicine - GME Documentation for date of: 10/24/24 Subjective Subjective Interval history: Overnight events: No acute events overnight. Patient was seen and examined at bedside. AM vitals and labs reviewed. Patient appears to be good spirits after her diverting sigmoid colostomy yesterday. No acute complaints at this time. Patient is unable to produce enough sputum for appropriate sputum sample for AFB's. WBC elevated to 12.2, likely reactive. Potassium 3.8, managed with insulin, albuterol, and dextrose. Calcium 11.2. Case discussed with sales and service representative of [facility], who has granted release of patient's isolation status as one of her AFB samples was negative, QuantiFERON is negative, and patient has very low suspicion for tuberculosis given likely spread of rectal adenocarcinoma to lungs. Discussed case with urology, who agrees with attempting voiding trial, and if possible, removal of the patient's De Oliveira. Expected discharge within next 24 to 48 hours back to fdc facility. Review of systems otherwise negative except for what is mentioned above. Exam Vital Signs Temp Pulse Resp BP Pulse Ox O2 Del Method O2 Flow Rate 97.9 F 74 17 145/58 H 92 L Nasal Cannula 1 10/24/24 08:00 10/24/24 08:00 10/24/24 08:00 10/24/24 08:00 10/24/24 08:00 10/24/24 08:00 10/24/24 08:00 Narrative Exam Physical Exam: General: Alert, no acute distress. Skin: Warm, dry, intact. Head: Normocephalic, atraumatic. Eye: Normal conjunctiva, PERRL. Throat: Oral mucosa moist. No obvious lesions in oropharynx. Cardiovascular: Regular rate and rhythm, no murmur, +S1/S2. Respiratory: Lungs are clear to auscultation, respirations unlabored, no crackles, no wheezing. Gastrointestinal: Soft, nontender, non-distended. No guarding or rebound tenderness. Extremities: No edema, no cyanosis, no clubbing. 2+ radial pulse bilaterally, 2+ pedal pulse bilaterally. Neuro: No focal deficits observed. Conversant, moving all extremities. No overt cerebellar signs/incoordination. Psychiatric: Cooperative, appropriate affect. Objective Labs 10/25/24 05:21 10/25/24 05:21 Labs: Laboratory Results - last 24 hr 10/18/24 10/24/24 14:05 04:30 WBC 12.2 H RBC 4.14 Hgb 11.4 L Hct 35.5 L MCV 86 MCH 27.5 MCHC 32.1 RDW Std Deviation 48.0 H Plt Count 256 Neut % (Auto) 63 Lymph % (Auto) 24 Miller % (Auto) 9 Eos % (Auto) 0 Baso % (Auto) 0 Neut # (Auto) 7.7 Lymph # (Auto) 3.0 Miller # (Auto) 1.1 H Eos # (Auto) 0.0 Baso # (Auto) 0.1 Immature Gran # (Auto) 0.48 H Absolute Nucleated RBC 0.02 H Immature Gran % 4 H Nucleated RBC % 0 Sodium 142 Potassium 5.8 H D Chloride 102 Carbon Dioxide 25.0 Anion Gap 15 BUN 13 Creatinine 0.6 Estim Creat Clear Calc 72.5 eGFR > 60 BUN/Creatinine Ratio 22 H Glucose 83 Calculated Osmolality 282 Calcium 10.6 Corrected Calcium 11.2 H Phosphorus 4.0 Magnesium 2.2 Total Bilirubin 0.8 AST 29 ALT 13 Alkaline Phosphatase 293 H Total Protein 5.2 L Albumin 3.2 L Globulin 2.0 L Albumin/Globulin Ratio 1.6 Misc Test Result Cancelled Quality Measures Quality Measures VTE prophylaxis Advance care planning discussed with:: patient Assessment & Plan Assessment Current Active Medications: Generic Name Dose Route Start Last Admin Trade Name Freq PRN Reason Stop Dose Admin Acetaminophen 650 mg 10/15/24 14:17 Acetaminophen 325 Mg Tablet PO 11/14/24 14:16 Q6H PRN Fever >101.5 or pain 1-3 Albuterol 2.5 mg 10/24/24 09:45 Albuterol Rt 2.5 Mg/0.5 Ml Nebu INH 10/24/24 09:46 X1 ONE Atorvastatin Calcium 40 mg 10/17/24 21:00 10/23/24 21:03 Atorvastatin Calcium 20 Mg Tablet PO 11/16/24 20:59 40 mg HS CLAUDE Administration Docusate Sodium 250 mg 10/23/24 21:00 10/24/24 09:01 Docusate Sod 250 Mg Capsule PO 11/22/24 20:59 250 mg BID CLAUDE Administration Protocol Duloxetine HCl 30 mg 10/16/24 09:00 10/24/24 09:01 Duloxetine Hcl 30 Mg Capsule PO 11/15/24 08:59 30 mg QDAY CLAUDE Administration Gabapentin 100 mg 10/15/24 14:45 10/24/24 06:07 Gabapentin 100 Mg Capsule PO 11/14/24 14:44 100 mg Q8HR CLAUDE Administration Heparin Sodium (Porcine) 5,000 unit 10/15/24 14:30 10/24/24 09:01 Heparin Sod Inj 5000 Unit/Ml Vial SC 10/29/24 14:29 5,000 unit Q12HR CLAUDE Administration Hydromorphone HCl 4 mg 10/19/24 11:32 10/22/24 19:29 Hydromorphone Hcl 2 Mg Tablet PO 10/31/24 15:32 4 mg Q6HR PRN Administration BREAKTHROUGH PAIN (SEVERE) Sodium Chloride 1,000 mls @ 50 mls/hr 10/21/24 06:31 10/23/24 18:48 Ns IV 11/20/24 06:30 Not Given .Q20H CLAUDE Lidocaine 1 patch 10/15/24 15:32 10/22/24 08:07 Lidocaine 5% 1 Patch TOP 11/14/24 15:31 1 patch UD PRN Administration Topical Pain Protocol Morphine Sulfate 15 mg 10/19/24 11:35 10/24/24 09:02 Morphine Sulf 15 Mg Tabcr PO 10/24/24 11:34 15 mg Q12HR CLAUDE Administration Protocol Ondansetron HCl 8 mg 09/03/25 16:38 Ondansetron Odt 4 Mg Tabrap PO 11/21/24 16:37 Q6HR PRN NAUSEA OR VOMITING Polyethylene Glycol 17 gm 10/21/24 10:45 10/24/24 09:01 Polyethylene Glycol 17 Gm Packet PO 11/20/24 10:44 17 gm QDAY CLAUDE Administration Sodium Chloride 10 ml 10/16/24 01:33 10/17/24 07:38 Sodium Chloride Rt 10% 15 Ml Nebu INH 11/15/24 01:32 10 ml PRN PRN Administration SOLN Plan Mrs. Calvillo is a 79 year old female who has a past history of adenocarcinoma, malignant neoplasm of rectum with metastasis to bone with osseous lesions throughout thoracic lumbar vertebrae, abdominal lymphadenopathy, arthritis, chronic neuropathic pain who presented to [facility] ED from [facility] on 10/15 for tuberculosis rule out. Patient was admitted for tuberculosis rule out. #Chronic De Oliveira catheter #Stones in bladder Patient has a history of urinary retention that requires a chronic De Oliveira catheter. The patient sees Dr. Inman for urology. - Bladder ultrasound showed hyperechoic mass to posterior margin of the bladder, [id number] - Discussed case with the patient's urologist, Dr. Inman, who did cystoscopy and replaced the De Oliveira catheter on Sunday (10/22), no mass identified on cystoscopy, did find multiple stones in bladder - Urine cytology ordered, resulted as few inflammatory cells, rare epithelial cells, and abundant, obscuring foreign material contaminant - Will attempt voiding trial 10/25, if patient is not retaining urine, then will remove De Oliveira cathether #Adenocarcinoma of the rectum, poorly differentiated, with mucinous/signet rings, with #Metastasis to bone with osseus lesions, thoracic lumbar vertebrae, abdominal lymphadenopathy #Chronic back pain #s/p laparoscopic assisted diverting colostomy, 10/23 Patient noted to have a history of colon cancer. The patient had a colonoscopy on 09/06/2024, which showed a mass in the rectum. When this mass was biopsied, the report showed adenocarcinoma of the rectum that is poorly differentiated with signet rings. MRI of the thoracic and lumbar spine on 09/04/2024 show metastases to the spine. This is likely the result of the patient's chronic back pain, to which she takes pain medication at home for. The patient follows Dr. Torres at [facility] for management of her malignancy. - Resumed patient's home pain medication regimen of hydromorphone 4 mg every 6 hours as needed and lidocaine patch - Morphine 15 mg syrup twice daily - Patient to follow up with outpatient oncology for further management - Oncology consulted, appreciate recommendations - NM bone scan ordered 10/21, pending - General surgery consulted, appreciate recommendations - Laparoscopic assisted diverting colostomy performed on 10/23 - Clear liquid diet #Miliary nodular pattern likely 03/23 #Metastatic malignancy to lungs #Tuberculosis ruled out Patient brought to [facility] ED by assisted care facility as they were concerned for possible tuberculosis given the miliary nodular pattern found on CT and chest x- rays. This pattern was not found on chest imaging by radiology on 09/06. Given that the patient has almost no symptoms except for some weight loss, which is explained due to decreased oral intake, and the patient endorsing a consistently O2 saturation around 90% at the care facility, suspicion for tuberculosis is low at this time, however cannot be ruled out without further investigation. Given the patient's colon cancer that was noted to already have spread to multiple vertebra, it is very possible that this patient's Willams nodular pattern is secondary to metastasis of her colon cancer. Until TB can be definitively ruled out, it is unlikely for her assisted care facility accept return. Discussed case with [facility] sales and service representative on 10/24, who has granted release of patient's isolation status as one of her AFB samples was negative, QuantiFERON is negative, and patient has very low suspicion for tuberculosis given likely spread of rectal adenocarcinoma to lungs. - Administered tuberculin PPD test 10/15, negative at 00 mm - QuantiFERON gold TB test ordered, resulted as negative - Sputum myobacterial cultures x3, pending, 1st AFB negative for AFB but rest of AFBs rejected, so re-ordered AFBs x3 and NAAT - Isolation precaution - CT chest ordered, shows mild mediastinal lymphadenopathy, miliary nodular pattern throughout the lungs, mild heart failure, primary hepatocellular disease, cholelithiasis - Pulmonology consulted, appreciate recommendations - Oncology consulted, appreciate recommendations - Discussed case with [facility] sales and service representative on 10/24, who has granted release of patient's isolation status as one of her AFB samples was negative, QuantiFERON is negative, and patient has very low suspicion for tuberculosis given likely spread of rectal adenocarcinoma to lungs. #Urinary tract infection, E. coli, uncomplicated Patient was seen at [facility] ED on 10/10 for abdominal pain. At the time, urinalysis was performed, which was positive for UTI. The patient was sent home on Keflex as his UTI was uncomplicated. Urine culture resulted as E. coli that is sensitive to Keflex. - Resumed patient's home Keflex 500 mg twice daily (10/11-10/25) #Hypercalcemia Admission Ca 11 with Ca ~9 in 08/2024. Continues to be elevated at 11.6 - s/p 1L NS 10/17 - Maintenance NS 50cc/hr - will monitor calcium levels. #Constipation #Hemorrhoids Patient has been noted to have a history of constipation and hemorrhoids. The patient is on an extensive list of medications and supplements for management of the patients constipation as listed in the admitting HPI. Given recent diarrhea on 10/18 in the evening, bowel regimen was changed to as needed instead of scheduled. - Started patient on bowel regimen of Senokot 2 tablets daily as needed and Miralax 17 gm daily #Neuropathy Patient has a reported history of neuropathy. Patient takes gabapentin and duloxetine for neuropathy at home. - Resumed patients home gabapentin 100 mg every 8 hours and duloxetine 30 mg daily #Hyperlipidemia Patient had lipid panel collected 10/16. Triglyceride 261, cholesterol 301, LDL 198, and HDL 51. - Atorvastatin 40 mg nightly DVT Prophylaxis: Heparin GI Prophylaxis: N/A Bowel: Senokot, Miralax Diet: Full liquid De Oliveira: Yes Lines: Peripheral IV Antibiotics: Keflex (10/11-10/25) Code Status: FULL Patient plan of care was discussed with the attending physician Dr. Shaw and senior resident Dr. Gupta (PGY-2) Rambo Bennett, PGY1 Attending Provider Attestation/Addendum Face to face evaluation was performed by me. I have personally seen and examined the patient. I discussed the assessment and plan with the entire medicine team. I reviewed available medical records, imaging studies, laboratory results. I agree with the above subjective data, objective findings, assessment and plan except as corrected by me or noted below Chronic De Oliveira catheter Bladder stone E. coli cystitis UTI was present on admission associate with urinary catheter Hypercalcemia Peripheral neuropathy Rectal adenocarcinoma with metastatic disease Bladder mass or suspicious for neoplasm looks like it was ruled out though. More than > 30 minutes spent on the encounter
[2024-10-24] MEDS: SODIUM CHLORIDE RT SOL 0.9% 3 ML NEBU INH (09:42)
[2024-10-24] MEDS: ALBUTEROL RT 2.5 MG/0.5 ML NEBU INH (09:42)
[2024-10-24] MEDS: DEXTROSE 50%-WATER INJ 50 ML SYRINGE IVP (10:33)
[2024-10-24] MEDS: INSULIN HUM REGULAR 1 UNIT/0.01 ML (PER UNIT) 5 UNIT IV (10:40)
[2024-10-24] MEDS: HYDROMORPHONE HCL 2 MG TABLET 4 MG PO ×2 (10:47→19:40)
--- NOTE | 2024-10-24 12:50 | PD.SURPROG ---
Documentation for date of: 10/24/24 Subjective Subjective Narrative: Patient is seen and examined. She is resting comfortably. She is tolerating clear liquids without nausea or vomiting. She has pain around her colostomy site Exam Vital Signs Temp Pulse Resp BP Pulse Ox O2 Del Method O2 Flow Rate 97.9 F 100 18 145/58 H 96 Nasal Cannula 1 10/24/24 08:00 10/24/24 09:42 10/24/24 09:42 10/24/24 08:00 10/24/24 09:42 10/24/24 08:00 10/24/24 09:42 Constitutional Constitutional: no acute distress Routine Abdominal Exam Comments: Abdomen is soft and minimally distended. Incisions are clean, dry and intact. Colostomy is pink, patent, present and productive with soft stool and minimal edema Assessment & Plan Assessment Additional comments: Postop day #1 status post laparoscopic diverting colostomy Plan Will advance him to full liquids PROCEDURES: Procedures Laparoscopic diverting end sigmoid colostomy
[2024-10-24] MEDS: SODIUM CHLORIDE RT 10% 15 ML NEBU 10 ML INH (13:22)
--- NOTE | 2024-10-24 13:43 | PC.RT ---
Abulterol tx given for hyperkalemia as well as hypertonic saline for sputum induction. Patient was not able to expectorate enough for a sample. patient also c/o pain at incision site while coughing so hard. Resident aware.
--- NOTE | 2024-10-24 13:52 | PC.SS ---
SS follow up note; Patient is pending Sputum cultures. SS contacted Una from [employer] and she informed SS that patient will need auth. PT evaluation pending.
--- NOTE | 2024-10-24 13:54 | PC.IP ---
Per Lorri Zamarripa [facility], it is unlikely patient has active TB. Patient has negative MTB NAAT, smear x1, and QFT. Lorri Zamarripa also reports that CDP/CTCA guidance allows unsuccessful induction attempts to be considered negative. Base on these findings, the patient may be removed from Airborne Precautions.
[2024-10-24 13:55] LABS: Albumin, Serum 3.1 gm/dL (3.4-4.8); Anion Gap 11 (7-16); BUN/Creatinine Ratio 17 Ratio (12-20); Blood Urea Nitrogen 10 mg/dL (9-23); Calcium 10.3 mg/dL (8.3-10.6); Calcium (Corrected) 11.0 mg/dL (8.5-10.1); Carbon Dioxide 26.7 mMol/L (20.0-31.0); Chloride 103 mMol/L (98-107); Creatinine (Component) 0.6 mg/dL (0.6-1.3); Estimated Creatinine Clearance 72.5 mL/min (>60); Glucose 143 mg/dL (74-106); Osmolality,Calculated 282 (275-295); Phosphorous 2.1 mg/dL (2.4-5.1); Potassium 3.3 mMol/L (3.4-5.1); Sodium 141 mMol/L (136-145); eGFR > 60 See Note
[2024-10-24] MEDS: SODIUM CHLORIDE 0.9% 1000 ML 1,000 ML 50 ML IV (13:59)
--- NOTE | 2024-10-24 17:06 | PC.NURSE ---
@[id number] Shaw x2 with no answer, left message regarding if they had talked to [facility] for giving clearance to remove patient from isolation. Awaiting call back.
--- NOTE | 2024-10-24 18:06 | PC.NURSE ---
Patient removed from isolation, Dr. Donald RODRIGUEZ notes on 10/24/24 states case discussed with [facility] insurance representative and granted release of patient's isolation status.
[2024-10-24] MEDS: ATORVASTATIN CALCIUM 20 MG TABLET 40 MG PO (21:23)
[2024-10-25] VITALS (8 sets, daily range): BP systolic 123–164; BP diastolic 56–89; PULSE 78–93; RESP 14–96; TEMP 36.1–36.8; O2SAT 92–95; BMI 30.2
[2024-10-25 05:39] LABS: Basophils # (Auto) 0.1 Thou/mm3 (0.0-0.2); Basophils % (Auto) 1 % (0-2.5); Eosinophils # (Auto) 0.2 Thou/mm3 (0.0-0.5); Eosinophils % (Auto) 2 % (0-10); Hematocrit 32.0 % (36.0-46.0); Hemoglobin 10.3 g/dL (12.0-16.0); Immature Granulocytes Auto 0.53 Thou/mm3 (0.00-0.00); Lymphocytes # (Auto) 2.9 Thou/mm3 (1.0-4.8); Lymphocytes % (Auto) 25 % (10-50); Mean Corpuscular HGB Conc 32.2 g/dl (31.0-37.0); Mean Corpuscular Hemoglobin 27.5 pg (25.0-35.0); Mean Corpuscular Volume 86 fL (80-100); Monocytes # (Auto) 1.3 Thou/mm3 (0.0-0.8); Monocytes % (Auto) 11 % (0-12); Neutrophils # (Auto) 6.7 Thou/mm3 (1.8-7.7); Neutrophils % (Auto) 57 % (37-80); Nucleated Red Blood Cell # 0.00 Thou/mm3 (0.00-0.00); Nucleated Red Blood Cell % 0 /100 WBC (0); Platelet Count 267 Thou/mm3 (140-440); RDW Standard Deviation 49.1 fL (36.4-46.3); Red Blood Count 3.74 Miln/mm3 (4.00-5.20); White Blood Count 11.6 Thou/mm3 (3.6-11.0)
[2024-10-25] MEDS: GABAPENTIN 100 MG CAPSULE PO ×3 (05:50→22:03)
[2024-10-25 06:25] LABS: Alanine Aminotransferase 10 U/L (10-49); Albumin, Serum 3.1 gm/dL (3.4-4.8); Albumin/Globulin Ratio 1.6 (1.2-2.2); Alkaline Phosphatase 284 U/L (46-116); Anion Gap 10 (7-16); Aspartate Amino Transferase 21 U/L (0-34); BUN/Creatinine Ratio 18 Ratio (12-20); Bilirubin,Total 0.7 mg/dL (0.3-1.2); Blood Urea Nitrogen 11 mg/dL (9-23); Calcium 10.8 mg/dL (8.3-10.6); Calcium (Corrected) 11.5 mg/dL (8.5-10.1); Carbon Dioxide 28.2 mMol/L (20.0-31.0); Chloride 104 mMol/L (98-107); Creatinine (Component) 0.6 mg/dL (0.6-1.3); Estimated Creatinine Clearance 72.5 mL/min (>60); Globulin 2.0 gm/dL (2.3-3.5); Glucose 100 mg/dL (74-106); Magnesium 1.9 mg/dL (1.6-2.6); Osmolality,Calculated 282 (275-295); Phosphorous 3.1 mg/dL (2.4-5.1); Potassium 3.6 mMol/L (3.4-5.1); Sodium 142 mMol/L (136-145); Total Protein 5.1 gm/dL (5.7-8.2); eGFR > 60 See Note
--- NOTE | 2024-10-25 06:49 | PC.NURSE ---
Did a bladder scan for the second time this shift with 105ml reading. Dr. Perez was made aware. No new orders received, to let the day team know.
[2024-10-25] MEDS: HYDROMORPHONE HCL 2 MG TABLET 4 MG PO ×3 (08:08→22:02)
[2024-10-25] MEDS: POLYETHYLENE GLYCOL 17 GM PACKET PO (08:08)
[2024-10-25] MEDS: HEPARIN SOD INJ 5000 UNIT/ML VIAL SC ×2 (08:08→20:12)
[2024-10-25] MEDS: DOCUSATE SOD 250 MG CAPSULE PO ×2 (08:08→20:12)
[2024-10-25] MEDS: DULoxetine HCL 30 MG CAPSULE PO (08:09)
[2024-10-25] MEDS: SODIUM CHLORIDE 0.9% 1000 ML 1,000 ML 50 ML IV (08:09)
--- NOTE | 2024-10-25 10:10 | PD.RESPRO ---
Documentation for date of: 10/25/24 Subjective Subjective Interval history: Overnight events: No acute events overnight. Patient was seen and examined at bedside. AM vitals and labs reviewed. Patient appears well today. No acute complaints at this time. Is happy that she is no longer on contact precautions. Patient does appear to be having poor urine output at this time since De Oliveira catheter removal. WBC 11.6, calcium 11.5. Continue NS IVF. Bladder scan every 4 hours ordered. Denosumab 60 mg one-time dose ordered. Patient completes course of Keflex today. Possible discharge within next 24 hours, pending urination status. Review of systems otherwise negative except for what is mentioned above. Exam Vital Signs Temp Pulse Resp BP Pulse Ox O2 Del Method O2 Flow Rate 97.6 F 93 20 162/76 H 94 L Nasal Cannula 1 10/25/24 08:00 10/25/24 08:00 10/25/24 08:00 10/25/24 08:00 10/25/24 08:00 10/25/24 08:00 10/25/24 08:00 Narrative Exam Physical Exam: General: Alert, no acute distress. Skin: Warm, dry, intact. Head: Normocephalic, atraumatic. Eye: Normal conjunctiva, PERRL. Cardiovascular: Regular rate and rhythm, no murmur, +S1/S2. Respiratory: Lungs are clear to auscultation, respirations unlabored, no crackles, no wheezing. Gastrointestinal: Soft, nontender, non-distended. No guarding or rebound tenderness. Extremities: No edema, no cyanosis, no clubbing. Neuro: No focal deficits observed. Conversant, moving all extremities. No overt cerebellar signs/incoordination. Psychiatric: Cooperative, appropriate affect. Objective Labs 10/27/24 05:15 10/27/24 05:15 Labs: Laboratory Results - last 24 hr 10/24/24 10/25/24 12:31 05:21 WBC 11.6 H RBC 3.74 L Hgb 10.3 L Hct 32.0 L MCV 86 MCH 27.5 MCHC 32.2 RDW Std Deviation 49.1 H Plt Count 267 Neut % (Auto) 57 Lymph % (Auto) 25 Alexander % (Auto) 11 Eos % (Auto) 2 Baso % (Auto) 1 Neut # (Auto) 6.7 Lymph # (Auto) 2.9 Alexander # (Auto) 1.3 H Eos # (Auto) 0.2 Baso # (Auto) 0.1 Immature Gran # (Auto) 0.53 H Absolute Nucleated RBC 0.00 Immature Gran % 5 H Nucleated RBC % 0 Sodium 141 142 Potassium 3.3 L D 3.6 Chloride 103 104 Carbon Dioxide 26.7 28.2 Anion Gap 11 10 BUN 10 11 Creatinine 0.6 0.6 Estim Creat Clear Calc 72.5 72.5 eGFR > 60 > 60 BUN/Creatinine Ratio 17 18 Glucose 143 H D 100 Calculated Osmolality 282 282 Calcium 10.3 10.8 H Corrected Calcium 11.0 H 11.5 H Phosphorus 2.1 L 3.1 Magnesium 1.9 Total Bilirubin 0.7 AST 21 ALT 10 Alkaline Phosphatase 284 H Total Protein 5.1 L Albumin 3.1 L 3.1 L Globulin 2.0 L Albumin/Globulin Ratio 1.6 Quality Measures Quality Measures VTE prophylaxis Advance care planning discussed with:: patient Assessment & Plan Assessment Current Active Medications: Generic Name Dose Route Start Last Admin Trade Name Freq PRN Reason Stop Dose Admin Acetaminophen 650 mg 10/15/24 14:17 Acetaminophen 325 Mg Tablet PO 11/14/24 14:16 Q6H PRN Fever >101.5 or pain 1-3 Atorvastatin Calcium 40 mg 10/17/24 21:00 10/24/24 21:23 Atorvastatin Calcium 20 Mg Tablet PO 11/16/24 20:59 40 mg HS CLAUDE Administration Docusate Sodium 250 mg 10/23/24 21:00 10/25/24 08:08 Docusate Sod 250 Mg Capsule PO 11/22/24 20:59 250 mg BID CLAUDE Administration Protocol Duloxetine HCl 30 mg 10/16/24 09:00 10/25/24 08:09 Duloxetine Hcl 30 Mg Capsule PO 11/15/24 08:59 30 mg QDAY CLAUDE Administration Gabapentin 100 mg 10/15/24 14:45 10/25/24 05:50 Gabapentin 100 Mg Capsule PO 11/14/24 14:44 100 mg Q8HR CLAUDE Administration Heparin Sodium (Porcine) 5,000 unit 10/15/24 14:30 10/25/24 08:08 Heparin Sod Inj 5000 Unit/Ml Vial SC 10/29/24 14:29 5,000 unit Q12HR CLAUDE Administration Hydromorphone HCl 4 mg 10/19/24 11:32 10/25/24 08:08 Hydromorphone Hcl 2 Mg Tablet PO 10/31/24 15:32 4 mg Q6HR PRN Administration BREAKTHROUGH PAIN (SEVERE) Sodium Chloride 1,000 mls @ 50 mls/hr 10/21/24 06:31 10/25/24 08:09 Ns IV 11/20/24 06:30 50 mls/hr .Q20H CLAUDE Administration Lidocaine 1 patch 10/15/24 15:32 10/22/24 08:07 Lidocaine 5% 1 Patch TOP 11/14/24 15:31 1 patch UD PRN Administration Topical Pain Protocol Ondansetron HCl 8 mg 10/22/24 16:38 Ondansetron Odt 4 Mg Tabrap PO 11/21/24 16:37 Q6HR PRN NAUSEA OR VOMITING Polyethylene Glycol 17 gm 10/21/24 10:45 10/25/24 08:08 Polyethylene Glycol 17 Gm Packet PO 11/20/24 10:44 17 gm QDAY CLAUDE Administration Sodium Chloride 10 ml 10/16/24 01:33 10/24/24 13:22 Sodium Chloride Rt 10% 15 Ml Nebu INH 11/15/24 01:32 10 ml PRN PRN Administration SOLN Zinc Oxide 0 gm 10/24/24 12:52 Cod Bisi Oil/Znox Cream 40% 60 Gm Tube TOP 11/23/24 12:51 QDAY PRN PERIANAL RASH Plan Mrs. 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 Patient was admitted for tuberculosis rule out. #Chronic De Oliveira catheter #Stones in bladder Patient has a history of urinary retention that requires a chronic De Oliveira catheter. The patient sees Dr. Inman for urology. - Bladder ultrasound showed hyperechoic mass to posterior margin of the bladder, [id number] - Discussed case with the patient's urologist, Dr. Inman, who did cystoscopy and replaced the De Oliveira catheter on Sunday (10/22), no mass identified on cystoscopy, did find multiple stones in bladder - Urine cytology ordered, resulted as few inflammatory cells, rare epithelial cells, and abundant, obscuring foreign material contaminant - Bladder scan every 4 hours - De Oliveira catheter removed, if patient is retaining then will reinsert De Oliveira catheter #Adenocarcinoma of the rectum, poorly differentiated, with mucinous/signet rings, with #Metastasis to bone with osseus lesions, thoracic lumbar vertebrae, abdominal lymphadenopathy #Chronic back pain #s/p laparoscopic assisted diverting colostomy, 10/23 Patient noted to have a history of colon cancer. The patient had a colonoscopy on 09/06/2024, which showed a mass in the rectum. When this mass was biopsied, the report showed adenocarcinoma of the rectum that is poorly differentiated with signet rings. MRI of the thoracic and lumbar spine on 09/04/2024 show metastases to the spine. This is likely the result of the patient's chronic back pain, to which she takes pain medication at home for. The patient follows Dr. Torres at [facility] for management of her malignancy. 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 This pattern was not found on chest imaging by radiology on 09/06. Given that the patient has almost no symptoms except for some weight loss, which is explained due to decreased oral intake, and the patient endorsing a consistently O2 saturation around 90% at the care facility, suspicion for tuberculosis is low at this time, however cannot be ruled out without further investigation. Given the patient's colon cancer that was noted to already have spread to multiple vertebra, it is very possible that this patient's Willams nodular pattern is secondary to metastasis of her colon cancer. Until TB can be definitively ruled out, it is unlikely for her assisted care facility accept return. Discussed case with [facility] promotions representative on 10/24, who has granted release of patient's isolation status as one of her AFB samples was negative, QuantiFERON is negative, and patient has very low suspicion for tuberculosis given likely spread of rectal adenocarcinoma to lungs. - Administered tuberculin PPD test 10/15, negative at 00 mm - QuantiFERON gold TB test ordered, resulted as negative - Sputum myobacterial cultures x3, pending, 1st AFB negative for AFB but rest of AFBs rejected, so re-ordered AFBs x3 and NAAT - CT chest ordered, shows mild mediastinal lymphadenopathy, miliary nodular pattern throughout the lungs, mild heart failure, primary hepatocellular disease, cholelithiasis - Pulmonology consulted, appreciate recommendations - Oncology consulted, appreciate recommendations - Discussed case with [facility] promotions representative on 10/24, who has granted release of patient's isolation status as one of her AFB samples was negative, QuantiFERON is negative, and patient has very low suspicion for tuberculosis given likely spread of rectal adenocarcinoma to lungs. #Urinary tract infection, E. coli, uncomplicated Patient was seen at [facility] on 10/10 for abdominal pain. At the time, urinalysis was performed, which was positive for UTI. The patient was sent home on Keflex as his UTI was uncomplicated. Urine culture resulted as E. coli that is sensitive to Keflex. - Completed patient's home Keflex 500 mg twice daily (10/11-10/25) #Hypercalcemia Admission Ca 11 with Ca ~9 in 08/2024. Continues to be elevated at 11.6 - s/p 1L NS 10/17 - Maintenance NS 50cc/hr - Will monitor calcium levels. - Denosumab 60 mg one time dose given 10/25 #Constipation #Hemorrhoids Patient has been noted to have a history of constipation and hemorrhoids. The patient is on an extensive list of medications and supplements for management of the patients constipation as listed in the admitting HPI. Given recent diarrhea on 10/18 in the evening, bowel regimen was changed to as needed instead of scheduled. - Started patient on bowel regimen of Senokot 2 tablets daily as needed and Miralax 17 gm daily #Neuropathy Patient has a reported history of neuropathy. Patient takes gabapentin and duloxetine for neuropathy at home. - Resumed patients home gabapentin 100 mg every 8 hours and duloxetine 30 mg daily #Hyperlipidemia Patient had lipid panel collected 10/16. Triglyceride 261, cholesterol 301, LDL 198, and HDL 51. - Atorvastatin 40 mg nightly DVT Prophylaxis: Heparin GI Prophylaxis: N/A Bowel: Senokot, Miralax Diet: Dysphagia 3 De Oliveira: N/A Lines: Peripheral IV Antibiotics: N/A Code Status: FULL Patient plan of care was discussed with the attending physician Dr. Colin Bennett, PGY1 Attending Provider Attestation/Addendum Face to face evaluation was performed by me. I have personally seen and examined the patient. I discussed the assessment and plan with the entire medicine team. I reviewed available medical records, imaging studies, laboratory results. I agree with the above subjective data, objective findings, assessment and plan except as corrected by me or noted below Rectal adenocarcinoma Chronic De Oliveira catheter Bladder stones Hyperlipidemia Neuropathy Urinary tract infection, likely gram-negative bacilli associated with De Oliveira catheter usage present on admission Continue antibiotics continue De Oliveira catheter More than > 30 minutes spent on the encounter
--- NOTE | 2024-10-25 12:34 | PC.SS ---
SS sent updated clinicals to [facility], via [employer]. Per [employer] auth has not been started yet.
--- NOTE | 2024-10-25 13:35 | PD.SURPROG ---
Documentation for date of: 10/25/24 Subjective Subjective Narrative: Patient is seen and examined. Her abdominal pain is improving. She is tolerating liquid diet without nausea or vomiting and her colostomy is functioning. Her De Oliveira catheter was removed, she is complaining that she cannot void Exam Vital Signs Temp Pulse Resp BP Pulse Ox O2 Del Method O2 Flow Rate 97.6 F 93 20 162/76 H 94 L Nasal Cannula 1 10/25/24 08:00 10/25/24 08:00 10/25/24 08:00 10/25/24 08:00 10/25/24 08:00 10/25/24 08:00 10/25/24 08:00 Constitutional Constitutional: no acute distress Routine Abdominal Exam Comments: Abdomen is soft and less distended. Incisions are clean, dry and intact. Colostomy is pink, patent, present and productive with soft stool Assessment & Plan Assessment Additional comments: Postop day #2 status post laparoscopic diverting colostomy Plan Will advance to soft diet. She will need placement of De Oliveira catheter for urinary retention PROCEDURES: Procedures Laparoscopic diverting end sigmoid colostomy
[2024-10-25] MEDS: DENOSUMAB INJ 60 MG/ML SYRINGE SC (16:16)
[2024-10-25] MEDS: ATORVASTATIN CALCIUM 20 MG TABLET 40 MG PO (20:12)
[2024-10-26] VITALS (9 sets, daily range): BP systolic 114–177; BP diastolic 64–85; PULSE 74–92; RESP 16–19; TEMP 36.3–37.1; O2SAT 92–96
[2024-10-26] MEDS: HYDROMORPHONE HCL 2 MG TABLET 4 MG PO (04:22)
[2024-10-26] MEDS: SODIUM CHLORIDE 0.9% 1000 ML 1,000 ML 50 ML IV ×2 (04:30→23:54)
[2024-10-26] MEDS: GABAPENTIN 100 MG CAPSULE PO ×3 (05:22→21:14)
[2024-10-26 06:16] LABS: Basophils # (Auto) 0.1 Thou/mm3 (0.0-0.2); Basophils % (Auto) 1 % (0-2.5); Eosinophils # (Auto) 0.3 Thou/mm3 (0.0-0.5); Eosinophils % (Auto) 2 % (0-10); Hematocrit 33.2 % (36.0-46.0); Hemoglobin 10.7 g/dL (12.0-16.0); Immature Granulocytes Auto 0.78 Thou/mm3 (0.00-0.00); Lymphocytes # (Auto) 3.0 Thou/mm3 (1.0-4.8); Lymphocytes % (Auto) 25 % (10-50); Mean Corpuscular HGB Conc 32.2 g/dl (31.0-37.0); Mean Corpuscular Hemoglobin 27.5 pg (25.0-35.0); Mean Corpuscular Volume 85 fL (80-100); Monocytes # (Auto) 1.1 Thou/mm3 (0.0-0.8); Monocytes % (Auto) 9 % (0-12); Neutrophils # (Auto) 6.9 Thou/mm3 (1.8-7.7); Neutrophils % (Auto) 57 % (37-80); Nucleated Red Blood Cell # 0.00 Thou/mm3 (0.00-0.00); Nucleated Red Blood Cell % 0 /100 WBC (0); Platelet Count 247 Thou/mm3 (140-440); RDW Standard Deviation 48.2 fL (36.4-46.3); Red Blood Count 3.89 Miln/mm3 (4.00-5.20); White Blood Count 12.1 Thou/mm3 (3.6-11.0)
[2024-10-26 08:05] LABS: Alanine Aminotransferase 11 U/L (10-49); Albumin, Serum 3.2 gm/dL (3.4-4.8); Albumin/Globulin Ratio 1.5 (1.2-2.2); Alkaline Phosphatase 316 U/L (46-116); Anion Gap 11 (7-16); Aspartate Amino Transferase 23 U/L (0-34); BUN/Creatinine Ratio 18 Ratio (12-20); Bilirubin,Total 1.2 mg/dL (0.3-1.2); Blood Urea Nitrogen 7 mg/dL (9-23); Calcium 10.4 mg/dL (8.3-10.6); Calcium (Corrected) 11.0 mg/dL (8.5-10.1); Carbon Dioxide 29.7 mMol/L (20.0-31.0); Chloride 103 mMol/L (98-107); Creatinine (Component) 0.4 mg/dL (0.6-1.3); Estimated Creatinine Clearance 108.7 mL/min (>60); Globulin 2.2 gm/dL (2.3-3.5); Glucose 92 mg/dL (74-106); Magnesium 1.6 mg/dL (1.6-2.6); Osmolality,Calculated 284 (275-295); Phosphorous 3.1 mg/dL (2.4-5.1); Potassium 4.0 mMol/L (3.4-5.1); Sodium 144 mMol/L (136-145); Total Protein 5.4 gm/dL (5.7-8.2); eGFR > 60 See Note
[2024-10-26] MEDS: HEPARIN SOD INJ 5000 UNIT/ML VIAL SC ×2 (08:39→20:41)
[2024-10-26] MEDS: DULoxetine HCL 30 MG CAPSULE PO (08:39)
[2024-10-26] MEDS: POLYETHYLENE GLYCOL 17 GM PACKET PO (08:39)
[2024-10-26] MEDS: DOCUSATE SOD 250 MG CAPSULE PO ×2 (08:40→20:38)
--- NOTE | 2024-10-26 08:41 | PD.SURPROG ---
Documentation for date of: 10/26/24 Subjective Subjective Narrative: Patient is seen and examined. She is resting comfortably. She is tolerating diet well Exam Vital Signs Temp Pulse Resp BP Pulse Ox O2 Del Method O2 Flow Rate 97.4 F 90 16 160/75 H 94 L Nasal Cannula 1 10/26/24 04:00 10/26/24 07:41 10/26/24 07:41 10/26/24 06:29 10/26/24 07:41 10/26/24 04:00 10/26/24 07:41 Constitutional Constitutional: no acute distress Routine Abdominal Exam Comments: Abdomen is soft and nondistended. Incisions are clean, dry and intact. Colostomy is functioning Assessment & Plan Assessment Additional comments: Postop day #3 status post laparoscopic diverting colostomy Plan Tolerating diet well. Continue care as directed PROCEDURES: Procedures Laparoscopic diverting end sigmoid colostomy
--- NOTE | 2024-10-26 09:29 | ESPR_ITS ---
<Statement entered by Leonel Teran MD - 10/26/24 15:36> No acute overnight events. Patient is complaining that she is not able to tolerate the food and having nausea with the pain medications and also reported that Zofran is not helping her much. Vitals are stable and patient noted to have mildly elevated blood pressure for which patient was started on amlodipine 5 mg once daily. Producing adequate amount of urine output. Labs done this morning showed mild leukocytosis 12.1, hemoglobin 10.8, corrected calcium 11, ALP 316. De Oliveira catheter was left in situ as patient is complaining of urinary retention, does not appear to have obstructive uropathy as the De Oliveira catheter is placed without any difficulty and cystoscopy did not show any significant abnormality, might be having some neurogenic bladder in the setting of vertebral metastasis and rectal mass. Patient was started on clear liquid diet, morphine 15 mg p.o. liquid, promethazine, Zofran stopped. Patient can be given metoclopramide as needed. Still pending authorization for SNF placement. Will follow-up with the social security specialist I have personally seen and examined the patient, agree with residents assessment and plan Patient plan of care was discussed with the attending physician, Dr. Colin Teran, PGY2 Documentation for date of: 10/26/24 Subjective Subjective Interval history: Overnight events: No acute events overnight. Patient was seen and examined at bedside. AM vitals and labs reviewed. Patient does not feel as well today. She feels ill as the pain medication that she is receiving makes her nauseous, resulting in vomiting. Patient does state that the Zofran that she has given does not help. In addition, the patient does not tolerate solid food too well, and requests Jell-O for diet. Started amlodipine 5 mg daily. Change Dilaudid 4 mg p.o. to 2 mg IV as needed. Started morphine sulfate 15 mg p.o. twice daily for pain. Hopefully less nauseating compared to Dilaudid. Stopped Zofran and started promethazine 12.5 mg IV every 4 hours as needed. Change diet to clear liquid per patient's preference. Pending authorization for SNF. Review of systems otherwise negative except for what is mentioned above. Exam Vital Signs Temp Pulse Resp BP Pulse Ox O2 Del Method O2 Flow Rate 97.4 F 90 16 160/75 H 94 L Nasal Cannula 1 10/26/24 04:00 10/26/24 08:40 10/26/24 07:41 10/26/24 08:40 10/26/24 07:41 10/26/24 04:00 10/26/24 07:41 Narrative Exam Physical Exam: General: Alert, no acute distress. Skin: Warm, dry, intact. Head: Normocephalic, atraumatic. Eye: Normal conjunctiva, PERRL. Throat: Oral mucosa moist. No obvious lesions in oropharynx. Cardiovascular: Regular rate and rhythm, no murmur, +S1/S2. Respiratory: Lungs are clear to auscultation, respirations unlabored, no crackles, no wheezing. Gastrointestinal: Soft, nontender, non-distended. No guarding or rebound tenderness. Extremities: No edema, no cyanosis, no clubbing. 2+ radial pulse bilaterally, 2+ pedal pulse bilaterally. Neuro: No focal deficits observed. Conversant, moving all extremities. No overt cerebellar signs/incoordination. Psychiatric: Cooperative, appropriate affect. Objective Labs 10/27/24 05:15 10/27/24 05:15 Labs: Laboratory Results - last 24 hr 10/26/24 04:55 WBC 12.1 H RBC 3.89 L Hgb 10.7 L Hct 33.2 L MCV 85 MCH 27.5 MCHC 32.2 RDW Std Deviation 48.2 H Plt Count 247 Neut % (Auto) 57 Lymph % (Auto) 25 Morrison % (Auto) 9 Eos % (Auto) 2 Baso % (Auto) 1 Neut # (Auto) 6.9 Lymph # (Auto) 3.0 Morrison # (Auto) 1.1 H Eos # (Auto) 0.3 Baso # (Auto) 0.1 Immature Gran # (Auto) 0.78 H Absolute Nucleated RBC 0.00 Immature Gran % 7 H Nucleated RBC % 0 Sodium 144 Potassium 4.0 Chloride 103 Carbon Dioxide 29.7 Anion Gap 11 BUN 7 L Creatinine 0.4 L Estim Creat Clear Calc 108.7 eGFR > 60 BUN/Creatinine Ratio 18 Glucose 92 Calculated Osmolality 284 Calcium 10.4 Corrected Calcium 11.0 H Phosphorus 3.1 Magnesium 1.6 Total Bilirubin 1.2 D AST 23 ALT 11 Alkaline Phosphatase 316 H D Total Protein 5.4 L Albumin 3.2 L Globulin 2.2 L Albumin/Globulin Ratio 1.5 Quality Measures Quality Measures VTE prophylaxis Advance care planning discussed with:: patient Assessment & Plan Assessment Current Active Medications: Generic Name Dose Route Start Last Admin Trade Name Freq PRN Reason Stop Dose Admin Acetaminophen 650 mg 10/15/24 14:17 Acetaminophen 325 Mg Tablet PO 11/14/24 14:16 Q6H PRN Fever >101.5 or pain 1-3 Amlodipine Besylate 5 mg 10/26/24 09:00 10/26/24 08:40 Amlodipine Besylate 5 Mg Tablet PO 11/25/24 08:59 5 mg QDAY CLAUDE Administration Atorvastatin Calcium 40 mg 10/17/24 21:00 10/25/24 20:12 Atorvastatin Calcium 20 Mg Tablet PO 11/16/24 20:59 40 mg HS CLAUDE Administration Docusate Sodium 250 mg 10/23/24 21:00 10/26/24 08:40 Docusate Sod 250 Mg Capsule PO 11/22/24 20:59 250 mg BID CLAUDE Administration Protocol Duloxetine HCl 30 mg 10/16/24 09:00 10/26/24 08:39 Duloxetine Hcl 30 Mg Capsule PO 11/15/24 08:59 30 mg QDAY CLAUDE Administration Gabapentin 100 mg 10/15/24 14:45 10/26/24 05:22 Gabapentin 100 Mg Capsule PO 11/14/24 14:44 100 mg Q8HR CLAUDE Administration Heparin Sodium (Porcine) 5,000 unit 10/15/24 14:30 10/26/24 08:39 Heparin Sod Inj 5000 Unit/Ml Vial SC 10/29/24 14:29 5,000 unit Q12HR CLAUDE Administration Hydromorphone HCl 4 mg 10/19/24 11:32 10/26/24 04:22 Hydromorphone Hcl 2 Mg Tablet PO 10/31/24 15:32 4 mg Q6HR PRN Administration BREAKTHROUGH PAIN (SEVERE) Sodium Chloride 1,000 mls @ 50 mls/hr 10/21/24 06:31 10/26/24 04:30 Ns IV 11/20/24 06:30 50 mls/hr .Q20H CLAUDE Administration Lidocaine 1 patch 10/15/24 15:32 10/22/24 08:07 Lidocaine 5% 1 Patch TOP 11/14/24 15:31 1 patch UD PRN Administration Topical Pain Protocol Ondansetron HCl 8 mg 10/22/24 16:38 Ondansetron Odt 4 Mg Tabrap PO 11/21/24 16:37 Q6HR PRN NAUSEA OR VOMITING Polyethylene Glycol 17 gm 10/21/24 10:45 10/26/24 08:39 Polyethylene Glycol 17 Gm Packet PO 11/20/24 10:44 17 gm QDAY CLAUDE Administration Sodium Chloride 10 ml 10/16/24 01:33 10/24/24 13:22 Sodium Chloride Rt 10% 15 Ml Nebu INH 11/15/24 01:32 10 ml PRN PRN Administration SOLN Zinc Oxide 0 gm 10/24/24 12:52 Cod Bisi Oil/Znox Cream 40% 60 Gm Tube TOP 11/23/24 12:51 QDAY PRN PERIANAL RASH Plan Mrs. 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 Patient was admitted for tuberculosis rule out. #Chronic De Oliveira catheter #Stones in bladder #Nonobstructive uropathy Patient has a history of urinary retention that requires a chronic De Oliveira catheter. The patient sees Dr. Inman for urology. Attempted voiding trial, but patient unable to void without De Oliveira cathether, without clear obstruction. Possible neurogenic bladder. - Bladder ultrasound showed hyperechoic mass to posterior margin of the bladder, [id number] - Discussed case with the patient's urologist, Dr. Inman, who did cystoscopy and replaced the De Oliveira catheter on Sunday (10/22), no mass identified on cystoscopy, did find multiple stones in bladder - Urine cytology ordered, resulted as few inflammatory cells, rare epithelial cells, and abundant, obscuring foreign material contaminant - De Oliveira catheter reinsterted 10/25 given urinary retention without clear obstruction #Adenocarcinoma of the rectum, poorly differentiated, with mucinous/signet rings, with #Metastasis to bone with osseus lesions, thoracic lumbar vertebrae, abdominal lymphadenopathy #Chronic back pain #s/p laparoscopic assisted diverting colostomy, 10/23 Patient noted to have a history of colon cancer. The patient had a colonoscopy on 09/06/2024, which showed a mass in the rectum. When this mass was biopsied, the report showed adenocarcinoma of the rectum that is poorly differentiated with signet rings. MRI of the thoracic and lumbar spine on 09/04/2024 show metastases to the spine. This is likely the result of the patient's chronic back pain, to which she takes pain medication at home for. The patient follows Dr. Torres at [facility] for management of her malignancy. - Resumed patient's home pain medication regimen of hydromorphone 2 mg IVP every 6 hours as needed and lidocaine patch - Morphine 15 mg syrup twice daily - Promethazine 12.5 mg twice daily as needed for nausea from pain medication - Patient to follow up with outpatient oncology for further management - Oncology consulted, appreciate recommendations - NM bone scan ordered 10/21, pending - General surgery consulted, appreciate recommendations - Laparoscopic assisted diverting colostomy performed on 10/23 - Dysphagia 3 diet, changed to full liquid diet per patient's preference #Miliary nodular pattern likely 2/ #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 This pattern was not found on chest imaging by radiology on 09/06. Given that the patient has almost no symptoms except for some weight loss, which is explained due to decreased oral intake, and the patient endorsing a consistently O2 saturation around 90% at the care facility, suspicion for tuberculosis is low at this time, however cannot be ruled out without further investigation. Given the patient's colon cancer that was noted to already have spread to multiple vertebra, it is very possible that this patient's Willams nodular pattern is secondary to metastasis of her colon cancer. Until TB can be definitively ruled out, it is unlikely for her assisted care facility accept return. Discussed case with [facility] patient account representative on 10/24, who has granted release of patient's isolation status as one of her AFB samples was negative, QuantiFERON is negative, and patient has very low suspicion for tuberculosis given likely spread of rectal adenocarcinoma to lungs. - Administered tuberculin PPD test 10/15, negative at 00 mm - QuantiFERON gold TB test ordered, resulted as negative - Sputum myobacterial cultures x3, pending, 1st AFB negative for AFB but rest of AFBs rejected, so re-ordered AFBs x3 and NAAT - CT chest ordered, shows mild mediastinal lymphadenopathy, miliary nodular pattern throughout the lungs, mild heart failure, primary hepatocellular disease, cholelithiasis - Pulmonology consulted, appreciate recommendations - Oncology consulted, appreciate recommendations - Discussed case with [facility] patient account representative on 10/24, who has granted release of patient's isolation status as one of her AFB samples was negative, QuantiFERON is negative, and patient has very low suspicion for tuberculosis given likely spread of rectal adenocarcinoma to lungs. #Urinary tract infection, E. coli, uncomplicated, resolved Patient was seen at [facility] ED on 10/10 for abdominal pain. At the time, urinalysis was performed, which was positive for UTI. The patient was sent home on Keflex as his UTI was uncomplicated. Urine culture resulted as E. coli that is sensitive to Keflex. - Completed patient's home Keflex 500 mg twice daily (10/11-10/25) #Hypercalcemia Admission Ca 11 with Ca ~9 in 08/2024. Continues to be elevated at 11.6 - s/p 1L NS 10/17 - Maintenance NS 50cc/hr - Will monitor calcium levels. - Denosumab 60 mg one time dose given 10/25 #Constipation #Hemorrhoids Patient has been noted to have a history of constipation and hemorrhoids. The patient is on an extensive list of medications and supplements for management of the patients constipation as listed in the admitting HPI. Given recent diarrhea on 10/18 in the evening, bowel regimen was changed to as needed instead of scheduled. - Started patient on bowel regimen of Senokot 2 tablets daily as needed and Miralax 17 gm daily #Neuropathy Patient has a reported history of neuropathy. Patient takes gabapentin and duloxetine for neuropathy at home. - Resumed patients home gabapentin 100 mg every 8 hours and duloxetine 30 mg daily #Hyperlipidemia Patient had lipid panel collected 10/16. Triglyceride 261, cholesterol 301, LDL 198, and HDL 51. - Atorvastatin 40 mg nightly #Primary hypertension Patient noted to have elevated BP during hospitalization. Patient does not have a history of hypertension. Possibly related chronic pain from malignancy mets to spine. - Amlodipine 5 mg daily DVT Prophylaxis: Heparin GI Prophylaxis: N/A Bowel: Senokot, Miralax Diet: Full liquid De Oliveira: N/A Lines: Peripheral IV Antibiotics: N/A Code Status: FULL Patient plan of care was discussed with the attending physician Dr. Shaw and senior resident Dr. Teran (PGY-2) Rambo Bennett, PGY1 Attending Provider Attestation/Addendum Face to face evaluation was performed by me. I have personally seen and examined the patient. I discussed the assessment and plan with the entire medicine team. I reviewed available medical records, imaging studies, laboratory results. I agree with the above subjective data, objective findings, assessment and plan except as corrected by me or noted below Rectal adenocarcinoma Chronic De Oliveira catheter Bladder stones Hyperlipidemia Neuropathy Urinary tract infection, likely gram-negative bacilli associated with De Oliveira catheter usage present on admission Vitals seem to be stable, pain control as ordered continue neuropathy medications including duloxetine gabapentin. Continue antibiotics continue De Oliveira catheter More than > 30 minutes spent on the encounter
[2024-10-26] MEDS: ONDANSETRON ODT 4 MG TABRAP 8 MG PO (09:44)
[2024-10-26] MEDS: HYDROmorphone INJ 2 MG/ML VIAL IVP (13:10)
--- NOTE | 2024-10-26 16:18 | PC.SS ---
Rounding: Medically stable for DC, needs auth fro [facility]. Updated clinicals sent yesterday per Una she will submit tomorrow
[2024-10-26] MEDS: MORPHINE SULF LIQD 10 MG/5 ML UDC 15 MG PO (20:37)
[2024-10-26] MEDS: ATORVASTATIN CALCIUM 20 MG TABLET 40 MG PO (20:38)
[2024-10-27] VITALS (8 sets, daily range): BP systolic 109–164; BP diastolic 54–79; PULSE 78–88; RESP 16–92; TEMP 36.1–36.7; O2SAT 94–98; BMI 12.0
[2024-10-27] MEDS: GABAPENTIN 100 MG CAPSULE PO ×2 (05:03→13:32)
[2024-10-27 05:32] LABS: Basophils # (Auto) 0.1 Thou/mm3 (0.0-0.2); Basophils % (Auto) 1 % (0-2.5); Eosinophils # (Auto) 0.3 Thou/mm3 (0.0-0.5); Eosinophils % (Auto) 3 % (0-10); Hematocrit 31.2 % (36.0-46.0); Hemoglobin 10.1 g/dL (12.0-16.0); Immature Granulocytes Auto 0.62 Thou/mm3 (0.00-0.00); Lymphocytes # (Auto) 2.8 Thou/mm3 (1.0-4.8); Lymphocytes % (Auto) 26 % (10-50); Mean Corpuscular HGB Conc 32.4 g/dl (31.0-37.0); Mean Corpuscular Hemoglobin 27.7 pg (25.0-35.0); Mean Corpuscular Volume 86 fL (80-100); Monocytes # (Auto) 1.0 Thou/mm3 (0.0-0.8); Monocytes % (Auto) 9 % (0-12); Neutrophils # (Auto) 6.2 Thou/mm3 (1.8-7.7); Neutrophils % (Auto) 57 % (37-80); Nucleated Red Blood Cell # 0.02 Thou/mm3 (0.00-0.00); Nucleated Red Blood Cell % 0 /100 WBC (0); Platelet Count 214 Thou/mm3 (140-440); RDW Standard Deviation 49.3 fL (36.4-46.3); Red Blood Count 3.64 Miln/mm3 (4.00-5.20); White Blood Count 11.0 Thou/mm3 (3.6-11.0)
[2024-10-27 06:09] LABS: Alanine Aminotransferase < 7 U/L (10-49); Albumin, Serum 2.9 gm/dL (3.4-4.8); Albumin/Globulin Ratio 1.7 (1.2-2.2); Alkaline Phosphatase 314 U/L (46-116); Anion Gap 10 (7-16); Aspartate Amino Transferase 21 U/L (0-34); BUN/Creatinine Ratio 15 Ratio (12-20); Bilirubin,Total 0.8 mg/dL (0.3-1.2); Blood Urea Nitrogen 6 mg/dL (9-23); Calcium 9.3 mg/dL (8.3-10.6); Calcium (Corrected) 10.2 mg/dL (8.5-10.1); Carbon Dioxide 27.3 mMol/L (20.0-31.0); Chloride 104 mMol/L (98-107); Creatinine (Component) 0.4 mg/dL (0.6-1.3); Estimated Creatinine Clearance 108.7 mL/min (>60); Globulin 1.7 gm/dL (2.3-3.5); Glucose 87 mg/dL (74-106); Magnesium 1.5 mg/dL (1.6-2.6); Osmolality,Calculated 277 (275-295); Phosphorous 3.1 mg/dL (2.4-5.1); Potassium 3.6 mMol/L (3.4-5.1); Sodium 141 mMol/L (136-145); Total Protein 4.6 gm/dL (5.7-8.2); eGFR > 60 See Note
--- NOTE | 2024-10-27 08:07 | PD.SURPROG ---
Documentation for date of: 10/27/24 Subjective Subjective Narrative: Patient is seen and examined. She is resting comfortably. She is tolerating diet without nausea or vomiting and colostomy is functioning Exam Vital Signs Temp Pulse Resp BP Pulse Ox O2 Del Method O2 Flow Rate 97.6 F 84 18 164/61 H 97 Nasal Cannula 3 10/27/24 08:00 10/27/24 08:00 10/27/24 08:00 10/27/24 08:00 10/27/24 08:00 10/27/24 08:00 10/27/24 08:00 Constitutional Constitutional: no acute distress Routine Abdominal Exam Comments: Abdomen is soft and nondistended. Incisions are clean, dry and intact. Colostomy is present and functioning Assessment & Plan Assessment Additional comments: Postop day #4 status post laparoscopic diverting colostomy Plan Patient can be discharged from surgical standpoint PROCEDURES: Procedures Laparoscopic diverting end sigmoid colostomy
[2024-10-27] MEDS: POLYETHYLENE GLYCOL 17 GM PACKET PO (08:18)
[2024-10-27] MEDS: HEPARIN SOD INJ 5000 UNIT/ML VIAL SC (08:18)
[2024-10-27] MEDS: DULoxetine HCL 30 MG CAPSULE PO (08:18)
[2024-10-27] MEDS: Magnesium Sulfate 4 GM Ivpb 4 GM/50 ML BAG IV (08:18)
[2024-10-27] MEDS: MORPHINE SULF LIQD 10 MG/5 ML UDC 15 MG PO (08:19)
[2024-10-27] MEDS: DOCUSATE SOD 250 MG CAPSULE PO (08:19)
--- NOTE | 2024-10-27 09:20 | PC.NURSE ---
[facility] AT BEDSIDE. HE ADMINISTER MEDICATION PREPARING PATIENT FOR BONE SCAN THIS AFTERNOON. PT IS ALERT AND ORIENTED X3 TOLERATED WELL.
--- NOTE | 2024-10-27 09:27 | PC.SS ---
Update: WRAPPER SHEETER confirmed with infectious disease staff that patient is pending 2 more sputum culture results. 1 has been collected/charted.
--- NOTE | 2024-10-27 09:29 | PC.SS ---
Patient's Quantiferon test negative. Will submit test results and sputum results (3) when completed to SNF in order to initiate authorization for placement.
--- NOTE | 2024-10-27 12:23 | PC.SS ---
SS sent updated sputum results to Una at [facility] using [facility]. SS spoke to Una [facility] who explained insurance authorization is still pending.
--- NOTE | 2024-10-27 13:38 | PC.NURSE ---
PATIENT TRANSFER TO NUCLEAR MEDICINE VIA [facility]. PT ALERT AND ORIENTED X3. ABLE TO COMMUNICATE HER NEEDS.
--- NOTE | 2024-10-27 13:54 | PD.RESPRO ---
Documentation for date of: 10/27/24 Exam Vital Signs Temp Pulse Resp BP Pulse Ox O2 Del Method O2 Flow Rate 97.0 F 78 18 120/55 L 97 Nasal Cannula 3 10/27/24 12:00 10/27/24 12:00 10/27/24 12:00 10/27/24 12:00 10/27/24 12:00 10/27/24 12:00 10/27/24 12:00 Objective Labs 10/27/24 05:15 10/27/24 05:15 Labs: Laboratory Results - last 24 hr 10/27/24 05:15 WBC 11.0 RBC 3.64 L Hgb 10.1 L Hct 31.2 L MCV 86 MCH 27.7 MCHC 32.4 RDW Std Deviation 49.3 H Plt Count 214 D Neut % (Auto) 57 Lymph % (Auto) 26 [place] % (Auto) 9 Eos % (Auto) 3 Baso % (Auto) 1 Neut # (Auto) 6.2 Lymph # (Auto) 2.8 [place] # (Auto) 1.0 H Eos # (Auto) 0.3 Baso # (Auto) 0.1 Immature Gran # (Auto) 0.62 H Absolute Nucleated RBC 0.02 H Immature Gran % 6 H Nucleated RBC % 0 Sodium 141 Potassium 3.6 Chloride 104 Carbon Dioxide 27.3 Anion Gap 10 BUN 6 L Creatinine 0.4 L Estim Creat Clear Calc 108.7 eGFR > 60 BUN/Creatinine Ratio 15 Glucose 87 Calculated Osmolality 277 Calcium 9.3 Corrected Calcium 10.2 H Phosphorus 3.1 Magnesium 1.5 L Total Bilirubin 0.8 AST 21 ALT < 7 L Alkaline Phosphatase 314 H Total Protein 4.6 L Albumin 2.9 L Globulin 1.7 L Albumin/Globulin Ratio 1.7 Quality Measures Quality Measures VTE prophylaxis Assessment & Plan Assessment Current Active Medications: Generic Name Dose Route Start Last Admin Trade Name Freq PRN Reason Stop Dose Admin Acetaminophen 650 mg 10/15/24 14:17 Acetaminophen 325 Mg Tablet PO 11/14/24 14:16 Q6H PRN Fever >101.5 or pain 1-3 Amlodipine Besylate 5 mg 10/26/24 09:00 10/27/24 08:18 Amlodipine Besylate 5 Mg Tablet PO 11/25/24 08:59 5 mg QDAY CLAUDE Administration Atorvastatin Calcium 40 mg 10/17/24 21:00 10/26/24 20:38 Atorvastatin Calcium 20 Mg Tablet PO 11/16/24 20:59 40 mg HS CLAUDE Administration Docusate Sodium 250 mg 10/23/24 21:00 10/27/24 08:19 Docusate Sod 250 Mg Capsule PO 11/22/24 20:59 250 mg BID CLAUDE Administration Protocol Duloxetine HCl 30 mg 10/16/24 09:00 10/27/24 08:18 Duloxetine Hcl 30 Mg Capsule PO 11/15/24 08:59 30 mg QDAY CLAUDE Administration Gabapentin 100 mg 10/15/24 14:45 10/27/24 13:32 Gabapentin 100 Mg Capsule PO 11/14/24 14:44 100 mg Q8HR CLAUDE Administration Heparin Sodium (Porcine) 5,000 unit 10/15/24 14:30 10/27/24 08:18 Heparin Sod Inj 5000 Unit/Ml Vial SC 10/29/24 14:29 5,000 unit Q12HR CLAUDE Administration Hydromorphone HCl 2 mg 10/26/24 11:50 10/26/24 13:10 Hydromorphone Inj 2 Mg/Ml Vial IVP 10/31/24 11:49 2 mg Q6H PRN Administration BREAKTHROUGH PAIN Promethazine HCl 12.5 mg/ 50.5 mls @ 2.5 mls/min 10/26/24 11:48 Sodium Chloride IV Q4HR PRN NAUSEA Protocol Lidocaine 1 patch 10/15/24 15:32 10/22/24 08:07 Lidocaine 5% 1 Patch TOP 11/14/24 15:31 1 patch UD PRN Administration Topical Pain Protocol Morphine Sulfate 15 mg 10/26/24 21:00 10/27/24 08:19 Morphine Sulf Liqd 10 Mg/5 Ml Udc PO 10/31/24 20:59 15 mg BID CLAUDE Administration Polyethylene Glycol 17 gm 10/21/24 10:45 10/27/24 08:18 Polyethylene Glycol 17 Gm Packet PO 11/20/24 10:44 17 gm QDAY CLAUDE Administration Sodium Chloride 10 ml 10/16/24 01:33 10/24/24 13:22 Sodium Chloride Rt 10% 15 Ml Nebu INH 11/15/24 01:32 10 ml PRN PRN Administration SOLN Zinc Oxide 0 gm 10/24/24 12:52 Cod Bisi Oil/Znox Cream 40% 60 Gm Tube TOP 11/23/24 12:51 QDAY PRN PERIANAL RASH Attending Provider Attestation/Addendum Face to face evaluation was performed by me. I have personally seen and examined the patient. I discussed the assessment and plan with the entire medicine team. I reviewed available medical records, imaging studies, laboratory results. I agree with the above subjective data, objective findings, assessment and plan except as corrected by me or noted below Rectal adenocarcinoma Chronic De Oliveira catheter Bladder stones Hyperlipidemia Neuropathy Urinary tract infection, likely gram-negative bacilli associated with De Oliveira catheter usage present on admission -Monitor closely continue De Oliveira catheter pain control as ordered had some nausea observe for today disposition?likely tomorrow More than > 30 minutes spent on the encounter
--- NOTE | 2024-10-27 16:02 | ESDS_ITS ---
Planned Discharge Date 10/27/24 DS: Providers Provider Date of admission: 10/15/24 13:44 Primary care physician: Rakesh Francisco MD Admitting Provider: Francine Anderson MD Attending Provider on Admission: Sohan Shaw MD Consults: 10/15/24 15:37 Referral Infection Control Routine Comment: Reason for Infection Control Referral: Sputum For AFB Ordered 10/16/24 11:09 Consult to Pulmonology Stat Comment: TB workup Consulting Provider: Singh Neri I 10/17/24 14:00 Consult to Urology Routine Comment: urinary retention Consulting Provider: Mervin Inman 10/18/24 16:14 PT [Referral Physical Therapy] Routine Comment: Physician Instructions: 10/20/24 10:26 Consult to Oncology Routine Comment: Consulting Provider: Max Torres 10/21/24 11:21 Consult to General Surgery Routine Comment: Dr. 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 The patient was admitted for management of tuberculosis. During a recent ED visit on 10/10, the patient received a CT abdomen/pelvis suspicious for TB versus metastatic disease to the lungs. At the time, the patient was instructed to follow-up with her PCP for additional TB workup, however on 10/15, the patient's nursing facility sent the patient to [facility] for the TB workup as they are unable to properly isolate for TB workup. In the ED, the patient's vitals were significant for O2 saturation of 90%, however the patient noted that she has been saturating in the low 90s for quite some time now. Initial labs were significant for calcium of 11.3 and ALP of 309. Initial chest x-ray showed diffuse miliary nodular pattern throughout all lung simon. PPD skin test was administered on 10/15, QuantiFERON gold test was ordered, acid-fast bacilli sputum samples were ordered, and pulmonology was consulted. PPD skin test resulted as negative, QuantiFERON gold test also resulted as negative, and pulmonology consultation noted that the patient has no significant risk factors for tuberculosis and her imaging is most consistent with underlying malignancy that has spread hematogenously to the lungs. Pulmonology has no concerns about tuberculosis as noted on 10/18. However, [facility] department and the patient's nursing facility noted that the patient requires 2 out of 3 negative AFBs to be cleared from isolation. The first AFB resulted as negative on 10/21, however the second AFB was not resulted. It was not until 10/23 and the case was discussed with infection control at [facility], who notified the medicine team that the 2nd and 3rd AFB sputum samples were rejected. On 10/24, the case was discussed with the hotel services sales representative to [facility], who granted release of the patient's isolation status as one of her AFB samples were negative, QuantiFERON gold was negative, and the patient had very low suspicion for tuberculosis. During the patient's hospitalization, oncology was consulted as the patient follows Dr. Torres, radiation oncology, for outpatient management of her adenocarcinoma of the rectum. Oncology wanted general surgery on board, so general surgery was consulted. On 10/23, the patient had a laparoscopic diverting end sigmoid colostomy for management of her metastatic rectal cancer with impending bowel obstruction. Urology was also consulted as the patient was noted to have a bladder mass in the posterior margin of the bladder and as a chronic De Oliveira catheter that she follows Dr. Inman, urology, outpatient for management. On 10/22, the patient underwent cystoscopy, which found multiple stones and the bladder, and the patient's several week hold De Oliveira catheter was replaced. The medicine team with then discussed with urology about potentially discontinuing the De Oliveira catheter. De Oliveira catheter was discontinued on 10/24, however, the patient was noted to be retaining urine on 10/25, so De Oliveira catheter was reinserted for the patient. The patient would then wait until 10/27 for care home facility authorization. It was explained to a care home facility that the patient is cleared for TB by the [facility] department. On 10/27, the patient had stable vitals and stable labs, however the patient does continue to have hypercalcemia, likely secondary to metastatic spread of adenocarcinoma to her spine. The patient is medically cleared to discharge back to SNF. Discharge Recommendations: - Follow up with PCP within 1 week of discharge - Continue rest of medications as previously prescribed - Return to the ED or call EMS if symptoms return and/or worsen - Recommended to take amlodipine 5 mg once daily and atorvastatin 40mg every night - Recommend to take morphine 15 mg twice daily as needed for pain - Recommended to continue rest of the home medication - Recommended to stop cephalexin and senna-docusate - Recommend to follow-up with oncologist, Dr. Graves and radiation oncologist, Dr. Torres for further management of treatment of rectal cancer - Recommended to follow-up with Dr. 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 coli, uncomplicated, resolved #Hypercalcemia #Constipation #Hemorrhoids #Neuropathy #Hyperlipidemia #Primary hypertension Patient plan of care was discussed with the attending physician Dr. Colin Bennett, PGY-1 Status at Discharge Overall status at discharge: patient is back to baseline Time Spent with Patient Time attestation: Total time spent providing and/or coordinating discharge services: Time spent: Greater than 30 minutes Exam Vital Signs Temp Pulse Resp BP Pulse Ox O2 Del Method O2 Flow Rate 97.9 F 81 18 122/79 98 Nasal Cannula 4 10/27/24 15:52 10/27/24 15:52 10/27/24 15:52 10/27/24 15:52 10/27/24 15:52 10/27/24 15:52 10/27/24 15:52 Narrative Exam Physical Exam: General: Alert, no acute distress. Skin: Warm, dry, intact. Head: Normocephalic, atraumatic. Eye: Normal conjunctiva, PERRL. Throat: Oral mucosa moist. No obvious lesions in oropharynx. Cardiovascular: Regular rate and rhythm, no murmur, +S1/S2. Respiratory: Lungs are clear to auscultation, respirations unlabored, no crackles, no wheezing. Gastrointestinal: Soft, nontender, non-distended. No guarding or rebound tenderness. Extremities: No edema, no cyanosis, no clubbing. 2+ radial pulse bilaterally, 2+ pedal pulse bilaterally. Neuro: No focal deficits observed. Conversant, moving all extremities. No overt cerebellar signs/incoordination. Psychiatric: Cooperative, appropriate affect. Discharge Plan Plan Patient Disposition: Xfer Skilled Nsg Fac (SNF) Patient condition on transfer: Stable Care Plan Goals: - Follow-up with PCP within 1 week of discharge. If you do not have appointment, please follow-up with the [facility] with Dr. Teran. Call [phone] to make an appointment. - Recommended to take amlodipine 5 mg once daily and atorvastatin 40mg every night - Recommend to take morphine 15 mg twice daily as needed for pain - Recommended to continue rest of the home medication - Recommended to stop cephalexin and senna-docusate - Recommend to follow-up with oncologist, Dr. Graves and radiation oncologist, Dr. Torres for further management of treatment of rectal cancer - Recommended to follow-up with Dr. Inman in view of suspected neurogenic bladder and recommended to change urinary catheter every 4 weeks - Return to ED if symptoms persist or return Prescriptions/Referrals Prescriptions/Med Rec: New amlodipine 5 mg Tablet 5 mg PO QDAY Qty: 30 0RF morphine 15 mg tablet 15 mg PO BID MDD 30 PRN (Reason: pain) Qty: 30 0RF atorvastatin 20 mg Tablet 40 mg PO HS Qty: 30 0RF Continued duloxetine 30 mg capsule, delayed rel sprinkle 30 mg PO QDAY lidocaine [Aspercreme (lidocaine)] 4 % adhesive patch,medicated 1 patch topical QDAY PRN (Reason: pain) polyethylene glycol 3350 17 gram/dose powder 17 g PO DAILY Patient Comments: DISSOLVE 1 CAPFUL IN 8 OUNCES OF WATER ONCE DAILY NEEDED FOR IF NO BOWEL MOVEMENT FOR 2 CONSECUTIVE DAYS gabapentin 100 mg capsule 100 mg PO Q8H hydromorphone [Dilaudid] 4 mg tablet 4 mg PO Q6H PRN (Reason: pain) Zofran 8 mg 8 mg PO .Q6 PRN (Reason: nausea and vomiting) Discontinued cephalexin 500 mg capsule 500 mg PO BID 14 Days Qty: 28 0RF senna-docusate sodium Capsule 8.6 - 50 cap PO BID Referrals: Rakesh Francisco MD [Primary Care Provider, Family Practice] Patient/Caregiver Discharge Instructions Education Materials: Cancer Intensity Mod Radiation, Cancer: Preventing Infections, Radiation Therapy Treatment, Cancer Overview Print Language: Mauritanian Stand Alone Forms: Leonor Award Info., Patient Portal Info Letter Discharge Order Discharge Orders: Discharge (Routine); Ordered 10/27/24 Ordered By: Leonel Teran Quality Discharge Quality Measures VTE prophylaxis Attestestation Attestation Face to face evaluation was performed by me. I have personally seen and examined the patient. I discussed the assessment and plan with the entire medicine team. I reviewed available medical records, imaging studies, laboratory results. 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
--- NOTE | 2024-10-27 16:09 | PC.SS ---
SS has spoken to Una at [facility] who states they have patient's information and have obtained insurance authorization and can accept pt today. SS has setup gurney transportation with at [facility] for 6pm with Oxygen.? Ref# [id number]..? SS has requested [facility].? Per [facility] sales representative printing paper Jerry, [facility] is not a guaranteed transport company.? Estimated time is 3-4 hours.? SS has sent patient?s facesheet and ambulance form to [facility] using [facility].? SS has spoken to Parul at [facility] who has placed pt on will call list until she has been contacted by [facility]. provided Parul with phone# to nurses station. Cony, friend is aware. Bedside nurse, Penelope is aware. Una from [facility] is aware.
--- NOTE | 2024-10-27 17:41 | PC.NURSE ---
REPORT GIVEN TO JOSHUA MCCONNELL AT [facility].
[2024-10-27] MEDS: HYDROmorphone INJ 2 MG/ML VIAL IVP (17:45)
== END 2024-10-27 18:45 | disposition skilled nursing facility (03) | DRG 330 ==
LOC: SERX 14:18 → S3SX 19:07 → SERHOLD 10-16 05:32 → S3SX 10-16 13:20 → S3NX 10-17 04:29
PROVIDERS: Registered Nurse General Practice; Surgery; Urology; Admitting Provider Student in an Organized Health Care Education/Training Program; Emergency Provider Emergency Medicine; PCP Family Medicine; Visit Provider Internal Medicine
PROC: 0T7B8ZZ Dilation of Bladder, Via Natural or Artificial Opening Endoscopic (ICD-10-PCS; principal; 2024-10-22 13:45)
PROC: (CPT 49320; principal; 2024-10-23 09:00)
DX: C18.0 Malignant neoplasm of cecum (principal); C20 Malignant neoplasm of rectum; C79.51 Secondary malignant neoplasm of bone; C34.90 Malignant neoplasm of unspecified part of unspecified bronchus or lung; T83.84XA Pain due to genitourinary prosthetic devices, implants and grafts, initial encounter; R09.02 Hypoxemia; M19.90 Unspecified osteoarthritis, unspecified site; Z85.038 Personal history of other malignant neoplasm of large intestine; G62.9 Polyneuropathy, unspecified; K59.00 Constipation, unspecified; Z87.891 Personal history of nicotine dependence; G89.29 Other chronic pain; E83.52 Hypercalcemia; R59.0 Localized enlarged lymph nodes; E78.5 Hyperlipidemia, unspecified; I10 Essential (primary) hypertension; K64.9 Unspecified hemorrhoids; B96.20 Unspecified Escherichia coli [E. coli] as the cause of diseases classified elsewhere; N21.0 Calculus in bladder; N30.90 Cystitis, unspecified without hematuria; Y84.6 Urinary catheterization as the cause of abnormal reaction of the patient, or of later complication, without mention of misadventure at the time of the procedure; Z63.4 Disappearance and death of family member; Z78.9 Other specified health status; Z79.899 Other long term (current) drug therapy; Z85.048 Personal history of other malignant neoplasm of rectum, rectosigmoid junction, and anus; Z90.710 Acquired absence of both cervix and uterus
CPT/HCPCS: 36415; 71045; 71260; 76857; 78306; 80053; 80061; 80069; 83036; 83735; 84100; 84443; 85025; 85610; 85730; 86331; 86480; 86580; 86635; 87015; 87081; 87116; 87206; 89220; 93005; 93970; 94640; 96374; 97162; 99285; A4217; A4314; A4649; A9503; J0131; J0694; J0897; J1100; J1171; J1644; J1815; J2250; J2405; J2704; J3010; J3475; J3490; J7030; Q0162; Q9967; A9270